=== PATIENT | female | born 1930 | race Caucasian/White ===

== ENCOUNTER 2017-04-17 08:59 | Emergency (ER) | payer BC ==
--- NOTE | 2017-04-17 10:22 | PDOC ---
History of Present Illness <Brandie Edmonds - Last Filed: 04/17/17 12:44> - General History Source: Patient Exam Limitations: No Limitations - History of Present Illness Initial Comments: 04/17/17 10:22 86y F hx of cad s/p bypass afib, presents for evaluation of facial droop. The patient states that 1 week ago, she had some ringing in her ears as well as ear burning, a few days ago, she had some swelling in her R ear as well as some bbubles that he son noticed today. she also noticed a facial droop of theR face. 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 pt does note some pain in the R side of her head. pt denies any rash any where else no fever/chills. no cp, sob, cough <Jordan Mercado - Last Filed: 04/17/17 13:02> - General Chief Complaint: Facial Droop Stated Complaint: FACE DROOP Time Seen by Provider: 04/17/17 09:15 Past History <Brandie Edmonds - Last Filed: 04/17/17 12:44> - Past Medical History Anemia: No Asthma: No Cancer: No Cardiac Disorders: Yes ([place]) CVA: No COPD: No CHF: No Dementia: No Diabetes: No GI Disorders: No Disorders: No HTN: No Hypercholesterolemia: No Liver Disease: No Seizures: No Thyroid Disease: No - Surgical History Abdominal Surgery: No Appendectomy: No Cardiac Surgery: Yes (BYPASS) Cholecystectomy: No Lung Surgery: No Neurologic Surgery: No Orthopedic Surgery: No - Suicide/Smoking/Psychosocial Hx Smoking History: Never smoked Have you smoked in the past 12 months: No <Jordan Mercado - Last Filed: 04/17/17 13:02> - Past Medical History Allergies/Adverse Reactions: Allergies Allergy/AdvReac Type Severity Reaction Status Date / Time No Known Allergies Allergy Verified 04/17/17 09:14 Home Medications: Ambulatory Orders Furosemide [Lasix -] 20 mg PO DAILY 09/11/14 Lisinopril [Prinivil -] 10 mg PO DAILY 09/11/14 Rosuvastatin Calcium [Crestor] 20 mg PO HS 09/11/14 Spironolactone [Aldactone] 25 mg PO DAILY 09/11/14 Warfarin Sodium [Coumadin] 4 mg PO DAILY 09/11/14 Cephalexin Monohydrate [Keflex -] 500 mg PO Q8H #24 capsule 04/17/17 Dextran 70/Hypromellose/Pf [Artificial Tears Drops] 1 each OP Q1H #1 droperette 04/17/17 Gabapentin [Neurontin] 100 mg PO TID #21 capsule 04/17/17 Prednisone [Deltasone -] 60 mg PO DAILY #12 tablet 04/17/17 Valacyclovir HCl [Valtrex -] 1,000 mg PO TID #29 tablet 04/17/17 Review of Systems - Review of Systems Able to Perform ROS?: Yes <Jordan Mercado - Last Filed: 04/17/17 13:02> ED Treatment Course - LABORATORY CBC & Chemistry Diagram: 04/17/17 11:20 04/17/17 11:20 - ADDITIONAL ORDERS Additional order review: 04/17/17 11:20 RBC 3.66 MCV 97.1 H MCHC 33.8 RDW 13.4 MPV 9.3 Neutrophils % 63.6 Lymphocytes % 21.6 Monocytes % 11.8 H Eosinophils % 1.9 Basophils % 1.1 - Medications Given in the ED: ED Medications Discontinued Medications Generic Name Dose Route Start Last Admin Trade Name Natalio PRN Reason Stop Dose Admin Ceftriaxone Sodium 1 gm/ 50 mls @ 100 mls/hr 04/17/17 10:32 04/17/17 11:11 Dextrose IVPB 04/17/17 11:01 100 mls/hr ONCE ONE Administration Prednisone 60 mg 04/17/17 10:32 04/17/17 11:11 Deltasone - PO 04/17/17 10:33 60 mg ONCE ONE Administration <Brandie Edmonds - Last Filed: 04/17/17 12:44> - LABORATORY CBC & Chemistry Diagram: 04/17/17 11:20 04/17/17 11:20 <Jordan Mercado - Last Filed: 04/17/17 13:02> Medical Decision Making - Medical Decision Making 04/17/17 10:50-- Dr. Kofi Fox paged via phone answering service. 04/17/17 11:44--Dr. Kofi Fox returned the page and the patient's case was discussed. 04/17/17 10:57-- Dr. Dietrich paged via office phone number. 04/17/17 12:45-- Dr. Lauren (Doctor consumer credit counselor for Dr. Dietrich) returned the page and the patient's case was discussed. <Brandie Edmonds - Last Filed: 04/17/17 12:44> - Medical Decision Making 04/17/17 11:55 suspect zoster oticus with bells palsy no zoster on tip of nose unable to appreciate any lesions on floursicen stain discussed with dr. danielle agrees with our management can see her before 2 or tomorrow as outpatient if she cannot follow up with her opthho A portion of this note was documented by scribe services under my direction. I have reviewed the details of the note, within reason, and agree with the documentation with the following case summary and management plan written by me 04/17/17 12:53 case dw eri lauren (covering for dr. Núñez - her optho) agrees with our pmanagement and will see the ptaient as outpatient 04/17/17 13:[address] galaviz requests we give her neurontin rather than a narcotic due to her age <Jordan Mercado - Last Filed: 04/17/17 13:02> *DC/Admit/Observation/Transfer - Attestations Scribe Attestion: 04/17/17 12:45 Documentation prepared by Brandie Edmonds, acting as manager medical device for Jordan Mercado MD <Brnadie Edmonds - Last Filed: 04/17/17 12:44> - Discharge Dispostion Admit: No <Jordan Mercado - Last Filed: 04/17/17 13:02> Diagnosis at time of Disposition: Herpes zoster otitis externa, Mercado's palsy Cellulitis Qualifiers: Site of cellulitis: other site Qualified Code(s): L03.818 - Cellulitis of other sites - Discharge Dispostion Disposition: HOME Condition at time of disposition: Improved - Prescriptions Prescriptions: Cephalexin Monohydrate [Keflex -] 500 mg PO Q8H #24 capsule Dextran 70/Hypromellose/Pf [Artificial Tears Drops] 1 each OP Q1H #1 droperette Gabapentin [Neurontin] 100 mg PO TID #21 capsule Prednisone [Deltasone -] 60 mg PO DAILY #12 tablet Valacyclovir HCl [Valtrex -] 1,000 mg PO TID #29 tablet - Referrals Referrals: Cristian Galaviz MD [Primary Care Provider] - Víctor Fox MD [Staff Physician] - - Patient Instructions Printed Discharge Instructions: DI for Mercado's Palsy, DI for Shingles Additional Instructions: Return to the emergency department immediately with ANY new, persistent or worsening symptoms. Please follow up with your eye doctor within 24 hrs, if you cannot reach your eye doctor, see Dr. Matthews. Make sure you are moisturizing your eyes with the artificial tears. When you sleep, tape your eye closed to prevent any corneal abrasisonis. Take the medications as prescribed Print Language: ANGOLAN - Post Discharge Activity
[2017-04-17] MEDS ORDERED: valACYclovir HCL 1000 MG TABLET PO ONE (10:32)
[2017-04-17] MEDS ORDERED: CEFTRIAXONE 1 GM in DEXTROSE 5%-WATER - 50 ML IVPB ONE (10:32)
[2017-04-17] MEDS ORDERED: predniSONE 20 MG TABLET (UD) PO ONE (10:32)
[2017-04-17] MEDS ORDERED: predniSONE 20 MG TABLET (UD) ONE (11:00)
[2017-04-17 11:33] LABS: BASOPHIL 1.1 % (0-2.0); EOSINOPHIL 1.9 % (0-4.5); MCH 32.8 pg (25.7-33.7); MCHC 33.8 g/dl (32.0-36.0); MEAN CELL VOLUME 97.1 fl (80-96); MEAN PLT VOLUME 9.3 fl (7.5-11.1); NEUTROPHILS 63.6 % (42.8-82.8); PLATELET COUNT 141 K/MM3 (134-434); RDW 13.4 % (11.6-15.6); WHITE BLOOD COUNT 3.8 K/mm3 (4.0-10.0)
[2017-04-17 12:02] LABS: INR 3.1 (0.82-1.09)
[2017-04-17 12:10] LABS: ALBUMIN 3.3 g/dl (3.4-5.0); ANION GAP 6 (8-16); BILIRUBIN,TOTAL 0.5 mg/dL (0.2-1.0); CALCIUM 8.1 mg/dL (8.5-10.1); CO2 27 mmol/L (21-32); CREATININE 1.1 mg/dL (0.55-1.02); GLUCOSE,RANDOM 117 mg/dL (74-106); SGOT/AST 22 U/L (15-37); SGPT/ALT 24 U/L (12-78)
[2017-04-17 12:12] LABS: ALK PHOS 58 U/L (45-117); TOT PROT 6.6 g/dl (6.4-8.2)
[2017-04-17] MEDS ORDERED: GABAPENTIN 100 MG CAPSULE (FP) PO ONE (12:52)
[2017-04-17 13:05] VITALS: BP 143/69; PULSE 88; TEMP 98; BMI 26.4
== END 2017-04-17 13:11 | disposition home or self-care (01) ==
LOC: JER 08:59
DX: B02.8 Zoster with other complications (principal); G51.0 Bell's palsy; H60.11 Cellulitis of right external ear; B02.21 Postherpetic geniculate ganglionitis; I25.2 Old myocardial infarction; Z95.1 Presence of aortocoronary bypass graft; I48.91 Unspecified atrial fibrillation; Z79.01 Long term (current) use of anticoagulants
CPT/HCPCS: 36415; 80053; 85025; 85610; 96365; 99285-25

== ENCOUNTER 2018-01-25 20:26 | Inpatient (IN) | payer BC ==
--- NOTE | 2018-01-25 20:49 | PDOC ---
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 The patient presents with B/l edema to the lower extremity and the R. upper arm. As per daughter, the patients been having swelling to the lower extremity for the past 1 week. The daughter reports an additional concern of redness to the R. hand with warmth and pain. The patient was recently seen at the ED on 01/09/2018, admitted to the hospital for B/l lower extremity weakness, difficulty with ambulation, YANICK, and CHF exacerbation. During the stay, the patient was seen by neurology, who recommended careful ambulation with walker didnt note any significant focal neuro deficits or alarming findings on CT or MRI. Arterial u/s was performed on both legs which showed diffuse atheromatous plaques in both legs. The patient was treated for UTI with Ceftriaxone IV. Secondary to tachycardia during the stay, patients Toprol XL was increased from 50 mg to 75 mg PO daily Patient was discharged on 01/17/2018 to [facility] for rehab. Allergies: NKA PCP: Dr. Serrato. - Physicial Exam PE: 01/25/18 21:44 GENERAL: Awake, alert, and fully oriented, in no acute distress HEAD: No signs of trauma EYES: PERRLA, EOMI, sclera anicteric, conjunctiva clear ENT: Auricles normal inspection, hearing grossly normal, nares patent. Moist mucosa NECK: Normal ROM, supple, no lymphadenopathy, JVD, or masses LUNGS: Breath sounds equal, clear to auscultation bilaterally. No wheezes, and no crackles HEART: Regular rate and rhythm, normal S1 and S2, no murmurs, rubs or gallops ABDOMEN: Soft, nontender, normoactive bowel sounds. No guarding, no rebound. No masses EXTREMITIES: (+) 2+ pitting edema to the legs, left larger than the right. Pedial pulse intact. (+) R. upper extremity cellulitis, warm, dorsal surface of the right arm shrieking up to the anterior surface of the forearm, hot to touch. No induration or fluctuations. No compartment syndrome. No erythema or tenderness. DP/PT pulses 2+. NEUROLOGICAL: Moves all extremities. normal gait SKIN: Warm, Dry, normal turgor, no rashes or lesions noted. - Medical Decision Making 01/25/18 20:58 [facility]: Date of service: Jan 23, 2018 Right upper extremity duplex venous doppler History: evaluate for DVT Right upper extremity venous ultrasound including doppler. No DVT is identified. Impression: No DVT is identified. Date of service: Jan 22, 2018 Right hand 3 views Three views of the right hand were submitted for interpretation. No prior study is available for comparison. Radiologic examination demonstrates no fracture/dislocation. 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 There is moderate osteoarthritis all interphalangeal joints, greater thumb and index and index finger. There is osteoporosis. Impression: No fracture/dislocation. 01/25/18 20:59 Documentation prepared by Mely Bragg, acting as medical claims specialist for Shivani Lugo DO. <Mely Bragg - Last Filed: 01/25/18 21:42> - Resident Resident Name: Erich Brito - ED Attending Attestation I have performed the following: I have examined & evaluated the patient, The case was reviewed & discussed with the resident, I agree w/resident's findings & plan, Exceptions are as noted - Medical Decision Making 01/25/18 20:49 I, Dr. Shivani Lugo DO, attest that this document has been prepared under my direction and personally reviewed by me in its entirety. I further attest, that it accurately reflects all work, treatment, procedures and medical decision -making performed by me. 01/25/18 21:24 a/p: 87yo female with RUE redness, warmth, swelling and LE swelling -recent chf exacerbation -outpt LE ultrasound negative for dvt -no orthopnea or PND -will send labs, cultures, will obtain UE dvt study - recent IV access, now with swelling -will start abx for hand cellulitis with lymphangitic spread -will most likely need admission for hand and forearm cellulitis 01/26/18 00:26 resident discussed the case with BONIFACOI who accepts pt to service <Shivani Lugo - Last Filed: 01/26/18 00:26> Heart Score/ECG Review - ECG Intrepretation Comment:: 01/25/18 23:56 afib at 72, pvc, t wave inversions v3-6, abnl ekg <Shivani Lugo - Last Filed: 01/26/18 00:26>
--- NOTE | 2018-01-25 20:51 | PDOC ---
History of Present Illness - General Chief Complaint: Edema Stated Complaint: LEFT SIDE BODY PAIN - History of Present Illness Initial Comments: 01/25/18 20:48 87 yo F with h/o HTN, CKD, CAD s/p CABG (10 years ago), A-Fib (on Eliquis 2.5 mg ), and CHF who p/w BL LE edemea, and right hand redness, and swelling x 1 week. Patient daughter at bedside to assist in report. Patient has been experiencing 1 week of BL LE swelling, and right hand redness, swelling, warmth, and pain. No identifiable triggers or alleviators. Recent admission to [facility] (-01/17 ) For BL LE weakness, difficulty with ambulation, YANICK, and CHF exacerbation. Patient was discharged to [facility] for further treatment/rehabilitation. She lives at home with . RUE Doppler (01/23/18 ) No DVT. Right hand RAD (01/23/18) No fracture or dislocation. BL LE DUPLEX No DVT (01/12/18). Echo 9001/10/18) with EF 50-55%. Patient denies N/V, F/C cough, wheezing, orthopnea, PND, palpitations, CP, SOB, urinary complaints, abdominal pain, diarrhea, constipation, lightheadedness, weakness, sensory changes. PMHx: as noted above ROS: as noted SHx: Denies tobacco, Etoh, IVDA Allergies: NKDA Past History - Past Medical History Allergies/Adverse Reactions: Allergies Allergy/AdvReac Type Severity Reaction Status Date / Time No Known Allergies Allergy Verified 01/25/18 20:43 Home Medications: Ambulatory Orders Rosuvastatin Calcium [Crestor] 20 mg PO HS 09/11/14 Dextran 70/Hypromellose/Pf [Artificial Tears Drops] 1 each OP QID 01/10/18 Apixaban [Eliquis] 2.5 mg PO BID #60 tablet 01/14/18 Torsemide [Demadex -] 10 mg PO DAILY #30 tablet 01/14/18 Metoprolol Succinate [Toprol XL -] 75 mg PO DAILY tab.sr.24h 01/16/18 Docusate Sodium [Colace -] 100 mg PO BID capsule 01/17/18 Gabapentin [Neurontin -] 100 mg PO TID capsule 01/17/18 Sennosides [Senna -] 1 tab PO BID tablet 01/17/18 Anemia: No Asthma: No Cancer: No Cardiac Disorders: Yes (CT,CAD,AF, Tricuspid Regurge) CVA: No COPD: No CHF: Yes DVT: No Dementia: No Diabetes: No GI Disorders: No Disorders: No HTN: Yes Hypercholesterolemia: Yes Liver Disease: No Seizures: No Thyroid Disease: No - Surgical History Abdominal Surgery: No Appendectomy: No Cardiac Surgery: Yes (CABG -BYPASSx 3) Cholecystectomy: No Lung Surgery: No Neurologic Surgery: No Orthopedic Surgery: No - Immunization History Immunization Up to Date: Yes - Suicide/Smoking/Psychosocial Hx Smoking History: Never smoked Have you smoked in the past 12 months: No Hx Alcohol Use: Yes (an occaisional glass of wine w/ shahnaz jatinder) Drug/Substance Use Hx: No Substance Use Type: None Hx Substance Use Treatment: No Review of Systems - Review of Systems Comments:: 01/25/18 21:08 GENERAL/CONSTITUTIONAL: No fever or chills. No weakness. HEAD, EYES, EARS, NOSE AND THROAT: No change in vision. No ear pain or discharge. No sore throat. CARDIOVASCULAR: No chest pain or shortness of breath RESPIRATORY: No cough, wheezing, or hemoptysis. GASTROINTESTINAL: No nausea, vomiting, diarrhea or constipation. GENITOURINARY: No dysuria, frequency, or change in urination. MUSCULOSKELETAL: + BL LE swelling, RUE swelling, redness. No neck or back pain. SKIN: No rash NEUROLOGIC: No headache, vertigo, loss of consciousness, or change in strength/ sensation. ENDOCRINE: No increased thirst. No abnormal weight change HEMATOLOGIC/LYMPHATIC: No anemia, easy bleeding, or history of blood clots. ALLERGIC/IMMUNOLOGIC: No hives or skin allergy. *Physical Exam - Vital Signs Last Vital Signs Temp Pulse Resp BP Pulse Ox 98.2 F 64 18 93/70 97 01/25/18 20:42 01/25/18 20:42 01/25/18 20:42 01/25/18 20:42 01/25/18 20:42 - Physical Exam Comments: 01/25/18 21:09 GENERAL: Awake, alert, and fully oriented, in no acute distress HEAD: No signs of trauma, normocephalic, atraumatic EYES: PERRLA, EOMI, sclera anicteric, conjunctiva clear ENT: Hearing grossly normal, nares patent, oropharynx clear without exudates. Moist mucosa NECK: Normal ROM, supple, no lymphadenopathy, JVD, or masses LUNGS: No distress, speaks full sentences, clear to auscultation bilaterally HEART: Regular rate and rhythm, normal S1 and S2, no murmurs, rubs or gallops, peripheral pulses normal and equal bilaterally. EXTREMITIES : + RUE redness, induration, warmth, ttp, and erythema extending from dorsal hand to volar wrist with streaking at volar forearm. + BLE LE 2 + Pitting edema. Normal range of motion. No clubbing or cyanosis. Faint,but palpable, and symmetric radial, DP, and PT pulses BL. Absent fluctuance. SKIN: Warm, Dry, normal turgor, no rashes or lesions noted ED Treatment Course - LABORATORY CBC & Chemistry Diagram: 01/25/18 21:14 01/25/18 22:45 - RADIOLOGY Radiology Studies Ordered: Category Date Time Status CXRPORT [CHEST X-RAY PORTABLE*] [RAD] Stat Radiology 01/25/18 20:46 Ordered Medical Decision Making - Medical Decision Making 01/25/18 21:08 87 yo F with h/o HTN, CKD, CAD s/p CABG (10 years ago), A-Fib (on Eliquis 2.5 mg ), and CHF who p/w BL LE edemea, and right hand redness, and swelling x 1 week. BP 93/70 ( patient chronically hypotensive d/t medication regimen). Vitals otherwise wnl, AF. + RUE redness, induration, warmth, ttp, and erythema extending from dorsal hand to volar wrist with streaking at volar forearm. + BLE LE 2 + Pitting edema. BL extremities neurovasculalry intact. R/o DVT RUE. Likely RUE/hand and wrist cellulitis, with evidence of lymphangitic spread at R forearm. Will require IV antibiotics. Absent SIRS criteria, skin sloughing, and or evidence of end organ dysfunction. Absent evidence of abscess or compartment syndrome. Will consider CHF exacerbation in setting of BL LE edema, although patient without other clinical s/s of fluid overload. Recent BL LE Duplex Neg for DVT. PMD: Dr. Serrato. Ed Course: CBC, CMP, BNP, Cardiac, PT/INR, LA, UA EKG, CXR, RUE DUPLEX Vancomycin 1g 01/25/18 22:19 WBC: 11.8 (9.2 on 01/14/18) LA: 2.2 01/25/18 23:58 BNP: 3572 NA 130 UA: Neg Admit to med/surg R hand cellulitis. 01/26/18 00:03 EKG:A-fib with PVC's. Absent acute EMELINA, STD. 01/26/18 00:[address] [facility]. Signed out to rodney Monk. *DC/Admit/Observation/Transfer Diagnosis at time of Disposition: Cellulitis of hand - Discharge Dispostion Decision to Admit order: Yes - Referrals Referrals: Avani Serrato MD [Primary Care Provider] - - Patient Instructions - Post Discharge Activity
[2018-01-25] MEDS ORDERED: VANCOMYCIN 1,000 MG in DEXTROSE 5%-WATER - 250 ML IVPB ONE (21:18)
[2018-01-25 21:24] LABS: BASO % 0.3 % (0-2.0); EOS % 1.2 % (0-4.5); HEMATOCRIT 29.2 % (32.4-45.2); HEMOGLOBIN 9.8 GM/dL (10.7-15.3); LYMPH % 11.9 % (8-40); MCH 31.8 pg (25.7-33.7); MCHC 33.7 g/dl (32.0-36.0); MEAN CELL VOLUME 94.3 fl (80-96); MEAN PLT VOLUME 8.2 fl (7.5-11.1); MONO % 10.2 % (3.8-10.2); NEUT % 76.4 % (42.8-82.8); PLATELET COUNT 524 K/MM3 (134-434); RDW 12.9 % (11.6-15.6); WHITE BLOOD COUNT 11.8 K/mm3 (4.0-10.0)
[2018-01-25] MEDS ORDERED: VANCOMYCIN 1 GRAM (PRE-DOCKED) 1,000 MG/250 ML BAG IVPB ONE (21:24)
[2018-01-25 21:54] LABS: URINE APPEARANCE CLEAR; URINE BILIRUBIN NEGATIVE (<2.0 mg/dL); URINE COLOR YELLOW; URINE GLUCOSE (UA) 2+ (NEGATIVE); URINE KETONE NEGATIVE (NEGATIVE); URINE NITRITE NEGATIVE (NEGATIVE); URINE PROTEIN NEGATIVE (NEGATIVE); URINE UROBILINOGEN NEGATIVE mg/dL (0.2-1.0)
[2018-01-25 21:57] LABS: URINE LEUK ESTERASE 1+ (NEGATIVE)
[2018-01-25 21:59] LABS: EPI CELLS RARE /HPF (FEW); URINE BACTERIA RARE /hpf (NONE SEEN)
[2018-01-25 23:43] LABS: ALBUMIN 1.9 g/dl (3.4-5.0); ANION GAP 6 MMOL/L (8-16); BILIRUBIN,TOTAL 0.4 mg/dL (0.2-1.0); BLOOD UREA NITROGEN 25 mg/dL (7-18); CALCIUM 7.7 mg/dL (8.5-10.1); CHLORIDE 91 mmol/L (98-107); CO2 33 mmol/L (21-32); CREATININE 0.9 mg/dL (0.55-1.02); GLUCOSE,RANDOM 209 mg/dL (74-106); MAGNESIUM 2.4 mg/dL (1.8-2.4); POTASSIUM 4.1 mmol/L (3.5-5.1); SGOT/AST 61 U/L (15-37); SGPT/ALT 75 U/L (12-78); SODIUM 130 mmol/L (136-145); TOT PROT 6.1 g/dl (6.4-8.2)
[2018-01-25 23:45] LABS: ALK PHOS 118 U/L (45-117)
[2018-01-25] MEDS ORDERED: SODIUM CHLORIDE 0.9% 500 ML INFUS.BAG IV ONE (23:57)
--- NOTE | 2018-01-26 01:19 | HP ---
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 Patient's daughter noted that the right hand became progressively painful and swollen, with redness and warmth that was spreading to the forearm. Patient does not remember any trauma to the area at the [place]. Patient denies N/V, F/C cough, wheezing, orthopnea, PND, palpitations, CP, SOB, urinary complaints, abdominal pain, diarrhea, constipation, lightheadedness, weakness, sensory changes. On previous admission (01/09/18), patient presented with b/l leg weakness, swelling and difficulty of ambulation. On arterial U/S, she was noted to have diffuse atheromatous plaques in both legs. She has been working with physical therapy with continued improvement of weakness. Patient was discharged to [facility] for continued rehabilitation. On this previous admission, patient was also diagnosed with UTI treated with Ceftriaxone, YANICK, and CHF exacerbation. ER course was notable for: (1) (2) (3) Recent Travel: PAST MEDICAL HISTORY: Mercado's palsy CAD Atrial Fibrillation CHF PAST SURGICAL HISTORY: CBAG (10 years ago) Social History: Smoking:nonsmoker Alcohol:non-EtOH drinker Drugs: denies illicit drug use Family History: Allergies No Known Allergies Allergy (Verified 01/25/18 20:43) HOME MEDICATIONS: Home Medications Medication Instructions Recorded Rosuvastatin Calcium [Crestor] 20 mg PO HS 09/11/14 Dextran 70/Hypromellose/Pf 1 each OP QID 01/10/18 [Artificial Tears Drops] Apixaban [Eliquis] 2.5 mg PO BID #60 tablet 01/14/18 Torsemide [Demadex -] 10 mg PO DAILY #30 tablet 01/14/18 Metoprolol Succinate [Toprol XL -] 75 mg PO DAILY tab.sr.24h 01/16/18 Docusate Sodium [Colace -] 100 mg PO BID capsule 01/17/18 Gabapentin [Neurontin -] 100 mg PO TID capsule 01/17/18 Sennosides [Senna -] 1 tab PO BID tablet 08/30/18 REVIEW OF SYSTEMS CONSTITUTIONAL: Absent: fever, chills, diaphoresis, generalized weakness, malaise, loss of appetite, weight change HEENT: Absent: rhinorrhea, nasal congestion, throat pain, throat swelling, difficulty swallowing, mouth swelling, ear pain, eye pain, visual changes CARDIOVASCULAR: Absent: chest pain, syncope, palpitations, irregular heart rate, lightheadedness , peripheral edema RESPIRATORY: Absent: cough, shortness of breath, dyspnea with exertion, orthopnea, wheezing, stridor, hemoptysis GASTROINTESTINAL: Absent: abdominal pain, abdominal distension, nausea, vomiting, diarrhea, constipation, melena, hematochezia GENITOURINARY: Absent: dysuria, frequency, urgency, hesitancy, hematuria, flank pain, genital pain MUSCULOSKELETAL: right hand swelling Absent: myalgia, arthralgia, joint swelling, back pain, neck pain SKIN: Absent: rash, itching, pallor HEMATOLOGIC/IMMUNOLOGIC: Absent: easy bleeding, easy bruising, lymphadenopathy, frequent infections ENDOCRINE: Absent: unexplained weight gain, unexplained weight loss, heat intolerance, cold intolerance NEUROLOGIC: Absent: headache, focal weakness or paresthesias, dizziness, unsteady gait, seizure, mental status changes, bladder or bowel incontinence PSYCHIATRIC: Absent: anxiety, depression, suicidal or homicidal ideation, hallucinations. PHYSICAL EXAMINATION Vital Signs - 24 hr 01/25/18 01/26/18 20:42 01:02 Temperature 98.2 F Pulse Rate 64 Pulse Rate [ 73 Left] Respiratory 18 17 Rate Blood Pressure 93/70 Blood Pressure 118/62 [Left Arm] O2 Sat by Pulse 97 98 Oximetry (%) GENERAL: Awake, alert, and fully oriented, in no acute distress. HEAD: Normal with no signs of trauma. EYES: PERRLA, EOMI, sclera anicteric, conjunctiva clear. No lid lag. EARS, NOSE, THROAT: Ears normal, nares patent, oropharynx clear without exudates. Dry mucous membranes. NECK: Normal range of motion, supple without lymphadenopathy, JVD, or masses. LUNGS: Breath sounds equal, clear to auscultation bilaterally. HEART: Irregularly irregular without murmur, rub or gallop. ABDOMEN: Soft, nontender, not distended, normoactive bowel sounds. MUSCULOSKELETAL: Normal range of motion at all joints. No CVA tenderness. UPPER EXTREMITIES: RUE: tender, warm, erythematous, swollen from dorsal hand to proximal forearm, pulses +2 LOWER EXTREMITIES: faint, symmetrical pulses, warm, well-perfused. No calf tenderness. +2 b/l pitting edema, +varicose veins NEUROLOGICAL: Cranial nerves II-XII intact. Normal speech. B/L LE: sensation intact, motor 4/5 PSYCHIATRIC: Cooperative. Good eye contact. Appropriate mood and affect. SKIN: Warm, dry, normal turgor, no rashes or lesions. Laboratory Results - last 24 hr 01/25/18 01/25/18 01/25/18 21:14 21:14 21:14 WBC 11.8 H RBC 3.10 L Hgb 9.8 L Hct 29.2 L MCV 94.3 MCH 31.8 MCHC 33.7 RDW 12.9 Plt Count 524 H D MPV 8.2 D Absolute Neuts (auto) 9.0 H Neutrophils % 76.4 Lymphocytes % 11.9 Monocytes % 10.2 Eosinophils % 1.2 Basophils % 0.3 Nucleated RBC % 0 PT with INR INR Sodium Potassium Chloride Carbon Dioxide Anion Gap BUN Creatinine Creat Clearance w eGFR Random Glucose Lactic Acid 2.2 H* Calcium Magnesium Total Bilirubin AST ALT Alkaline Phosphatase Creatine Kinase Cancelled Troponin I Cancelled B-Natriuretic Peptide Cancelled Total Protein Albumin Urine Color Urine Appearance Urine pH Ur Specific [place] Urine Protein Urine Glucose (UA) Urine Ketones Urine Blood Urine Nitrite Urine Bilirubin Urine Urobilinogen Ur Leukocyte Esterase Urine WBC (Auto) Urine RBC (Auto) Ur Epithelial Cells Urine Bacteria 01/25/18 01/25/18 01/25/18 21:14 21:14 21:40 WBC RBC Hgb Hct MCV MCH MCHC RDW Plt Count MPV Absolute Neuts (auto) Neutrophils % Lymphocytes % Monocytes % Eosinophils % Basophils % Nucleated RBC % PT with INR Cancelled INR Cancelled Sodium Cancelled Potassium Cancelled Chloride Cancelled Carbon Dioxide Cancelled Anion Gap Cancelled BUN Cancelled Creatinine Cancelled Creat Clearance w eGFR Cancelled Random Glucose Cancelled Lactic Acid Calcium Cancelled Magnesium Total Bilirubin Cancelled AST Cancelled ALT Cancelled Alkaline Phosphatase Cancelled Creatine Kinase Troponin I B-Natriuretic Peptide Total Protein Cancelled Albumin Cancelled Urine Color Yellow Urine Appearance Clear Urine pH 6.0 Ur Specific [place] 1.012 Urine Protein Negative Urine Glucose (UA) 2+ H Urine Ketones Negative Urine Blood Negative Urine Nitrite Negative Urine Bilirubin Negative Urine Urobilinogen Negative Ur Leukocyte Esterase 1+ H Urine WBC (Auto) 8 Urine RBC (Auto) 2 Ur Epithelial Cells Rare Urine Bacteria Rare 01/25/18 01/25/18 22:45 22:45 WBC RBC Hgb Hct MCV MCH MCHC RDW Plt Count MPV Absolute Neuts (auto) Neutrophils % Lymphocytes % Monocytes % Eosinophils % Basophils % Nucleated RBC % PT with INR INR Sodium 130 L Potassium 4.1 Chloride 91 L Carbon Dioxide 33 H Anion Gap 6 L BUN 25 H Creatinine 0.9 Creat Clearance w eGFR 59.37 Random Glucose 209 H Lactic Acid Calcium 7.7 L Magnesium 2.4 Total Bilirubin 0.4 AST 61 H ALT 75 Alkaline Phosphatase 118 H D Creatine Kinase 20 L Troponin I < 0.02 B-Natriuretic Peptide 3572.45 H Total Protein 6.1 L Albumin 1.9 L Urine Color Urine Appearance Urine pH Ur Specific [place] Urine Protein Urine Glucose (UA) Urine Ketones Urine Blood Urine Nitrite Urine Bilirubin Urine Urobilinogen Ur Leukocyte Esterase Urine WBC (Auto) Urine RBC (Auto) Ur Epithelial Cells Urine Bacteria ASSESSMENT/PLAN: Patient is an 87 year old female with past medical history of Mercado's palsy, 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 #Cellulitis, R hand -WBC 11.8, Lactic acid 2.2 -Duplex scan of upper extremity artery done - pending final read -Vancomycin 1gm and Zosyn 3.375 gm started at the ED -blood cultures pending. -Hand surgery consulted. -ID consulted. #Chronic systolic CHF -CXR: cardiomegaly; no significant interval change from previous admission -Echocardiogram on previous admission: LVEF 50-55% -continue home medications Torsemide 10mg daily #Atrial Fibrillation: rate controlled -continue eliquis 2.5 mg BID and Metoprolol 75 mg daily #Elevated BUN: CKD -probably due to dehydration -encourage increased oral fluid intake -avoid nephrotoxic drugs - NSAIDs, aminoglycosides, contrast dyes. #FEN -not on any standing fluids -encourage increased oral fluid intake -electrolytes wnl, routine bmp monitoring -sodium restricted diet #Prophylaxis -patient on Eliquis 2.5 mg bid #Disposition -admit to obs-tele -full code Visit type - Emergency Visit Emergency Visit: Yes ED Registration Date: 01/26/18 Care time: The patient presented to the Emergency Department on the above date and was hospitalized for further evaluation of their emergent condition. - New Patient This patient is new to me today: Yes Date on this admission: 01/26/18 - Critical Care Critical Care patient: No Hospitalist Screening - Colonoscopy Questionnaire Colonoscopy Questionnaire: Colonoscopy Questionnaire - Patient: 50 - 75 years old and never had a screening colonoscopy: Unknown History of colon or rectal polyps, or CA: Unknown History of IBD, Crohn's disease or UC: Unknown History of abdominal radiation therapy as a child: Unknown - Relative: 1 with colon or rectal CA, or polyps at age 60 or younger: Unknown Colon or rectal CA diagnosed at age 45 or younger: Unknown Multiple relatives with colon or rectal CA: Unknown - Outcome: Screening Result: Negative Screen
[2018-01-26] MEDS ORDERED: PIPERACILLIN/TAZOB 3.375 GM 3.375 GM in DEXTROSE 5%-WATER - 50 ML IVPB ONE (01:36)
[2018-01-26] MEDS ORDERED: ARTIFICIAL TEARS (POLYVINYL ALCOHOL) OPTH DROPS OU PRN (01:45)
[2018-01-26] MEDS ORDERED: PIPERACILLIN/TAZOB 3.375 GM 3.375 GM/50 ML BAG IVPB ONE (01:58)
[2018-01-26 02:15] LABS: INR 1.31 (0.83-1.09); PROTHROMBIN TIME (PATIENT) 14.8 SEC (9.7-13.0)
[2018-01-26 02:17] LABS: ACTIVATED PTT 19.2 SECONDS (25.2-36.5)
[2018-01-26] MEDS ORDERED: DEXTROSE 5%-WATER - 50 ML IVPB ONE (02:44)
[2018-01-26] MEDS ORDERED: PIPERACILLIN/TAZOBACTAM 3.375 GM VIAL IVPB ONE (02:44)
[2018-01-26 04:26] VITALS: BMI 22.4
--- NOTE | 2018-01-26 05:23 | PN ---
Teaching Attending Note Name of Resident: Saida Stephens ATTENDING PHYSICIAN STATEMENT I saw and evaluated the patient. I reviewed the resident's note and discussed the case with the resident. I agree with the resident's findings and plan as documented. SUBJECTIVE: OBJECTIVE: ASSESSMENT AND PLAN: patient is admitted for hand cellulitis start the patient on vancomycin and zosyn c/w home medication pain management consult hand surgery
[2018-01-26] MEDS: GABAPENTIN 100 MG CAPSULE (FP) PO SCH ×4 (06:59→21:14)
[2018-01-26 07:52] LABS: HEMATOCRIT 28.9 % (32.4-45.2); HEMOGLOBIN 9.9 GM/dL (10.7-15.3); MCHC 34.2 g/dl (32.0-36.0); MEAN CELL VOLUME 93.5 fl (80-96); MEAN PLT VOLUME 7.2 fl (7.5-11.1); PLATELET COUNT 435 K/MM3 (134-434); RBC 3.09 M/mm3 (3.60-5.2); RDW 12.5 % (11.6-15.6); WHITE BLOOD COUNT 10.9 K/mm3 (4.0-10.0)
[2018-01-26 08:29] LABS: ANION GAP 9 MMOL/L (8-16); BLOOD UREA NITROGEN 21 mg/dL (7-18); CHLORIDE 96 mmol/L (98-107); CO2 29 mmol/L (21-32); CREATININE 0.8 mg/dL (0.55-1.02); GLUCOSE,RANDOM 120 mg/dL (74-106); MAGNESIUM 2.3 mg/dL (1.8-2.4); PHOSPHOROUS 3.7 mg/dL (2.5-4.9); POTASSIUM 4.2 mmol/L (3.5-5.1); SODIUM 134 mmol/L (136-145)
--- NOTE | 2018-01-26 08:36 | PN ---
Progress Note (short form) - Note Progress Note: ID consult dictated imp/reccd 87 year old female admitted with swelling and pain right hand erythema on admission extending to forearm no fevers no trauma pnh chf cad cellulitis xray hand duplex pending continue vancomycin- recent admission to the hospital Problem List - Problems (1) Cellulitis of hand Code(s): L03.119 - CELLULITIS OF UNSPECIFIED PART OF LIMB
--- NOTE | 2018-01-26 09:07 | CONS ---
DATE OF CONSULTATION: DATE OF DICTATION: 01/26/2018 REQUESTING PHYSICIAN: Anthony Lewis MD HISTORY: This is an 87-year-old woman who was recently in the hospital in December of this year when she was admitted with leg weakness from home. She was found on that admission to have a urinary tract infection. She was treated with ceftriaxone from the to the . She was discharged on the to a SNF for rehabilitation. While at rehabilitation, she was noted to have pain in her right hand, which has progressed. She is unable to close her hand due to the pain. She has erythema and swelling. She denies any fevers or chills. She was seen in the emergency room last night. She had a duplex done the results of which are pending. She was given vancomycin and Zosyn and admitted for further care. She denies any trauma to the hand. She denies any falls. PAST MEDICAL HISTORY: Notable for this recent admission in December from the to the . Diagnoses at the time of discharge included CHF exacerbation, chronic kidney disease, UTI, and difficulty with ambulation. She carries a past medical history of Mercado palsy, coronary artery disease, atrial fibrillation, and heart failure. PAST SURGICAL HISTORY: Notable for a bypass 10 years ago. ALLERGIES: She has no known drug allergies. MEDICATIONS: Include Crestor, Eliquis, Demadex, Toprol XL, Colace, Neurontin, and Senna. SOCIAL HISTORY: There is no history of cigarette or substance use. Prior to the SNF admission at the end of December, she was living in the community. REVIEW OF SYSTEMS: She has complaints of continued pain in her right hand. She reports less erythema. She is still unable to make a fist. She has chronic arthritis but reports no joint swellings in any of her other limbs. She denies any fevers or chills. PHYSICAL EXAMINATION: General: She is a very pleasant elderly woman. Vital Signs: Temperature 97.6, pulse of 89, blood pressure 111/60, respiratory rate is 20. HEENT: She is normocephalic. Her eyes are anicteric. Neck: Supple. Lungs: Clear to auscultation. Heart: Irregular. Abdomen: Soft and nontender. Extremities: Notable for diffuse erythema of her right hand. There is minimal extension to the forearm, which apparently there was in the emergency room. She has arthritic changes of both her hands. DIAGNOSTIC DATA: Labs are notable for a white count on admission of 11.8, today 10.9, hemoglobin 9.9, platelets 435, INR 1.3, BUN 21, creatinine 0.8. Urinalysis has 8 white cells. Blood cultures are pending at this time. In summary, this is an 87-year-old woman with a history of CHF, coronary artery disease admitted currently in rehabilitation to improve her ambulation. Admitted with cellulitis of the hand. Duplex is pending. I would suggest we x-ray the hand to make sure she has no fracture. Would continue vancomycin alone. Do not see a need to continue the Zosyn. Would adjust her dose for her age and renal function. I think MRSA coverage is appropriate given the very recent admission to the hospital. Further recommendations to follow. ALISSON RUSSO M.D. [id number]
[2018-01-26] MEDS ORDERED: PT OWN MED DRAWER 7, Y5N ONE (10:15)
[2018-01-26] MEDS: APIXABAN 2.5 MG TABLET PO SCH ×2 (10:16→21:14)
[2018-01-26] MEDS: DOCUSATE SODIUM 100 MG CAPSULE (FP) PO SCH ×2 (10:16→21:15)
[2018-01-26] MEDS: SENNOSIDES 8.6MG TABLET (FP) PO SCH ×2 (10:16→21:14)
--- NOTE | 2018-01-26 12:10 | CONSULT ---
Consult Consult Specialty:: Hand and Microsurgery Reason for Consultation:: right hand cellulitis - History of Present Illness Chief Complaint: right hand swelling History of Present Illness: 87 yo RHD female with PMH Monk's palsy, CAD s/p CBAG (10 years ago), A.Fib, and CHF, was brought in from [facility] due to right hand swelling and redness for 1 week. She was recently admitted and had an ipselateral painfu IV in [facility]. Patient's daughter noted that the right hand became progressively painful and swollen, with redness and warmth that was spreading to the forearm. Patient does not remember any trauma to the area at the [place]. Patient denies N/V, F/C cough, wheezing, orthopnea, PND, palpitations, CP, SOB, urinary complaints, abdominal pain, diarrhea, constipation, lightheadedness, weakness, sensory changes. We were asked to assess. - History Source History Provided By: Patient, Medical Record Limitations to Obtaining History: No Limitations - Past Medical History Cardio/Vascular: Yes: CHF, HTN Renal/: Yes: Renal Inusuff - Alcohol/Substance Use Hx Alcohol Use: Yes (an occaisional glass of wine w/ shahnaz jatinder) - Smoking History Smoking history: Never smoked Have you smoked in the past 12 months: No Home Medications - Allergies Allergies/Adverse Reactions: Allergies Allergy/AdvReac Type Severity Reaction Status Date / Time No Known Allergies Allergy Verified 01/25/18 20:43 - Home Medications Home Medications: Ambulatory Orders Rosuvastatin Calcium [Crestor] 20 mg PO HS 09/11/14 Dextran 70/Hypromellose/Pf [Artificial Tears Drops] 1 each OP QID 01/10/18 Apixaban [Eliquis] 2.5 mg PO BID #60 tablet 01/14/18 Torsemide [Demadex -] 10 mg PO DAILY #30 tablet 01/14/18 Metoprolol Succinate [Toprol XL -] 75 mg PO DAILY tab.sr.24h 01/16/18 Docusate Sodium [Colace -] 100 mg PO BID capsule 01/17/18 Sennosides [Senna -] 1 tab PO BID tablet 01/17/18 Review of Systems - Review of Systems Constitutional: denies: Chills, Fever Eyes: denies: Blind Spots, Blurred Vision HENT: denies: Difficult Swallowing Physical Exam Vital Signs: Vital Signs Temperature 97.6 F 01/26/18 06:00 Pulse Rate 89 01/26/18 06:00 Respiratory Rate 20 01/26/18 06:00 Blood Pressure 111/60 01/26/18 06:00 O2 Sat by Pulse Oximetry (%) 97 01/26/18 02:30 Constitutional: Yes: Well Nourished, No Distress, Calm, Thin Eyes: Yes: Conjunctiva Clear, EOM Intact, Ptosis (right) HENT: Yes: Atraumatic, Normocephalic Neck: Yes: Supple, Trachea Midline Cardiovascular: Yes: Regular Rate and Rhythm, S1, S2 Respiratory: Yes: Regular, CTA Bilaterally Gastrointestinal: Yes: Normal Bowel Sounds, Soft. No: Tenderness ...Rectal Exam: Yes: Deferred Renal/: No: CVA Tenderness - Left, CVA Tenderness - Right Musculoskeletal: Yes: Joint Stiffness, Joint Swelling Extremities: Yes: Erythema (right hand dorsum). No: Cool, Cyanosis Edema: Yes Edema: RUE: 1+ (limited to the dorsum of the hand), LLE: 2+ (compressions stockings on ), RLE: 2+ Integumentary: Yes: Venous Stasis Changes (both legs below knee). No: Jaundice , Rash Neurological: Yes: Alert, Oriented Psychiatric: Yes: Alert, Oriented Labs: CBC, BMP 01/26/18 07:00 01/26/18 07:00 Imaging - Results X-ray: Report Reviewed, Image Reviewed (no fracture or dislocation seen, OA changes seen) Ultrasound: Report Reviewed, Image Reviewed (negative for UE dvt) Problem List - Problems (1) Cellulitis of hand Assessment/Plan: 87yo female MMP with cellulitis right hand possibly secondary to minor IV site infection, will likely resolve with antibiotics alone. no surgical intervention needed. elevation of right hand above heart IV antibiotics per ID PT evaluation for ROM Thank you for the opportunity to participate in the care of this patient. Code(s): L03.119 - CELLULITIS OF UNSPECIFIED PART OF LIMB (2) Afib Code(s): I48.91 - UNSPECIFIED ATRIAL FIBRILLATION Qualifiers: Atrial fibrillation type: chronic Qualified Code(s): I48.2 - Chronic atrial fibrillation (3) CHF (congestive heart failure) Code(s): I50.9 - HEART FAILURE, UNSPECIFIED Qualifiers: Heart failure type: systolic Heart failure chronicity: chronic Qualified Code(s): I50.22 - Chronic systolic (congestive) heart failure (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 (5) CKD (chronic kidney disease) Code(s): N18.9 - CHRONIC KIDNEY DISEASE, UNSPECIFIED
[2018-01-26] MEDS: TORSEMIDE 10 MG TABLET PO SCH (12:17)
[2018-01-26] MEDS: ACETAMINOPHEN 325 MG TABLET (FP) PO PRN (12:39)
--- NOTE | 2018-01-26 13:04 | PN ---
Progress Note, Physician - Current Medication List Current Medications: Active Medications Acetaminophen (Tylenol -) 650 mg PO Q6H PRN PRN Reason: Fever Last Admin: 01/26/18 12:39 Dose: 650 mg Apixaban (Eliquis -) 2.5 mg PO BID [facility] Last Admin: 01/26/18 10:16 Dose: 2.5 mg Artificial Tears (Artificial Tears) 1 drop OU Q24H PRN PRN Reason: DRY EYES Docusate Sodium (Colace -) 100 mg PO BID [facility] Last Admin: 01/26/18 10:16 Dose: 100 mg Gabapentin (Neurontin -) 100 mg PO TID [facility] Last Admin: 01/26/18 06:59 Dose: 100 mg Vancomycin HCl 750 mg/ (Dextrose) 250 mls @ 166.667 mls/hr IVPB Q24H [facility]; Protocol Metoprolol Succinate (Toprol Xl -) 75 mg PO DAILY [facility] Last Admin: 01/26/18 10:16 Dose: 75 mg Rosuvastatin Calcium (Crestor -) 20 mg PO [facility] Senna (Senna -) 1 tab PO BID [facility] Last Admin: 01/26/18 10:16 Dose: 1 tab Torsemide (Demadex -) 10 mg PO DAILY [facility] Last Admin: 01/26/18 12:17 Dose: 10 mg - Objective Vital Signs: Vital Signs Temperature 98.4 F 01/26/18 10:00 Pulse Rate 84 01/26/18 10:00 Respiratory Rate 18 01/26/18 10:00 Blood Pressure 93/59 01/26/18 10:00 O2 Sat by Pulse Oximetry (%) 97 01/26/18 02:30 Cardiovascular: Yes: S1, S2 Respiratory: Yes: Regular, CTA Bilaterally Gastrointestinal: Yes: Normal Bowel Sounds, Soft Edema: No Integumentary: Yes: Erythema ( right hand) Labs: CBC, BMP 01/26/18 07:00 01/26/18 07:00 INR, PTT INR 1.31 (0.83-1.09) H 01/26/18 01:53 Problem List - Problems (1) Cellulitis of hand Assessment/Plan: -WBC 11.8, Lactic acid 2.2 -Duplex scan of upper extremity artery done - -Vancomycin 1gm and Zosyn 3.375 gm started at the ED -blood cultures pending. -Hand surgery consulted. -ID consulted. Code(s): L03.119 - CELLULITIS OF UNSPECIFIED PART OF LIMB (2) CHF exacerbation Code(s): I50.9 - HEART FAILURE, UNSPECIFIED (3) CKD (chronic kidney disease) Assessment/Plan: -probably due to dehydration -encourage increased oral fluid intake -avoid nephrotoxic drugs - NSAIDs, aminoglycosides, contrast dyes. -not on any standing fluids Code(s): N18.9 - CHRONIC KIDNEY DISEASE, UNSPECIFIED (4) CHF (congestive heart failure) Assessment/Plan: -Chronic -CXR: cardiomegaly; no significant interval change from previous admission -Echocardiogram on previous admission: LVEF 50-55% -continue home medications Torsemide 10mg daily Code(s): I50.9 - HEART FAILURE, UNSPECIFIED (5) Afib Assessment/Plan: - rate controlled -continue eliquis 2.5 mg BID and Metoprolol 75 mg daily Code(s): I48.91 - UNSPECIFIED ATRIAL FIBRILLATION
[2018-01-26] MEDS: VANCOMYCIN 750 MG in DEXTROSE 5%-WATER - 250 ML IVPB SCH (20:27)
[2018-01-26] MEDS ORDERED: ROSUVASTATIN CA 10 MG TABLET (FP) ONE (21:03)
[2018-01-26] MEDS: ROSUVASTATIN CA 20 MG TABLET (FP) PO SCH (21:15)
[2018-01-27] MEDS: GABAPENTIN 100 MG CAPSULE (FP) PO SCH ×3 (05:59→21:09)
[2018-01-27 08:03] LABS: BASO % 1.1 % (0-2.0); EOS % 1.5 % (0-4.5); HEMATOCRIT 26.8 % (32.4-45.2); HEMOGLOBIN 8.8 GM/dL (10.7-15.3); LYMPH % 11.5 % (8-40); MCH 30.6 pg (25.7-33.7); MCHC 32.7 g/dl (32.0-36.0); MEAN CELL VOLUME 93.4 fl (80-96); MEAN PLT VOLUME 7.1 fl (7.5-11.1); MONO % 8.5 % (3.8-10.2); NEUT % 77.4 % (42.8-82.8); PLATELET COUNT 397 K/MM3 (134-434); RBC 2.87 M/mm3 (3.60-5.2); RDW 12.6 % (11.6-15.6); WHITE BLOOD COUNT 10.5 K/mm3 (4.0-10.0)
--- NOTE | 2018-01-27 08:09 | PN ---
Progress Note, Physician - Current Medication List Current Medications: Active Medications Acetaminophen (Tylenol -) 650 mg PO Q6H PRN PRN Reason: Fever Last Admin: 01/26/18 12:39 Dose: 650 mg Apixaban (Eliquis -) 2.5 mg PO BID [facility] Last Admin: 01/26/18 21:14 Dose: 2.5 mg Artificial Tears (Artificial Tears) 1 drop OU Q24H PRN PRN Reason: DRY EYES Docusate Sodium (Colace -) 100 mg PO BID [facility] Last Admin: 01/26/18 21:15 Dose: 100 mg Gabapentin (Neurontin -) 100 mg PO TID [facility] Last Admin: 01/27/18 05:59 Dose: 100 mg Vancomycin HCl 750 mg/ (Dextrose) 250 mls @ 166.667 mls/hr IVPB Q24H [facility]; Protocol Last Admin: 01/26/18 20:27 Dose: 166.667 mls/hr Metoprolol Succinate (Toprol Xl -) 75 mg PO DAILY [facility] Last Admin: 01/26/18 10:16 Dose: 75 mg Rosuvastatin Calcium (Crestor -) 20 mg PO HS [facility] Last Admin: 01/26/18 21:15 Dose: 20 mg Senna (Senna -) 1 tab PO BID [facility] Last Admin: 01/26/18 21:14 Dose: 1 tab Torsemide (Demadex -) 10 mg PO DAILY [facility] Last Admin: 01/26/18 12:17 Dose: 10 mg - Objective Vital Signs: Vital Signs Temperature 99.2 F 01/27/18 05:39 Pulse Rate 90 01/27/18 05:39 Respiratory Rate 20 01/27/18 05:39 Blood Pressure 95/52 01/27/18 05:39 O2 Sat by Pulse Oximetry (%) 97 01/26/18 21:00 Labs: INR, PTT INR 1.31 (0.83-1.09) H 01/26/18 01:53 Problem List - Problems (1) Cellulitis of hand Code(s): L03.119 - CELLULITIS OF UNSPECIFIED PART OF LIMB (2) CHF exacerbation Code(s): I50.9 - HEART FAILURE, UNSPECIFIED (3) CKD (chronic kidney disease) Code(s): N18.9 - CHRONIC KIDNEY DISEASE, UNSPECIFIED (4) CHF (congestive heart failure) Code(s): I50.9 - HEART FAILURE, UNSPECIFIED Qualifiers: Heart failure type: systolic Heart failure chronicity: chronic Qualified Code(s): I50.22 - Chronic systolic (congestive) heart failure (5) Afib Code(s): I48.91 - UNSPECIFIED ATRIAL FIBRILLATION Qualifiers: Atrial fibrillation type: chronic Qualified Code(s): I48.2 - Chronic atrial fibrillation
[2018-01-27 08:51] LABS: ALBUMIN 1.6 g/dl (3.4-5.0); ANION GAP 7 MMOL/L (8-16); BLOOD UREA NITROGEN 18 mg/dL (7-18); CALCIUM 7.7 mg/dL (8.5-10.1); CHLORIDE 97 mmol/L (98-107); CO2 30 mmol/L (21-32); CREATININE 0.7 mg/dL (0.55-1.02); GLUCOSE,RANDOM 98 mg/dL (74-106); SGOT/AST 39 U/L (15-37); SGPT/ALT 51 U/L (12-78); SODIUM 134 mmol/L (136-145)
[2018-01-27 08:53] LABS: ALK PHOS 87 U/L (45-117); BILIRUBIN,TOTAL 0.5 mg/dL (0.2-1.0); TOT PROT 5.3 g/dl (6.4-8.2)
[2018-01-27] MEDS ORDERED: PT OWN MED DRAWER 7, Y5N ONE ×2 (09:37→19:45)
--- NOTE | 2018-01-27 09:40 | PN ---
Progress Note (short form) - Note Progress Note: hand much improved xray no fracture Vital Signs Period Temp Pulse Resp BP Sys/[place] Pulse Ox Last 24 Hr 97.9 F-99.2 F 80-90 18-20 90-104/52-62 97 cor-rrr lungs clear abd soft,nt ext minimal erythema of the right hand CBC, BMP 01/27/18 06:10 01/27/18 06:10 Microbiology 01/25/18 21:14 Blood - Peripheral Venous Blood Culture - Preliminary NO GROWTH OBTAINED AFTER 24 HOURS, INCUBATION TO CONTINUE FOR 4 DAYS. 01/25/18 21:14 Blood - Peripheral Venous Blood Culture - Preliminary NO GROWTH OBTAINED AFTER 24 HOURS, INCUBATION TO CONTINUE FOR 4 DAYS. a/p cellulitis-resolving xray hand negaive duplex no DVT continue vancomycin today f/u cultures if hand continues to improve can switch to po keflex in am 500 bid for 5 days Problem List - Problems (1) Cellulitis of hand Code(s): L03.119 - CELLULITIS OF UNSPECIFIED PART OF LIMB
[2018-01-27] MEDS: SENNOSIDES 8.6MG TABLET (FP) PO SCH ×2 (09:45→21:09)
[2018-01-27] MEDS: APIXABAN 2.5 MG TABLET PO SCH ×2 (09:45→21:09)
[2018-01-27] MEDS: DOCUSATE SODIUM 100 MG CAPSULE (FP) PO SCH ×2 (09:46→21:09)
[2018-01-27] MEDS: TORSEMIDE 10 MG TABLET PO SCH (09:46)
--- NOTE | 2018-01-27 15:13 | PN ---
Progress Note, Physician - Current Medication List Current Medications: Active Medications Acetaminophen (Tylenol -) 650 mg PO Q6H PRN PRN Reason: Fever Last Admin: 01/26/18 12:39 Dose: 650 mg Apixaban (Eliquis -) 2.5 mg PO BID [facility] Last Admin: 01/27/18 09:45 Dose: 2.5 mg Artificial Tears (Artificial Tears) 1 drop OU Q24H PRN PRN Reason: DRY EYES Docusate Sodium (Colace -) 100 mg PO BID [facility] Last Admin: 01/27/18 09:46 Dose: 100 mg Gabapentin (Neurontin -) 100 mg PO TID [facility] Last Admin: 01/27/18 05:59 Dose: 100 mg Vancomycin HCl 750 mg/ (Dextrose) 250 mls @ 166.667 mls/hr IVPB Q24H [facility]; Protocol Last Admin: 01/26/18 20:27 Dose: 166.667 mls/hr Metoprolol Succinate (Toprol Xl -) 75 mg PO DAILY [facility] Last Admin: 01/27/18 09:45 Dose: 75 mg Rosuvastatin Calcium (Crestor -) 20 mg PO [facility] Last Admin: 01/26/18 21:15 Dose: 20 mg Senna (Senna -) 1 tab PO BID [facility] Last Admin: 01/27/18 09:45 Dose: 1 tab Torsemide (Demadex -) 10 mg PO DAILY [facility] Last Admin: 01/27/18 09:46 Dose: 10 mg - Objective Vital Signs: Vital Signs Temperature 99.2 F 01/27/18 05:39 Pulse Rate 90 01/27/18 05:39 Respiratory Rate 20 01/27/18 05:39 Blood Pressure 95/52 01/27/18 05:39 O2 Sat by Pulse Oximetry (%) 97 01/26/18 21:00 Cardiovascular: Yes: S1, S2 Respiratory: Yes: Regular, CTA Bilaterally Gastrointestinal: Yes: Normal Bowel Sounds, Soft Extremities: Yes: Erythema (LESS RT HAND) Labs: CBC, BMP 01/27/18 06:10 01/27/18 06:10 INR, PTT INR 1.31 (0.83-1.09) H 01/26/18 01:53 Problem List - Problems (1) Cellulitis of hand Assessment/Plan: -WBC 11.8, Lactic acid 2.2 -Duplex scan of upper extremity artery done - -Vancomycin 1gm and Zosyn 3.375 gm started at the ED -blood cultures pending. -Hand surgery consulted. -ID consulted--NOTED--VANCO X 24 HRS Code(s): L03.119 - CELLULITIS OF UNSPECIFIED PART OF LIMB (2) CKD (chronic kidney disease) Assessment/Plan: -probably due to dehydration -encourage increased oral fluid intake -avoid nephrotoxic drugs - NSAIDs, aminoglycosides, contrast dyes. -not on any standing fluids Code(s): N18.9 - CHRONIC KIDNEY DISEASE, UNSPECIFIED (3) CHF (congestive heart failure) Assessment/Plan: -Chronic -CXR: cardiomegaly; no significant interval change from previous admission -Echocardiogram on previous admission: LVEF 50-55% -continue home medications Torsemide 10mg daily Code(s): I50.9 - HEART FAILURE, UNSPECIFIED Qualifiers: Heart failure type: systolic Heart failure chronicity: chronic Qualified Code(s): I50.22 - Chronic systolic (congestive) heart failure (4) Afib Assessment/Plan: - rate controlled -continue eliquis 2.5 mg BID and Metoprolol 75 mg daily Code(s): I48.91 - UNSPECIFIED ATRIAL FIBRILLATION Qualifiers: Atrial fibrillation type: chronic Qualified Code(s): I48.2 - Chronic atrial fibrillation
[2018-01-27] MEDS: ACETAMINOPHEN 325 MG TABLET (FP) PO PRN (16:14)
[2018-01-27] MEDS: VANCOMYCIN 750 MG in DEXTROSE 5%-WATER - 250 ML IVPB SCH (19:57)
[2018-01-27] MEDS ORDERED: ROSUVASTATIN CA 10 MG TABLET (FP) ONE (21:06)
[2018-01-27] MEDS: ROSUVASTATIN CA 20 MG TABLET (FP) PO SCH (21:09)
[2018-01-28] MEDS: ACETAMINOPHEN 325 MG TABLET (FP) PO PRN ×3 (00:58→20:04)
[2018-01-28] MEDS: GABAPENTIN 100 MG CAPSULE (FP) PO SCH ×2 (06:12→14:24)
[2018-01-28] MEDS: TORSEMIDE 10 MG TABLET PO SCH (10:08)
[2018-01-28] MEDS: DOCUSATE SODIUM 100 MG CAPSULE (FP) PO SCH ×2 (10:08→21:57)
[2018-01-28] MEDS: APIXABAN 2.5 MG TABLET PO SCH ×2 (10:09→21:57)
[2018-01-28] MEDS: SENNOSIDES 8.6MG TABLET (FP) PO SCH ×2 (10:09→21:57)
[2018-01-28] MEDS ORDERED: PT OWN MED DRAWER 7, Y5N ONE ×2 (10:17→20:12)
--- NOTE | 2018-01-28 11:12 | EKG ---
Test Reason : Blood Pressure : / mmHG Vent. Rate : 071 BPM Atrial Rate : 076 BPM P-R Int : 000 ms QRS Dur : 110 ms QT Int : 426 ms P-R-T Axes : 000 -26 -11 degrees QTc Int : 462 ms ATRIAL FIBRILLATION WITH PREMATURE VENTRICULAR OR ABERRANTLY CONDUCTED COMPLEXES RSR' OR QR PATTERN IN V1 SUGGESTS RIGHT VENTRICULAR CONDUCTION DELAY MINIMAL VOLTAGE CRITERIA FOR LVH, MAY BE NORMAL VARIANT SEPTAL INFARCT (CITED ON OR BEFORE 09-JAN-2018) T WAVE ABNORMALITY, CONSIDER ANTEROLATERAL ISCHEMIA ABNORMAL ECG WHEN COMPARED WITH ECG OF 09-JAN-2018 21:06, PREMATURE VENTRICULAR COMPLEXES ARE SEEN Confirmed by BHARAT STILL MD ([id number]) on 01/28/2018 11:11:37 AM Referred By: Confirmed By:BHARAT STILL MD
--- NOTE | 2018-01-28 15:00 | PN ---
Progress Note, Physician Chief Complaint: EVENTS REVIEWED SON BEDSIDE AWAKE HOWEVER PER SON APPEARS CONFUSED WAS ON GABAPENTIN AND STOPPED I THE PAST BECAUSE OF CONFUSION AND LETHARGY - Current Medication List Current Medications: Active Medications Acetaminophen (Tylenol -) 650 mg PO Q6H PRN PRN Reason: Fever Last Admin: 01/28/18 10:19 Dose: 650 mg Apixaban (Eliquis -) 2.5 mg PO BID [facility] Last Admin: 01/28/18 10:09 Dose: 2.5 mg Artificial Tears (Artificial Tears) 1 drop OU Q24H PRN PRN Reason: DRY EYES Docusate Sodium (Colace -) 100 mg PO BID [facility] Last Admin: 01/28/18 10:08 Dose: 100 mg Vancomycin HCl 750 mg/ (Dextrose) 250 mls @ 166.667 mls/hr IVPB Q24H [facility]; Protocol Last Admin: 01/27/18 19:57 Dose: 166.667 mls/hr Metoprolol Succinate (Toprol Xl -) 75 mg PO DAILY [facility] Last Admin: 01/28/18 10:09 Dose: 75 mg Rosuvastatin Calcium (Crestor -) 20 mg PO HS [facility] Last Admin: 01/27/18 21:09 Dose: 20 mg Senna (Senna -) 1 tab PO BID [facility] Last Admin: 01/28/18 10:09 Dose: 1 tab Torsemide (Demadex -) 10 mg PO DAILY [facility] Last Admin: 01/28/18 10:08 Dose: 10 mg - Objective Vital Signs: Vital Signs Temperature 98.6 F 01/28/18 10:00 Pulse Rate 104 H 01/28/18 10:00 Respiratory Rate 20 01/28/18 10:00 Blood Pressure 106/59 01/28/18 10:00 O2 Sat by Pulse Oximetry (%) 99 01/28/18 09:00 Constitutional: Yes: Mild Distress Eyes: Yes: Ptosis, Other HENT: Yes: WNL Neck: Yes: WNL Cardiovascular: Yes: Pulse Irregular Respiratory: Yes: WNL Gastrointestinal: Yes: WNL Genitourinary: Yes: Incontinence Musculoskeletal: Yes: Muscle Weakness Extremities: Yes: WNL Edema: Yes Edema: LLE: 1+, RLE: 1+ Peripheral Pulses WNL: Yes Integumentary: Yes: Erythema Wound/Incision: Yes: Open to air, Reddened, Unapproximated ...Motor Strength: RUE Psychiatric: Yes: Other Labs: CBC, BMP 01/27/18 06:10 01/27/18 06:10 INR, PTT INR 1.31 (0.83-1.09) H 01/26/18 01:53 Problem List - Problems (1) Toxic metabolic encephalopathy Code(s): G92 - TOXIC ENCEPHALOPATHY (2) Afib Code(s): I48.91 - UNSPECIFIED ATRIAL FIBRILLATION Qualifiers: Atrial fibrillation type: chronic Qualified Code(s): I48.2 - Chronic atrial fibrillation (3) Cellulitis of hand Code(s): L03.119 - CELLULITIS OF UNSPECIFIED PART OF LIMB (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
[2018-01-28 16:42] LABS: HEMATOCRIT 29.2 % (32.4-45.2); HEMOGLOBIN 10.1 GM/dL (10.7-15.3); MCH 32.2 pg (25.7-33.7); MCHC 34.6 g/dl (32.0-36.0); MEAN CELL VOLUME 93.1 fl (80-96); MEAN PLT VOLUME 7.2 fl (7.5-11.1); PLATELET COUNT 486 K/MM3 (134-434); RBC 3.14 M/mm3 (3.60-5.2); RDW 12.9 % (11.6-15.6); WHITE BLOOD COUNT 10.3 K/mm3 (4.0-10.0)
[2018-01-28 17:09] LABS: ALBUMIN 1.9 g/dl (3.4-5.0); ALK PHOS 101 U/L (45-117); ANION GAP 10 MMOL/L (8-16); BILIRUBIN,TOTAL 0.4 mg/dL (0.2-1.0); BLOOD UREA NITROGEN 19 mg/dL (7-18); CHLORIDE 100 mmol/L (98-107); CO2 26 mmol/L (21-32); CREATININE 0.7 mg/dL (0.55-1.02); GLUCOSE,RANDOM 131 mg/dL (74-106); POTASSIUM 3.9 mmol/L (3.5-5.1); SGOT/AST 39 U/L (15-37); SGPT/ALT 49 U/L (12-78); SODIUM 136 mmol/L (136-145); TOT PROT 6.1 g/dl (6.4-8.2)
[2018-01-28] MEDS: AMINO ACIDS/PROTEIN HYDROLYS 30 ML LIQUID.PKT PO SCH (17:10)
[2018-01-28 17:59] LABS: ERYTHROCYTE SEDIMENTATION RATE 116 mm/hr (0-30)
[2018-01-28] MEDS ORDERED: ROSUVASTATIN CA 10 MG TABLET (FP) ONE (21:55)
[2018-01-28] MEDS: VANCOMYCIN 750 MG in DEXTROSE 5%-WATER - 250 ML IVPB SCH (21:57)
[2018-01-28] MEDS: ROSUVASTATIN CA 20 MG TABLET (FP) PO SCH (21:58)
[2018-01-29] MEDS: ACETAMINOPHEN 325 MG TABLET (FP) PO PRN ×3 (04:35→21:54)
[2018-01-29] MEDS: AMINO ACIDS/PROTEIN HYDROLYS 30 ML LIQUID.PKT PO SCH ×2 (08:35→16:40)
--- NOTE | 2018-01-29 09:25 | CONSULT ---
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 due to right hand swelling and redness for 1 week. Reportedly, daughter noted that the right hand became progressively painful and swollen, with redness and warmth that was spreading to the forearm. Patient does not remember any trauma to the area at the [place]. Was here last month with b/l leg weakness, swelling and difficulty of ambulation. On arterial U/S, she was noted to have diffuse atheromatous plaques in both legs. She has been working with physical therapy with continued improvement of weakness. Patient was discharged to [facility] for continued rehabilitation. On this previous admission, patient was also diagnosed with UTI treated with Ceftriaxone, YANICK, and CHF exacerbation. For this admission, consulted for AMS though during my evaluation appears to be at baseline. Was awake, alert, communicative, knows she's at [facility]. PAST MEDICAL HISTORY: Mercado's palsy CAD Atrial Fibrillation CHF PAST SURGICAL HISTORY: CBAG (10 years ago) Social History: Smoking:nonsmoker Alcohol:non-EtOH drinker Drugs: denies illicit drug use Family History: Allergies No Known Allergies Allergy (Verified 01/25/18 20:43) HOME MEDICATIONS: Home Medications Medication Instructions Recorded Rosuvastatin Calcium [Crestor] 20 mg PO HS 09/11/14 Dextran 70/Hypromellose/Pf 1 each OP QID 01/10/18 [Artificial Tears Drops] Apixaban [Eliquis] 2.5 mg PO BID #60 tablet 01/14/18 Torsemide [Demadex -] 10 mg PO DAILY #30 tablet 01/14/18 Metoprolol Succinate [Toprol XL -] 75 mg PO DAILY tab.sr.24h 01/16/18 Docusate Sodium [Colace -] 100 mg PO BID capsule 01/17/18 Gabapentin [Neurontin -] 100 mg PO TID capsule 01/17/18 Sennosides [Senna -] 1 tab PO BID tablet 01/17/18 REVIEW OF SYSTEMS CONSTITUTIONAL: Absent: fever, chills, diaphoresis, generalized weakness, malaise, loss of appetite, weight change HEENT: Absent: rhinorrhea, nasal congestion, throat pain, throat swelling, difficulty swallowing, mouth swelling, ear pain, eye pain, visual changes CARDIOVASCULAR: Absent: chest pain, syncope, palpitations, irregular heart rate, lightheadedness , peripheral edema RESPIRATORY: Absent: cough, shortness of breath, dyspnea with exertion, orthopnea, wheezing, stridor, hemoptysis GASTROINTESTINAL: Absent: abdominal pain, abdominal distension, nausea, vomiting, diarrhea, constipation, melena, hematochezia GENITOURINARY: Absent: dysuria, frequency, urgency, hesitancy, hematuria, flank pain, genital pain MUSCULOSKELETAL: right hand swelling Absent: myalgia, arthralgia, joint swelling, back pain, neck pain SKIN: Absent: rash, itching, pallor HEMATOLOGIC/IMMUNOLOGIC: Absent: easy bleeding, easy bruising, lymphadenopathy, frequent infections ENDOCRINE: Absent: unexplained weight gain, unexplained weight loss, heat intolerance, cold intolerance NEUROLOGIC: Absent: headache, focal weakness or paresthesias, dizziness, unsteady gait, seizure, mental status changes, bladder or bowel incontinence PSYCHIATRIC: Absent: anxiety, depression, suicidal or homicidal ideation, hallucinations. PHYSICAL EXAMINATION Vital Signs Period Temp Pulse Resp BP Sys/[place] Pulse Ox Last 24 Hr 98.6 F-99.2 F 78-104 18-20 86-113/51-70 97 GENERAL: Awake, alert, and fully oriented, in no acute distress. HEAD: Normal with no signs of trauma. EYES: PERRLA, EOMI, sclera anicteric, conjunctiva clear. No lid lag. EARS, NOSE, THROAT: Ears normal, nares patent, oropharynx clear without exudates. Dry mucous membranes. NECK: Normal range of motion, supple without lymphadenopathy, JVD, or masses. LUNGS: Breath sounds equal, clear to auscultation bilaterally. HEART: Irregularly irregular without murmur, rub or gallop. ABDOMEN: Soft, nontender, not distended, normoactive bowel sounds. MUSCULOSKELETAL: Normal range of motion at all joints. No CVA tenderness. UPPER EXTREMITIES: RUE: tender, warm, erythematous, swollen from dorsal hand to proximal forearm, pulses +2 LOWER EXTREMITIES: faint, symmetrical pulses, warm, well-perfused. No calf tenderness. +2 b/l pitting edema, +varicose veins NEUROLOGICAL: Cranial nerves II-XII intact. Normal speech. 4+/5 LE, 5-/5 in UE , sensory intact PSYCHIATRIC: Cooperative. Good eye contact. Appropriate mood and affect. SKIN: Warm, dry, normal turgor, no rashes or lesions. CBCD WBC 10.3 K/mm3 (4.0-10.0) H 01/28/18 16:00 RBC 3.14 M/mm3 (3.60-5.2) L 01/28/18 16:00 Hgb 10.1 GM/dL (10.7-15.3) L 01/28/18 16:00 Hct 29.2 % (32.4-45.2) L 01/28/18 16:00 MCV 93.1 fl (80-96) 01/28/18 16:00 MCHC 34.6 g/dl (32.0-36.0) 01/28/18 16:00 RDW 12.9 % (11.6-15.6) 01/28/18 16:00 Plt Count 486 K/MM3 (134-434) H D 01/28/18 16:00 MPV 7.2 fl (7.5-11.1) L 01/28/18 16:00 CMP Sodium 136 mmol/L (136-145) 01/28/18 16:00 Potassium 3.9 mmol/L (3.5-5.1) 01/28/18 16:00 Chloride 100 mmol/L (98-107) 01/28/18 16:00 Carbon Dioxide 26 mmol/L (21-32) 01/28/18 16:00 Anion Gap 10 MMOL/L (8-16) 01/28/18 16:00 BUN 19 mg/dL (7-18) H 01/28/18 16:00 Creatinine 0.7 mg/dL (0.55-1.02) 01/28/18 16:00 Creat Clearance w eGFR > 60 (>60) 01/28/18 16:00 Random Glucose 131 mg/dL (74-106) H 01/28/18 16:00 Calcium 8.0 mg/dL (8.5-10.1) L 01/28/18 16:00 Total Bilirubin 0.4 mg/dL (0.2-1.0) 01/28/18 16:00 AST 39 U/L (15-37) H 01/28/18 16:00 ALT 49 U/L (12-78) 01/28/18 16:00 Alkaline Phosphatase 101 U/L (45-117) D 01/28/18 16:00 Total Protein 6.1 g/dl (6.4-8.2) L 01/28/18 16:00 Albumin 1.9 g/dl (3.4-5.0) L 01/28/18 16:00 CARDIAC ENZYMES Creatine Kinase 20 IU/L (26-192) L 01/25/18 22:45 Troponin I < 0.02 ng/ml (0.00-0.05) 01/25/18 22:45 ASSESSMENT/PLAN: 87 year old female with past medical history of Mercado's palsy, 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 due to right hand swelling and redness for 1 week. Reportedly, daughter noted that the right hand became progressively painful and swollen, with redness and warmth that was spreading to the forearm. Patient does not remember any trauma to the area at the [place]. Was here last month with b/l leg weakness, swelling and difficulty of ambulation. On arterial U/S, she was noted to have diffuse atheromatous plaques in both legs. She has been working with physical therapy with continued improvement of weakness. Patient was discharged to [facility] for continued rehabilitation. On this previous admission, patient was also diagnosed with UTI treated with Ceftriaxone, YANICK, and CHF exacerbation. For this admission, consulted for AMS though during my evaluation appears to be at baseline. Was awake, alert, communicative, knows she's at [facility]. Abx per ID, continue mgmt of infection. Continue hydration. Monitor Afib, AC. Monitor mental status, appears to be stable.
[2018-01-29] MEDS ORDERED: PT OWN MED DRAWER 7, Y5N ONE ×3 (09:46→19:52)
[2018-01-29] MEDS: TORSEMIDE 10 MG TABLET PO SCH (09:48)
[2018-01-29] MEDS: APIXABAN 2.5 MG TABLET PO SCH ×2 (09:48→21:55)
[2018-01-29] MEDS: DOCUSATE SODIUM 100 MG CAPSULE (FP) PO SCH ×2 (09:48→21:55)
[2018-01-29] MEDS: SENNOSIDES 8.6MG TABLET (FP) PO SCH ×2 (09:49→21:55)
[2018-01-29] MEDS: MULTIVIT INJ. ADULT COMBO WITH VIT K 1 COMBO 10 ML VIAL IV SCH (14:11)
--- NOTE | 2018-01-29 15:03 | DS ---
Physical Examination Vital Signs: Vital Signs Temperature 98.6 F 01/29/18 14:57 Pulse Rate 83 01/29/18 14:57 Respiratory Rate 18 01/29/18 14:57 Blood Pressure 105/64 01/29/18 14:57 O2 Sat by Pulse Oximetry (%) 97 01/28/18 22:00 Constitutional: Yes: No Distress Eyes: Yes: WNL HENT: Yes: WNL Neck: Yes: WNL Cardiovascular: Yes: Pulse Irregular Respiratory: Yes: WNL Gastrointestinal: Yes: WNL Renal/: Yes: WNL Musculoskeletal: Yes: Muscle Weakness Extremities: Yes: Erythema Edema: Yes Peripheral Pulses WNL: Yes Integumentary: Yes: Erythema Wound/Incision: Yes: Clean/Dry Neurological: Yes: Pre-Existing Deficit, Unsteady Gait, Weakness ...Motor Strength: LLE, RLE Psychiatric: Yes: Other Labs: CBC, BMP 01/28/18 16:00 01/28/18 16:00 Discharge Summary Reason For Visit: CELLULITIS OF RIGHT HAND Current Active Problems Afib (Acute) CHF (congestive heart failure) (Acute) Cellulitis of hand (Acute) Toxic metabolic encephalopathy (Acute) Procedures: Principal: MRI BRAIN Hospital Course: ADMITTED WITH RIGHT UPPER EXTREMITY/HAND ERYTHEMA CELLULITIS, TREATED IV ABX, TOXIC ENCEPHALOPATHY DUE TO INFECTION MRI BRAIN NORMAL. Condition: Improved - Instructions Diet, Activity, Other Instructions: LOW SALT PT EVAL Referrals: Avani Serrato MD [Primary Care Provider] - Disposition: SNF FACILITY - Home Medications Comprehensive Discharge Medication List: Ambulatory Orders Rosuvastatin Calcium [Crestor] 20 mg PO HS 09/11/14 Dextran 70/Hypromellose/Pf [Artificial Tears Drops] 1 each OP QID 01/10/18 Apixaban [Eliquis] 2.5 mg PO BID #60 tablet 01/14/18 Torsemide [Demadex -] 10 mg PO DAILY #30 tablet 01/14/18 Metoprolol Succinate [Toprol XL -] 75 mg PO DAILY tab.sr.24h 01/16/18 Docusate Sodium [Colace -] 100 mg PO BID capsule 01/17/18 Sennosides [Senna -] 1 tab PO BID tablet 01/17/18 Acetaminophen [Tylenol .Regular Strength -] 650 mg PO Q6H PRN tablet 01/29/18 Amino Acids/Protein Hydrolys [Prosource No Carb Liquid Pkt] 30 ml PO BID@0800, 1730 packet 01/29/18 Cephalexin [Keflex] 500 mg PO BID #10 capsule 01/29/18
[2018-01-29] MEDS: VANCOMYCIN 750 MG in DEXTROSE 5%-WATER - 250 ML IVPB SCH (19:58)
[2018-01-29] MEDS ORDERED: ROSUVASTATIN CA 10 MG TABLET (FP) ONE (21:52)
[2018-01-29] MEDS: ROSUVASTATIN CA 20 MG TABLET (FP) PO SCH (21:55)
[2018-01-29] MEDS: CEPHALEXIN MONOHYDRATE 500 MG CAPSULE (UD) PO SCH (21:55)
[2018-01-30] MEDS ORDERED: PT OWN MED DRAWER 7, Y5N ONE ×2 (07:44→21:04)
[2018-01-30] MEDS: AMINO ACIDS/PROTEIN HYDROLYS 30 ML LIQUID.PKT PO SCH ×2 (09:06→16:37)
[2018-01-30] MEDS: SENNOSIDES 8.6MG TABLET (FP) PO SCH ×2 (09:47→21:25)
[2018-01-30] MEDS: CEPHALEXIN MONOHYDRATE 500 MG CAPSULE (UD) PO SCH ×2 (09:47→21:24)
[2018-01-30] MEDS: DOCUSATE SODIUM 100 MG CAPSULE (FP) PO SCH ×2 (09:48→21:24)
[2018-01-30] MEDS: APIXABAN 2.5 MG TABLET PO SCH ×2 (09:48→21:24)
[2018-01-30] MEDS: MULTIVIT INJ. ADULT COMBO WITH VIT K 1 COMBO 10 ML VIAL IV SCH (09:49)
--- NOTE | 2018-01-30 10:13 | PN ---
Progress Note (short form) - Note Progress Note: Neurology HISTORY OF PRESENT ILLNESS: Patient is an 87 year old female with past medical history of Mercado's palsy, CAD s/p CBAG (10 years ago), A.Fib, and CHF, was brought in from [facility] due to right hand swelling and redness for 1 week. Reportedly, daughter noted that the right hand became progressively painful and swollen, with redness and warmth that was spreading to the forearm. Patient does not remember any trauma to the area at the [place]. Was here last month with b/l leg weakness, swelling and difficulty of ambulation. On arterial U/S, she was noted to have diffuse atheromatous plaques in both legs. She has been working with physical therapy with continued improvement of weakness. Patient was discharged to [facility] for continued rehabilitation. On this previous admission, patient was also diagnosed with UTI treated with Ceftriaxone, YANICK, and CHF exacerbation. For this admission, consulted for AMS though during my evaluation appears to be at baseline. Was awake, alert, communicative, knows she's at [facility]. Today able to tell me it's Jan 2018 as well. In good spirits. Active Medications Acetaminophen (Tylenol -) 650 mg PO Q6H PRN PRN Reason: Fever Last Admin: 01/29/18 21:54 Dose: 650 mg Amino Acids (Prosource No Carb Liquid Pkt) 30 ml PO BID@0800,1730 [facility] Last Admin: 01/30/18 09:06 Dose: 30 ml Apixaban (Eliquis -) 2.5 mg PO BID [facility] Last Admin: 01/30/18 09:48 Dose: 2.5 mg Artificial Tears (Artificial Tears) 1 drop OU Q24H PRN PRN Reason: DRY EYES Cephalexin HCl (Keflex -) 500 mg PO BID [facility] Last Admin: 01/30/18 09:47 Dose: 500 mg Docusate Sodium (Colace -) 100 mg PO BID [facility] Last Admin: 01/30/18 09:48 Dose: 100 mg Vancomycin HCl 750 mg/ (Dextrose) 250 mls @ 166.667 mls/hr IVPB Q24H [facility]; Protocol Last Admin: 01/29/18 19:58 Dose: 166.667 mls/hr Metoprolol Succinate (Toprol Xl -) 75 mg PO DAILY [facility] Last Admin: 01/30/18 09:47 Dose: 75 mg Multivitamins/Minerals (Infuvite Adult -) 10 ml IV DAILY [facility] Last Admin: 01/30/18 09:49 Dose: Not Given Rosuvastatin Calcium (Crestor -) 20 mg PO HS [facility] Last Admin: 01/29/18 21:55 Dose: 20 mg Senna (Senna -) 1 tab PO BID [facility] Last Admin: 01/30/18 09:47 Dose: 1 tab Torsemide (Demadex -) 10 mg PO DAILY [facility] Last Admin: 01/29/18 09:48 Dose: 10 mg PHYSICAL EXAMINATION Vital Signs Period Temp Pulse Resp BP Sys/Villal[place] Pulse Ox Last 24 Hr 98.6 F-100.3 F 73-96 18-20 87-105/45-64 97 GENERAL: Awake, alert, and fully oriented, in no acute distress. HEAD: Normal with no signs of trauma. EYES: PERRLA, EOMI, sclera anicteric, conjunctiva clear. No lid lag. EARS, NOSE, THROAT: Ears normal, nares patent, oropharynx clear without exudates. Dry mucous membranes. NECK: Normal range of motion, supple without lymphadenopathy, JVD, or masses. LUNGS: Breath sounds equal, clear to auscultation bilaterally. HEART: Irregularly irregular without murmur, rub or gallop. ABDOMEN: Soft, nontender, not distended, normoactive bowel sounds. MUSCULOSKELETAL: Normal range of motion at all joints. No CVA tenderness. UPPER EXTREMITIES: RUE: tender, warm, erythematous, swollen from dorsal hand to proximal forearm, pulses +2 LOWER EXTREMITIES: faint, symmetrical pulses, warm, well-perfused. No calf tenderness. +2 b/l pitting edema, +varicose veins NEUROLOGICAL: Cranial nerves II-XII intact. Normal speech. 4+/5 LE, 5-/5 in UE , sensory intact PSYCHIATRIC: Cooperative. Good eye contact. Appropriate mood and affect. SKIN: Warm, dry, normal turgor, no rashes or lesions. CBCD WBC 10.3 K/mm3 (4.0-10.0) H 01/28/18 16:00 RBC 3.14 M/mm3 (3.60-5.2) L 01/28/18 16:00 Hgb 10.1 GM/dL (10.7-15.3) L 01/28/18 16:00 Hct 29.2 % (32.4-45.2) L 01/28/18 16:00 MCV 93.1 fl (80-96) 01/28/18 16:00 MCHC 34.6 g/dl (32.0-36.0) 01/28/18 16:00 RDW 12.9 % (11.6-15.6) 01/28/18 16:00 Plt Count 486 K/MM3 (134-434) H D 01/28/18 16:00 MPV 7.2 fl (7.5-11.1) L 01/28/18 16:00 CMP Sodium 136 mmol/L (136-145) 01/28/18 16:00 Potassium 3.9 mmol/L (3.5-5.1) 01/28/18 16:00 Chloride 100 mmol/L (98-107) 01/28/18 16:00 Carbon Dioxide 26 mmol/L (21-32) 01/28/18 16:00 Anion Gap 10 MMOL/L (8-16) 01/28/18 16:00 BUN 19 mg/dL (7-18) H 01/28/18 16:00 Creatinine 0.7 mg/dL (0.55-1.02) 01/28/18 16:00 Creat Clearance w eGFR > 60 (>60) 01/28/18 16:00 Random Glucose 131 mg/dL (74-106) H 01/28/18 16:00 Calcium 8.0 mg/dL (8.5-10.1) L 01/28/18 16:00 Total Bilirubin 0.4 mg/dL (0.2-1.0) 01/28/18 16:00 AST 39 U/L (15-37) H 01/28/18 16:00 ALT 49 U/L (12-78) 01/28/18 16:00 Alkaline Phosphatase 101 U/L (45-117) D 01/28/18 16:00 Total Protein 6.1 g/dl (6.4-8.2) L 01/28/18 16:00 Albumin 1.9 g/dl (3.4-5.0) L 01/28/18 16:00 CARDIAC ENZYMES Creatine Kinase 20 IU/L (26-192) L 01/25/18 22:45 Troponin I < 0.02 ng/ml (0.00-0.05) 01/25/18 22:45 ASSESSMENT/PLAN: 87 year old female with past medical history of Mercado's palsy, CAD s/p CBAG (10 years ago), A.Fib, and CHF, was brought in from [facility] due to right hand swelling and redness for 1 week. Reportedly, daughter noted that the right hand became progressively painful and swollen, with redness and warmth that was spreading to the forearm. Patient does not remember any trauma to the area at the [place]. Was here last month with b/l leg weakness, swelling and difficulty of ambulation. On arterial U/S, she was noted to have diffuse atheromatous plaques in both legs. She has been working with physical therapy with continued improvement of weakness. Patient was discharged to [facility] for continued rehabilitation. On this previous admission, patient was also diagnosed with UTI treated with Ceftriaxone, YANICK, and CHF exacerbation. For this admission, consulted for AMS though during my evaluation appears to be at baseline. Was awake, alert, communicative, knows she's at [facility]. Abx per ID, continue mgmt of infection. Continue hydration. Monitor Afib, AC. Monitor mental status, appears to be at baseline.
[2018-01-30] MEDS: TORSEMIDE 10 MG TABLET PO SCH (12:31)
[2018-01-30] MEDS: ACETAMINOPHEN 325 MG TABLET (FP) PO PRN (16:37)
[2018-01-30] MEDS ORDERED: ROSUVASTATIN CA 10 MG TABLET (FP) ONE (20:53)
[2018-01-30] MEDS: VANCOMYCIN 750 MG in DEXTROSE 5%-WATER - 250 ML IVPB SCH (21:23)
[2018-01-30] MEDS: ROSUVASTATIN CA 20 MG TABLET (FP) PO SCH (21:24)
--- NOTE | 2018-01-31 08:38 | PN ---
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
[2018-01-31] MEDS: DOCUSATE SODIUM 100 MG CAPSULE (FP) PO SCH (09:17)
[2018-01-31] MEDS: APIXABAN 2.5 MG TABLET PO SCH (09:17)
[2018-01-31] MEDS: SENNOSIDES 8.6MG TABLET (FP) PO SCH (09:17)
[2018-01-31] MEDS: CEPHALEXIN MONOHYDRATE 500 MG CAPSULE (UD) PO SCH (09:17)
[2018-01-31] MEDS: TORSEMIDE 10 MG TABLET PO SCH (09:18)
[2018-01-31] MEDS: AMINO ACIDS/PROTEIN HYDROLYS 30 ML LIQUID.PKT PO SCH (09:18)
[2018-01-31 09:27] VITALS: BP 117/61; PULSE 16; TEMP 98.6
[2018-01-31] MEDS: MULTIVIT INJ. ADULT COMBO WITH VIT K 1 COMBO 10 ML VIAL IV SCH (09:34)
--- NOTE | 2018-01-31 09:36 | PN ---
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 Reportedly, daughter noted that the right hand became progressively painful and swollen, with redness and warmth that was spreading to the forearm. Patient does not remember any trauma to the area at the [place]. Was here last month with b/l leg weakness, swelling and difficulty of ambulation. On arterial U/S, she was noted to have diffuse atheromatous plaques in both legs. She has been working with physical therapy with continued improvement of weakness. Patient was discharged to [facility] for continued rehabilitation. On this previous admission, patient was also diagnosed with UTI treated with Ceftriaxone, YANICK, and CHF exacerbation. For this admission, consulted for AMS though during my evaluation appears to be at baseline. Was awake, alert, communicative, knows she's at [facility]. Today able to tell me it's Jan 2018 as well. In good spirits, no new neurologic events. Active Medications Acetaminophen (Tylenol -) 650 mg PO Q6H PRN PRN Reason: Fever Last Admin: 01/30/18 16:37 Dose: 650 mg Amino Acids (Prosource No Carb Liquid Pkt) 30 ml PO BID@0800,1730 [facility] Last Admin: 01/31/18 09:18 Dose: 30 ml Apixaban (Eliquis -) 2.5 mg PO BID [facility] Last Admin: 01/31/18 09:17 Dose: 2.5 mg Artificial Tears (Artificial Tears) 1 drop OU Q24H PRN PRN Reason: DRY EYES Cephalexin HCl (Keflex -) 500 mg PO BID [facility] Last Admin: 01/31/18 09:17 Dose: 500 mg Docusate Sodium (Colace -) 100 mg PO BID [facility] Last Admin: 01/31/18 09:17 Dose: 100 mg Vancomycin HCl 750 mg/ (Dextrose) 250 mls @ 166.667 mls/hr IVPB Q24H [facility]; Protocol Last Admin: 01/30/18 21:23 Dose: 166.667 mls/hr Metoprolol Succinate (Toprol Xl -) 75 mg PO DAILY [facility] Last Admin: 01/31/18 09:17 Dose: 75 mg Rosuvastatin Calcium (Crestor -) 20 mg PO HS [facility] Last Admin: 01/30/18 21:24 Dose: 20 mg Senna (Senna -) 1 tab PO BID [facility] Last Admin: 01/31/18 09:17 Dose: 1 tab Torsemide (Demadex -) 10 mg PO DAILY [facility] Last Admin: 01/31/18 09:18 Dose: 10 mg PHYSICAL EXAMINATION Vital Signs Temperature 98.6 F 01/31/18 09:27 Pulse Rate 16 L 01/31/18 09:27 Respiratory Rate 16 01/31/18 09:27 Blood Pressure 117/61 01/31/18 09:27 O2 Sat by Pulse Oximetry (%) 97 01/30/18 21:00 GENERAL: Awake, alert, and fully oriented, in no acute distress. HEAD: Normal with no signs of trauma. EYES: PERRLA, EOMI, sclera anicteric, conjunctiva clear. No lid lag. EARS, NOSE, THROAT: Ears normal, nares patent, oropharynx clear without exudates. Dry mucous membranes. NECK: Normal range of motion, supple without lymphadenopathy, JVD, or masses. LUNGS: Breath sounds equal, clear to auscultation bilaterally. HEART: Irregularly irregular without murmur, rub or gallop. ABDOMEN: Soft, nontender, not distended, normoactive bowel sounds. MUSCULOSKELETAL: Normal range of motion at all joints. No CVA tenderness. UPPER EXTREMITIES: RUE: tender, warm, erythematous, swollen from dorsal hand to proximal forearm, pulses +2 LOWER EXTREMITIES: faint, symmetrical pulses, warm, well-perfused. No calf tenderness. +2 b/l pitting edema, +varicose veins NEUROLOGICAL: Cranial nerves II-XII intact. Normal speech. 4+/5 LE, 5-/5 in UE , sensory intact PSYCHIATRIC: Cooperative. Good eye contact. Appropriate mood and affect. SKIN: Warm, dry, normal turgor, no rashes or lesions. CBCD WBC 10.3 K/mm3 (4.0-10.0) H 01/28/18 16:00 RBC 3.14 M/mm3 (3.60-5.2) L 01/28/18 16:00 Hgb 10.1 GM/dL (10.7-15.3) L 01/28/18 16:00 Hct 29.2 % (32.4-45.2) L 01/28/18 16:00 MCV 93.1 fl (80-96) 01/28/18 16:00 MCHC 34.6 g/dl (32.0-36.0) 01/28/18 16:00 RDW 12.9 % (11.6-15.6) 01/28/18 16:00 Plt Count 486 K/MM3 (134-434) H D 01/28/18 16:00 MPV 7.2 fl (7.5-11.1) L 01/28/18 16:00 CMP Sodium 136 mmol/L (136-145) 01/28/18 16:00 Potassium 3.9 mmol/L (3.5-5.1) 01/28/18 16:00 Chloride 100 mmol/L (98-107) 01/28/18 16:00 Carbon Dioxide 26 mmol/L (21-32) 01/28/18 16:00 Anion Gap 10 MMOL/L (8-16) 01/28/18 16:00 BUN 19 mg/dL (7-18) H 01/28/18 16:00 Creatinine 0.7 mg/dL (0.55-1.02) 01/28/18 16:00 Creat Clearance w eGFR > 60 (>60) 01/28/18 16:00 Random Glucose 131 mg/dL (74-106) H 01/28/18 16:00 Calcium 8.0 mg/dL (8.5-10.1) L 01/28/18 16:00 Total Bilirubin 0.4 mg/dL (0.2-1.0) 01/28/18 16:00 AST 39 U/L (15-37) H 01/28/18 16:00 ALT 49 U/L (12-78) 01/28/18 16:00 Alkaline Phosphatase 101 U/L (45-117) D 01/28/18 16:00 Total Protein 6.1 g/dl (6.4-8.2) L 01/28/18 16:00 Albumin 1.9 g/dl (3.4-5.0) L 01/28/18 16:00 CARDIAC ENZYMES Creatine Kinase 20 IU/L (26-192) L 01/25/18 22:45 Troponin I < 0.02 ng/ml (0.00-0.05) 01/25/18 22:45 ASSESSMENT/PLAN: 87 year old female with past medical history of Mercado's palsy, 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 Reportedly, daughter noted that the right hand became progressively painful and swollen, with redness and warmth that was spreading to the forearm. Patient does not remember any trauma to the area at the [place]. Was here last month with b/l leg weakness, swelling and difficulty of ambulation. On arterial U/S, she was noted to have diffuse atheromatous plaques in both legs. She has been working with physical therapy with continued improvement of weakness. Patient was discharged to [facility] for continued rehabilitation. On this previous admission, patient was also diagnosed with UTI treated with Ceftriaxone, YANICK, and CHF exacerbation. For this admission, consulted for AMS though during my evaluation appears to be at baseline. Was awake, alert, communicative, knows she's at [facility]. Abx per ID, continue mgmt of infection. Continue hydration. Monitor Afib, AC. Monitor mental status, appears to be at baseline. For placement to SNF per notes. Neurologically stable.
== END 2018-01-31 11:52 | DRG 602 ==
LOC: JER 20:26 → JERBED 23:56 → UNDOADMOB 01-26 00:29 → OBSVTOIN 01-26 01:31 → J8W 01-26 02:41
PROVIDERS: ADMIT Internal Medicine; ATTEND Family Medicine
DX: L03.113 Cellulitis of right upper limb (principal); G92 Toxic encephalopathy; I13.0 Hypertensive heart and chronic kidney disease with heart failure and stage 1 through stage 4 chronic kidney disease, or unspecified chronic kidney disease; I50.22 Chronic systolic (congestive) heart failure; Z95.1 Presence of aortocoronary bypass graft; Z79.01 Long term (current) use of anticoagulants; N18.9 Chronic kidney disease, unspecified; G51.0 Bell's palsy; E86.0 Dehydration; I48.2 Chronic atrial fibrillation; T42.6X5A Adverse effect of other antiepileptic and sedative-hypnotic drugs, initial encounter
CPT/HCPCS: 36415; 70551-TC; 71045-TC-FY; 73130-TC-RT-FY; 80048; 80053; 81003; 81015; 82550; 83605; 83735; 83880; 84100; 84484; 85025; 85027; 85610; 85651; 85730; 86140; 87040; 93005; 93010; 93971; 97116-GP; 97161-GP; 99284-25; G0378

== ENCOUNTER 2018-08-26 18:22 | Inpatient (IN) | payer OTHER, MEDICARE ==
--- NOTE | 2018-08-26 20:28 | PDOC ---
History of Present Illness - General Chief Complaint: Edema Stated Complaint: LEG PAIN Time Seen by Provider: 08/26/18 20:25 History Source: Patient Exam Limitations: No Limitations - History of Present Illness Initial Comments: 88 Yo f w a pmh of HTN, CKD, CAD s/p CABG (10 years ago), A-Fib (on Eliquis 2.5 mg), and CHF who p/w BL LE edema associated with black areas and multiple new bullous lesions on her right leg. The patient states she has always had lower extremity edema but the black discoloration and the bullous lesions are new and she has never experienced this in the past. She has not started any new medications recently especially ones which could trigger a SJS-TEN type of reaction. PCP: Rojelio PSH: CABG Social Hx: Denies smoking, drinking, or other substance usage Allergies: NKA, NKDA Past History - Past Medical History Allergies/Adverse Reactions: Allergies Allergy/AdvReac Type Severity Reaction Status Date / Time No Known Allergies Allergy Verified 08/26/18 18:44 Home Medications: Ambulatory Orders Rosuvastatin Calcium [Crestor] 20 mg PO HS 09/11/14 Dextran 70/Hypromellose/Pf [Artificial Tears Drops] 1 each OP QID 01/10/18 Apixaban [Eliquis] 2.5 mg PO BID #60 tablet 01/14/18 Docusate Sodium [Colace -] 100 mg PO BID capsule 01/17/18 Sennosides [Senna -] 1 tab PO BID tablet 01/17/18 Acetaminophen [Tylenol .Regular Strength -] 650 mg PO Q6H PRN tablet 01/29/18 Amino Acids/Protein Hydrolys [Prosource No Carb Liquid Pkt] 30 ml PO BID@0800, 1730 packet 01/29/18 Cephalexin [Keflex] 500 mg PO BID #10 capsule 01/29/18 Metoprolol Succinate [Toprol XL -] 50 mg PO DAILY 08/26/18 Potassium Chloride [K-Tab ER] 40 meq PO DAILY 08/26/18 Prednisolone Acetate/Pf [Prednisolone Acet 1% Eye Drop] 5 ml OP ASDIR 08/26/18 Torsemide [Demadex -] 40 mg PO DAILY 08/26/18 Anemia: No Asthma: No Cancer: No Cardiac Disorders: Yes (LA,CAD,AF, Tricuspid Regurge) CVA: No COPD: No CHF: Yes DVT: No Dementia: No Diabetes: No GI Disorders: No Disorders: No HTN: Yes Hypercholesterolemia: Yes Liver Disease: No Seizures: No Thyroid Disease: No - Surgical History Abdominal Surgery: No Appendectomy: No Cardiac Surgery: Yes (CABG -BYPASSx 3) Cholecystectomy: No Lung Surgery: No Neurologic Surgery: No Orthopedic Surgery: No - Immunization History Immunization Up to Date: Yes - Suicide/Smoking/Psychosocial Hx Smoking History: Never smoked Have you smoked in the past 12 months: No Hx Alcohol Use: Yes (an occaisional glass of wine w/ shahnaz jatinder) Drug/Substance Use Hx: No Substance Use Type: None Hx Substance Use Treatment: No Review of Systems - Review of Systems Able to Perform ROS?: Yes Comments:: CONSTITUTIONAL: Present: Chills Absent: fever, no fatigue EYES: Absent: visual changes ENT: Absent: ear pain, no sore throat CARDIOVASCULAR: Absent: chest pain, no palpitations RESPIRATORY: Absent: cough, no SOB GI: Absent: abdominal pain, no nausea, no vomiting, no constipation, no diarrhea GENITOURINARY: Absent: dysuria, no frequency, no hematuria MUSKULOSKELETAL: Absent: back pain, no arthralgia, no myalgia SKIN: Present: rash NEURO: Absent: headache *Physical Exam - Vital Signs Last Vital Signs Temp Pulse Resp BP Pulse Ox 98.1 F 88 18 134/66 97 08/26/18 18:49 08/26/18 18:49 08/26/18 18:49 08/26/18 18:49 08/26/18 18:49 - Physical Exam Comments: LEGS: There is 4+ edema bilaterally with 2+ pulses in both ankles. The right leg has black appearing area with multiple bullous lesions some of which are crusted, others have popped, and others are soft bulli. There is an area on the medial lateral right leg that is dark/black and spreads behind the leg. There are multiple ulcers and target appearing lesions on the leg. GENERAL: Well-appearing, well-nourished. No apparent distress. HEENT: Normocephalic, atraumatic. PERRL, EOM intact. CARDIOVASCULAR: Normal S1, S2. Regular rate and rhythm. PULMONARY: No evidence of respiratory distress. Lungs clear to auscultation bilaterally. No wheezing, rales or rhonchi. ABDOMEN: Soft, non-distended, non-tender. EXTREMITIES: Limited ROM in lower extremities. SKIN: Warm, dry. No rash. NEUROLOGICAL: No focal neurological deficits. ED Treatment Course - LABORATORY CBC & Chemistry Diagram: 08/26/18 21:20 08/26/18 21:20 Medical Decision Making - Medical Decision Making 88 Yo f w a pmh of HTN, CKD, CAD s/p CABG (10 years ago), A-Fib (on Eliquis 2.5 mg), and CHF who p/w BL LE edema associated with black areas and multiple new bullous lesions on her right leg. The patient states she has always had lower extremity edema but the black discoloration and the bullous lesions are new and she has never experienced this in the past. She has not started any new medications recently especially ones which could trigger a SJS-TEN type of reaction. VS: WNL DDx IBNLT: Cellulitis, venous stasis dermatitis, necrotizing fasciitis, erythema multiforme, SJS, SJS/TEN, TEN, bullous pemphigoid, pemphigous vulgaris , medication reaction. Plan: ED adult sepsis work up, lower extremity x-rays, lower extremity duplex to r/o DVT, empiric Abx, probable admit after ER workup. CBC,CMP WBC 5.7 K/mm3 (4.0-10.0) 08/26/18 21:20 RBC 3.47 M/mm3 (3.60-5.2) L 08/26/18 21:20 Hgb 10.1 GM/dL (10.7-15.3) L 08/26/18 21:20 Hct 30.9 % (32.4-45.2) L 08/26/18 21:20 MCV 89.1 fl (80-96) 08/26/18 21:20 MCH 29.2 pg (25.7-33.7) 08/26/18 21:20 MCHC 32.8 g/dl (32.0-36.0) 08/26/18 21:20 RDW 17.0 % (11.6-15.6) H 08/26/18 21:20 Plt Count 237 K/MM3 (134-434) D 08/26/18 21:20 MPV 8.2 fl (7.5-11.1) D 08/26/18 21:20 Absolute Neuts (auto) 3.9 K/mm3 (1.5-8.0) 08/26/18 21:20 Neutrophils % 68.6 % (42.8-82.8) 08/26/18 21:20 Lymphocytes % 21.9 % (8-40) D 08/26/18 21:20 Monocytes % 7.9 % (3.8-10.2) 08/26/18 21:20 Eosinophils % 0.6 % (0-4.5) 08/26/18 21:20 Basophils % 1.0 % (0-2.0) 08/26/18 21:20 Nucleated RBC % 0 % (0-0) 08/26/18 21:20 Sodium 133 mmol/L (136-145) L 08/26/18 21:20 Potassium 4.7 mmol/L (3.5-5.1) 08/26/18 21:20 Chloride 100 mmol/L (98-107) 08/26/18 21:20 Carbon Dioxide 25 mmol/L (21-32) 08/26/18 21:20 Anion Gap 8 MMOL/L (8-16) 08/26/18 21:20 BUN 51 mg/dL (7-18) H 08/26/18 21:20 Creatinine 2.7 mg/dL (0.55-1.3) H 08/26/18 21:20 Creat Clearance w eGFR 16.67 (>60) 08/26/18 21:20 Random Glucose 127 mg/dL (74-106) H 08/26/18 21:20 Lactic Acid 2.2 mmol/L (0.4-2.0) H* 08/26/18 21:20 Calcium 7.7 mg/dL (8.5-10.1) L 08/26/18 21:20 Total Bilirubin 0.4 mg/dL (0.2-1) 08/26/18 21:20 AST 43 U/L (15-37) H 08/26/18 21:20 ALT 23 U/L (13-61) 08/26/18 21:20 Alkaline Phosphatase 87 U/L (45-117) 08/26/18 21:20 Troponin I 0.03 ng/ml (0.00-0.05) 08/26/18 21:20 Total Protein 7.0 g/dl (6.4-8.2) 08/26/18 21:20 Albumin 2.5 g/dl (3.4-5.0) L 08/26/18 21:20 Duplex of lower extremities negative for DVT - Bilateral lower extremity x-rays don't appear to have gas or crepitus but will send x-rays to imaging material control specialist to confirm there is no gas - Giving patient Vancomycin for lower extremity cellulitis. - Will admit patient to the hospital for further care and management. - Patient accepted to Dr. Meredith's service. *DC/Admit/Observation/Transfer Diagnosis at time of Disposition: Cellulitis - Discharge Dispostion Condition at time of disposition: Stable Decision to Admit order: Yes - Referrals Referrals: Avani Serrato MD [Primary Care Provider] - - Patient Instructions - Post Discharge Activity
--- NOTE | 2018-08-26 20:33 | PDOC ---
Attending Attestation - HPI HPI: 08/26/18 20:45 The patient is an 88 year old female with a past medical history of HTN, CKD, CAD s/p CABG (10 years ago), A-Fib (on Eliquis 2.5 mg), and CHF here today for evaluation of bilateral lower extremity swelling and discoloration. The patient reports that she has chronic lower extremity edema but recently has had lower extremity discoloration in past 4 days. The patients family was concerned due to the discoloration and brought her in today. Patient denies headache, lightheadedness. Denies fever, chills. Denies chest pain, shortness of breath. Denies nausea, vomiting, diarrhea, abdominal pain. Allergies: NKA PCP: Avani Serrato <Grey Joseph - Last Filed: 08/26/18 20:45> - Resident Resident Name: Timoteo Menard - ED Attending Attestation I have performed the following: I have examined & evaluated the patient, The case was reviewed & discussed with the resident, I agree w/resident's findings & plan, Exceptions are as noted - Physicial Exam PE: GENERAL: Awake, alert, and fully oriented, in no acute distress. Well appearing. HEAD: No signs of trauma EYES: PERRLA, EOMI, sclera anicteric, conjunctiva clear ENT: Auricles normal inspection, hearing grossly normal, nares patent, oropharynx clear without exudates. Moist mucosa NECK: Normal ROM, supple, no lymphadenopathy, JVD, or masses LUNGS: Breath sounds equal, clear to auscultation bilaterally. No wheezes, and no crackles HEART: Regular rate and rhythm, normal S1 and S2, no murmurs, rubs or gallops ABDOMEN: Soft, nontender, normoactive bowel sounds. No guarding, no rebound. No masses EXTREMITIES: Normal range of motion, 4+ pitting edema to BLE with erythema, multiple small bullous lesions to a dark, discolored base. +Some small areas of weeping clear fluid. No odor. No crepitus. No clubbing or cyanosis. No cords. + Tenderness NEUROLOGICAL: Cranial nerves II through XII grossly intact. Normal speech, normal gait. Motor and sensation intact SKIN: Warm, Dry, normal turgor, no rashes or lesions noted. - Medical Decision Making PT with significant lower extremity edema. The large discolored areas are likely related to eliquis use. Necrotizing fasciitis unlikely- no odor, no fever , no crepitus. Also, patient is well-appearing, nontoxic. More likely this is a consequence of chronic venous stasis and edema causing significant cellulitis. Will check labs, XR to r/o subcutaneous gas, and DVT study. Will plan to admit. <Amara Cohen - Last Filed: 08/26/18 22:22> Attestations - Attestations 08/26/18 20:45 Documentation prepared by BRUCE Del Castillo, acting as certified medical biller for Amara Cohen MD. <Grey Joseph - Last Filed: 08/26/18 20:45>
[2018-08-26 21:54] LABS: EOS % 0.6 % (0-4.5); HEMATOCRIT 30.9 % (32.4-45.2); HEMOGLOBIN 10.1 GM/dL (10.7-15.3); LYMPH % 21.9 % (8-40); MCH 29.2 pg (25.7-33.7); MCHC 32.8 g/dl (32.0-36.0); MEAN CELL VOLUME 89.1 fl (80-96); MEAN PLT VOLUME 8.2 fl (7.5-11.1); MONO % 7.9 % (3.8-10.2); NEUT % 68.6 % (42.8-82.8); PLATELET COUNT 237 K/MM3 (134-434); RBC 3.47 M/mm3 (3.60-5.2); WHITE BLOOD COUNT 5.7 K/mm3 (4.0-10.0)
[2018-08-26 22:11] LABS: INR 1.33 (0.83-1.09); PROTHROMBIN TIME (PATIENT) 15.7 SEC (9.7-13.0)
[2018-08-26 22:13] LABS: ACTIVATED PTT 33.3 SECONDS (25.2-36.5)
[2018-08-26] MEDS ORDERED: ACETAMINOPHEN 1000 MG/100 ML VIAL (NON FORMULARY) IVPB ONE (22:33)
[2018-08-26] MEDS ORDERED: VANCOMYCIN 1,000 MG in DEXTROSE 5%-WATER - 250 ML IVPB ONE (22:48)
[2018-08-26] MEDS ORDERED: ACETAMINOPHEN INJECTION 100 ML IVPB ONE (22:57)
[2018-08-26] MEDS ORDERED: VANCOMYCIN 1 GRAM (PRE-DOCKED) 1,000 MG/250 ML BAG IVPB ONE (22:58)
[2018-08-26 23:10] LABS: ALBUMIN 2.5 g/dl (3.4-5.0); ALK PHOS 87 U/L (45-117); ANION GAP 8 MMOL/L (8-16); BILIRUBIN,TOTAL 0.4 mg/dL (0.2-1); BLOOD UREA NITROGEN 51 mg/dL (7-18); CALCIUM 7.7 mg/dL (8.5-10.1); CHLORIDE 100 mmol/L (98-107); CO2 25 mmol/L (21-32); CREATININE 2.7 mg/dL (0.55-1.3); GLUCOSE,RANDOM 127 mg/dL (74-106); POTASSIUM 4.7 mmol/L (3.5-5.1); SGOT/AST 43 U/L (15-37); SGPT/ALT 23 U/L (13-61); SODIUM 133 mmol/L (136-145)
[2018-08-26 23:14] LABS: EPI CELLS 8.7 /HPF (0-5); PH,URINE 5.5 (5.0-8.0); URINE APPEARANCE CLOUDY; URINE BACTERIA 16.8 /hpf (NEGATIVE); URINE BILIRUBIN NEGATIVE (NEGATIVE); URINE CASTS 6 /hpf (0-8); URINE COLOR YELLOW; URINE GLUCOSE (UA) NEGATIVE (NEGATIVE); URINE KETONE NEGATIVE (NEGATIVE); URINE LEUK ESTERASE TRACE (NEGATIVE); URINE NITRITE NEGATIVE (NEGATIVE); URINE PROTEIN 3+ (NEGATIVE); URINE RBC 870 /hpf (0-4); URINE UROBILINOGEN 0.2 mg/dL (0.2-1.0); URINE WBC 11 /hpf (0-5)
[2018-08-27] MEDS ORDERED: PATIENT'S OWN MEDICATION (NON-FORMULARY) (Prednisolone Acetate/Pf [Prednisolone Acet 1% Ey OP SCH (01:00)
--- NOTE | 2018-08-27 02:35 | HP ---
CHIEF COMPLAINT: lower extremity swelling with redness and black discoloration with bullous lesions to right lower extremity PCP: Dr. Serrato Real Estate Asset Manager:Dr. Rivers in [place] HISTORY OF PRESENT ILLNESS: 88 year old female with past medical history significant for hypertension, chronic kidney disease, CAD s/p CABG ([address] Oreilly), atrial fibrillation (on Eliquis 2.5 mg), and diastolic congestive heart failure / severe tricuspid regurgitation EF 50% as daughter reported had recent echocardiogram who presented with bilateral lower extremity swelling associated with redness and a black large area and multiple new bullous lesions on her right leg. The patient reported she has always had lower extremity edema but the black discoloration and the bullous lesions are new. She denies chest pain, shortness of breath, orthopnea or dizziness. Upon evaluation she was found to have a normal WBC and lactic acid of 2.2 and acute on chronic renal insufficiency with creatinine of 2.7 and sodium of 133. In the ER she was treated with IV vancomycin. Venous dopplers demonstrated no DVT. She is being admitted for further medical management. Recent Travel: denies PAST MEDICAL HISTORY: as above PAST SURGICAL HISTORY: CABG Social History: Smoking:Denies Alcohol:Denies Drugs: Denies Family History:noncontributory Allergies No Known Allergies Allergy (Verified 08/26/18 18:44) HOME MEDICATIONS: Home Medications Medication Instructions Recorded Rosuvastatin Calcium [Crestor] 20 mg PO HS 09/11/14 Dextran 70/Hypromellose/Pf 1 each OP QID 01/10/18 [Artificial Tears Drops] Apixaban [Eliquis] 2.5 mg PO BID #60 tablet 01/14/18 Docusate Sodium [Colace -] 100 mg PO BID capsule 01/17/18 Sennosides [Senna -] 1 tab PO BID tablet 01/17/18 Acetaminophen [Tylenol .Regular 650 mg PO Q6H PRN tablet 01/29/18 Strength -] Amino Acids/Protein Hydrolys 30 ml PO BID@0800,1730 packet 01/29/18 [Prosource No Carb Liquid Pkt] Cephalexin [Keflex] 500 mg PO BID #10 capsule 01/29/18 Metoprolol Succinate [Toprol XL -] 50 mg PO DAILY 08/26/18 Potassium Chloride [K-Tab ER] 40 meq PO DAILY 08/26/18 Prednisolone Acetate/Pf 5 ml OP ASDIR 08/26/18 [Prednisolone Acet 1% Eye Drop] Torsemide [Demadex -] 40 mg PO DAILY 08/26/18 REVIEW OF SYSTEMS CONSTITUTIONAL: Absent: fever, chills, diaphoresis, generalized weakness, malaise, loss of appetite, weight change HEENT: Absent: rhinorrhea, nasal congestion, throat pain, throat swelling, difficulty swallowing, mouth swelling, ear pain, eye pain, visual changes CARDIOVASCULAR: Absent: chest pain, syncope, palpitations, irregular heart rate, lightheadedness , peripheral edema RESPIRATORY: Absent: cough, shortness of breath, dyspnea with exertion, orthopnea, wheezing, stridor, hemoptysis GASTROINTESTINAL: Absent: abdominal pain, abdominal distension, nausea, vomiting, diarrhea, constipation, melena, hematochezia GENITOURINARY: Absent: dysuria, frequency, urgency, hesitancy, hematuria, flank pain, genital pain MUSCULOSKELETAL: Absent: myalgia, arthralgia, joint swelling, back pain, neck pain SKIN: Absent: rash, itching, pallor, bilateral lower extremity swelling and redness with blackish discoloration to RLE with bullous lesions HEMATOLOGIC/IMMUNOLOGIC: Absent: easy bleeding, easy bruising, lymphadenopathy, frequent infections ENDOCRINE: Absent: unexplained weight gain, unexplained weight loss, heat intolerance, cold intolerance NEUROLOGIC: Absent: headache, focal weakness or paresthesias, dizziness, unsteady gait, seizure, mental status changes, bladder or bowel incontinence PSYCHIATRIC: Absent: anxiety, depression, suicidal or homicidal ideation, hallucinations. PHYSICAL EXAMINATION Vital Signs - 24 hr 08/26/18 08/26/18 08/26/18 18:49 21:20 21:49 Temperature 98.1 F 98.0 F Pulse Rate 88 Pulse Rate [ 92 H Left] Respiratory 18 16 Rate Blood Pressure 134/66 O2 Sat by Pulse 97 97 99 Oximetry (%) GENERAL: awake alert and fully oriented HEAD: normal EYES: pupils equal, round and reactive to light EARS, NOSE, THROAT: ears normal nares patent NECK: normal range of motion LUNGS: lungs clear to auscultation bilaterally no wheezing no crackles no use of accessory muscle use HEART: regular rate and rhythm normal S1 and S2 + murmur ABDOMEN: soft nontender not distended normoactive bowel sounds MUSCULOSKELETAL: limited range of motion to BLE UPPER EXTREMITIES: 2+ pulses, warm no cyanosis LOWER EXTREMITIES: 2+ pulses, warm bilateral lower extremity swelling and redness NEUROLOGICAL: normal speech PSYCHIATRIC: cooperative SKIN: bilateral lower extremity with swelling and redness and black area of discoloration with bullous lesions to RLE Laboratory Results - last 24 hr 08/26/18 08/26/18 08/26/18 21:20 21:20 21:20 WBC 5.7 RBC 3.47 L Hgb 10.1 L Hct 30.9 L MCV 89.1 MCH 29.2 MCHC 32.8 RDW 17.0 H Plt Count 237 D MPV 8.2 D Absolute Neuts (auto) 3.9 Neutrophils % 68.6 Lymphocytes % 21.9 D Monocytes % 7.9 Eosinophils % 0.6 Basophils % 1.0 Nucleated RBC % 0 PT with INR 15.70 H INR 1.33 H PTT (Actin FS) 33.3 Sodium 133 L Potassium 4.7 Chloride 100 Carbon Dioxide 25 Anion Gap 8 BUN 51 H Creatinine 2.7 H Creat Clearance w eGFR 16.67 Random Glucose 127 H Lactic Acid Calcium 7.7 L Total Bilirubin 0.4 AST 43 H ALT 23 Alkaline Phosphatase 87 Troponin I Total Protein 7.0 Albumin 2.5 L Urine Color Urine Appearance Urine pH Ur Specific Berne Urine Protein Urine Glucose (UA) Urine Ketones Urine Blood Urine Nitrite Urine Bilirubin Urine Urobilinogen Ur Leukocyte Esterase Urine WBC (Auto) Urine RBC (Auto) Urine Casts (Auto) U Epithel Cells (Auto) Urine Bacteria (Auto) Anti-A Titer Blood Type Antibody Screen 08/26/18 08/26/18 08/26/18 21:20 21:20 21:20 WBC RBC Hgb Hct MCV MCH MCHC RDW Plt Count MPV Absolute Neuts (auto) Neutrophils % Lymphocytes % Monocytes % Eosinophils % Basophils % Nucleated RBC % PT with INR INR PTT (Actin FS) Sodium Potassium Chloride Carbon Dioxide Anion Gap BUN Creatinine Creat Clearance w eGFR Random Glucose Lactic Acid 2.2 H* Calcium Total Bilirubin AST ALT Alkaline Phosphatase Troponin I 0.03 Total Protein Albumin Urine Color Urine Appearance Urine pH Ur Specific Berne Urine Protein Urine Glucose (UA) Urine Ketones Urine Blood Urine Nitrite Urine Bilirubin Urine Urobilinogen Ur Leukocyte Esterase Urine WBC (Auto) Urine RBC (Auto) Urine Casts (Auto) U Epithel Cells (Auto) Urine Bacteria (Auto) Anti-A Titer Cancelled Blood Type Cancelled Antibody Screen Cancelled 08/26/18 08/27/18 22:40 01:00 WBC RBC Hgb Hct MCV MCH MCHC RDW Plt Count MPV Absolute Neuts (auto) Neutrophils % Lymphocytes % Monocytes % Eosinophils % Basophils % Nucleated RBC % PT with INR INR PTT (Actin FS) Sodium Potassium Chloride Carbon Dioxide Anion Gap BUN Creatinine Creat Clearance w eGFR Random Glucose Lactic Acid 1.6 Calcium Total Bilirubin AST ALT Alkaline Phosphatase Troponin I Total Protein Albumin Urine Color Yellow Urine Appearance Cloudy Urine pH 5.5 Ur Specific Berne 1.014 Urine Protein 3+ H Urine Glucose (UA) Negative Urine Ketones Negative Urine Blood 3+ H Urine Nitrite Negative Urine Bilirubin Negative Urine Urobilinogen 0.2 Ur Leukocyte Esterase Trace Urine WBC (Auto) 11 Urine RBC (Auto) 870 Urine Casts (Auto) 6 U Epithel Cells (Auto) 8.7 Urine Bacteria (Auto) 16.8 Anti-A Titer Blood Type Antibody Screen ASSESSMENT/PLAN: 88 year old female with past medical history significant for hypertension, chronic kidney disease, CAD s/p CABG ([address] Oreilly), atrial fibrillation (on Eliquis 2.5 mg), and diastolic congestive heart failure, EF 50 % and severe tricuspid regurgitation who presented with bilateral lower extremity edema associated with redness and a black area discoloration and multiple new bullous lesions to her right leg. Bilateral Lower Extremity Cellulitis Patient is currently afebrile. WBC is normal. Lactic acid is elevated. Patient received one dosage of IV vancomycin in ER. Continue with IV vancomycin. ID-Dr. Layne consulted. Vascular-Dr. Perdomo consulted. Fluid Overload in setting of Severe Tricuspid Regurgitation Patient denies symptoms of dyspnea or orthopnea. Will check BNP. Hold torsemide in setting of acute on chronic renal insufficiency. Will defer diuretics recommendations to Cardiology. Check echocardiogram. Cardiology consulted- Dr. Lancaster. Coronary Artery Disease Asymptomatic of anginal symptoms .Troponin is normal. Continue with beta pedro luis and statin therpay. Not on aspirin due to being on systemic anticoagulation. Acute on Chronic Renal Insufficiency Creatinine is 2.7. Nephrology consulted -Dr. Santoyo. Hypertension Controlled. Continue with metoprolol succinate. Hyperlipidemia Continue with statin therpay. Atrial Fibrillation Rate controlled. Continue with metoprolol succinate.. Continue with appropriate dosage of eliquis. FEN Low soidum diet. Continue to monitor electrolytes closely. DVT Prophylaxsis Continue with systemic anticoagulation with eliquis. Bilateral SCD's. Visit type - Emergency Visit Emergency Visit: Yes ED Registration Date: 08/27/18 Care time: The patient presented to the Emergency Department on the above date and was hospitalized for further evaluation of their emergent condition. - New Patient This patient is new to me today: Yes Date on this admission: 08/27/18 - Critical Care Critical Care patient: No
[2018-08-27] MEDS ORDERED: APIXABAN 2.5 MG TABLET PO SCH (10:00)
[2018-08-27] MEDS ORDERED: VANCOMYCIN 1 GM in D5W (PRE-DOCKED) 1,000 MG/250 ML IVPB SCH (10:00)
[2018-08-27] MEDS ORDERED: TORSEMIDE 20 MG TABLET (FP) PO SCH (10:00)
--- NOTE | 2018-08-27 10:02 | PN ---
Progress Note, Physician History of Present Illness: 88 year old female with past medical history significant for hypertension, chronic kidney disease, CAD s/p CABG ([address] Oreilly), atrial fibrillation (on Eliquis 2.5 mg), and diastolic congestive heart failure, EF 50 % and severe tricuspid regurgitation who presented with bilateral lower extremity edema associated with redness and a black area discoloration and multiple new bullous lesions to her right leg. - Current Medication List Current Medications: Active Medications Apixaban (Eliquis -) 2.5 mg PO BID SAUL Vancomycin HCl (Vancomycin 1 Gm Premix -) 1 gm in 200 mls @ 133.333 mls/hr IVPB ONCE ONE Stop: 08/27/18 23:29 Vancomycin HCl (Vancomycin 1 Gm Premix -) 1 gm in 200 mls @ 133.333 mls/hr IVPB HS SAUL Metoprolol Succinate (Toprol Xl -) 50 mg PO DAILY SAUL Rosuvastatin Calcium (Crestor -) 20 mg PO HS SAUL Senna (Senna -) 1 tab PO BID SAUL - Objective Vital Signs: Vital Signs Temperature 98.4 F 08/27/18 06:42 Pulse Rate 71 08/27/18 06:42 Respiratory Rate 16 08/26/18 21:49 Blood Pressure 116/67 08/27/18 06:42 O2 Sat by Pulse Oximetry (%) 96 08/27/18 06:42 Cardiovascular: Yes: Murmur, S1, S2 Respiratory: Yes: Rales Gastrointestinal: Yes: Normal Bowel Sounds, Soft Extremities: Yes: Erythema Edema: Yes Integumentary: Yes: Bruising, Erythema, Venous Stasis Changes, Other (BOLLOUS) Labs: CBC, BMP 08/26/18 21:20 08/26/18 21:20 INR, PTT INR 1.33 (0.83-1.09) H 08/26/18 21:20 Problem List - Problems (1) Cellulitis Assessment/Plan: IV ABX ID AND SURGICAL CONSULT Code(s): L03.90 - CELLULITIS, UNSPECIFIED Qualifiers: Site of cellulitis of extremity: lower extremity Laterality: left Qualified Code(s): L03.116 - Cellulitis of left lower limb (2) Bullous dermatitis Assessment/Plan: DERM CONSULT Code(s): L13.9 - BULLOUS DISORDER, UNSPECIFIED (3) Valvular heart disease Assessment/Plan: CARDIO ON BOARD Code(s): I38 - ENDOCARDITIS, VALVE UNSPECIFIED (4) CHF (congestive heart failure) Assessment/Plan: H/O SEVER TR IV LASIX CADRDIO MONITOR LYTES Code(s): I50.9 - HEART FAILURE, UNSPECIFIED Qualifiers: Heart failure type: systolic Heart failure chronicity: chronic Qualified Code(s): I50.22 - Chronic systolic (congestive) heart failure
--- NOTE | 2018-08-27 10:06 | CON.CARD ---
Consult Consult Specialty:: Cardiology Referred by:: Dr. Serrato Reason for Consultation:: Tricuspid regurgitation, LE edema - History of Present Illness Chief Complaint: LE edema, redness, dark skin History of Present Illness: 88 year old woman with a PMHx of Mercado's palsy, CAD s/p CABG (10 years ago), chronic A.Fib, chronic diastolic/valvular CHF due to tricuspid regurgitation, chronic b/l LE edema due to diastolic CHF, tricuspid regurgitation, and Chronic venous insufficiency s/p Vein stripping, followed by lone lead lineman Dr. Fraga and recently saw a new lone lead lineman (yesterday) in [place] who prescribed Metolazone once per week (has not started) in addition to her Torsemide. Pt came to ER because of redness and black areas of skin on her legs. pt [facility]. her son is at bedside. pt is comfortable. also notes a minimally productive cough for a few days. her has a URI at home. Her son states her LE edema is slightly worse than usual. pt denies any chest pain, sob, palpitations. no pnd, orthopnea. no lightheadedness, dizziness, syncope or near syncope. She has a history of orthostatic hypotension when intravascularly depleted. - History Source History Provided By: Patient, Family Member Limitations to Obtaining History: No Limitations - Past Medical History Cardio/Vascular: Yes: CAD, CHF, HTN Renal/: Yes: Renal Inusuff - Alcohol/Substance Use Hx Alcohol Use: Yes (an occaisional glass of wine w/ shahnaz jatinder) - Smoking History Smoking history: Never smoked Have you smoked in the past 12 months: No - Social History Usual Living Arrangement: With Spouse History of Recent Travel: No Home Medications - Allergies Allergies/Adverse Reactions: Allergies Allergy/AdvReac Type Severity Reaction Status Date / Time No Known Allergies Allergy Verified 08/26/18 18:44 - Home Medications Home Medications: Ambulatory Orders Rosuvastatin Calcium [Crestor] 20 mg PO HS 09/11/14 Dextran 70/Hypromellose/Pf [Artificial Tears Drops] 1 each OP QID 01/10/18 Apixaban [Eliquis] 2.5 mg PO BID #60 tablet 01/14/18 Docusate Sodium [Colace -] 100 mg PO BID capsule 01/17/18 Sennosides [Senna -] 1 tab PO BID tablet 01/17/18 Acetaminophen [Tylenol .Regular Strength -] 650 mg PO Q6H PRN tablet 01/29/18 Amino Acids/Protein Hydrolys [Prosource No Carb Liquid Pkt] 30 ml PO BID@0800, 1730 packet 01/29/18 Cephalexin [Keflex] 500 mg PO BID #10 capsule 01/29/18 Metoprolol Succinate [Toprol XL -] 50 mg PO DAILY 08/26/18 Potassium Chloride [K-Tab ER] 40 meq PO DAILY 08/26/18 Prednisolone Acetate/Pf [Prednisolone Acet 1% Eye Drop] 5 ml OP ASDIR 08/26/18 Torsemide [Demadex -] 40 mg PO DAILY 08/26/18 Family Disease History - Family Disease History Family History: Denies Review of Systems - Review of Systems Constitutional: denies: No Symptoms, Chills, Diaphoresis, Fever, Lethargy, Loss of Appetite, Malaise, Night Sweats, Unintentional Wgt. Loss, Weakness, Other Eyes: denies: No Symptoms, Blind Spots, Blurred Vision, Double Vision, Eye Pain , Floaters, Photophobia, Recent Change in Vision, Other HENT: denies: No Symptoms, Difficult Swallowing, Ear Discharge, Ear Pain, Epistaxis, Gingival Bleeding, Hearing Loss, Mouth Swelling, Nasal Congestion, Ocular Prosthesis, Throat Pain, Toothache, Ringing in Ears, Other Neck: denies: No Symptoms, Decreased ROM, Lumps, Pain on Movement, Stiffness, Swollen Glands, Tenderness, Other Cardiovascular: reports: Edema. denies: No Symptoms, Chest Pain, Palpitations, Shortness of Breath, Other Respiratory: reports: Cough. denies: No Symptoms, Exercise Intolerance, Hemoptysis, Orthopnea, PND, Snoring, SOB, SOB on Exertion, Wheezing, Other Gastrointestinal: denies: No Symptoms, Abdominal Pain, Bloating, Constipation, Diarrhea, Dysphagia, Indigestion, Melena, Nausea, Rectal Bleeding, Vomiting, Vomiting Blood, Other Genitourinary: denies: No Symptoms, Burning, Discharge, Dysuria, Flank Pain, Frequency, Hematuria, Incontinence, Lesions, Menses, Pain, Testicular Mass, Testicular Pain, Testicular Swelling, Urgency, Vaginal Bleeding, Other Breasts: denies: No Symptoms Reported, See HPI, Breast Implants, Discharge from Nipple, Lumps, Pain, Skin Changes, Other Musculoskeletal: denies: No Symptoms, Back Pain, Crepitus, Decreased ROM, Extremity Pain, Joint Pain, Joint Swelling, Muscle Pain, Muscle Cramps, Muscle Weakness, Other Integumentary: reports: Change in Color, Erythema, Rash. denies: No Symptoms, Blister, Bruising, Eczema, Incision, Lesions, Lump, Pallor, Pruritis, Wound, Other Neurological: denies: No Symptoms, Change in LOC, Change in Speech, Confusion, Dizziness, Headache, Incoordination, Numbness, Parasthesia, Pre-Existing Deficit , Seizure, Syncope, Tremors, Unsteady Gait, Weakness, Other Endocrine: denies: No Symptoms, Excessive Sweating, Flushing, Increased Hunger, Increased Thirst, Intolerance to Cold, Intolerance to Heat, Unexplained Weight Gain, Unexplained Weight Loss, Other Hematology/Lymphatic: denies: No Symptoms, Easily Bruised, Excessive Bleeding, Swollen Glands, Other Psychiatric: denies: No Symptoms, Altered Sleep Pattern, Anxiety, Depression, Hallucinations, Panic, Paranoia, Suicidal, Other - Risk Factors Known Risk Factors: Yes: Age, Hypercholesterolemia, Hypertension Vital Signs: Vital Signs Temperature 98.4 F 08/27/18 06:42 Pulse Rate 71 08/27/18 06:42 Respiratory Rate 16 08/26/18 21:49 Blood Pressure 116/67 08/27/18 06:42 O2 Sat by Pulse Oximetry (%) 96 08/27/18 06:42 Constitutional: Yes: No Distress, Calm Eyes: Yes: Conjunctiva Clear, EOM Intact HENT: Yes: Atraumatic, Normocephalic Neck: Yes: Supple, Trachea Midline Respiratory: Yes: Regular, Cough, Diminished, Wheezes. No: Rales, Rhonchi, SOB Gastrointestinal: Yes: Normal Bowel Sounds, Soft. No: Distention, Tenderness Cardiovascular: Yes: Pulse Irregular. No: Bradycardia, Tachycardia, Gallop, Rub , Varicosities JVD: No Carotid Bruit: No PMI: Non-Displaced Heart Sounds: Yes: S1, S2. No: Split S2, S3, S4, Clicks, Gallop, Rub, Bruit Murmur: Yes: Systolic Murmur, Grade 2 Musculoskeletal: No: WNL Extremities: Yes: Erythema, Other (dark patchy areas of skin) Edema: Yes Edema: LLE: 1+, RLE: 1+ Peripheral Pulses WNL: Yes Neurological: Yes: Alert, Oriented Psychiatric: Yes: Alert, Oriented - Other Data Labs, Other Data: CBC, BMP 08/26/18 21:20 08/26/18 21:20 INR, PTT INR 1.33 (0.83-1.09) H 08/26/18 21:20 Troponin, BNP 08/26/18 21:20 Troponin I 0.03 Troponin, BNP 08/26/18 21:20 Troponin I 0.03 ekg not in emr yet Echo: Report Reviewed Imaging - Results Chest X-ray: Report Reviewed, Image Reviewed EKG: Report Reviewed, Image Reviewed Other: Report Reviewed, Image Reviewed Assessment/Plan 88 year old woman with a PMHx of Mercado's palsy, CAD s/p CABG (10 years ago), chronic A.Fib, chronic diastolic/valvular CHF due to tricuspid regurgitation, chronic b/l LE edema due to diastolic CHF, tricuspid regurgitation, and Chronic venous insufficiency s/p Vein stripping, followed by lone lead lineman Dr. Fraga and recently saw a new lone lead lineman (yesterday) in [place] who prescribed Metolazone once per week (has not started) in addition to her Torsemide. Pt came to ER because of redness and black areas of skin on her legs. pt is comfortable. also notes a minimally productive cough for a few days. her has a URI at home. Her son states her LE edema is slightly worse than usual. pt denies any chest pain, sob, palpitations. no pnd, orthopnea. no lightheadedness, dizziness, syncope or near syncope. She has a history of orthostatic hypotension when intravascularly depleted. Chronic b/l LE edema secondary to Chronic venous insufficiency h/o vein stripping, chronic known valvular heart disease with h/o mod to severe TR, chronic diastolic CHF -does not appear significantly volume overloaded currently despite LE edema -current LE edema more consistent with venous insufficiency -repeating an echo unlikely to waste/materials exchange specialist at this time -bun/creat elevated c/w intravascular depletion -would not aggressively diurese at this time, agree with holding diuretics -pt was using compression stockings at home and is concerned this is what led to the black areas of skin -On Abx for cellulitis -Vascular evaluation for venous insufficiency -Recc leg elevation Atrial fibrillation-chronic, HR controlled -cont home meds CAD s/p CABG -stable -cont home meds
--- NOTE | 2018-08-27 10:44 | CONSULT ---
- Consultation REQUESTING PROVIDER: CONSULT REQUEST: We have been asked to surgically evaluate this patient for bilateral lower extremity discoloration. PCP:Avani Serrato HISTORY OF PRESENT ILLNESS: The patient is a 88 yo female who presents to the ER for lower ext edema/discoloration. She was seen by her tire finisher yesterday along with her family and her legs were noted to be red with blisters and weeping. Her family is at the bedside to help answer questions. Her legs have had chronic swelling since December and her tire finisher has been treating her with medications to decrease the swelling. She has a history of laser vein treatment with Dr. Perdomo years ago which her family states she recovered well from. She was advised to wear compression stocking recently by her tire finisher. The patient denies any fevers, CP or SOB. No leg pain, she ambulates short distances with a cane. No history of diabetes. 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 PSHx: CABG Home Medications Medication Instructions Recorded Rosuvastatin Calcium [Crestor] 20 mg PO HS 09/11/14 Dextran 70/Hypromellose/Pf 1 each OP QID 01/10/18 [Artificial Tears Drops] Apixaban [Eliquis] 2.5 mg PO BID #60 tablet 01/14/18 Docusate Sodium [Colace -] 100 mg PO BID capsule 01/17/18 Sennosides [Senna -] 1 tab PO BID tablet 01/17/18 Acetaminophen [Tylenol .Regular 650 mg PO Q6H PRN tablet 01/29/18 Strength -] Amino Acids/Protein Hydrolys 30 ml PO BID@0800,1730 packet 01/29/18 [Prosource No Carb Liquid Pkt] Cephalexin [Keflex] 500 mg PO BID #10 capsule 01/29/18 Metoprolol Succinate [Toprol XL -] 50 mg PO DAILY 08/26/18 Potassium Chloride [K-Tab ER] 40 meq PO DAILY 08/26/18 Prednisolone Acetate/Pf 5 ml OP ASDIR 08/26/18 [Prednisolone Acet 1% Eye Drop] Torsemide [Demadex -] 40 mg PO DAILY 08/26/18 Allergies Allergy/AdvReac Type Severity Reaction Status Date / Time No Known Allergies Allergy Verified 08/26/18 18:44 REVIEW OF SYSTEMS: CONSTITUTIONAL: Absent: fever, chills CARDIOVASCULAR: Absent: chest pain, syncope RESPIRATORY: Present: cough Absent: shortness of breath GASTROINTESTINAL: Absent: abdominal pain, abdominal distension GENITOURINARY: Absent: dysuria Presetent: hematuria SKIN: Present: rash, itching PHYSICAL EXAM: GENERAL: Awake and alert LUNGS: Clear to auscultation bilat anteriorly, no wheezing, bilateral crackles HEART: Regular rate and rhythm. ABDOMEN: Soft, nontender, not distended. LOWER EXTREMITIES: 2+ femoral pulses. 2+ DP pulses, warm, well-perfused, small pin point hemorrhagic areas. Bilateral edema to knees with circumfrential areas of bullae with hemorrhagic base. Minimal weeping noted. erythema to knees. The erythema extends above the left knee there is little edema and erythema above right the knees. There are patches of erythematous base with small bullae above the bilateral knees. mostly non confluent. No pain with ROM, mild pain to calf areas. NEUROLOGICAL: Normal speech, gait not observed. PSYCH: Cooperative. Appropriate mood and affect. Vital Signs Temperature 98.4 F 08/27/18 06:42 Pulse Rate 71 08/27/18 06:42 Respiratory Rate 16 08/26/18 21:49 Blood Pressure 116/67 08/27/18 06:42 O2 Sat by Pulse Oximetry (%) 96 08/27/18 06:42 Lab Results WBC 5.7 K/mm3 (4.0-10.0) 08/26/18 21:20 RBC 3.47 M/mm3 (3.60-5.2) L 08/26/18 21:20 Hgb 10.1 GM/dL (10.7-15.3) L 08/26/18 21:20 Hct 30.9 % (32.4-45.2) L 08/26/18 21:20 MCV 89.1 fl (80-96) 08/26/18 21:20 MCHC 32.8 g/dl (32.0-36.0) 08/26/18 21:20 RDW 17.0 % (11.6-15.6) H 08/26/18 21:20 Plt Count 237 K/MM3 (134-434) D 08/26/18 21:20 Sodium 133 mmol/L (136-145) L 08/26/18 21:20 Potassium 4.7 mmol/L (3.5-5.1) 08/26/18 21:20 Chloride 100 mmol/L (98-107) 08/26/18 21:20 Carbon Dioxide 25 mmol/L (21-32) 08/26/18 21:20 Anion Gap 8 MMOL/L (8-16) 08/26/18 21:20 BUN 51 mg/dL (7-18) H 08/26/18 21:20 Creatinine 2.7 mg/dL (0.55-1.3) H 08/26/18 21:20 Random Glucose 127 mg/dL (74-106) H 08/26/18 21:20 Calcium 7.7 mg/dL (8.5-10.1) L 08/26/18 21:20 Blood Type Cancelled 08/26/18 21:20 Antibody Screen Cancelled 08/26/18 21:20 INR 1.33 (0.83-1.09) H 08/26/18 21:20 Microbiology Laboratory Tests 08/26/18 08/26/18 08/27/18 21:20 22:40 01:00 Lactic Acid 2.2 H* 1.6 Urine Color Yellow Urine Appearance Cloudy Urine pH 5.5 Ur Specific [place] 1.014 Urine Protein 3+ H Urine Glucose (UA) Negative Urine Ketones Negative Urine Blood 3+ H Urine Nitrite Negative Urine Bilirubin Negative Urine Urobilinogen 0.2 Ur Leukocyte Esterase Trace Urine WBC (Auto) 11 Urine RBC (Auto) 870 Urine Casts (Auto) 6 U Epithel Cells (Auto) 8.7 Urine Bacteria (Auto) 16.8 Tibia/fibula: no SQ empysema Vascular duplex: no evidence of the DVT from CF to popliteal in bilateral LE. Nonvisualiztion of PT veins. Problem List - Problems (1) Cellulitis Assessment/Plan: PT with extensive swelling/celluitis bilaterally. She has a chronic history of swelling to her extremities being treated with compression stockings and medicatons, just started on tursemide to decrease swelling. No evidence of actue ischemia. IV abx, treated with Vancomyocin Local wound care with xeroform, kerlex. Elevate bilateral lower extremitties. D/w Dr. Perdomo and he agrees with the plan Code(s): L03.90 - CELLULITIS, UNSPECIFIED Qualifiers: Site of cellulitis of extremity: lower extremity Laterality: left Visit type - Case Type Case Type: ED Admission - Emergency Emergency Visit: Yes ED Registration Date: 08/27/18 Care time: The patient presented to the Emergency Department on the above date and was hospitalized for further evaluation of their emergent condition. - New patient This patient is new to me today: Yes Date on this admission: 08/27/18
[2018-08-27] MEDS: SENNOSIDES 8.6MG TABLET (FP) PO SCH ×2 (11:30→22:16)
[2018-08-27] MEDS: PIPERACILLIN/TAZOB 2.25 GM 2.25 GM in DEXTROSE 5%-WATER - 50 ML IVPB SCH ×2 (11:30→19:38)
[2018-08-27] MEDS ORDERED: HEPARIN NA (PORCINE) 5,000 UNITS/ML 1ML VIAL IVPUSH PRN ×3 (13:13→18:00)
[2018-08-27] MEDS ORDERED: HEPARIN INFUSION - 25,000 UNITS/500 ML INFUS.BAG IVPB SCH (13:15)
--- NOTE | 2018-08-27 13:23 | PN ---
Progress Note, Physician Chief Complaint: 88 Y.O f KNOWN FROM THE OFFICE PRESENTED TO THE le WITH le REDNESS, SWELLING, BLISTERS, NECROTIC SKIN AREAS. She had elevated ESR/CRP and acute elevation of BUN/Creatinine and UA with RBC History of Present Illness: hypertension, chronic kidney disease, CAD s/p CABG ([address] Oreilly), atrial fibrillation (on Eliquis 2.5 mg), and diastolic congestive heart failure /severe tricuspid regurgitation EF 50% Prostetic left eye, multiple cornea transplants. - Current Medication List Current Medications: Active Medications Apixaban (Eliquis -) 2.5 mg PO BID SAUL Vancomycin HCl (Vancomycin 1 Gm Premix -) 1 gm in 200 mls @ 133.333 mls/hr IVPB ONCE ONE Stop: 08/27/18 23:29 Vancomycin HCl (Vancomycin 1 Gm Premix -) 1 gm in 200 mls @ 133.333 mls/hr IVPB HS SAUL Piperacillin Sod/Tazobactam (Sod 2.25 gm/ Dextrose) 50 mls @ 100 mls/hr IVPB Q8H-IV SAUL; Protocol Piperacillin Sod/Tazobactam (Sod 2.25 gm/ Dextrose) 50 mls @ 100 mls/hr IVPB Q8H-IV SAUL; Protocol Stop: 08/28/18 02:29 Metoprolol Succinate (Toprol Xl -) 50 mg PO DAILY SAUL Rosuvastatin Calcium (Crestor -) 20 mg PO HS SAUL Senna (Senna -) 1 tab PO BID SAUL - Objective Vital Signs: Vital Signs Temperature 98.4 F 08/27/18 06:42 Pulse Rate 71 08/27/18 06:42 Respiratory Rate 16 08/26/18 21:49 Blood Pressure 116/67 08/27/18 06:42 O2 Sat by Pulse Oximetry (%) 96 08/27/18 06:42 Constitutional: Yes: Anxious, Moderate Distress Eyes: Yes: Occular Prosthesis (Left) Neck: Yes: Supple, Trachea Midline Cardiovascular: Yes: Pulse Irregular, JVD, S1, S2 Respiratory: Yes: Regular, CTA Bilaterally Gastrointestinal: Yes: Normal Bowel Sounds, Soft. No: Abdomen, Obese, Palpable Mass ...Rectal Exam: Yes: Deferred Genitourinary: No: Anuria, Bladder Distention, CVA Tenderness - Left, CVA Tenderness - Right Breast(s): Yes: WNL Musculoskeletal: No: Back Pain, Joint Swelling, Muscle Weakness Extremities: Yes: Erythema (B/L). No: Calf Tenderness, Cold, Cyanosis Edema: Yes Edema: LLE: 3+, RLE: 3+ Integumentary: Yes: Rash (Extensive hemorrhagic and necrotic rash on the LE with blisters, bullae), Other Neurological: Yes: Alert, Oriented. No: Aphasia ...Motor Strength: WNL Psychiatric: Yes: WNL Labs: CBC, BMP 08/26/18 21:20 08/26/18 21:20 INR, PTT INR 1.33 (0.83-1.09) H 08/26/18 21:20 Problem List - Problems (1) Bullous dermatitis Assessment/Plan: Blood cultures are negative to date. The patient has normal WBC, she is being treated with Vanco/Zosyn for possible skin infection Cannot r/o purura fulminans as discussed with Dr Stewart Skin biopsy to be arranged. 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 Code(s): I48.91 - UNSPECIFIED ATRIAL FIBRILLATION Qualifiers: Atrial fibrillation type: chronic Qualified Code(s): I48.2 - Chronic atrial fibrillation (4) CHF (congestive heart failure) Assessment/Plan: Cardiology f/u Follow volume status Diuretics PRN Code(s): I50.9 - HEART FAILURE, UNSPECIFIED Qualifiers: Heart failure type: combined systolic and diastolic Heart failure chronicity: chronic Qualified Code(s): I50.42 - Chronic combined systolic ( congestive) and diastolic (congestive) heart failure (5) ARF (acute renal failure) Assessment/Plan: Follow BUN/Creat Vasculitis W/u Nephrology f/u Code(s): N17.9 - ACUTE KIDNEY FAILURE, UNSPECIFIED Qualifiers: Acute renal failure type: unspecified Qualified Code(s): N17.9 - Acute kidney failure, unspecified
--- NOTE | 2018-08-27 13:28 | PN ---
Progress Note (short form) - Note Progress Note: ID CONSULT DICTATED D/W DR WILLSON
--- NOTE | 2018-08-27 13:51 | CONSULT ---
Consult Consult Specialty:: Nephrology Reason for Consultation:: YANICK - History of Present Illness Chief Complaint: sent in for bullous lesions on leg History of Present Illness: Pt is an 88 year old female with pmhx of HTN, CKD, CAD, CABG, CHF, a-fib and valvular heart disease who presents to the ER with bullous lesions on her legs. Lesions are mostly on right leg. She also complains of lower ext edema. She is on torsemide 40 mg at home. She was found to be in renal failure and I was called to evaluate her. She denies dysuria or hematuria. She denies nsaid use. She has keflex listed on her meds but its unclear if she is taking it. - History Source History Provided By: Patient, Family Member, Medical Record - Past Medical History Cardio/Vascular: Yes: CAD, CHF, HTN Renal/: Yes: Renal Inusuff - Alcohol/Substance Use Hx Alcohol Use: Yes (an occaisional glass of wine w/ shahnaz jatinder) - Smoking History Smoking history: Never smoked Have you smoked in the past 12 months: No - Social History Usual Living Arrangement: With Spouse History of Recent Travel: No Home Medications - Allergies Allergies/Adverse Reactions: Allergies Allergy/AdvReac Type Severity Reaction Status Date / Time No Known Allergies Allergy Verified 08/26/18 18:44 - Home Medications Home Medications: Ambulatory Orders Rosuvastatin Calcium [Crestor] 20 mg PO HS 09/11/14 Dextran 70/Hypromellose/Pf [Artificial Tears Drops] 1 each OP QID 01/10/18 Apixaban [Eliquis] 2.5 mg PO BID #60 tablet 01/14/18 Docusate Sodium [Colace -] 100 mg PO BID capsule 01/17/18 Sennosides [Senna -] 1 tab PO BID tablet 01/17/18 Acetaminophen [Tylenol .Regular Strength -] 650 mg PO Q6H PRN tablet 01/29/18 Amino Acids/Protein Hydrolys [Prosource No Carb Liquid Pkt] 30 ml PO BID@0800, 1730 packet 01/29/18 Cephalexin [Keflex] 500 mg PO BID #10 capsule 01/29/18 Metoprolol Succinate [Toprol XL -] 50 mg PO DAILY 08/26/18 Potassium Chloride [K-Tab ER] 40 meq PO DAILY 08/26/18 Prednisolone Acetate/Pf [Prednisolone Acet 1% Eye Drop] 5 ml OP ASDIR 08/26/18 Torsemide [Demadex -] 40 mg PO DAILY 08/26/18 Family Disease History - Family Disease History Family History: Denies Review of Systems - Review of Systems Constitutional: reports: Malaise. denies: Chills, Fever HENT: reports: No Symptoms Neck: reports: No Symptoms Cardiovascular: reports: Edema Respiratory: reports: SOB on Exertion Gastrointestinal: reports: No Symptoms Genitourinary: reports: No Symptoms Musculoskeletal: reports: No Symptoms Integumentary: reports: Other (bullous lesions on lower extremities, blistering , dark color. trunk and back have red non blanching lesions.) Neurological: reports: No Symptoms Endocrine: reports: No Symptoms Hematology/Lymphatic: reports: No Symptoms Psychiatric: reports: No Symptoms Physical Exam Vital Signs: Vital Signs Temperature 98.4 F 08/27/18 06:42 Pulse Rate 71 08/27/18 06:42 Respiratory Rate 16 08/26/18 21:49 Blood Pressure 116/67 08/27/18 06:42 O2 Sat by Pulse Oximetry (%) 96 08/27/18 06:42 Constitutional: Yes: Calm Eyes: Yes: Conjunctiva Clear Cardiovascular: Yes: Murmur, S1, S2 Respiratory: Yes: CTA Bilaterally Gastrointestinal: Yes: Soft Renal/: Yes: WNL Musculoskeletal: Yes: WNL Edema: Yes Edema: LLE: 2+, RLE: 2+ Integumentary: Yes: Other (bullous lesions on lower extremities, blistering, dark color. trunk and back have red non blanching lesions.) Wound/Incision: Yes: Open to air Neurological: Yes: Oriented Psychiatric: Yes: Oriented Labs: CBC, BMP 08/26/18 21:20 08/26/18 21:20 Imaging - Results Chest X-ray: Report Reviewed Problem List - Problems (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 - BULLOUS DISORDER, UNSPECIFIED (2) Valvular heart disease Code(s): I38 - ENDOCARDITIS, VALVE UNSPECIFIED (3) Afib Code(s): I48.91 - UNSPECIFIED ATRIAL FIBRILLATION Qualifiers: Atrial fibrillation type: chronic Qualified Code(s): I48.2 - Chronic atrial fibrillation (4) CHF (congestive heart failure) Code(s): I50.9 - HEART FAILURE, UNSPECIFIED Qualifiers: Heart failure type: systolic Heart failure chronicity: chronic Qualified Code(s): I50.22 - Chronic systolic (congestive) heart failure (5) CKD (chronic kidney disease) Code(s): N18.9 - CHRONIC KIDNEY DISEASE, UNSPECIFIED Assessment/Plan Current Medications Generic Name Dose Route Start Last Admin Trade Name Freq PRN Reason Stop Dose Admin Acetaminophen 650 mg 08/27/18 13:29 Tylenol - PO Q6H PRN PAIN Heparin Sodium (Porcine) 5,000 unit 08/27/18 13:13 Heparin - IVPUSH PRN PRN Heparin Heparin Sodium (Porcine) 1,000 unit 08/27/18 18:00 Heparin - IVPUSH PRN PRN Heparin Vancomycin HCl 1 gm in 200 mls @ 133.333 mls/hr 08/27/18 22:00 Vancomycin 1 Gm Premix - IVPB 08/27/18 23:29 ONCE ONE Piperacillin Sod/Tazobactam 50 mls @ 100 mls/hr 08/27/18 10:15 Sod 2.25 gm/ Dextrose IVPB Q8H-IV SAUL Protocol Piperacillin Sod/Tazobactam 50 mls @ 100 mls/hr 08/27/18 10:15 08/27/18 11:30 Sod 2.25 gm/ Dextrose IVPB 08/28/18 02:29 100 mls/hr Q8H-IV SAUL Administration Protocol Heparin Sodium/Dextrose 25,000 units in 500 mls @ 16 mls/hr 08/27/18 13:15 Heparin Infusion - IVPB TITR SAUL Protocol 800 UNITS/HR Metoprolol Succinate 50 mg 08/27/18 10:00 08/27/18 11:30 Toprol Xl - PO 50 mg DAILY SAUL Administration Rosuvastatin Calcium 20 mg 08/27/18 22:00 Crestor - PO HS SAUL Senna 1 tab 08/27/18 10:00 08/27/18 11:30 Senna - PO 1 tab BID SAUL Administration Impression 1. CKD 2. YANICK 3. CHF 4. HTN 5. bullous lesions 6. valvular heart disease 7. a-fib Plan - send for ultrasound kidneys and bladder - will send renal workup - eliquis being changed to heparin - derm eval - rheum eval - hold diuretics for now - urine does have active sediment - monitor renal function - avoid nsaids
--- NOTE | 2018-08-27 14:31 | EKG ---
Test Reason : Blood Pressure : / mmHG Vent. Rate : 112 BPM Atrial Rate : 065 BPM P-R Int : 000 ms QRS Dur : 094 ms QT Int : 336 ms P-R-T Axes : 000 -39 081 degrees QTc Int : 458 ms POOR DATA QUALITY, INTERPRETATION MAY BE ADVERSELY AFFECTED ATRIAL FIBRILLATION WITH RAPID VENTRICULAR RESPONSE WITH PREMATURE VENTRICULAR OR ABERRANTLY CONDUCTED COMPLEXES LEFT AXIS DEVIATION RSR' OR QR PATTERN IN V1 SUGGESTS RIGHT VENTRICULAR CONDUCTION DELAY MINIMAL VOLTAGE CRITERIA FOR LVH, MAY BE NORMAL VARIANT POSSIBLE ANTERIOR INFARCT (CITED ON OR BEFORE 09-JAN-2018) ABNORMAL ECG WHEN COMPARED WITH ECG OF 25-JAN-2018 23:58, VENT. RATE HAS INCREASED BY 41 BPM T WAVE INVERSION NO LONGER EVIDENT IN INFERIOR LEADS Confirmed by MD Arnulfo, Kieran ([id number]) on 08/27/2018 2:31:45 PM Referred By: EF Confirmed By:Kieran Arredondo MD
[2018-08-27] MEDS ORDERED: ACETAMINOPHEN 325 MG TABLET (FP) ONE (15:06)
[2018-08-27] MEDS: ACETAMINOPHEN 325 MG TABLET (FP) PO PRN (15:12)
--- NOTE | 2018-08-27 19:17 | CONS ---
DATE OF CONSULTATION: DATE OF DICTATION: 08/27/2018 INFECTIOUS DISEASE CONSULTATION REQUESTING PHYSICIAN: Cristian Webster M.D. HISTORY OF PRESENT ILLNESS: This is an 88-year-old woman who was brought into the ER by her family with lower extremity swelling. She has had, for 1 week, lesions on her left leg. She has these red spots on her right leg. She developed this darkened area associated with some bullous lesions on her right leg. The lesions are apparently new. She has not had any new medications. She has not had any recent travel anywhere. She has no fever or chills. In the ER, she had a normal white count, and she was given vancomycin and Zosyn. She was noted to have renal insufficiency. PAST MEDICAL HISTORY: Notable for hypertension, chronic kidney disease. She has a history of coronary artery disease and atrial fibrillation. She has been on Eliquis for at least 6 months. She has a history of tricuspid regurgitation and congestive heart failure. She has a prosthetic left eye. PAST SURGICAL HISTORY: Notable for CABG in the past. SOCIAL HISTORY: She is . She lives with her . She normally wears compression stockings. The daughter is at bedside and reports she has not seen her mother's legs recently until yesterday, when she brought her in. REVIEW OF SYSTEMS: There is no fever or chills. No nausea or vomiting. Appears well-appearing. PHYSICAL EXAMINATION: Vital Signs: Temperature is 98.4. Pulse is 71. Blood pressure 116/67. Respiratory rate 16. She is saturating 96% on room air. HEENT: She is normocephalic. Her eyes are anicteric. Neck: Supple. Lungs: Clear to auscultation. Heart: Regular rate and rhythm. She has 2/6 systolic murmur holosystolic murmur. Abdomen: Soft, nontender. Skin: She has multiple red lesions with dark centers on her left leg. Right lower leg she has a blackened area with some bullous lesions. She has several bright red areas on her lower abdomen. There are none on her arms. DIAGNOSTIC STUDIES: White count is 5.7, hemoglobin 10.1, platelets 237. INR is 1.3. BUN 51, creatinine 2.7, lactic acid 2.2 with a repeat of 1.6. Urinalysis has 3 + blood with 11 white cells and 3+ protein. Duplex of her leg was negative for DVT. Chest x-ray shows no pneumonia or heart failure. SUMMARY: This is an 88-year-old woman admitted with lesions on her legs, possible cellulitis but more concerning for vasculitis. She received vancomycin. She also has elevated creatinine. Last January her renal function was normal. So she appears to have acute renal failure of unclear etiology. Her urinalysis looks like active sediment. Concerns for her skin would include vasculitis. Would suggest Dermatology and Rheumatology consults. This was discussed with Dr. Webster. Would continue the Zosyn at dose adjusted for renal failure. She received vancomycin; will check a random level in the morning. Will check a sedimentation rate and CRP. Will order ANCAs. She needs a renal ultrasound and bladder ultrasound. Further serologies per Nephrology, including an PHYLICIA. ALISSON RUSSO M.D. [id number] MTDD
[2018-08-27] MEDS ORDERED: HEPARIN INFUSION - 25,000 UNITS/500 ML INFUS.BAG IVPB ONE (19:19)
[2018-08-27] MEDS ORDERED: PIPERACILLIN/TAZOB 2.25 GM 2.25 GM/50 ML BAG IVPB ONE (19:19)
[2018-08-27] MEDS: HEPARIN INFUSION - 25,000 UNITS/500 ML INFUS.BAG IVPB SCH (19:38)
--- NOTE | 2018-08-27 19:59 | CONSULT ---
Consult Consult Specialty:: Rheumatology - History of Present Illness History of Present Illness: 88 year old female with past medical history significant for hypertension, CAD s/p CABG, atrial fibrillation (on Eliquis 2.5 mg), and diastolic congestive heart failure /severe tricuspid regurgitation EF 50% admitted with chronic edema of klower limbsm a dark bullous rash in lower limbs and acute renal failure with active sediment. Since the patient was admitted to [facility] on January 2018, she has had chronic edema of the lowed limbs and occasional edema in hands. Due to the swelling of legs she has significant difficulty in walking. She has been following by cardiology and treated with Torsemide with poor response and has used elastic stockings, Apparently the rash in legs was not seen before due to the stockings? Otherwise she is feeling well. She denies joint pain, shortness of breath, or fever. On admission lactiv acid was 2.2, creatinine 2.7 (on 01/28/18: 0.7) and urinalysis with protein 3+ and blood 3+ (on 01/28/18 there was no blood or protein). AST: 43, ALT: 23. Duplex US no DVT in lower limbs. - History Source History Provided By: Patient, Family Member, Medical Record - Past Medical History Cardio/Vascular: Yes: CAD, CHF, HTN Renal/: Yes: Renal Inusuff - Alcohol/Substance Use Hx Alcohol Use: Yes (an occaisional glass of wine w/ shahnaz jatinder) - Smoking History Smoking history: Never smoked Have you smoked in the past 12 months: No - Social History Usual Living Arrangement: With Spouse History of Recent Travel: No Home Medications - Allergies Allergies/Adverse Reactions: Allergies Allergy/AdvReac Type Severity Reaction Status Date / Time No Known Allergies Allergy Verified 08/26/18 18:44 - Home Medications Home Medications: Ambulatory Orders Rosuvastatin Calcium [Crestor] 20 mg PO HS 09/11/14 Dextran 70/Hypromellose/Pf [Artificial Tears Drops] 1 each OP QID 01/10/18 Apixaban [Eliquis] 2.5 mg PO BID #60 tablet 01/14/18 Docusate Sodium [Colace -] 100 mg PO BID capsule 01/17/18 Sennosides [Senna -] 1 tab PO BID tablet 01/17/18 Acetaminophen [Tylenol .Regular Strength -] 650 mg PO Q6H PRN tablet 01/29/18 Amino Acids/Protein Hydrolys [Prosource No Carb Liquid Pkt] 30 ml PO BID@0800, 1730 packet 01/29/18 Cephalexin [Keflex] 500 mg PO BID #10 capsule 01/29/18 Metoprolol Succinate [Toprol XL -] 50 mg PO DAILY 08/26/18 Potassium Chloride [K-Tab ER] 40 meq PO DAILY 08/26/18 Prednisolone Acetate/Pf [Prednisolone Acet 1% Eye Drop] 5 ml OP ASDIR 08/26/18 Torsemide [Demadex -] 40 mg PO DAILY 08/26/18 Review of Systems - Review of Systems Constitutional: reports: No Symptoms Eyes: reports: No Symptoms HENT: reports: No Symptoms Neck: reports: No Symptoms Cardiovascular: reports: No Symptoms Respiratory: reports: No Symptoms Gastrointestinal: reports: No Symptoms Musculoskeletal: reports: Other (Edema in lower limbs) Integumentary: reports: Other (See HPI) Neurological: reports: No Symptoms Physical Exam Vital Signs: Vital Signs Temperature 98.4 F 08/27/18 06:42 Pulse Rate 62 08/27/18 18:22 Respiratory Rate 18 08/27/18 18:22 Blood Pressure 106/61 08/27/18 18:22 O2 Sat by Pulse Oximetry (%) 95 08/27/18 18:22 Constitutional: Yes: Mild Distress Eyes: Yes: WNL HENT: Yes: WNL Neck: Yes: WNL Cardiovascular: Yes: Other (2/6 systolic murmur in LSB) Respiratory: Yes: WNL (Few crackles in bases) Gastrointestinal: Yes: WNL Musculoskeletal: Yes: Other (No ative joints) Integumentary: Yes: Other (Extensive areas of black elevated rash wit erythematous borders in legs extending to the proximal third of thighs. In distal third of ankles erythematous areas with bullous lesions.) Labs: CBC, BMP 08/26/18 21:20 08/26/18 21:20 Laboratory Tests 08/26/18 08/26/18 08/26/18 21:20 21:20 21:20 Random Glucose 127 H Lactic Acid 2.2 H* Calcium 7.7 L Total Bilirubin 0.4 AST 43 H ALT 23 Alkaline Phosphatase 87 Troponin I 0.03 Total Protein 7.0 Albumin 2.5 L Urine Color Urine Appearance Urine pH Ur Specific [place] Urine Protein Urine Glucose (UA) Urine Ketones Urine Blood Urine Nitrite Urine Bilirubin Urine Urobilinogen Ur Leukocyte Esterase Urine WBC (Auto) Urine RBC (Auto) Urine Casts (Auto) U Epithel Cells (Auto) Urine Bacteria (Auto) 08/26/18 08/27/18 22:40 01:00 Random Glucose Lactic Acid 1.6 Calcium Total Bilirubin AST ALT Alkaline Phosphatase Troponin I Total Protein Albumin Urine Color Yellow Urine Appearance Cloudy Urine pH 5.5 Ur Specific [place] 1.014 Urine Protein 3+ H Urine Glucose (UA) Negative Urine Ketones Negative Urine Blood 3+ H Urine Nitrite Negative Urine Bilirubin Negative Urine Urobilinogen 0.2 Ur Leukocyte Esterase Trace Urine WBC (Auto) 11 Urine RBC (Auto) 870 Urine Casts (Auto) 6 U Epithel Cells (Auto) 8.7 Urine Bacteria (Auto) 16.8 Problem List - Problems (1) Vasculitis Assessment/Plan: Aggressive skin rash in lower limbs and acute renal failure with active urinary sediment. It is unlikely that she has a septic process (also as indicated by Dr. Montes). Etiology to be determined. Serology was requested, Tomorrow I will request C3 and C4. Consult to Dr. Perdomo for wedge skin biopsy. Start Prednisone 20 mg TID. I discussed the case with Dr. Webster. Code(s): I77.6 - ARTERITIS, UNSPECIFIED
[2018-08-27] MEDS ORDERED: PIPERACILLIN/TAZOBACTAM 2.25 GM VIAL IVPB ONE (21:19)
[2018-08-27] MEDS ORDERED: DEXTROSE 5%-WATER - 50 ML IVPB ONE (21:20)
[2018-08-27] MEDS ORDERED: VANCOMYCIN 1 GM PREMIX - 1 GM/200 ML BAG IVPB ONE (22:00)
[2018-08-27] MEDS: ROSUVASTATIN CA 20 MG TABLET (FP) PO SCH (22:16)
[2018-08-27] MEDS: predniSONE 20 MG TABLET (UD) PO SCH (22:16)
[2018-08-28] MEDS: PIPERACILLIN/TAZOB 2.25 GM 2.25 GM in DEXTROSE 5%-WATER - 50 ML IVPB SCH ×4 (02:12→17:32)
[2018-08-28] MEDS: predniSONE 20 MG TABLET (UD) PO SCH ×3 (06:22→21:24)
--- NOTE | 2018-08-28 07:44 | PN ---
Progress Note, Physician Chief Complaint: Remains in bed, c/o LE weakness, but nomuch itching now,no significant pain History of Present Illness: hypertension, chronic kidney disease, CAD s/p CABG ([address] Oreilly), atrial fibrillation (on Eliquis 2.5 mg), and diastolic congestive heart failure /severe tricuspid regurgitation EF 50% Prostetic left eye, multiple cornea transplants. - Current Medication List Current Medications: Active Medications Acetaminophen (Tylenol -) 650 mg PO Q6H PRN PRN Reason: PAIN LEVEL 6-10 Last Admin: 08/27/18 15:12 Dose: 650 mg Heparin Sodium (Porcine) (Heparin -) 5,000 unit IVPUSH PRN PRN PRN Reason: Heparin Heparin Sodium (Porcine) (Heparin -) 1,000 unit IVPUSH PRN PRN PRN Reason: Heparin Piperacillin Sod/Tazobactam (Sod 2.25 gm/ Dextrose) 50 mls @ 100 mls/hr IVPB Q8H-IV [facility]; Protocol Last Admin: 08/28/18 02:12 Dose: 100 mls/hr Heparin Sodium/Dextrose (Heparin Infusion -) 25,000 units in 500 mls @ 16 mls/ hr IVPB TITR [facility]; Protocol Last Titration: 08/28/18 02:00 Dose: 900 units/hr, 18 mls/hr Metoprolol Succinate (Toprol Xl -) 50 mg PO DAILY [facility] Last Admin: 08/27/18 11:30 Dose: 50 mg Prednisone (Deltasone -) 20 mg PO TID [facility] Last Admin: 08/28/18 06:22 Dose: 20 mg Rosuvastatin Calcium (Crestor -) 20 mg PO HS [facility] Last Admin: 08/27/18 22:16 Dose: 20 mg Senna (Senna -) 1 tab PO BID [facility] Last Admin: 08/27/18 22:16 Dose: 1 tab - Objective Vital Signs: Vital Signs Temperature 98.8 F 08/28/18 05:21 Pulse Rate 85 08/28/18 05:21 Respiratory Rate 20 08/28/18 05:21 Blood Pressure 127/69 08/28/18 05:21 O2 Sat by Pulse Oximetry (%) 95 08/27/18 20:00 Constitutional: Yes: Anxious, Mild Distress Eyes: Yes: Conjunctiva Clear, Occular Prosthesis (Left) HENT: Yes: Atraumatic, Normocephalic. No: Drooling Neck: Yes: Supple. No: Lymphadenopathy, Rigid, Thyromegaly Cardiovascular: Yes: Pulse Irregular, JVD, Murmur, S1, S2. No: Tachycardia, Rub Respiratory: Yes: Regular, CTA Bilaterally Gastrointestinal: Yes: Normal Bowel Sounds, Soft. No: Abdomen, Obese, Ascites ...Rectal Exam: Yes: Deferred Genitourinary: No: Anuria, Bladder Distention Musculoskeletal: Yes: Muscle Weakness Extremities: Yes: Other (Extensive bullous, hemorrhagic, necrotic rash). No: Calf Tenderness, Cold Edema: Yes Edema: LLE: 3+, RLE: 3+ Integumentary: Yes: Rash Neurological: Yes: Alert, Oriented, Unsteady Gait. No: Aphasia, Confusion, Dysarthria, Lethargy, Seizure ...Motor Strength: WNL Psychiatric: Yes: WNL Labs: CBC, BMP 08/26/18 21:20 08/26/18 21:20 INR, PTT INR 1.33 (0.83-1.09) H 08/26/18 21:20 Problem List - Problems (1) Bullous dermatitis Assessment/Plan: Blood cultures are negative to date. The patient has normal WBC, she is being treated with Vanco/Zosyn for possible skin infection Cannot r/o purura fulminans as discussed with Dr Stewart Skin biopsy to be arranged. Derm Code(s): L13.9 - BULLOUS DISORDER, UNSPECIFIED (2) Vasculitis Assessment/Plan: Skin biopsy was requested by Dr Stewart. Dr Perdomo was consulted. Possibly small or medium vessel vasculitis R/o IgA vasculitis (Henoch-Schonlein purura), Cryo vasculitis, GPA, Leucyto- clastic vasculitis On now Steroids while w/u pending Including comlement, ANCA Code(s): I77.6 - ARTERITIS, UNSPECIFIED (3) Afib Assessment/Plan: Would switch to non-fractionated Heparin from Eliquis since the patient has ARF with Creat now 2.7 Continue rate control. Code(s): I48.91 - UNSPECIFIED ATRIAL FIBRILLATION Qualifiers: Atrial fibrillation type: chronic Qualified Code(s): I48.2 - Chronic atrial fibrillation (4) CHF (congestive heart failure) Assessment/Plan: Cardiology f/u Follow volume status Diuretics PRN Code(s): I50.9 - HEART FAILURE, UNSPECIFIED Qualifiers: Heart failure type: combined systolic and diastolic Heart failure chronicity: chronic Qualified Code(s): I50.42 - Chronic combined systolic ( congestive) and diastolic (congestive) heart failure (5) ARF (acute renal failure) Assessment/Plan: Follow BUN/Creat Vasculitis W/u Nephrology f/u Code(s): N17.9 - ACUTE KIDNEY FAILURE, UNSPECIFIED Qualifiers: Acute renal failure type: unspecified Qualified Code(s): N17.9 - Acute kidney failure, unspecified
[2018-08-28] MEDS ORDERED: ARTIFICIAL TEARS (POLYVINYL ALCOHOL) OPTH DROPS OU PRN (07:48)
[2018-08-28 08:13] LABS: HEMATOCRIT 26.7 % (32.4-45.2); HEMOGLOBIN 8.9 GM/dL (10.7-15.3); MCH 29.3 pg (25.7-33.7); MCHC 33.5 g/dl (32.0-36.0); MEAN CELL VOLUME 87.3 fl (80-96); MEAN PLT VOLUME 7.6 fl (7.5-11.1); PLATELET COUNT 174 K/MM3 (134-434); RBC 3.05 M/mm3 (3.60-5.2); RDW 16.9 % (11.6-15.6); WHITE BLOOD COUNT 5.4 K/mm3 (4.0-10.0)
[2018-08-28 09:02] LABS: ANION GAP 10 MMOL/L (8-16); BLOOD UREA NITROGEN 48 mg/dL (7-18); CALCIUM 7.7 mg/dL (8.5-10.1); CHLORIDE 103 mmol/L (98-107); CO2 25 mmol/L (21-32); CREATININE 2.8 mg/dL (0.55-1.3); GLUCOSE,RANDOM 133 mg/dL (74-106); POTASSIUM 4.1 mmol/L (3.5-5.1); SODIUM 138 mmol/L (136-145)
[2018-08-28] MEDS ORDERED: PT OWN MED DRAWER 7, Y5N ONE (09:34)
[2018-08-28] MEDS ORDERED: PIPERACILLIN/TAZOBACTAM 2.25 GM VIAL IVPB ONE ×2 (09:34→17:21)
[2018-08-28] MEDS ORDERED: DEXTROSE 5%-WATER - 50 ML IVPB ONE ×2 (09:35→17:21)
--- NOTE | 2018-08-28 09:49 | PN ---
Progress Note (short form) - Note Progress Note: Pt seen and examined. States she is doing well, no issues overnight, no complaints. Denies cp/sob, n/v/d. Feels her leg edema is improved from yesterday. Vital Signs Temp 98.8 F 08/28/18 05:21 Pulse 85 08/28/18 05:21 Resp 20 08/28/18 05:21 BP 127/69 08/28/18 05:21 Pulse Ox 95 08/27/18 20:00 Intake & Output 08/27/18 08/27/18 08/28/18 11:59 23:59 11:59 Weight 136 lb 7 oz 136 lb 1.6 oz Other: Voiding Method Toilet # Unmeasured Voids Void 2 Bowel Movement No Weight Measurement Method Chair Scale Chair Scale CBC, BMP 08/28/18 07:50 08/28/18 07:50 Gen; awake, alert, nad Resp: unlabored on RA Ext: B/l le's with wrinkling of skin indicating decreasing edema, continues to have 1+ pitting edema to knees. Multiple hemorrhagic skin lesions on calves and thighs. Areas of bullae with hemorrhagic base over anterior shins and overlying skin necrosis. Minimal weeping noted. erythema appears to have improved from prior. Vasc: Palpable dp b/l A/P: 88 y/o F w/ PMHx HTN, CKD, CAD s/p CABG ([address] Oreilly), atrial fibrillation (on Eliquis 2.5 mg), and diastolic congestive heart failure / severe tricuspid regurgitation now a/w b/l le edema/lesions/erythema. B/L LEs with purpura -Plan for biopsy tomorrow morning in wound care at 930AM with Dr Perdomo (Dr Mera is away). Spoke with pathology Aki who will await the specimen -Continue IV abx -Continue Local wound care with xeroform, kerlex. -Continue elevation b/l les -F/U labs RN aware d/w attending Dr Perdomo
[2018-08-28] MEDS: SENNOSIDES 8.6MG TABLET (FP) PO SCH ×2 (09:54→21:24)
--- NOTE | 2018-08-28 12:56 | PN ---
Progress Note, Physician History of Present Illness: Pt seen and examined at bedside. She is awake and alert. She denies shortness of breath. She complains of lower ext edema. - Current Medication List Current Medications: Active Medications Acetaminophen (Tylenol -) 650 mg PO Q6H PRN PRN Reason: PAIN LEVEL 6-10 Last Admin: 08/27/18 15:12 Dose: 650 mg Artificial Tears (Artificial Tears) 1 drop OU QID PRN PRN Reason: DRY EYES Last Admin: 08/28/18 09:56 Dose: 1 drop Heparin Sodium (Porcine) (Heparin -) 5,000 unit IVPUSH PRN PRN PRN Reason: Heparin Heparin Sodium (Porcine) (Heparin -) 1,000 unit IVPUSH PRN PRN PRN Reason: Heparin Piperacillin Sod/Tazobactam (Sod 2.25 gm/ Dextrose) 50 mls @ 100 mls/hr IVPB Q8H-IV [facility]; Protocol Last Admin: 08/28/18 09:54 Dose: 100 mls/hr Heparin Sodium/Dextrose (Heparin Infusion -) 25,000 units in 500 mls @ 16 mls/ hr IVPB TITR [facility]; Protocol Last Titration: 08/28/18 02:00 Dose: 900 units/hr, 18 mls/hr Metoprolol Succinate (Toprol Xl -) 50 mg PO DAILY [facility] Last Admin: 08/28/18 09:54 Dose: 50 mg Prednisone (Deltasone -) 20 mg PO TID [facility] Last Admin: 08/28/18 06:22 Dose: 20 mg Rosuvastatin Calcium (Crestor -) 20 mg PO HS [facility] Last Admin: 08/27/18 22:16 Dose: 20 mg Senna (Senna -) 1 tab PO BID [facility] Last Admin: 08/28/18 09:54 Dose: 1 tab - Objective Vital Signs: Vital Signs Temperature 97.3 F L 08/28/18 09:45 Pulse Rate 75 08/28/18 09:45 Respiratory Rate 18 08/28/18 09:45 Blood Pressure 135/76 08/28/18 09:45 O2 Sat by Pulse Oximetry (%) 95 08/28/18 09:00 Constitutional: Yes: Calm Eyes: Yes: Conjunctiva Clear HENT: Yes: Atraumatic Neck: Yes: Supple Cardiovascular: Yes: S1, S2 Respiratory: Yes: CTA Bilaterally Gastrointestinal: Yes: Soft Genitourinary: Yes: WNL Musculoskeletal: Yes: Muscle Weakness Edema: Yes Edema: LLE: 2+, RLE: 2+ Integumentary: Yes: Venous Stasis Changes (area of possible vasculitis on lower ext) Neurological: Yes: Oriented Psychiatric: Yes: Oriented Labs: CBC, BMP 08/28/18 07:50 08/28/18 07:50 INR, PTT INR 1.33 (0.83-1.09) H 08/26/18 21:20 Problem List - Problems (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 - BULLOUS DISORDER, UNSPECIFIED (2) Valvular heart disease Code(s): I38 - ENDOCARDITIS, VALVE UNSPECIFIED (3) Afib Code(s): I48.91 - UNSPECIFIED ATRIAL FIBRILLATION Qualifiers: Atrial fibrillation type: chronic Qualified Code(s): I48.2 - Chronic atrial fibrillation (4) CHF (congestive heart failure) Code(s): I50.9 - HEART FAILURE, UNSPECIFIED Qualifiers: Heart failure type: combined systolic and diastolic Heart failure chronicity: chronic Qualified Code(s): I50.42 - Chronic combined systolic ( congestive) and diastolic (congestive) heart failure (5) CKD (chronic kidney disease) Code(s): N18.9 - CHRONIC KIDNEY DISEASE, UNSPECIFIED Assessment/Plan Current Medications Generic Name Dose Route Start Last Admin Trade Name Freq PRN Reason Stop Dose Admin Acetaminophen 650 mg 08/27/18 13:29 08/27/18 15:12 Tylenol - PO 650 mg Q6H PRN Administration PAIN LEVEL 6-10 Artificial Tears 1 drop 08/28/18 07:48 08/28/18 09:56 Artificial Tears OU 1 drop QID PRN Administration DRY EYES Heparin Sodium (Porcine) 5,000 unit 08/27/18 13:13 Heparin - IVPUSH PRN PRN Heparin Heparin Sodium (Porcine) 1,000 unit 08/27/18 18:00 Heparin - IVPUSH PRN PRN Heparin Piperacillin Sod/Tazobactam 50 mls @ 100 mls/hr 08/27/18 18:45 08/28/18 09:54 Sod 2.25 gm/ Dextrose IVPB 100 mls/hr Q8H-IV [facility] Administration Protocol Heparin Sodium/Dextrose 25,000 units in 500 mls @ 16 mls/hr 08/27/18 19:00 02:00 Heparin Infusion - IVPB 900 units/hr TITR [facility] 18 mls/hr Titration Protocol 800 UNITS/HR Metoprolol Succinate 50 mg 08/27/18 10:00 08/28/18 09:54 Toprol Xl - PO 50 mg DAILY [facility] Administration Prednisone 20 mg 08/27/18 22:00 08/28/18 06:22 Deltasone - PO 20 mg TID [facility] Administration Rosuvastatin Calcium 20 mg 08/27/18 22:00 08/27/18 22:16 Crestor - PO 20 mg HS [facility] Administration Senna 1 tab 08/27/18 10:00 08/28/18 09:54 Senna - PO 1 tab BID [facility] Administration Laboratory Tests 08/28/18 08/28/18 08/28/18 07:50 07:50 07:50 ESR 49 H JOHANNY M-Stu Pending PHYLICIA Screen c-ANCA Pending Proteinase 3 (PR3) Pending p-ANCA Pending Atypical p-ANCA Pending Myeloperoxidase Ab Pending Double Strand DNA Ab Glomerular Base Memb Ab Tot Complement (CH50) Hepatitis A Ab Total Hep Bs Antigen Hep Bs Antibody Hep B Core Total Ab HCV Quantitation 08/28/18 08/28/18 08/28/18 07:50 07:50 07:50 ESR JOHANNY M-Stu PHYLICIA Screen Pending c-ANCA Proteinase 3 (PR3) p-ANCA Atypical p-ANCA Myeloperoxidase Ab Double Strand DNA Ab Pending Glomerular Base Memb Ab Pending Tot Complement (CH50) Pending Hepatitis A Ab Total Pending Hep Bs Antigen Pending Hep Bs Antibody Pending Hep B Core Total Ab Pending HCV Quantitation Pending Impression 1. CKD 2. YANICK 3. CHF 4. HTN 5. bullous lesions 6. valvular heart disease 7. a-fib Plan - monitor renal function - serologies pending - skin biopsy - steroids started - kidneys are echogenic on ultrasound - will need to eventually restart diuretics - avoid nsaids
--- NOTE | 2018-08-28 17:34 | PN ---
Progress Note (short form) - Note Progress Note: feels well eating dinner now on prednisone Vital Signs Period Temp Pulse Resp BP Sys/[place] Pulse Ox Last 24 Hr 97.3 F-98.9 F 62-88 18-20 105-135/61-76 95-95 cor-rrr lungs clear abd soft,nt ext no change in skin lesions CBC, BMP 08/28/18 07:50 08/28/18 07:50 Microbiology 08/26/18 22:40 Urine - Urine Clean Catch Urine Culture - Final Alpha Hemolytic Streptococcus 08/26/18 21:20 Blood - Peripheral Venous Blood Culture - Preliminary NO GROWTH OBTAINED AFTER 24 HOURS, INCUBATION TO CONTINUE FOR 4 DAYS. 08/26/18 21:20 Blood - Peripheral Venous Blood Culture - Preliminary NO GROWTH OBTAINED AFTER 24 HOURS, INCUBATION TO CONTINUE FOR 4 DAYS. a/p doubt cellulitis if cultures are negative in am will d/c antibioitcs agree with skin biopsy f/u serologies awaiting dermatology input
[2018-08-28] MEDS: HEPARIN INFUSION - 25,000 UNITS/500 ML INFUS.BAG IVPB SCH (21:00)
[2018-08-28] MEDS: ROSUVASTATIN CA 20 MG TABLET (FP) PO SCH (21:23)
[2018-08-28] MEDS: ACETAMINOPHEN 325 MG TABLET (FP) PO PRN (21:30)
[2018-08-28] MEDS ORDERED: VANCOMYCIN 1 GM PREMIX - 1 GM/200 ML BAG IVPB SCH ×2 (22:00)
[2018-08-29] MEDS ORDERED: PIPERACILLIN/TAZOBACTAM 2.25 GM VIAL IVPB ONE ×3 (00:11→17:00)
[2018-08-29] MEDS ORDERED: DEXTROSE 5%-WATER - 50 ML IVPB ONE ×4 (00:11→18:10)
[2018-08-29] MEDS: PIPERACILLIN/TAZOB 2.25 GM 2.25 GM in DEXTROSE 5%-WATER - 50 ML IVPB SCH ×2 (00:59→11:37)
[2018-08-29] MEDS: predniSONE 20 MG TABLET (UD) PO SCH ×3 (06:00→21:07)
[2018-08-29 06:50] LABS: BASO % 0.2 % (0-2.0); HEMATOCRIT 26.3 % (32.4-45.2); HEMOGLOBIN 8.8 GM/dL (10.7-15.3); LYMPH % 17.1 % (8-40); MCH 29.2 pg (25.7-33.7); MCHC 33.3 g/dl (32.0-36.0); MEAN CELL VOLUME 87.5 fl (80-96); MEAN PLT VOLUME 8.1 fl (7.5-11.1); MONO % 4.2 % (3.8-10.2); NEUT % 78.5 % (42.8-82.8); PLATELET COUNT 174 K/MM3 (134-434); RDW 16.9 % (11.6-15.6); WHITE BLOOD COUNT 4.6 K/mm3 (4.0-10.0)
[2018-08-29 08:32] LABS: ALK PHOS 70 U/L (45-117); ANION GAP 9 MMOL/L (8-16); BILIRUBIN,TOTAL 0.4 mg/dL (0.2-1); BLOOD UREA NITROGEN 58 mg/dL (7-18); CALCIUM 7.6 mg/dL (8.5-10.1); CHLORIDE 102 mmol/L (98-107); CO2 23 mmol/L (21-32); CREATININE 2.7 mg/dL (0.55-1.3); GLUCOSE,RANDOM 171 mg/dL (74-106); SGOT/AST 25 U/L (15-37); SGPT/ALT 17 U/L (13-61); SODIUM 135 mmol/L (136-145)
--- NOTE | 2018-08-29 11:18 | PN ---
Progress Note (short form) - Note Progress Note: Vascular Surgery Skin biopsy x 2 performed in wound care clinic under sterile conditions. Specimens sent down fresh. Spoke to pathology department. Skin biopsy involved skin and subcutaneous tissue. No complications. Pavel Perdomo DO
[2018-08-29] MEDS: SENNOSIDES 8.6MG TABLET (FP) PO SCH ×2 (11:37→21:07)
--- NOTE | 2018-08-29 14:05 | PN ---
Progress Note, Physician Chief Complaint: The patient is comfortable in bed , daughter at the bedside. Feels better, less itching, burning, numbness of the LE Skin biopsy was performed by Dr Perdomo. UA A-hemolytic strep 50k-60k. Condition, w/u, rx discussed with the patient and the daughter. History of Present Illness: Hypertension, chronic kidney disease, CAD s/p CABG ([address] Oreilly), atrial fibrillation (on Eliquis 2.5 mg), and diastolic congestive heart failure /severe tricuspid regurgitation EF 50% previously LE varicose veins Prostetic left eye, multiple cornea transplants, HZV. left Mercado's palsy - Current Medication List Current Medications: Active Medications Acetaminophen (Tylenol -) 650 mg PO Q6H PRN PRN Reason: PAIN LEVEL 6-10 Last Admin: 08/28/18 21:30 Dose: 650 mg Artificial Tears (Artificial Tears) 1 drop OU QID PRN PRN Reason: DRY EYES Last Admin: 08/28/18 09:56 Dose: 1 drop Heparin Sodium (Porcine) (Heparin -) 5,000 unit IVPUSH PRN PRN PRN Reason: Heparin Heparin Sodium (Porcine) (Heparin -) 1,000 unit IVPUSH PRN PRN PRN Reason: Heparin Piperacillin Sod/Tazobactam (Sod 2.25 gm/ Dextrose) 50 mls @ 100 mls/hr IVPB Q8H-IV [facility]; Protocol Last Admin: 08/29/18 11:37 Dose: 100 mls/hr Heparin Sodium/Dextrose (Heparin Infusion -) 25,000 units in 500 mls @ 16 mls/ hr IVPB TITR [facility]; Protocol Last Titration: 08/29/18 09:30 Dose: 850 units/hr, 17 mls/hr Metoprolol Succinate (Toprol Xl -) 50 mg PO DAILY [facility] Last Admin: 08/29/18 11:37 Dose: 50 mg Prednisone (Deltasone -) 20 mg PO TID [facility] Last Admin: 08/29/18 06:00 Dose: 20 mg Rosuvastatin Calcium (Crestor -) 5 mg PO HS [facility] Senna (Senna -) 1 tab PO BID [facility] Last Admin: 08/29/18 11:37 Dose: 1 tab - Objective Vital Signs: Vital Signs Temperature 97.6 F 08/29/18 10:00 Pulse Rate 69 08/29/18 10:00 Respiratory Rate 20 08/29/18 10:00 Blood Pressure 128/78 08/29/18 10:00 O2 Sat by Pulse Oximetry (%) 96 08/29/18 09:00 Constitutional: Yes: Anxious, Mild Distress. No: Cachectic, Diaphoresis Eyes: Yes: Occular Prosthesis. No: Tearing HENT: No: Drooling, Epistaxis, Hoarseness, Nasal Congestion Neck: Yes: Supple, Trachea Midline. No: Decreased ROM, Lymphadenopathy, Tenderness, Thyromegaly Cardiovascular: Yes: Pulse Irregular, JVD, Murmur, S1, S2 Respiratory: Yes: Regular, CTA Bilaterally Gastrointestinal: Yes: Normal Bowel Sounds, Soft. No: Palpable Mass, Pulsatile Mass, Tenderness ...Rectal Exam: Yes: Deferred Genitourinary: No: Anuria, Bladder Distention Musculoskeletal: No: Joint Swelling, Muscle Pain Extremities: No: Calf Tenderness, Cold, Cyanosis Edema: Yes Integumentary: Yes: Rash (Bullous, confluent necrotic and hemorrhagic rash both LE Redness, swelling improves) Wound/Incision: Yes: Dressing Dry and Intact (AFTER SKIN BIOPSY RIGHT THIGH) ...Motor Strength: WNL Psychiatric: Yes: Alert, Oriented. No: Agitated, Suicidal Ideation Labs: CBC, BMP 08/29/18 06:00 08/29/18 06:00 INR, PTT INR 1.33 (0.83-1.09) H 08/26/18 21:20 Laboratory Results - last 24 hr 08/28/18 08/29/18 08/29/18 07:50 06:00 06:00 WBC 4.6 RBC 3.00 L Hgb 8.8 L Hct 26.3 L MCV 87.5 MCH 29.2 MCHC 33.3 RDW 16.9 H Plt Count 174 MPV 8.1 Absolute Neuts (auto) 3.7 Neutrophils % 78.5 Lymphocytes % 17.1 D Monocytes % 4.2 Eosinophils % 0.0 D Basophils % 0.2 Nucleated RBC % 0 PTT (Actin FS) 76.6 H Sodium Potassium Chloride Carbon Dioxide Anion Gap BUN Creatinine Creat Clearance w eGFR Random Glucose Calcium Total Bilirubin AST ALT Alkaline Phosphatase Total Protein Albumin Double Strand DNA Ab <1 08/29/18 06:00 WBC RBC Hgb Hct MCV MCH MCHC RDW Plt Count MPV Absolute Neuts (auto) Neutrophils % Lymphocytes % Monocytes % Eosinophils % Basophils % Nucleated RBC % PTT (Actin FS) Sodium 135 L Potassium 4.0 Chloride 102 Carbon Dioxide 23 Anion Gap 9 BUN 58 H Creatinine 2.7 H Creat Clearance w eGFR 16.67 Random Glucose 171 H Calcium 7.6 L Total Bilirubin 0.4 AST 25 ALT 17 Alkaline Phosphatase 70 Total Protein 6.0 L Albumin 2.0 L Double Strand DNA Ab Problem List - Problems (1) Bullous dermatitis Assessment/Plan: Blood cultures are negative to date. The patient has normal WBC, she is being treated with Vanco/Zosyn for possible skin infection Cannot r/o purura fulminans as discussed with Dr Stewart Skin biopsy done-pending. Code(s): L13.9 - BULLOUS DISORDER, UNSPECIFIED (2) Vasculitis Assessment/Plan: Skin biopsy was requested by Dr Stewart. Dr Perdomo performed biopsy. Possibly small or medium vessel vasculitis DS DNA-neg Code(s): I77.6 - ARTERITIS, UNSPECIFIED (3) Afib Assessment/Plan: On non-fractionated Heparin Will need Coumadin if renal function does not improve Continue rate control. Code(s): I48.91 - UNSPECIFIED ATRIAL FIBRILLATION Qualifiers: Atrial fibrillation type: chronic Qualified Code(s): I48.2 - Chronic atrial fibrillation (4) CHF (congestive heart failure) Assessment/Plan: Cardiology f/u Follow volume status Diuretics PRN Code(s): I50.9 - HEART FAILURE, UNSPECIFIED Qualifiers: Heart failure type: combined systolic and diastolic Heart failure chronicity: chronic Qualified Code(s): I50.42 - Chronic combined systolic ( congestive) and diastolic (congestive) heart failure (5) ARF (acute renal failure) Assessment/Plan: Follow BUN/Creat Vasculitis W/u Nephrology f/u Adjust Crestor dose for ARF, CrCl < 30-5 mg QD Code(s): N17.9 - ACUTE KIDNEY FAILURE, UNSPECIFIED Qualifiers: Acute renal failure type: unspecified Qualified Code(s): N17.9 - Acute kidney failure, unspecified
--- NOTE | 2018-08-29 15:22 | PN ---
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 Fraga and recently saw a new forging die finisher (yesterday) in [place] who prescribed Metolazone once per week (has not started) in addition to her Torsemide. Pt came to ER because of redness and black areas of skin on her legs. pt is comfortable. also notes a minimally productive cough for a few days. her has a URI at home. Her son states her LE edema is slightly worse than usual. pt denies any chest pain, sob, palpitations. no pnd, orthopnea. no lightheadedness, dizziness, syncope or near syncope. She has a history of orthostatic hypotension when intravascularly depleted. - Current Medication List Current Medications: Active Medications Acetaminophen (Tylenol -) 650 mg PO Q6H PRN PRN Reason: PAIN LEVEL 6-10 Last Admin: 08/28/18 21:30 Dose: 650 mg Artificial Tears (Artificial Tears) 1 drop OU QID PRN PRN Reason: DRY EYES Last Admin: 08/28/18 09:56 Dose: 1 drop Heparin Sodium (Porcine) (Heparin -) 5,000 unit IVPUSH PRN PRN PRN Reason: Heparin Heparin Sodium (Porcine) (Heparin -) 1,000 unit IVPUSH PRN PRN PRN Reason: Heparin Piperacillin Sod/Tazobactam (Sod 2.25 gm/ Dextrose) 50 mls @ 100 mls/hr IVPB Q8H-IV [facility]; Protocol Last Admin: 08/29/18 11:37 Dose: 100 mls/hr Heparin Sodium/Dextrose (Heparin Infusion -) 25,000 units in 500 mls @ 16 mls/ hr IVPB TITR [facility]; Protocol Last Titration: 08/29/18 09:30 Dose: 850 units/hr, 17 mls/hr Metoprolol Succinate (Toprol Xl -) 50 mg PO DAILY [facility] Last Admin: 08/29/18 11:37 Dose: 50 mg Prednisone (Deltasone -) 20 mg PO TID [facility] Last Admin: 08/29/18 14:55 Dose: 20 mg Rosuvastatin Calcium (Crestor -) 5 mg PO HS [facility] Senna (Senna -) 1 tab PO BID [facility] Last Admin: 08/29/18 11:37 Dose: 1 tab - Objective Vital Signs: Vital Signs Temperature 97.7 F 08/29/18 15:00 Pulse Rate 60 08/29/18 15:00 Respiratory Rate 20 08/29/18 15:00 Blood Pressure 132/75 08/29/18 15:00 O2 Sat by Pulse Oximetry (%) 96 08/29/18 09:00 Constitutional: Yes: No Distress Neck: Yes: Supple Cardiovascular: Yes: Regular Rate and Rhythm, S1, S2. 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 Fraga Pt came to ER because of redness and black areas of skin on her legs. pt is comfortable. also notes a minimally productive cough for a few days. her has a URI at home. Her son states her LE edema is slightly worse than usual. pt denies any chest pain, sob, palpitations. no pnd, orthopnea. no lightheadedness, dizziness, syncope or near syncope. She has a history of orthostatic hypotension when intravascularly depleted. Chronic b/l LE edema secondary to Chronic venous insufficiency h/o vein stripping, chronic known valvular heart disease with h/o mod to severe TR, chronic diastolic CHF -does not appear significantly volume overloaded with rising bun diuretic on hold and to be given prn -current LE edema more consistent with venous insufficiency -bun/creat elevated c/w intravascular depletion -F/u primary team regarding Abx and prednisone for LE lesions Atrial fibrillation-chronic, HR controlled -anticoagulation if no contraindication CAD s/p CABG -stable -cont home meds Will sign off
--- NOTE | 2018-08-29 16:39 | PN ---
Progress Note, Physician History of Present Illness: Pt seen and examined at bedside. She feels that the rash is improving. She denies shortness of breath. - Current Medication List Current Medications: Active Medications Acetaminophen (Tylenol -) 650 mg PO Q6H PRN PRN Reason: PAIN LEVEL 6-10 Last Admin: 08/28/18 21:30 Dose: 650 mg Artificial Tears (Artificial Tears) 1 drop OU QID PRN PRN Reason: DRY EYES Last Admin: 08/28/18 09:56 Dose: 1 drop Heparin Sodium (Porcine) (Heparin -) 5,000 unit IVPUSH PRN PRN PRN Reason: Heparin Heparin Sodium (Porcine) (Heparin -) 1,000 unit IVPUSH PRN PRN PRN Reason: Heparin Piperacillin Sod/Tazobactam (Sod 2.25 gm/ Dextrose) 50 mls @ 100 mls/hr IVPB Q8H-IV [facility]; Protocol Last Admin: 08/29/18 11:37 Dose: 100 mls/hr Heparin Sodium/Dextrose (Heparin Infusion -) 25,000 units in 500 mls @ 16 mls/ hr IVPB TITR [facility]; Protocol Last Titration: 08/29/18 09:30 Dose: 850 units/hr, 17 mls/hr Metoprolol Succinate (Toprol Xl -) 50 mg PO DAILY [facility] Last Admin: 08/29/18 11:37 Dose: 50 mg Prednisone (Deltasone -) 20 mg PO TID [facility] Last Admin: 08/29/18 14:55 Dose: 20 mg Rosuvastatin Calcium (Crestor -) 5 mg PO HS [facility] Senna (Senna -) 1 tab PO BID [facility] Last Admin: 08/29/18 11:37 Dose: 1 tab - Objective Vital Signs: Vital Signs Temperature 97.7 F 08/29/18 15:00 Pulse Rate 60 08/29/18 15:00 Respiratory Rate 20 08/29/18 15:00 Blood Pressure 132/75 08/29/18 15:00 O2 Sat by Pulse Oximetry (%) 96 08/29/18 09:00 Constitutional: Yes: Calm Eyes: Yes: Conjunctiva Clear HENT: Yes: Atraumatic Cardiovascular: Yes: S1, S2 Respiratory: Yes: CTA Bilaterally Gastrointestinal: Yes: Soft Genitourinary: Yes: WNL Musculoskeletal: Yes: WNL Edema: Yes Edema: LLE: 1+, RLE: 1+ Integumentary: Yes: Other (rash on legs improving, rash on abdominal area improving) Neurological: Yes: Oriented Psychiatric: Yes: Oriented Labs: CBC, BMP 08/29/18 06:00 08/29/18 06:00 INR, PTT INR 1.33 (0.83-1.09) H 08/26/18 21:20 Problem List - Problems (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 - BULLOUS DISORDER, UNSPECIFIED (2) Valvular heart disease Code(s): I38 - ENDOCARDITIS, VALVE UNSPECIFIED (3) Afib Code(s): I48.91 - UNSPECIFIED ATRIAL FIBRILLATION Qualifiers: Atrial fibrillation type: chronic Qualified Code(s): I48.2 - Chronic atrial fibrillation (4) CHF (congestive heart failure) Code(s): I50.9 - HEART FAILURE, UNSPECIFIED Qualifiers: Heart failure type: combined systolic and diastolic Heart failure chronicity: chronic Qualified Code(s): I50.42 - Chronic combined systolic ( congestive) and diastolic (congestive) heart failure (5) CKD (chronic kidney disease) Code(s): N18.9 - CHRONIC KIDNEY DISEASE, UNSPECIFIED Assessment/Plan Current Medications Generic Name Dose Route Start Last Admin Trade Name Freq PRN Reason Stop Dose Admin Acetaminophen 650 mg 08/27/18 13:29 08/28/18 21:30 Tylenol - PO 650 mg Q6H PRN Administration PAIN LEVEL 6-10 Artificial Tears 1 drop 08/28/18 07:48 08/28/18 09:56 Artificial Tears OU 1 drop QID PRN Administration DRY EYES Heparin Sodium (Porcine) 5,000 unit 08/27/18 13:13 Heparin - IVPUSH PRN PRN Heparin Heparin Sodium (Porcine) 1,000 unit 08/27/18 18:00 Heparin - IVPUSH PRN PRN Heparin Piperacillin Sod/Tazobactam 50 mls @ 100 mls/hr 08/27/18 18:45 08/29/18 11:37 Sod 2.25 gm/ Dextrose IVPB 100 mls/hr Q8H-IV [facility] Administration Protocol Heparin Sodium/Dextrose 25,000 units in 500 mls @ 16 mls/hr 08/27/18 19:00 09:30 Heparin Infusion - IVPB 850 units/hr TITR [facility] 17 mls/hr Titration Protocol 800 UNITS/HR Metoprolol Succinate 50 mg 08/27/18 10:00 08/29/18 11:37 Toprol Xl - PO 50 mg DAILY [facility] Administration Prednisone 20 mg 08/27/18 22:00 08/29/18 14:55 Deltasone - PO 20 mg TID [facility] Administration Rosuvastatin Calcium 5 mg 08/29/18 22:00 Crestor - PO HS [facility] Senna 1 tab 08/27/18 10:00 08/29/18 11:37 Senna - PO 1 tab BID [facility] Administration Laboratory Tests 08/28/18 08/28/18 08/28/18 07:50 07:50 07:50 JOHANNY M-Stu Pending PHYLICIA Screen Pending c-ANCA Pending Proteinase 3 (PR3) Pending p-ANCA Pending Atypical p-ANCA Pending Myeloperoxidase Ab Pending Double Strand DNA Ab <1 Glomerular Base Memb Ab Pending Tot Complement (CH50) 08/28/18 07:50 JOHANNY M-Stu PHYLICIA Screen c-ANCA Proteinase 3 (PR3) p-ANCA Atypical p-ANCA Myeloperoxidase Ab Double Strand DNA Ab Glomerular Base Memb Ab Tot Complement (CH50) Pending Impression 1. CKD 2. YANICK 3. CHF 4. HTN 5. bullous lesions 6. valvular heart disease 7. a-fib Plan - follow skin biopsy - cont steroids for now - follow serologies - torsemide held, will evaluate daily - kidneys are echogenic on ultrasound - avoid nsaids
--- NOTE | 2018-08-29 17:02 | PN ---
Progress Note (short form) - Note Progress Note: feels well no complaints Vital Signs Period Temp Pulse Resp BP Sys/Villalpando Pulse Ox Last 24 Hr 97.6 F-98.8 F 60-69 18-20 101-132/60-78 95-96 cor-rrr lungs decreased bs at bases abd soft,nt ext rash is fading a bit bullous lesions unchanged CBC, BMP 08/29/18 06:00 08/29/18 06:00 Microbiology 08/26/18 21:20 Blood - Peripheral Venous Blood Culture - Preliminary NO GROWTH OBTAINED AFTER 48 HOURS, INCUBATION TO CONTINUE FOR 3 DAYS. 08/26/18 21:20 Blood - Peripheral Venous Blood Culture - Preliminary NO GROWTH OBTAINED AFTER 48 HOURS, INCUBATION TO CONTINUE FOR 3 DAYS. 08/26/18 22:40 Urine - Urine Clean Catch Urine Culture - Final Alpha Hemolytic Streptococcus a/p ?cellulitis/?vasculitis switch to rocephin agree with skin biopsy f/u serologies continue steroids d/w dr galaviz
[2018-08-29] MEDS ORDERED: cefTRIAXone SODIUM 1 GM VIAL ONE (18:10)
[2018-08-29] MEDS: CEFTRIAXONE 1 GM in DEXTROSE 5%-WATER - 50 ML IVPB SCH (18:14)
[2018-08-29] MEDS: ACETAMINOPHEN 325 MG TABLET (FP) PO PRN (21:07)
[2018-08-29] MEDS: ROSUVASTATIN CA 5 MG TABLET (FP) PO SCH (21:07)
[2018-08-29] MEDS: HEPARIN INFUSION - 25,000 UNITS/500 ML INFUS.BAG IVPB SCH (21:10)
[2018-08-30] MEDS: predniSONE 20 MG TABLET (UD) PO SCH ×3 (05:48→21:58)
[2018-08-30 07:45] LABS: HEMATOCRIT 29.6 % (32.4-45.2); HEMOGLOBIN 9.7 GM/dL (10.7-15.3); MCH 28.6 pg (25.7-33.7); MCHC 32.8 g/dl (32.0-36.0); MEAN CELL VOLUME 87.5 fl (80-96); MEAN PLT VOLUME 8.2 fl (7.5-11.1); PLATELET COUNT 214 K/MM3 (134-434); RBC 3.38 M/mm3 (3.60-5.2); RDW 16.7 % (11.6-15.6); WHITE BLOOD COUNT 6.1 K/mm3 (4.0-10.0)
[2018-08-30 08:10] LABS: ANION GAP 10 MMOL/L (8-16); BLOOD UREA NITROGEN 64 mg/dL (7-18); CALCIUM 7.8 mg/dL (8.5-10.1); CHLORIDE 100 mmol/L (98-107); CO2 22 mmol/L (21-32); CREATININE 2.7 mg/dL (0.55-1.3); GLUCOSE,RANDOM 153 mg/dL (74-106); POTASSIUM 4.2 mmol/L (3.5-5.1); SODIUM 133 mmol/L (136-145)
--- NOTE | 2018-08-30 09:13 | PN ---
Progress Note, Physician Chief Complaint: Rash is improving, patient is comfortable in bed. No improvement in renal function. History of Present Illness: Hypertension, chronic kidney disease, CAD s/p CABG ([address] Oreilly), atrial fibrillation (on Eliquis 2.5 mg), and diastolic congestive heart failure /severe tricuspid regurgitation EF 50% previously LE varicose veins Prostetic left eye, multiple cornea transplants, HZV. left Mercado's palsy - Current Medication List Current Medications: Active Medications Acetaminophen (Tylenol -) 650 mg PO Q6H PRN PRN Reason: PAIN LEVEL 6-10 Last Admin: 08/29/18 21:07 Dose: 650 mg Artificial Tears (Artificial Tears) 1 drop OU QID PRN PRN Reason: DRY EYES Last Admin: 08/28/18 09:56 Dose: 1 drop Heparin Sodium (Porcine) (Heparin -) 5,000 unit IVPUSH PRN PRN PRN Reason: Heparin Heparin Sodium (Porcine) (Heparin -) 1,000 unit IVPUSH PRN PRN PRN Reason: Heparin Heparin Sodium/Dextrose (Heparin Infusion -) 25,000 units in 500 mls @ 16 mls/ hr IVPB TITR [facility]; Protocol Last Admin: 08/29/18 21:10 Dose: 850 units/hr, 17 mls/hr Ceftriaxone Sodium 1 gm/ (Dextrose) 50 mls @ 100 mls/hr IVPB DAILY [facility]; Protocol Last Admin: 08/29/18 18:14 Dose: 100 mls/hr Metoprolol Succinate (Toprol Xl -) 50 mg PO DAILY [facility] Last Admin: 08/29/18 11:37 Dose: 50 mg Prednisone (Deltasone -) 20 mg PO TID [facility] Last Admin: 08/30/18 05:48 Dose: 20 mg Rosuvastatin Calcium (Crestor -) 5 mg PO HS [facility] Last Admin: 08/29/18 21:07 Dose: 5 mg Senna (Senna -) 1 tab PO BID [facility] Last Admin: 08/29/18 21:07 Dose: 1 tab - Objective Vital Signs: Vital Signs Temperature 97.6 F 08/30/18 06:00 Pulse Rate 65 08/30/18 06:00 Respiratory Rate 18 08/30/18 06:00 Blood Pressure 132/72 08/30/18 06:00 O2 Sat by Pulse Oximetry (%) 95 08/29/18 21:00 Constitutional: Yes: Anxious, Mild Distress Eyes: Yes: Occular Prosthesis (Left) Neck: Yes: Supple, Trachea Midline. No: Rigid Cardiovascular: Yes: JVD, S1, S2 Respiratory: Yes: Regular, CTA Bilaterally Gastrointestinal: Yes: Normal Bowel Sounds, Soft. No: Abdomen, Obese, Ascites ...Rectal Exam: Yes: Deferred Genitourinary: No: Anuria Breast(s): No: Mass Musculoskeletal: Yes: Muscle Weakness Extremities: Yes: Other (Fading rash on the both LE). No: Calf Tenderness, Cold , Cyanosis Peripheral Pulses WNL: No Integumentary: Yes: Rash Wound/Incision: Yes: Dressing Dry and Intact Neurological: Yes: Alert, Oriented. No: Aphasia, Asterixis, Confusion, Dysarthria, Seizure, Tremors ...Motor Strength: WNL Psychiatric: Yes: WNL Labs: CBC, BMP 08/30/18 07:00 08/30/18 07:00 INR, PTT INR 1.33 (0.83-1.09) H 08/26/18 21:20 Laboratory Results - last 24 hr 08/28/18 08/28/18 08/30/18 07:50 07:50 05:51 WBC RBC Hgb Hct MCV MCH MCHC RDW Plt Count MPV PTT (Actin FS) Sodium Potassium Chloride Carbon Dioxide Anion Gap BUN Creatinine Creat Clearance w eGFR Random Glucose Calcium Stool Occult Blood Negative Double Strand DNA Ab <1 Tot Complement (CH50) > 60 08/30/18 08/30/18 08/30/18 07:00 07:00 07:00 WBC 6.1 RBC 3.38 L Hgb 9.7 L Hct 29.6 L MCV 87.5 MCH 28.6 MCHC 32.8 RDW 16.7 H Plt Count 214 D MPV 8.2 PTT (Actin FS) 73.7 H Sodium 133 L Potassium 4.2 Chloride 100 Carbon Dioxide 22 Anion Gap 10 BUN 64 H Creatinine 2.7 H Creat Clearance w eGFR 16.67 Random Glucose 153 H Calcium 7.8 L Stool Occult Blood Double Strand DNA Ab Tot Complement (CH50) Problem List - Problems (1) Bullous dermatitis Assessment/Plan: Blood cultures are negative to date. The patient has normal WBC, she is being treated with Vanco/Zosyn for possible skin infection Cannot r/o purura fulminans as discussed with Dr Stewart Skin biopsy done-pending. Code(s): L13.9 - BULLOUS DISORDER, UNSPECIFIED (2) Vasculitis Assessment/Plan: Skin biopsy was requested by Dr Stewart. Dr Perdomo performed biopsy. Possibly small or medium vessel vasculitis DS DNA-neg Code(s): I77.6 - ARTERITIS, UNSPECIFIED (3) Afib Assessment/Plan: On non-fractionated Heparin Will start Coumadin , renal function does not improve Follow INR Continue rate control. Code(s): I48.91 - UNSPECIFIED ATRIAL FIBRILLATION Qualifiers: Atrial fibrillation type: chronic Qualified Code(s): I48.2 - Chronic atrial fibrillation (4) CHF (congestive heart failure) Assessment/Plan: Cardiology f/u Follow volume status Diuretics PRN Code(s): I50.9 - HEART FAILURE, UNSPECIFIED Qualifiers: Heart failure type: combined systolic and diastolic Heart failure chronicity: chronic Qualified Code(s): I50.42 - Chronic combined systolic ( congestive) and diastolic (congestive) heart failure (5) ARF (acute renal failure) Assessment/Plan: Follow BUN/Creat Vasculitis W/u Nephrology f/u Adjust Crestor dose for ARF, CrCl < 30-5 mg QD Code(s): N17.9 - ACUTE KIDNEY FAILURE, UNSPECIFIED Qualifiers: Acute renal failure type: unspecified Qualified Code(s): N17.9 - Acute kidney failure, unspecified
--- NOTE | 2018-08-30 09:27 | PN ---
Progress Note (short form) - Note Progress Note: Pt s/p Skin biopsy x [address] Perdomo yesterday. Seen and examined this morning. States she is feeling well, tolerating Po, has been oob to restroom, denies pain from bx. Dressing removed with +bleeding noted from proximal portion of bx, pressure held x5 mins with cessation of bleeding. Xeroform placed over bx with 4x4 pressure dressing and paper take. RN present. Discussed daily dressing changes. F/U path F/U rheumatologic workup Daily dressing changes as noted above
[2018-08-30 10:14] LABS: ANTIGLOMERULAR BASEMENT MEN.AB 5 units (0-20)
[2018-08-30 10:53] LABS: INR 1.09 (0.83-1.09); PROTHROMBIN TIME (PATIENT) 12.9 SEC (9.7-13.0)
[2018-08-30] MEDS ORDERED: DEXTROSE 5%-WATER - 50 ML IVPB ONE (11:09)
[2018-08-30] MEDS ORDERED: cefTRIAXone SODIUM 1 GM VIAL ONE (11:09)
[2018-08-30] MEDS: SENNOSIDES 8.6MG TABLET (FP) PO SCH ×2 (11:12→22:59)
[2018-08-30] MEDS: CEFTRIAXONE 1 GM in DEXTROSE 5%-WATER - 50 ML IVPB SCH (11:13)
--- NOTE | 2018-08-30 14:44 | PN ---
Progress Note (short form) - Note Progress Note: feels well no complaints rash fading Vital Signs Period Temp Pulse Resp BP Sys/Villalpando Pulse Ox Last 24 Hr 97.6 F-98.1 F 56-71 18-20 118-133/61-76 95 cor-rrr lungs clear abd soft,nt ext rash fading no lesions on hands or fingers CBC, BMP 08/30/18 07:00 08/30/18 07:00 Microbiology 08/26/18 21:20 Blood - Peripheral Venous Blood Culture - Preliminary NO GROWTH OBTAINED AFTER 72 HOURS, INCUBATION TO CONTINUE FOR 2 DAYS. 08/26/18 21:20 Blood - Peripheral Venous Blood Culture - Preliminary NO GROWTH OBTAINED AFTER 72 HOURS, INCUBATION TO CONTINUE FOR 2 DAYS. 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
--- NOTE | 2018-08-30 16:19 | PN ---
Progress Note, Physician History of Present Illness: Pt seen and examined at bedside. She is awake and alert. She denies shortness of breath. She feels that the rash is improving. - Current Medication List Current Medications: Active Medications Acetaminophen (Tylenol -) 650 mg PO Q6H PRN PRN Reason: PAIN LEVEL 6-10 Last Admin: 08/29/18 21:07 Dose: 650 mg Artificial Tears (Artificial Tears) 1 drop OU QID PRN PRN Reason: DRY EYES Last Admin: 08/28/18 09:56 Dose: 1 drop Heparin Sodium (Porcine) (Heparin -) 5,000 unit IVPUSH PRN PRN PRN Reason: Heparin Heparin Sodium (Porcine) (Heparin -) 1,000 unit IVPUSH PRN PRN PRN Reason: Heparin Heparin Sodium/Dextrose (Heparin Infusion -) 25,000 units in 500 mls @ 16 mls/ hr IVPB TITR [facility]; Protocol Last Titration: 08/30/18 15:33 Dose: 850 units/hr, 17 mls/hr Metoprolol Succinate (Toprol Xl -) 50 mg PO DAILY [facility] Last Admin: 08/30/18 11:13 Dose: 50 mg Prednisone (Deltasone -) 20 mg PO TID [facility] Last Admin: 08/30/18 13:54 Dose: 20 mg Rosuvastatin Calcium (Crestor -) 5 mg PO HS [facility] Last Admin: 08/29/18 21:07 Dose: 5 mg Senna (Senna -) 1 tab PO BID [facility] Last Admin: 08/30/18 11:12 Dose: 1 tab Warfarin Sodium (Coumadin -) 3 mg PO DAILY@1800 [facility] - Objective Vital Signs: Vital Signs Temperature 98.3 F 08/30/18 15:22 Pulse Rate 68 08/30/18 15:22 Respiratory Rate 20 08/30/18 15:22 Blood Pressure 130/73 08/30/18 15:22 O2 Sat by Pulse Oximetry (%) 95 08/29/18 21:00 Constitutional: Yes: Calm Eyes: Yes: Conjunctiva Clear HENT: Yes: Atraumatic Neck: Yes: Supple Cardiovascular: Yes: S1, S2 Respiratory: Yes: CTA Bilaterally Gastrointestinal: Yes: Soft Genitourinary: Yes: WNL Edema: Yes Edema: LLE: 1+, RLE: 1+ Integumentary: Yes: Other (rash improving, less red) Neurological: Yes: Oriented Psychiatric: Yes: Oriented Labs: CBC, BMP 08/30/18 07:00 08/30/18 07:00 INR, PTT INR 1.09 (0.83-1.09) 08/30/18 10:20 Problem List - Problems (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 - BULLOUS DISORDER, UNSPECIFIED (2) Valvular heart disease Code(s): I38 - ENDOCARDITIS, VALVE UNSPECIFIED (3) Afib Code(s): I48.91 - UNSPECIFIED ATRIAL FIBRILLATION Qualifiers: Atrial fibrillation type: chronic Qualified Code(s): I48.2 - Chronic atrial fibrillation (4) CHF (congestive heart failure) Code(s): I50.9 - HEART FAILURE, UNSPECIFIED Qualifiers: Heart failure type: combined systolic and diastolic Heart failure chronicity: chronic Qualified Code(s): I50.42 - Chronic combined systolic ( congestive) and diastolic (congestive) heart failure (5) CKD (chronic kidney disease) Code(s): N18.9 - CHRONIC KIDNEY DISEASE, UNSPECIFIED Assessment/Plan Current Medications Generic Name Dose Route Start Last Admin Trade Name Freq PRN Reason Stop Dose Admin Acetaminophen 650 mg 08/27/18 13:29 08/29/18 21:07 Tylenol - PO 650 mg Q6H PRN Administration PAIN LEVEL 6-10 Artificial Tears 1 drop 08/28/18 07:48 08/28/18 09:56 Artificial Tears OU 1 drop QID PRN Administration DRY EYES Heparin Sodium (Porcine) 5,000 unit 08/27/18 13:13 Heparin - IVPUSH PRN PRN Heparin Heparin Sodium (Porcine) 1,000 unit 08/27/18 18:00 Heparin - IVPUSH PRN PRN Heparin Heparin Sodium/Dextrose 25,000 units in 500 mls @ 16 mls/hr 08/27/18 19:00 15:33 Heparin Infusion - IVPB 850 units/hr TITR [facility] 17 mls/hr Titration Protocol 800 UNITS/HR Metoprolol Succinate 50 mg 08/27/18 10:00 08/30/18 11:13 Toprol Xl - PO 50 mg DAILY [facility] Administration Prednisone 20 mg 08/27/18 22:00 08/30/18 13:54 Deltasone - PO 20 mg TID [facility] Administration Rosuvastatin Calcium 5 mg 08/29/18 22:00 08/29/18 21:07 Crestor - PO 5 mg HS [facility] Administration Senna 1 tab 08/27/18 10:00 08/30/18 11:12 Senna - PO 1 tab BID [facility] Administration Warfarin Sodium 3 mg 08/30/18 18:00 Coumadin - PO DAILY@1800 [facility] Impression 1. CKD 2. YANICK 3. CHF 4. HTN 5. bullous lesions 6. valvular heart disease 7. a-fib Plan - skin biopsy pending - follow serologic workup - rheum follow up - hold torsemide and evaluate daily - cont steroids for now - kidneys are echogenic on ultrasound - discussed with family - avoid nsaids
[2018-08-30 17:16] LABS: ATYPICAL pANCA <1:20 titer (Neg:<1:20); C-ANCA <1:20 titer (Neg:<1:20); P-ANCA <1:20 titer (Neg:<1:20)
[2018-08-30] MEDS ORDERED: WARFARIN NA 3 MG TABLET PO SCH (18:00)
[2018-08-30] MEDS: ROSUVASTATIN CA 5 MG TABLET (FP) PO SCH (21:58)
[2018-08-30] MEDS: ACETAMINOPHEN 325 MG TABLET (FP) PO PRN (21:58)
[2018-08-30] MEDS: HEPARIN INFUSION - 25,000 UNITS/500 ML INFUS.BAG IVPB SCH (22:06)
[2018-08-31 03:12] LABS: HBSAG SCREEN Negative (Negative); HEP A AB, IGM Negative (Negative); HEP B CORE AB, TOT Negative (Negative)
[2018-08-31] MEDS: predniSONE 20 MG TABLET (UD) PO SCH ×3 (06:03→22:25)
[2018-08-31 07:25] LABS: BASO % 0.1 % (0-2.0); HEMATOCRIT 29.1 % (32.4-45.2); HEMOGLOBIN 9.7 GM/dL (10.7-15.3); LYMPH % 18.6 % (8-40); MCHC 33.2 g/dl (32.0-36.0); MEAN CELL VOLUME 87.3 fl (80-96); MEAN PLT VOLUME 8.2 fl (7.5-11.1); MONO % 4.4 % (3.8-10.2); NEUT % 76.9 % (42.8-82.8); PLATELET COUNT 224 K/MM3 (134-434); RBC 3.33 M/mm3 (3.60-5.2); RDW 16.3 % (11.6-15.6); WHITE BLOOD COUNT 5.8 K/mm3 (4.0-10.0)
[2018-08-31 07:53] LABS: ALBUMIN 2.2 g/dl (3.4-5.0); ALK PHOS 67 U/L (45-117); ANION GAP 11 MMOL/L (8-16); BILIRUBIN,TOTAL 0.4 mg/dL (0.2-1); BLOOD UREA NITROGEN 69 mg/dL (7-18); CALCIUM 7.8 mg/dL (8.5-10.1); CHLORIDE 100 mmol/L (98-107); CO2 22 mmol/L (21-32); CREATININE 2.5 mg/dL (0.55-1.3); GLUCOSE,RANDOM 157 mg/dL (74-106); POTASSIUM 4.3 mmol/L (3.5-5.1); SGOT/AST 37 U/L (15-37); SGPT/ALT 27 U/L (13-61); SODIUM 133 mmol/L (136-145); TOT PROT 6.4 g/dl (6.4-8.2)
[2018-08-31 08:02] LABS: INR 1.01 (0.83-1.09); PROTHROMBIN TIME (PATIENT) 11.9 SEC (9.7-13.0)
[2018-08-31] MEDS ORDERED: PT OWN MED DRAWER 7, Y5N ONE (09:18)
[2018-08-31] MEDS: SENNOSIDES 8.6MG TABLET (FP) PO SCH ×2 (09:29→22:25)
--- NOTE | 2018-08-31 10:33 | PN ---
Physical Exam: SUBJECTIVE: Patient seen and examined OBJECTIVE: Vital Signs Period Temp Pulse Resp BP Sys/Villalpando Pulse Ox Last 24 Hr 97.6 F-98.8 F 61-70 17-20 124-145/71-83 96 She is a very pleasant F in no distress at this time, CVS:S1S2 CTAB, has no rales at this time. Abd:BS+ NT/ND EXT: No edema Skin: has extensive, papular lesions, target lesions. Laboratory Results - last 24 hr 08/28/18 08/28/18 08/28/18 07:50 07:50 07:50 WBC RBC Hgb Hct MCV MCH MCHC RDW Plt Count MPV Absolute Neuts (auto) Neutrophils % Lymphocytes % Monocytes % Eosinophils % Basophils % Nucleated RBC % PT with INR INR PTT (Actin FS) Sodium Potassium Chloride Carbon Dioxide Anion Gap BUN Creatinine Creat Clearance w eGFR Random Glucose Calcium Total Bilirubin AST ALT Alkaline Phosphatase Total Protein Albumin PHYLICIA Screen Positive H PHYLICIA Homogeneous Pattern 1:80 PHYLICIA Nucleolar Pattern TNP PHYLICIA Spindle Nehal Pattern TNP PHYLICIA Midbody Pattern TNP PHYLICIA Centriole Pattern TNP PHYLICIA Nuclear Dot Pattern TNP PHYLICIA PCNA Pattern TNP PHYLICIA Nuclear Membr Pat TNP PHYLICIA Speckled Pattern TNP PHYLICIA Centromere Pattern TNP c-ANCA <1:20 Proteinase 3 (PR3) <3.5 p-ANCA <1:20 Atypical p-ANCA <1:20 Myeloperoxidase Ab <9.0 Hep A IgM Ab Confirm Negative Hepatitis A Ab Total Positive H Hep Bs Antigen Negative Hep Bs Antibody Non reactive Hep B Core Total Ab Negative HCV Quantitation Hcv not detected HCV RNA log copies/mL TNP 08/30/18 08/31/18 08/31/18 10:20 05:45 06:00 WBC RBC Hgb Hct MCV MCH MCHC RDW Plt Count MPV Absolute Neuts (auto) Neutrophils % Lymphocytes % Monocytes % Eosinophils % Basophils % Nucleated RBC % PT with INR 12.90 11.90 INR 1.09 1.01 PTT (Actin FS) 65.2 H Sodium Potassium Chloride Carbon Dioxide Anion Gap BUN Creatinine Creat Clearance w eGFR Random Glucose Calcium Total Bilirubin AST ALT Alkaline Phosphatase Total Protein Albumin PHYLICIA Screen PHYLICIA Homogeneous Pattern PHYLICIA Nucleolar Pattern PHYLICIA Spindle Nehal Pattern PHYLICIA Midbody Pattern PHYLICIA Centriole Pattern PHYLICIA Nuclear Dot Pattern PHLYICIA PCNA Pattern PHYLICIA Nuclear Membr Pat PHYLICIA Speckled Pattern PHYLICIA Centromere Pattern c-ANCA Proteinase 3 (PR3) p-ANCA Atypical p-ANCA Myeloperoxidase Ab Hep A IgM Ab Confirm Hepatitis A Ab Total Hep Bs Antigen Hep Bs Antibody Hep B Core Total Ab HCV Quantitation HCV RNA log copies/mL 08/31/18 08/31/18 06:00 06:00 WBC 5.8 RBC 3.33 L Hgb 9.7 L Hct 29.1 L MCV 87.3 MCH 29.0 MCHC 33.2 RDW 16.3 H Plt Count 224 MPV 8.2 Absolute Neuts (auto) 4.4 Neutrophils % 76.9 Lymphocytes % 18.6 Monocytes % 4.4 Eosinophils % 0.0 Basophils % 0.1 Nucleated RBC % 0 PT with INR INR PTT (Actin FS) Sodium 133 L Potassium 4.3 Chloride 100 Carbon Dioxide 22 Anion Gap 11 BUN 69 H Creatinine 2.5 H Creat Clearance w eGFR 18.22 Random Glucose 157 H Calcium 7.8 L Total Bilirubin 0.4 AST 37 ALT 27 Alkaline Phosphatase 67 Total Protein 6.4 Albumin 2.2 L PHYLICIA Screen PHYLICIA Homogeneous Pattern PHYLICIA Nucleolar Pattern PHYLICIA Spindle Nehal Pattern PHYLICIA Midbody Pattern PHYLICIA Centriole Pattern PHYLICIA Nuclear Dot Pattern PHYLICIA PCNA Pattern PHYLICIA Nuclear Membr Pat PHYLICIA Speckled Pattern PHYLICIA Centromere Pattern c-ANCA Proteinase 3 (PR3) p-ANCA Atypical p-ANCA Myeloperoxidase Ab Hep A IgM Ab Confirm Hepatitis A Ab Total Hep Bs Antigen Hep Bs Antibody Hep B Core Total Ab HCV Quantitation HCV RNA log copies/mL Active Medications Generic Name Dose Route Start Last Admin Trade Name Freq PRN Reason Stop Dose Admin Acetaminophen 650 mg 08/27/18 13:29 08/30/18 21:58 Tylenol - PO 650 mg Q6H PRN Administration PAIN LEVEL 6-10 Artificial Tears 1 drop 08/28/18 07:48 08/28/18 09:56 Artificial Tears OU 1 drop QID PRN Administration DRY EYES Heparin Sodium (Porcine) 5,000 unit 08/27/18 13:13 Heparin - IVPUSH PRN PRN Heparin Heparin Sodium (Porcine) 1,000 unit 08/27/18 18:00 Heparin - IVPUSH PRN PRN Heparin Heparin Sodium/Dextrose 25,000 units in 500 mls @ 16 mls/hr 08/27/18 19:00 22:06 Heparin Infusion - IVPB 850 units/hr TITR SAUL 17 mls/hr Administration Protocol 800 UNITS/HR Metoprolol Succinate 50 mg 08/27/18 10:00 08/31/18 09:29 Toprol Xl - PO 50 mg DAILY SAUL Administration Prednisone 20 mg 08/27/18 22:00 08/31/18 06:03 Deltasone - PO 20 mg TID SAUL Administration Rosuvastatin Calcium 5 mg 08/29/18 22:00 08/30/18 21:58 Crestor - PO 5 mg HS SAUL Administration Senna 1 tab 08/27/18 10:00 08/31/18 09:29 Senna - PO 1 tab BID SAUL Administration Warfarin Sodium 3 mg 08/30/18 18:00 08/30/18 17:23 Coumadin - PO 3 mg DAILY@1800 SAUL Administration Laboratory Tests 08/31/18 08/31/18 05:45 06:00 INR 1.01 PTT (Actin FS) 65.2 H ASSESSMENT/PLAN: 88 Y/O F W HTN, CAD s/p CABG, atrial fibrillation (on Eliquis 2.5 mg), and HFPEF /severe tricuspid regurgitation EF 50%, chronic JAVIER edema, chronic skin lesion for couple of months, admitted for further evaluation and biopsy of the lesion. Skin rash: S/P evaluation by ID( not infectious), rheumatology( S/P biopsy), labs sent, pending F/u by rheumatology and results of the biopsy, no derm evaluation at this time. can be done after the results of the biopsy is present , on steroids at this time, consult placed for dermatology consult YANICK over CKD with proterinuria/ microscopic hematuria on admission: improving chronic JAVIER edema:Duplex US no DVT in lower limbs. has been followed by cardiology with minimal response to diuretics. AFIB, HFpEF with TR: was evaluated by cardio and at this time the JAVIER edema is in the setting of Venous insufficiency, Will C/W home medication. ON warfarin, Inr subtheraputic, will give extra dose of warfarin tonight(first dose on 08/30) , is on Heparin Drip at this time, will monitor for volume overload while on prednisone and off diuretics at this time is developing hyponatremia, YANICK is worsening and has gained about 2kg, will consider restarting torsemide fro the patient. Normocytic, normochronmic anemia with high RDW: likely in the setting of chronic disease, At this time will send retic count and lytic tests. Iron studies. stable at this time. HTN: well controlled at this time , on no antihypertensive at this time. FC Diet: cardiac DVT ppx: on AC Visit type - Emergency Visit Emergency Visit: Yes ED Registration Date: 08/27/18 Care time: The patient presented to the Emergency Department on the above date and was hospitalized for further evaluation of their emergent condition. - New Patient This patient is new to me today: No - Critical Care Critical Care patient: No - Discharge Referral Referred to [facility] Med P.C.: No
[2018-08-31 12:02] LABS: BASO % 0.1 % (0-2.0); HEMATOCRIT 27.1 % (32.4-45.2); HEMOGLOBIN 8.9 GM/dL (10.7-15.3); LYMPH % 14.2 % (8-40); MCH 28.7 pg (25.7-33.7); MCHC 32.7 g/dl (32.0-36.0); MEAN CELL VOLUME 87.7 fl (80-96); MONO % 5.8 % (3.8-10.2); NEUT % 79.9 % (42.8-82.8); PLATELET COUNT 197 K/MM3 (134-434); RBC 3.09 M/mm3 (3.60-5.2); RETICULOCYTES 0.91 % (0.5-1.5); WHITE BLOOD COUNT 5.2 K/mm3 (4.0-10.0)
[2018-08-31] MEDS: ACETAMINOPHEN 325 MG TABLET (FP) PO PRN (14:52)
[2018-08-31] MEDS: WARFARIN NA 5 MG TABLET (UD) PO SCH (17:11)
--- NOTE | 2018-08-31 17:40 | PN ---
Progress Note, Physician History of Present Illness: Pt seen and examined at bedside. She is awake and alert. She denies shortness of breath. She denies dysuria. She feels that the rash is improving. - Current Medication List Current Medications: Active Medications Acetaminophen (Tylenol -) 650 mg PO Q6H PRN PRN Reason: PAIN LEVEL 6-10 Last Admin: 08/31/18 14:52 Dose: 650 mg Artificial Tears (Artificial Tears) 1 drop OU QID PRN PRN Reason: DRY EYES Last Admin: 08/28/18 09:56 Dose: 1 drop Heparin Sodium (Porcine) (Heparin -) 5,000 unit IVPUSH PRN PRN PRN Reason: Heparin Heparin Sodium (Porcine) (Heparin -) 1,000 unit IVPUSH PRN PRN PRN Reason: Heparin Heparin Sodium/Dextrose (Heparin Infusion -) 25,000 units in 500 mls @ 16 mls/ hr IVPB TITR [facility]; Protocol Last Admin: 08/30/18 22:06 Dose: 850 units/hr, 17 mls/hr Metoprolol Succinate (Toprol Xl -) 50 mg PO DAILY [facility] Last Admin: 08/31/18 09:29 Dose: 50 mg Prednisone (Deltasone -) 20 mg PO TID [facility] Last Admin: 08/31/18 13:17 Dose: 20 mg Rosuvastatin Calcium (Crestor -) 5 mg PO HS [facility] Last Admin: 08/30/18 21:58 Dose: 5 mg Senna (Senna -) 1 tab PO BID [facility] Last Admin: 08/31/18 09:29 Dose: 1 tab Warfarin Sodium (Coumadin -) 5 mg PO DAILY@1800 [facility] Last Admin: 08/31/18 17:11 Dose: 5 mg - Objective Vital Signs: Vital Signs Temperature 98.2 F 08/31/18 14:46 Pulse Rate 79 08/31/18 14:46 Respiratory Rate 18 08/31/18 14:46 Blood Pressure 135/66 08/31/18 14:46 O2 Sat by Pulse Oximetry (%) 98 08/31/18 09:00 Constitutional: Yes: Calm Eyes: Yes: Conjunctiva Clear HENT: Yes: Atraumatic Neck: Yes: Supple Cardiovascular: Yes: S1, S2 Respiratory: Yes: CTA Bilaterally Gastrointestinal: Yes: Soft Genitourinary: Yes: WNL Musculoskeletal: Yes: WNL Edema: Yes Edema: LLE: 1+, RLE: 1+ Integumentary: Yes: Other (vasculitic rash) Neurological: Yes: Oriented Psychiatric: Yes: Oriented Labs: CBC, BMP 08/31/18 11:33 08/31/18 06:00 INR, PTT INR 1.01 (0.83-1.09) 08/31/18 05:45 Problem List - Problems (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 - BULLOUS DISORDER, UNSPECIFIED (2) Valvular heart disease Code(s): I38 - ENDOCARDITIS, VALVE UNSPECIFIED (3) Afib Code(s): I48.91 - UNSPECIFIED ATRIAL FIBRILLATION Qualifiers: Atrial fibrillation type: chronic Qualified Code(s): I48.2 - Chronic atrial fibrillation (4) CHF (congestive heart failure) Code(s): I50.9 - HEART FAILURE, UNSPECIFIED Qualifiers: Heart failure type: combined systolic and diastolic Heart failure chronicity: chronic Qualified Code(s): I50.42 - Chronic combined systolic ( congestive) and diastolic (congestive) heart failure (5) CKD (chronic kidney disease) Code(s): N18.9 - CHRONIC KIDNEY DISEASE, UNSPECIFIED Assessment/Plan Current Medications Generic Name Dose Route Start Last Admin Trade Name Freq PRN Reason Stop Dose Admin Acetaminophen 650 mg 08/27/18 13:29 08/31/18 14:52 Tylenol - PO 650 mg Q6H PRN Administration PAIN LEVEL 6-10 Artificial Tears 1 drop 08/28/18 07:48 08/28/18 09:56 Artificial Tears OU 1 drop QID PRN Administration DRY EYES Heparin Sodium (Porcine) 5,000 unit 08/27/18 13:13 Heparin - IVPUSH PRN PRN Heparin Heparin Sodium (Porcine) 1,000 unit 08/27/18 18:00 Heparin - IVPUSH PRN PRN Heparin Heparin Sodium/Dextrose 25,000 units in 500 mls @ 16 mls/hr 08/27/18 19:00 22:06 Heparin Infusion - IVPB 850 units/hr TITR SAUL 17 mls/hr Administration Protocol 800 UNITS/HR Metoprolol Succinate 50 mg 08/27/18 10:00 08/31/18 09:29 Toprol Xl - PO 50 mg DAILY SAUL Administration Prednisone 20 mg 08/27/18 22:00 08/31/18 13:17 Deltasone - PO 20 mg TID SAUL Administration Rosuvastatin Calcium 5 mg 08/29/18 22:00 08/30/18 21:58 Crestor - PO 5 mg HS SAUL Administration Senna 1 tab 08/27/18 10:00 08/31/18 09:29 Senna - PO 1 tab BID SAUL Administration Warfarin Sodium 5 mg 08/31/18 18:00 08/31/18 17:11 Coumadin - PO 5 mg DAILY@1800 SAUL Administration Impression 1. CKD 2. YANICK 3. CHF 4. HTN 5. bullous lesions 6. valvular heart disease 7. 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
[2018-08-31] MEDS: HEPARIN INFUSION - 25,000 UNITS/500 ML INFUS.BAG IVPB SCH (22:24)
[2018-08-31] MEDS: ROSUVASTATIN CA 5 MG TABLET (FP) PO SCH (22:25)
[2018-09-01] MEDS: predniSONE 20 MG TABLET (UD) PO SCH ×3 (05:53→21:45)
[2018-09-01 08:00] LABS: HEMATOCRIT 29.5 % (32.4-45.2); HEMOGLOBIN 9.7 GM/dL (10.7-15.3); MCH 28.8 pg (25.7-33.7); MEAN CELL VOLUME 87.3 fl (80-96); MEAN PLT VOLUME 8.3 fl (7.5-11.1); PLATELET COUNT 243 K/MM3 (134-434); RBC 3.38 M/mm3 (3.60-5.2); RDW 16.6 % (11.6-15.6); WHITE BLOOD COUNT 7.5 K/mm3 (4.0-10.0)
[2018-09-01 08:27] LABS: INR 1.21 (0.83-1.09); PROTHROMBIN TIME (PATIENT) 14.3 SEC (9.7-13.0)
[2018-09-01] MEDS: HEPARIN INFUSION - 25,000 UNITS/500 ML INFUS.BAG IVPB SCH ×2 (09:50→21:46)
[2018-09-01] MEDS: SENNOSIDES 8.6MG TABLET (FP) PO SCH ×2 (11:35→21:45)
[2018-09-01 11:51] LABS: ANION GAP 11 MMOL/L (8-16); BLOOD UREA NITROGEN 75 mg/dL (7-18); CALCIUM 7.9 mg/dL (8.5-10.1); CHLORIDE 101 mmol/L (98-107); CO2 22 mmol/L (21-32); CREATININE 2.5 mg/dL (0.55-1.3); GLUCOSE,RANDOM 160 mg/dL (74-106); POTASSIUM 4.3 mmol/L (3.5-5.1); SODIUM 133 mmol/L (136-145)
[2018-09-01 16:08] LABS: INR 1.48 (0.83-1.09); PROTHROMBIN TIME (PATIENT) 17.5 SEC (9.7-13.0)
[2018-09-01 16:11] LABS: ACTIVATED PTT 61.9 SECONDS (25.2-36.5)
[2018-09-01] MEDS: WARFARIN NA 5 MG TABLET (UD) PO SCH (17:56)
--- NOTE | 2018-09-01 18:07 | PN ---
Progress Note, Physician History of Present Illness: Pt seen and examined at bedside. She does not feel that the rash is much better than yesterday. She overall however feels that it is getting better. - Current Medication List Current Medications: Active Medications Acetaminophen (Tylenol -) 650 mg PO Q6H PRN PRN Reason: PAIN LEVEL 6-10 Last Admin: 08/31/18 14:52 Dose: 650 mg Artificial Tears (Artificial Tears) 1 drop OU QID PRN PRN Reason: DRY EYES Last Admin: 08/28/18 09:56 Dose: 1 drop Heparin Sodium (Porcine) (Heparin -) 5,000 unit IVPUSH PRN PRN PRN Reason: Heparin Heparin Sodium (Porcine) (Heparin -) 1,000 unit IVPUSH PRN PRN PRN Reason: Heparin Heparin Sodium/Dextrose (Heparin Infusion -) 25,000 units in 500 mls @ 16 mls/ hr IVPB TITR [facility]; Protocol Last Admin: 09/01/18 09:50 Dose: 750 units/hr, 15 mls/hr Metoprolol Succinate (Toprol Xl -) 50 mg PO DAILY [facility] Last Admin: 09/01/18 11:35 Dose: 50 mg Prednisone (Deltasone -) 20 mg PO TID [facility] Last Admin: 09/01/18 14:26 Dose: 20 mg Rosuvastatin Calcium (Crestor -) 5 mg PO HS [facility] Last Admin: 08/31/18 22:25 Dose: 5 mg Senna (Senna -) 1 tab PO BID [facility] Last Admin: 09/01/18 11:35 Dose: 1 tab Warfarin Sodium (Coumadin -) 5 mg PO DAILY@1800 [facility] Last Admin: 09/01/18 17:56 Dose: 5 mg - Objective Vital Signs: Vital Signs Temperature 98.5 F 09/01/18 14:30 Pulse Rate 72 09/01/18 14:30 Respiratory Rate 20 09/01/18 14:30 Blood Pressure 136/53 L 09/01/18 14:30 O2 Sat by Pulse Oximetry (%) 95 08/31/18 21:00 Constitutional: Yes: Calm Eyes: Yes: Conjunctiva Clear HENT: Yes: Atraumatic Cardiovascular: Yes: S1, S2 Respiratory: Yes: CTA Bilaterally Gastrointestinal: Yes: Normal Bowel Sounds, Soft Genitourinary: Yes: WNL Musculoskeletal: Yes: WNL Edema: Yes Edema: LLE: 1+, RLE: 1+ Neurological: Yes: Oriented Psychiatric: Yes: Oriented Labs: CBC, BMP 09/01/18 07:00 09/01/18 10:39 INR, PTT INR 1.48 (0.83-1.09) H 09/01/18 15:45 Problem List - Problems (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 - BULLOUS DISORDER, UNSPECIFIED (2) Valvular heart disease Code(s): I38 - ENDOCARDITIS, VALVE UNSPECIFIED (3) Afib Code(s): I48.91 - UNSPECIFIED ATRIAL FIBRILLATION Qualifiers: Atrial fibrillation type: chronic Qualified Code(s): I48.2 - Chronic atrial fibrillation (4) CHF (congestive heart failure) Code(s): I50.9 - HEART FAILURE, UNSPECIFIED Qualifiers: Heart failure type: combined systolic and diastolic Heart failure chronicity: chronic Qualified Code(s): I50.42 - Chronic combined systolic ( congestive) and diastolic (congestive) heart failure (5) CKD (chronic kidney disease) Code(s): N18.9 - CHRONIC KIDNEY DISEASE, UNSPECIFIED Assessment/Plan Current Medications Generic Name Dose Route Start Last Admin Trade Name Freq PRN Reason Stop Dose Admin Acetaminophen 650 mg 08/27/18 13:29 08/31/18 14:52 Tylenol - PO 650 mg Q6H PRN Administration PAIN LEVEL 6-10 Artificial Tears 1 drop 08/28/18 07:48 08/28/18 09:56 Artificial Tears OU 1 drop QID PRN Administration DRY EYES Heparin Sodium (Porcine) 5,000 unit 08/27/18 13:13 Heparin - IVPUSH PRN PRN Heparin Heparin Sodium (Porcine) 1,000 unit 08/27/18 18:00 Heparin - IVPUSH PRN PRN Heparin Heparin Sodium/Dextrose 25,000 units in 500 mls @ 16 mls/hr 08/27/18 19:00 09:50 Heparin Infusion - IVPB 750 units/hr TITR SAUL 15 mls/hr Administration Protocol 800 UNITS/HR Metoprolol Succinate 50 mg 08/27/18 10:00 09/01/18 11:35 Toprol Xl - PO 50 mg DAILY SAUL Administration Prednisone 20 mg 08/27/18 22:00 09/01/18 14:26 Deltasone - PO 20 mg TID SAUL Administration Rosuvastatin Calcium 5 mg 08/29/18 22:00 08/31/18 22:25 Crestor - PO 5 mg HS SAUL Administration Senna 1 tab 08/27/18 10:00 09/01/18 11:35 Senna - PO 1 tab BID SAUL Administration Warfarin Sodium 5 mg 08/31/18 18:00 09/01/18 17:56 Coumadin - PO 5 mg DAILY@1800 SAUL Administration Laboratory Tests 08/28/18 08/28/18 08/28/18 07:50 07:50 07:50 JOHANNY M-Stu Pending DEQUAN Screen Positive H c-ANCA <1:20 Proteinase 3 (PR3) <3.5 p-ANCA <1:20 Atypical p-ANCA <1:20 Myeloperoxidase Ab <9.0 Double Strand DNA Ab <1 Glomerular Base Memb Ab 5 Impression 1. CKD 2. YANICK 3. CHF 4. HTN 5. rash/ r/o vasculitis 6. valvular heart disease 7. a-fib Plan - anca neg, serologies that are back are noted - dequan positive - cont steroids - follow skin biopsy - torsemide on hold - follow serologic workup - avoid nsaids
[2018-09-01] MEDS: ACETAMINOPHEN 325 MG TABLET (FP) PO PRN (21:44)
[2018-09-01] MEDS: ROSUVASTATIN CA 5 MG TABLET (FP) PO SCH (21:44)
[2018-09-02] MEDS: predniSONE 20 MG TABLET (UD) PO SCH ×3 (06:17→21:54)
--- NOTE | 2018-09-02 07:25 | PN ---
Progress Note, Physician Chief Complaint: Feels overall better, the rash is slowly fading, no itching the LE. The serology is positive for PHYLICIA 1:80 with DS DNA negative. HEP A AB positive, neg HEP B, C serology Pathology still P Renal function no improvement History of Present Illness: Hypertension, chronic kidney disease, CAD s/p CABG ([address] Oreilly), atrial fibrillation (on Eliquis 2.5 mg), and diastolic congestive heart failure /severe tricuspid regurgitation EF 50% previously LE varicose veins Prostetic left eye, multiple cornea transplants, HZV. left Mercado's palsy - Current Medication List Current Medications: Active Medications Acetaminophen (Tylenol -) 650 mg PO Q6H PRN PRN Reason: PAIN LEVEL 6-10 Last Admin: 09/01/18 21:44 Dose: 650 mg Artificial Tears (Artificial Tears) 1 drop OU QID PRN PRN Reason: DRY EYES Last Admin: 08/28/18 09:56 Dose: 1 drop Heparin Sodium (Porcine) (Heparin -) 5,000 unit IVPUSH PRN PRN PRN Reason: Heparin Heparin Sodium (Porcine) (Heparin -) 1,000 unit IVPUSH PRN PRN PRN Reason: Heparin Heparin Sodium/Dextrose (Heparin Infusion -) 25,000 units in 500 mls @ 16 mls/ hr IVPB TITR [facility]; Protocol Last Admin: 09/01/18 21:46 Dose: 750 units/hr, 15 mls/hr Metoprolol Succinate (Toprol Xl -) 50 mg PO DAILY [facility] Last Admin: 09/01/18 11:35 Dose: 50 mg Prednisone (Deltasone -) 20 mg PO BID [facility] Rosuvastatin Calcium (Crestor -) 5 mg PO [facility] Last Admin: 09/01/18 21:44 Dose: 5 mg Senna (Senna -) 1 tab PO BID [facility] Last Admin: 09/01/18 21:45 Dose: 1 tab Warfarin Sodium (Coumadin -) 5 mg PO DAILY@1800 [facility] Last Admin: 09/01/18 17:56 Dose: 5 mg - Objective Vital Signs: Vital Signs Temperature 98.2 F 09/02/18 06:00 Pulse Rate 69 09/02/18 06:00 Respiratory Rate 18 09/02/18 06:00 Blood Pressure 131/63 09/02/18 06:00 O2 Sat by Pulse Oximetry (%) 96 09/01/18 21:00 Constitutional: Yes: Anxious, Mild Distress Eyes: Yes: Occular Prosthesis HENT: Yes: Atraumatic, Normocephalic. No: Drooling Neck: Yes: Supple, Trachea Midline. No: Lymphadenopathy Cardiovascular: Yes: Pulse Irregular, JVD, Murmur, S1, S2 Respiratory: Yes: CTA Bilaterally. No: Cough Gastrointestinal: Yes: Normal Bowel Sounds, Soft. No: Abdomen, Obese, Tenderness, Tenderness, Epigastrium ...Rectal Exam: Yes: Deferred Genitourinary: No: Anuria, Bladder Distention Breast(s): Yes: WNL Extremities: Yes: Other (Varicose veins). No: Cold, Cool, Cyanosis Edema: Yes Edema: LLE: 1+, RLE: 1+ Peripheral Pulses WNL: No Integumentary: Yes: Rash Wound/Incision: Yes: Dressing Dry and Intact Neurological: Yes: Alert, Oriented, Weakness. No: Aphasia, Asterixis, Confusion , Dysarthria, Lethargy, Loss of Sensation, Seizure, Unresponsive ...Motor Strength: WNL Psychiatric: Yes: WNL Labs: INR, PTT INR 1.48 (0.83-1.09) H 09/01/18 15:45 Problem List - Problems (1) Bullous dermatitis Assessment/Plan: Blood cultures are negative to date. The patient has normal WBC, she is being treated with Vanco/Zosyn for possible skin infection Cannot r/o purura fulminans as discussed with Dr Stewart Skin biopsy done-pending. Code(s): L13.9 - BULLOUS DISORDER, UNSPECIFIED (2) Vasculitis Assessment/Plan: Skin biopsy was requested by Dr Stewart. Dr Perdomo performed biopsy. Serology w/u is negative. Will decrease Prednisone 40 mg QD Code(s): I77.6 - ARTERITIS, UNSPECIFIED (3) Afib Assessment/Plan: On non-fractionated Heparin Started Coumadin , Follow INR Continue rate control. Code(s): I48.91 - UNSPECIFIED ATRIAL FIBRILLATION Qualifiers: Atrial fibrillation type: chronic Qualified Code(s): I48.2 - Chronic atrial fibrillation (4) CHF (congestive heart failure) Assessment/Plan: Cardiology f/u Follow volume status Diuretics PRN Code(s): I50.9 - HEART FAILURE, UNSPECIFIED Qualifiers: Heart failure type: combined systolic and diastolic Heart failure chronicity: chronic Qualified Code(s): I50.42 - Chronic combined systolic ( congestive) and diastolic (congestive) heart failure (5) ARF (acute renal failure) Assessment/Plan: Follow BUN/Creat Nephrology f/u Adjust Crestor dose for ARF, CrCl < 30-5 mg QD Code(s): N17.9 - ACUTE KIDNEY FAILURE, UNSPECIFIED Qualifiers: Acute renal failure type: unspecified Qualified Code(s): N17.9 - Acute kidney failure, unspecified
[2018-09-02 07:36] LABS: HEMATOCRIT 28.7 % (32.4-45.2); HEMOGLOBIN 9.5 GM/dL (10.7-15.3); MCH 28.7 pg (25.7-33.7); MEAN PLT VOLUME 8.2 fl (7.5-11.1); PLATELET COUNT 245 K/MM3 (134-434); RDW 16.9 % (11.6-15.6); WHITE BLOOD COUNT 7.6 K/mm3 (4.0-10.0)
[2018-09-02 07:57] LABS: ANION GAP 9 MMOL/L (8-16); BLOOD UREA NITROGEN 83 mg/dL (7-18); CALCIUM 7.8 mg/dL (8.5-10.1); CHLORIDE 103 mmol/L (98-107); CO2 22 mmol/L (21-32); CREATININE 2.5 mg/dL (0.55-1.3); GLUCOSE,RANDOM 159 mg/dL (74-106); POTASSIUM 4.5 mmol/L (3.5-5.1); SODIUM 134 mmol/L (136-145)
[2018-09-02 08:00] LABS: INR 2.11 (0.83-1.09); PROTHROMBIN TIME (PATIENT) 25.1 SEC (9.7-13.0)
[2018-09-02 08:45] LABS: ACTIVATED PTT 87.7 SECONDS (25.2-36.5)
[2018-09-02] MEDS: SENNOSIDES 8.6MG TABLET (FP) PO SCH ×2 (09:48→21:54)
--- NOTE | 2018-09-02 10:19 | PROC ---
Procedure Note Procedure: The patient feels better, less leg edema. She denies SOB or pain in legs. Minimal pruritus in legs. P/E Lungs few basal crackles. S1 and S2 normal no murmur. No active joints. Lowe limbs with improvement in hyperpigmented areas however rash with erythema and crust probably no significant improvement The preliminary report of skin biopsy by Dr. Hu reported chronic perivascular inflammation and bullae, and was referred to dermatopathology including immunofluoresence. These findings are not specific. Laboratory work-up revealed ESR 49, UA from 08/26/with blood 2+ and protein 2+. PHYLICIA 1:80 with homogeneous patter. ANCA, myeloperoxidase, proteinase-3, anti- DNAds, anti-GBM ab were all negative. CH50>60. Impression. etiology of rash not clear. Even thugh positive PHYLICIA is probably a false positive test, rule out lupus with renal involvwment. The patient is on Prednisone 60 mg/d. I requested C3, C4 and anti-KWAME. Repeat UA. I
--- NOTE | 2018-09-02 11:40 | PN ---
Progress Note (short form) - Note Progress Note: feels weak Vital Signs Period Temp Pulse Resp BP Sys/Villalpando Pulse Ox Last 24 Hr 98 F-98.5 F 69-80 18-20 131-148/53-78 96-96 cor-rrr lungs clear abd soft,nt ext dressings removed, much less erythema, darkened areas improved, rash is fading CBC, BMP 09/02/18 07:00 09/02/18 07:00 Microbiology 08/26/18 21:20 Blood - Peripheral Venous Blood Culture - Final NO GROWTH AFTER 5 DAYS INCUBATION 08/26/18 21:20 Blood - Peripheral Venous Blood Culture - Final NO GROWTH AFTER 5 DAYS INCUBATION 08/26/18 22:40 Urine - Urine Clean Catch Urine Culture - Final Alpha Hemolytic Streptococcus a/p 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
--- NOTE | 2018-09-02 16:34 | PN ---
Progress Note, Physician History of Present Illness: Pt seen and examined at bedside. She is awake and alert. She denies shortness of breath. - Current Medication List Current Medications: Active Medications Acetaminophen (Tylenol -) 650 mg PO Q6H PRN PRN Reason: PAIN LEVEL 6-10 Last Admin: 09/01/18 21:44 Dose: 650 mg Artificial Tears (Artificial Tears) 1 drop OU QID PRN PRN Reason: DRY EYES Last Admin: 08/28/18 09:56 Dose: 1 drop Metoprolol Succinate (Toprol Xl -) 50 mg PO DAILY [facility] Last Admin: 09/02/18 09:48 Dose: 50 mg Prednisone (Deltasone -) 20 mg PO BID [facility] Last Admin: 09/02/18 09:47 Dose: 20 mg Rosuvastatin Calcium (Crestor -) 5 mg PO HS [facility] Last Admin: 09/01/18 21:44 Dose: 5 mg Senna (Senna -) 1 tab PO BID [facility] Last Admin: 09/02/18 09:48 Dose: 1 tab Warfarin Sodium (Coumadin -) 5 mg PO DAILY@1800 [facility] Last Admin: 09/01/18 17:56 Dose: 5 mg - Objective Vital Signs: Vital Signs Temperature 98.0 F 09/02/18 13:45 Pulse Rate 67 09/02/18 13:45 Respiratory Rate 20 09/02/18 13:45 Blood Pressure 137/76 09/02/18 13:45 O2 Sat by Pulse Oximetry (%) 96 09/02/18 09:00 Constitutional: Yes: Calm Eyes: Yes: Conjunctiva Clear HENT: Yes: Atraumatic Neck: Yes: Supple Cardiovascular: Yes: S1, S2 Respiratory: Yes: CTA Bilaterally Gastrointestinal: Yes: Soft Genitourinary: Yes: WNL Edema: Yes Edema: LLE: 1+, RLE: 1+ Integumentary: Yes: Other (rash improving) Neurological: Yes: Oriented Psychiatric: Yes: Oriented Labs: CBC, BMP 09/02/18 07:00 09/02/18 07:00 INR, PTT INR 2.11 (0.83-1.09) H 09/02/18 07:00 Problem List - Problems (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 - BULLOUS DISORDER, UNSPECIFIED (2) Valvular heart disease Code(s): I38 - ENDOCARDITIS, VALVE UNSPECIFIED (3) Afib Code(s): I48.91 - UNSPECIFIED ATRIAL FIBRILLATION Qualifiers: Atrial fibrillation type: chronic Qualified Code(s): I48.2 - Chronic atrial fibrillation (4) CHF (congestive heart failure) Code(s): I50.9 - HEART FAILURE, UNSPECIFIED Qualifiers: Heart failure type: combined systolic and diastolic Heart failure chronicity: chronic Qualified Code(s): I50.42 - Chronic combined systolic ( congestive) and diastolic (congestive) heart failure (5) CKD (chronic kidney disease) Code(s): N18.9 - CHRONIC KIDNEY DISEASE, UNSPECIFIED Assessment/Plan Current Medications Generic Name Dose Route Start Last Admin Trade Name Freq PRN Reason Stop Dose Admin Acetaminophen 650 mg 08/27/18 13:29 09/01/18 21:44 Tylenol - PO 650 mg Q6H PRN Administration PAIN LEVEL 6-10 Artificial Tears 1 drop 08/28/18 07:48 08/28/18 09:56 Artificial Tears OU 1 drop QID PRN Administration DRY EYES Metoprolol Succinate 50 mg 08/27/18 10:00 09/02/18 09:48 Toprol Xl - PO 50 mg DAILY SAUL Administration Prednisone 20 mg 09/02/18 10:00 09/02/18 09:47 Deltasone - PO 20 mg BID SAUL Administration Rosuvastatin Calcium 5 mg 08/29/18 22:00 09/01/18 21:44 Crestor - PO 5 mg HS SAUL Administration Senna 1 tab 08/27/18 10:00 09/02/18 09:48 Senna - PO 1 tab BID SAUL Administration Warfarin Sodium 5 mg 08/31/18 18:00 09/01/18 17:56 Coumadin - PO 5 mg DAILY@1800 SAUL Administration Laboratory Tests 08/28/18 08/28/18 09/02/18 07:50 07:50 14:45 c-ANCA <1:20 Proteinase 3 (PR3) <3.5 p-ANCA <1:20 Myeloperoxidase Ab <9.0 Double Strand DNA Ab <1 Glomerular Base Memb Ab 5 Complement C3 Pending Complement C4 Pending Impression 1. CKD 2. YANICK 3. CHF 4. HTN 5. rash/ r/o vasculitis 6. valvular heart disease 7. a-fib Plan - cont to monitor renal function - anca neg - anti ds dna neg - serologies noted - rheum input appreciated - follow up final skin biopsy - torsemide on hold - avoid nsaids
[2018-09-02] MEDS: WARFARIN NA 5 MG TABLET (UD) PO SCH (18:10)
[2018-09-02] MEDS: ACETAMINOPHEN 325 MG TABLET (FP) PO PRN (21:53)
[2018-09-02] MEDS: ROSUVASTATIN CA 5 MG TABLET (FP) PO SCH (21:54)
[2018-09-03 07:32] LABS: ANION GAP 8 MMOL/L (8-16); BLOOD UREA NITROGEN 86 mg/dL (7-18); CALCIUM 7.8 mg/dL (8.5-10.1); CHLORIDE 105 mmol/L (98-107); CO2 24 mmol/L (21-32); CREATININE 2.5 mg/dL (0.55-1.3); GLUCOSE,RANDOM 159 mg/dL (74-106); POTASSIUM 4.4 mmol/L (3.5-5.1); SODIUM 138 mmol/L (136-145)
[2018-09-03 09:52] LABS: INR 3.67 (0.83-1.09); PROTHROMBIN TIME (PATIENT) 43.9 SEC (9.7-13.0)
[2018-09-03] MEDS: predniSONE 20 MG TABLET (UD) PO SCH ×3 (10:00→21:40)
[2018-09-03] MEDS: SENNOSIDES 8.6MG TABLET (FP) PO SCH ×2 (10:00→21:40)
[2018-09-03] MEDS ORDERED: PT OWN MED DRAWER 7, Y5N ONE ×3 (12:41→17:31)
--- NOTE | 2018-09-03 13:31 | PN ---
Progress Note, Physician Chief Complaint: The patient c/o generalized weakness. INR > [address] Stewart consult yesterday noted and appreciated. The patient remains on 60 mg of Prednisone. Skin biopsy-pending. Spoke today to son Jose about D/c planning. Dr Beebe consult apprreciated History of Present Illness: Hypertension, chronic kidney disease, CAD s/p CABG ([address] Oreilly), atrial fibrillation (on Eliquis 2.5 mg), and diastolic congestive heart failure /severe tricuspid regurgitation EF 50% previously LE varicose veins Prostetic left eye, multiple cornea transplants, HZV. left Mercado's palsy - Current Medication List Current Medications: Active Medications Acetaminophen (Tylenol -) 650 mg PO Q6H PRN PRN Reason: PAIN LEVEL 6-10 Last Admin: 09/02/18 21:53 Dose: 650 mg Artificial Tears (Artificial Tears) 1 drop OU QID PRN PRN Reason: DRY EYES Last Admin: 08/28/18 09:56 Dose: 1 drop Metoprolol Succinate (Toprol Xl -) 50 mg PO DAILY [facility] Last Admin: 09/03/18 10:00 Dose: 50 mg Prednisone (Deltasone -) 20 mg PO BID [facility] Last Admin: 09/03/18 10:00 Dose: 20 mg Rosuvastatin Calcium (Crestor -) 5 mg PO HS [facility] Last Admin: 09/02/18 21:54 Dose: 5 mg Senna (Senna -) 1 tab PO BID [facility] Last Admin: 09/03/18 10:00 Dose: 1 tab - Objective Vital Signs: Vital Signs Temperature 98 F 09/03/18 10:00 Pulse Rate 59 L 09/03/18 10:00 Respiratory Rate 18 09/03/18 10:00 Blood Pressure 120/72 09/03/18 10:00 O2 Sat by Pulse Oximetry (%) 96 09/03/18 09:00 Constitutional: Yes: Anxious, Mild Distress Eyes: Yes: Occular Prosthesis (left) HENT: Yes: Atraumatic, Normocephalic Neck: Yes: Supple, Trachea Midline Cardiovascular: Yes: Pulse Irregular. No: Bradycardia, Tachycardia Respiratory: Yes: Rhonchi, SOB on Exertion. No: Rales, Stridor, Tachypnea, Wheezes Gastrointestinal: Yes: Normal Bowel Sounds, Soft. No: Abdomen, Obese, Ascites ...Rectal Exam: Yes: Deferred Genitourinary: No: Anuria, Bladder Distention Musculoskeletal: No: Back Pain, Joint Stiffness Extremities: No: Amputation, Calf Tenderness, Cold, Cyanosis Edema: Yes Edema: LLE: 1+, RLE: 1+ Peripheral Pulses WNL: No Integumentary: Yes: Rash (Fading. Biopsy site dry.) Neurological: Yes: Alert, Oriented. No: Aphasia, Dysarthria, Lethargy, Seizure Psychiatric: Yes: Alert, Oriented. No: Agitated, Suicidal Ideation Labs: CBC, BMP 09/02/18 07:00 09/03/18 06:00 INR, PTT INR 3.67 (0.83-1.09) H 09/03/18 09:20 Laboratory Results - last 24 hr 08/28/18 09/03/18 09/03/18 07:50 06:00 06:00 ESR 20 PT with INR INR Sodium 138 Potassium 4.4 Chloride 105 Carbon Dioxide 24 Anion Gap 8 BUN 86 H Creatinine 2.5 H Creat Clearance w eGFR 18.22 Random Glucose 159 H Calcium 7.8 L Total Protein (PEP) 5.7 L Albumin (PEP) 2.4 L Globulin 3.3 Albumin/Globulin Ratio 0.7 Beta Globulins 0.7 JOHANNY M-Stu Not observed 09/03/18 09:20 ESR PT with INR 43.90 H INR 3.67 H Sodium Potassium Chloride Carbon Dioxide Anion Gap BUN Creatinine Creat Clearance w eGFR Random Glucose Calcium Total Protein (PEP) Albumin (PEP) Globulin Albumin/Globulin Ratio Beta Globulins JOHANNY M-Stu Problem List - Problems (1) Bullous dermatitis Assessment/Plan: Blood cultures are negative to date. The patient has normal WBC, she is being treated with Vanco/Zosyn for possible skin infection Cannot r/o purura fulminans as discussed with Dr Stewart Skin biopsy done-pending. Code(s): L13.9 - BULLOUS DISORDER, UNSPECIFIED (2) Vasculitis Assessment/Plan: Skin biopsy was requested by Dr Stewart. Dr Perdomo performed biopsy. Serology w/u is negative. Will decrease Prednisone 60 mg QD Code(s): I77.6 - ARTERITIS, UNSPECIFIED (3) Afib Assessment/Plan: OFF non-fractionated Heparin Hold today Coumadin , Follow INR Continue rate control. Code(s): I48.91 - UNSPECIFIED ATRIAL FIBRILLATION Qualifiers: Atrial fibrillation type: chronic Qualified Code(s): I48.2 - Chronic atrial fibrillation (4) CHF (congestive heart failure) Assessment/Plan: Cardiology f/u Follow volume status Diuretics PRN Code(s): I50.9 - HEART FAILURE, UNSPECIFIED Qualifiers: Heart failure type: combined systolic and diastolic Heart failure chronicity: chronic Qualified Code(s): I50.42 - Chronic combined systolic ( congestive) and diastolic (congestive) heart failure (5) ARF (acute renal failure) Assessment/Plan: Follow BUN/Creat. Creat 2.5, Increased BUN probably reflects Steroid use. Nephrology f/u Adjust Crestor dose for ARF, CrCl < 30-5 mg QD Code(s): N17.9 - ACUTE KIDNEY FAILURE, UNSPECIFIED Qualifiers: Acute renal failure type: unspecified Qualified Code(s): N17.9 - Acute kidney failure, unspecified
[2018-09-03 14:23] VITALS: BMI 26.2
--- NOTE | 2018-09-03 15:17 | PN ---
Progress Note, Physician History of Present Illness: Pt seen and examined at bedside. She is awake and alert. She denies shotness of breath. - Current Medication List Current Medications: Active Medications Acetaminophen (Tylenol -) 650 mg PO Q6H PRN PRN Reason: PAIN LEVEL 6-10 Last Admin: 09/02/18 21:53 Dose: 650 mg Artificial Tears (Artificial Tears) 1 drop OU QID PRN PRN Reason: DRY EYES Last Admin: 08/28/18 09:56 Dose: 1 drop Metoprolol Succinate (Toprol Xl -) 50 mg PO DAILY [facility] Last Admin: 09/03/18 10:00 Dose: 50 mg Prednisone (Deltasone -) 20 mg PO TID [facility] Rosuvastatin Calcium (Crestor -) 5 mg PO HS [facility] Last Admin: 09/02/18 21:54 Dose: 5 mg Senna (Senna -) 1 tab PO BID [facility] Last Admin: 09/03/18 10:00 Dose: 1 tab - Objective Vital Signs: Vital Signs Temperature 98 F 09/03/18 10:00 Pulse Rate 59 L 09/03/18 10:00 Respiratory Rate 18 09/03/18 10:00 Blood Pressure 120/72 09/03/18 10:00 O2 Sat by Pulse Oximetry (%) 96 09/03/18 09:00 Constitutional: Yes: Calm Eyes: Yes: Conjunctiva Clear HENT: Yes: Atraumatic Cardiovascular: Yes: S1, S2 Respiratory: Yes: CTA Bilaterally Gastrointestinal: Yes: Soft Genitourinary: Yes: WNL Musculoskeletal: Yes: WNL Edema: Yes Edema: LLE: Trace, RLE: Trace Neurological: Yes: Oriented Psychiatric: Yes: Oriented Labs: CBC, BMP 09/02/18 07:00 09/03/18 06:00 INR, PTT INR 3.67 (0.83-1.09) H 09/03/18 09:20 Problem List - Problems (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 - BULLOUS DISORDER, UNSPECIFIED (2) Valvular heart disease Code(s): I38 - ENDOCARDITIS, VALVE UNSPECIFIED (3) Afib Code(s): I48.91 - UNSPECIFIED ATRIAL FIBRILLATION Qualifiers: Atrial fibrillation type: chronic Qualified Code(s): I48.2 - Chronic atrial fibrillation (4) CHF (congestive heart failure) Code(s): I50.9 - HEART FAILURE, UNSPECIFIED Qualifiers: Heart failure type: combined systolic and diastolic Heart failure chronicity: chronic Qualified Code(s): I50.42 - Chronic combined systolic ( congestive) and diastolic (congestive) heart failure (5) CKD (chronic kidney disease) Code(s): N18.9 - CHRONIC KIDNEY DISEASE, UNSPECIFIED Assessment/Plan Current Medications Generic Name Dose Route Start Last Admin Trade Name Freq PRN Reason Stop Dose Admin Acetaminophen 650 mg 08/27/18 13:29 09/02/18 21:53 Tylenol - PO 650 mg Q6H PRN Administration PAIN LEVEL 6-10 Artificial Tears 1 drop 08/28/18 07:48 08/28/18 09:56 Artificial Tears OU 1 drop QID PRN Administration DRY EYES Metoprolol Succinate 50 mg 08/27/18 10:00 09/03/18 10:00 Toprol Xl - PO 50 mg DAILY [facility]UL Administration Prednisone 20 mg 09/03/18 14:00 Deltasone - PO TID [facility]UL Rosuvastatin Calcium 5 mg 08/29/18 22:00 09/02/18 21:54 Crestor - PO 5 mg HS [facility] Administration Senna 1 tab 08/27/18 10:00 09/03/18 10:00 Senna - PO 1 tab BID [facility] Administration Impression 1. CKD 2. YANICK 3. CHF 4. HTN 5. rash/ r/o vasculitis 6. valvular heart disease 7. a-fib Plan - internist medical doctor md has not changed much - bun rising likely from steroids - follow skin biopsy - follow serologies - rheum follow up - torsemide on hold - avoid nsaids
[2018-09-03] MEDS: ACETAMINOPHEN 325 MG TABLET (FP) PO PRN (21:39)
[2018-09-03] MEDS: ROSUVASTATIN CA 5 MG TABLET (FP) PO SCH (21:40)
[2018-09-04] MEDS: predniSONE 20 MG TABLET (UD) PO SCH (06:08)
--- NOTE | 2018-09-04 07:27 | PN ---
Progress Note, Physician Chief Complaint: Comfortable in a chair, rash on LE improving. Discussed with Dr Stewart the results of the w/u. I spoke to the patient and her son Jose re D/C They do not want SNF and request D/C home. Will arrange VNS. Meds were reviewed with Jose Will follow the patient in the office for renal function, INR , fluid ballance, CHF. The patient is advised to f/u also with rheumatology, nephrology, cardiology History of Present Illness: Hypertension, chronic kidney disease, CAD s/p CABG ([address] Oreilly), atrial fibrillation (on Eliquis 2.5 mg), and diastolic congestive heart failure /severe tricuspid regurgitation EF 50% previously LE varicose veins Prostetic left eye, multiple cornea transplants, HZV. left Mercado's palsy - Current Medication List Current Medications: Active Medications Acetaminophen (Tylenol -) 650 mg PO Q6H PRN PRN Reason: PAIN LEVEL 6-10 Last Admin: 09/03/18 21:39 Dose: 650 mg Artificial Tears (Artificial Tears) 1 drop OU QID PRN PRN Reason: DRY EYES Last Admin: 08/28/18 09:56 Dose: 1 drop Metoprolol Succinate (Toprol Xl -) 50 mg PO DAILY [facility] Last Admin: 09/03/18 10:00 Dose: 50 mg Prednisone (Deltasone -) 20 mg PO TID [facility] Last Admin: 09/04/18 06:08 Dose: 20 mg Rosuvastatin Calcium (Crestor -) 5 mg PO HS [facility] Last Admin: 09/03/18 21:40 Dose: 5 mg Senna (Senna -) 1 tab PO BID [facility] Last Admin: 09/03/18 21:40 Dose: 1 tab Warfarin Sodium (Coumadin -) 2 mg PO DAILY@1800 [facility] - Objective Vital Signs: Vital Signs Temperature 97.7 F 09/04/18 06:24 Pulse Rate 59 L 09/04/18 06:24 Respiratory Rate 18 09/04/18 06:24 Blood Pressure 142/64 09/04/18 06:24 O2 Sat by Pulse Oximetry (%) 97 09/03/18 21:00 Constitutional: Yes: Anxious, Mild Distress Eyes: Yes: Occular Prosthesis HENT: Yes: Atraumatic, Normocephalic Neck: Yes: Supple, Trachea Midline. No: Rigid Cardiovascular: Yes: Pulse Irregular, JVD, Murmur, S1, S2. No: Rub Respiratory: Yes: Regular, CTA Bilaterally Gastrointestinal: Yes: Normal Bowel Sounds, Soft. No: Abdomen, Obese, Ascites, Palpable Mass ...Rectal Exam: No: Deferred Genitourinary: No: Anuria, Bladder Distention Breast(s): Yes: WNL Musculoskeletal: No: Back Pain, Joint Stiffness Extremities: No: Calf Tenderness, Cold, Cyanosis Edema: Yes Edema: LLE: 1+, RLE: 1+ Peripheral Pulses WNL: No Integumentary: Yes: Rash Wound/Incision: Yes: Clean/Dry Neurological: Yes: Alert, Oriented, Unsteady Gait, Weakness. No: Aphasia, Confusion, Dysarthria, Lethargy, Seizure, Tremors, Unresponsive ...Motor Strength: WNL Psychiatric: Yes: WNL Labs: CBC, BMP 09/02/18 07:00 09/03/18 06:00 INR, PTT INR 3.67 (0.83-1.09) H 09/03/18 09:20 Problem List - Problems (1) Vasculitis Assessment/Plan: Skin biopsy pending. ANCA-negative Rash is improving on Steroids. Will follow as outpatient Code(s): I77.6 - ARTERITIS, UNSPECIFIED (2) Afib Assessment/Plan: OFF non-fractionated Heparin Hold today Coumadin , Follow INR Continue rate control. Code(s): I48.91 - UNSPECIFIED ATRIAL FIBRILLATION Qualifiers: Atrial fibrillation type: chronic Qualified Code(s): I48.2 - Chronic atrial fibrillation (3) CHF (congestive heart failure) Assessment/Plan: Cardiology f/u as outpt Follow volume status control with 20-40 mg of Torsemide Code(s): I50.9 - HEART FAILURE, UNSPECIFIED Qualifiers: Heart failure type: combined systolic and diastolic Heart failure chronicity: chronic Qualified Code(s): I50.42 - Chronic combined systolic ( congestive) and diastolic (congestive) heart failure (4) ARF (acute renal failure) Assessment/Plan: Follow BUN/Creat. Creat 2.5, Increased BUN reflects Steroid use. Nephrology f/u as outpt Code(s): N17.9 - ACUTE KIDNEY FAILURE, UNSPECIFIED Qualifiers: Acute renal failure type: unspecified Qualified Code(s): N17.9 - Acute kidney failure, unspecified
--- NOTE | 2018-09-04 07:42 | DS ---
Physical Examination Vital Signs: Vital Signs Temperature 97.7 F 09/04/18 06:24 Pulse Rate 59 L 09/04/18 06:24 Respiratory Rate 18 09/04/18 06:24 Blood Pressure 142/64 09/04/18 06:24 O2 Sat by Pulse Oximetry (%) 97 09/03/18 21:00 Findings/Remarks: Admitted with vasculitic rash on LE and ARF. PO steroids started and rash improved. Renal fx stabilized. Eliquis switched to Coumadin. Crestor dose adjusted Skin biopsy done-P ANCA-neg Constitutional: Yes: Anxious, Mild Distress Eyes: Yes: Occular Prosthesis HENT: Yes: Atraumatic, Normocephalic Neck: Yes: Supple. No: Lymphadenopathy, Rigid, Tenderness, Thyromegaly Cardiovascular: Yes: Pulse Irregular, JVD, S1, S2 Respiratory: Yes: Regular, CTA Bilaterally Gastrointestinal: Yes: Normal Bowel Sounds, Soft. No: Abdomen, Obese ...Rectal Exam: Yes: Deferred Breast(s): Yes: WNL Musculoskeletal: Yes: Muscle Weakness. No: Joint Stiffness, Joint Swelling Extremities: No: Amputation, Calf Tenderness, Cold, Cyanosis Edema: Yes Edema: LLE: 1+, RLE: 1+ Peripheral Pulses WNL: No Integumentary: Yes: Rash (Improving and fading) Neurological: Yes: Alert, Oriented. No: Aphasia, Asterixis, Ataxia, Dysarthria ...Motor Strength: WNL Psychiatric: Yes: WNL Labs: CBC, BMP 09/02/18 07:00 09/03/18 06:00 Discharge Summary Reason For Visit: Vasculitis, ARF, AFIB, CHF Current Active Problems ARF (acute renal failure) (Acute) Cellulitis (Acute) Valvular heart disease (Acute) Vasculitis (Acute) Condition: Stable - Instructions Disposition: HOME - Home Medications Comprehensive Discharge Medication List: Ambulatory Orders Rosuvastatin Calcium [Crestor] 20 mg PO HS 09/11/14 Dextran 70/Hypromellose/Pf [Artificial Tears Drops] 1 each OP QID 01/10/18 Apixaban [Eliquis] 2.5 mg PO BID #60 tablet 01/14/18 Docusate Sodium [Colace -] 100 mg PO BID capsule 01/17/18 Sennosides [Senna -] 1 tab PO BID tablet 01/17/18 Acetaminophen [Tylenol .Regular Strength -] 650 mg PO Q6H PRN tablet 01/29/18 Amino Acids/Protein Hydrolys [Prosource No Carb Liquid Pkt] 30 ml PO BID@0800, 1730 packet 01/29/18 Cephalexin [Keflex] 500 mg PO BID #10 capsule 01/29/18 Metoprolol Succinate [Toprol XL -] 50 mg PO DAILY 08/26/18 Potassium Chloride [K-Tab ER] 40 meq PO DAILY 08/26/18 Prednisolone Acetate/Pf [Prednisolone Acet 1% Eye Drop] 5 ml OP ASDIR 08/26/18 Torsemide [Demadex -] 40 mg PO DAILY 08/26/18
[2018-09-04 08:21] LABS: INR 3.99 (0.83-1.09); PROTHROMBIN TIME (PATIENT) 47.7 SEC (9.7-13.0)
[2018-09-04 08:39] LABS: ANION GAP 10 MMOL/L (8-16); BLOOD UREA NITROGEN 92 mg/dL (7-18); CALCIUM 7.5 mg/dL (8.5-10.1); CHLORIDE 106 mmol/L (98-107); CO2 23 mmol/L (21-32); CREATININE 2.3 mg/dL (0.55-1.3); GLUCOSE,RANDOM 168 mg/dL (74-106); POTASSIUM 4.2 mmol/L (3.5-5.1); SODIUM 139 mmol/L (136-145)
[2018-09-04] MEDS: SENNOSIDES 8.6MG TABLET (FP) PO SCH (09:41)
[2018-09-04 11:16] VITALS: BP 151/79; PULSE 64; TEMP 97.5
[2018-09-04 11:18] LABS: RNP ANTIBODIES <0.2 AI (0.0-0.9)
[2018-09-04] MEDS ORDERED: WARFARIN NA 2 MG TABLET (UD) PO SCH (18:00)
--- NOTE | 2018-09-06 16:38 | PATH ---
Surgical Pathology Report Patient Name: ASHELY SWAIN Med. Rec. #: [id number] /Age/Gender: 1930 (Age: 88) / F Account: [id number] Location: [facility] MED/SURG Taken: 08/29/2018 Received: 08/29/2018 Reported: 09/06/2018 Physicians: Pavel Perdomo Specimen(s) Received A: SKIN, RIGHT THIGH B: SKIN, RIGHT THIGH Clinical History 88-year-old female with history of hypertension, chronic kidney disease, CAD AFib-on Eliquis, CHF with CC of lower extremity swelling with redness, discoloration with bullous lesions Final Diagnosis A. Skin, Thigh, right, excision: Purpura associated with a perivascular predominantly lymphocytic inflammatory infiltrate and a few eosinophils. SEE COMMENT. B. Skin, Thigh, right, excision: purpura associated with a perivascular predominantly lymphocytic inflammatory infiltrate and a few eosinophils. SEE COMMENT. Comment: Part A, The lesion is purpuric without evidence of a primary vasculitis. There is fibrin in the dermis associated with a sparse perivascular lymphocytic inflammation and a few eosinophils. This could be nonspecific changes associated with stasis or lymphedema. The associated purpura could be due to trauma or a coagulopathy. A purpuric drug eruption also cannot be excluded. The automatic gluing machine operator direct immunofluorescence study is negative for an autoimmune blistering disorder such as bullous pemphigoid (see report [id number]). This biopsy lacks the neutrophils usually associated with cellulitis and a Gram stain is negative for bacteria, however, underlying cellulitis cannot be excluded. Part B, This lesion appears similar to specimen A. The lesion is purpuric; however, there is no evidence of a primary vasculitis. There is purpura as well as fibrin in the dermis that may be due to an unrelated cause other than vasculitis. A Gram stain is negative for bacteria. Case sent for consultation to Dr. Jacob Morales from [facility], [place], [place] ([id number]), the diagnosis above reflects his opinion DIRECT IMMUNOFLUORESCENCE STUDY (IGG, IGA, IGM, AND C3) performed and interpreted at [facility] ([id number]) is negative. H&E section shows no inflammation. There are no deposits of IgG, IgA, IgM, and C3 in the epidermis, basement membrane zone or vessels. Electronically Signed Kavya Hernandez M.D. Microscopic Description A. There are extravasated erythrocytes in the papillary dermis. There is subepidermal fibrin as well as fibrin between collagen bundles in the reticular dermis and about blood vessels. There is a relatively sparse perivascular lymphocytic infiltrate with a few eosinophils without karyorrhexis or thrombi. There are dilated blood vessels. A Gram stain is negative for bacteria. B. There are extravasated erythrocytes in the papillary dermis. There is subepidermal fibrin as well as fibrin between collagen bundles in the reticular dermis and about blood vessels. There is a relatively sparse perivascular lymphocytic infiltrate with a few eosinophils without karyorrhexis or thrombi. There are dilated blood vessels. A Gram stain is negative for bacteria. Gross Description A. Received in saline labeled "right thigh," is a 1.1 x 0.8 x 0.1 cm gomez-pink skin shave. The epidermal surface displays a 1.0 x 0.7 cm red discoloration. A claim representative portion is placed into Foster's solution and sent to [facility]. The remainder of the specimen is bisected and entirely submitted in one cassette. B. Received in saline labeled "right thigh," is a 1.2 x 0.7 x 0.1 cm gomez-pink skin shave. The epidermal surface displays a 1.1 x 0.6 cm red discoloration. A claim representative portion is placed into Foster's solution and sent to [facility]. The remainder of the specimen is bisected and entirely submitted in one cassette. 08/29/2018 saudi08/29/2018
== END 2018-09-04 11:26 | disposition home health service (06) | DRG 607 ==
LOC: JER 18:22 → JERBED 08-27 00:03 → J7W 08-27 20:17
PROVIDERS: ADMIT Internal Medicine; ATTEND Internal Medicine
PROC: 0JBN0ZX Excision of Right Lower Leg Subcutaneous Tissue and Fascia, Open Approach, Diagnostic (ICD-10-PCS; principal; 2018-08-29)
DX: L95.8 Other vasculitis limited to the skin (principal); N17.9 Acute kidney failure, unspecified; L03.116 Cellulitis of left lower limb; L03.115 Cellulitis of right lower limb; I13.0 Hypertensive heart and chronic kidney disease with heart failure and stage 1 through stage 4 chronic kidney disease, or unspecified chronic kidney disease; I50.42 Chronic combined systolic (congestive) and diastolic (congestive) heart failure; E87.1 Hypo-osmolality and hyponatremia; I77.6 Arteritis, unspecified; L13.9 Bullous disorder, unspecified; I48.2 Chronic atrial fibrillation; I25.10 Atherosclerotic heart disease of native coronary artery without angina pectoris; E78.5 Hyperlipidemia, unspecified; I07.1 Rheumatic tricuspid insufficiency; N18.9 Chronic kidney disease, unspecified; G51.0 Bell's palsy; D63.8 Anemia in other chronic diseases classified elsewhere; Z95.1 Presence of aortocoronary bypass graft
CPT/HCPCS: 36415; 71045-TC-FY; 73590-TC-LT-FY; 73590-TC-RT-FY; 76775-TC; 76856-TC; 80048; 80053; 81003; 82272; 82607; 82728; 82962; 83010; 83516; 83520; 83540; 83605; 83880; 84155; 84165; 84484; 85025; 85027; 85044; 85610; 85651; 85730; 86038; 86140; 86160; 86162; 86225; 86235; 86256; 86704; 86706; 86708; 87040; 87086; 87340; 87522; 88305-TC; 93005; 93010; 93970-TC; 97116-GP; 97162-GP; 99283-25; G0480; J0131; J1644

== ENCOUNTER 2018-11-19 10:42 | Inpatient (IN) | payer OTHER, MEDICARE ==
[2018-11-19] MEDS ORDERED: SODIUM CHLORIDE 1,000 ML IV STA (11:29)
[2018-11-19] MEDS ORDERED: SODIUM CHLORIDE 500 ML IV STA (11:30)
--- NOTE | 2018-11-19 11:35 | PDOC ---
History of Present Illness - General Chief Complaint: Wound Stated Complaint: LEG PAIN Time Seen by Provider: 11/19/18 11:27 History Source: Patient, Family (daughter) Exam Limitations: Language Barrier - History of Present Illness Initial Comments: 11/19/18 11:33 88yo F with PMH of CHF, Afib (Coumadin), CAD s/p CABG x3, Vasculitis (stopped predisone 3wks ago) presenting to ED with pain in the R leg, redness and warmth. She denies fevers, chills, abdominal pain, n/v/d, headache, recent travel, bug bites, urinary symptoms. She endorses scratching her legs where she has scars from a rash she had weeks ago. PMD: Carmen PMH: see hpi PSH: see hpi Meds: see med rec Allergies: nkda Past History - Past Medical History Allergies/Adverse Reactions: Allergies Allergy/AdvReac Type Severity Reaction Status Date / Time No Known Allergies Allergy Verified 08/26/18 18:44 Home Medications: Ambulatory Orders Dextran 70/Hypromellose/Pf [Artificial Tears Drops] 1 each OP QID 01/10/18 Docusate Sodium [Colace -] 100 mg PO BID capsule 01/17/18 Sennosides [Senna -] 1 tab PO BID tablet 01/17/18 Acetaminophen [Tylenol .Regular Strength -] 650 mg PO Q6H PRN tablet 01/29/18 Amino Acids/Protein Hydrolys [Prosource No Carb Liquid Pkt] 30 ml PO BID@0800, 1730 packet 01/29/18 Metoprolol Succinate [Toprol XL -] 50 mg PO DAILY 08/26/18 Potassium Chloride [K-Tab ER] 40 meq PO DAILY 08/26/18 Prednisolone Acetate/Pf [Prednisolone Acet 1% Eye Drop] 5 ml OP ASDIR 08/26/18 Torsemide [Demadex -] 40 mg PO DAILY 08/26/18 Rosuvastatin [Crestor -] 5 mg PO HS #30 tablet 09/04/18 Warfarin Na [Coumadin -] 2 mg PO DAILY@1800 #30 tablet 09/04/18 predniSONE [Deltasone -] 20 mg PO TID #100 tablet 09/04/18 Anemia: No Asthma: No Cancer: No Cardiac Disorders: Yes (PR,CAD,AF, Tricuspid Regurge) CVA: No COPD: No CHF: Yes DVT: No Dementia: No Diabetes: No GI Disorders: No Disorders: No HTN: Yes Hypercholesterolemia: Yes Liver Disease: No Seizures: No Thyroid Disease: No - Surgical History Abdominal Surgery: No Appendectomy: No Cardiac Surgery: Yes (CABG -BYPASSx 3) Cholecystectomy: No Lung Surgery: No Neurologic Surgery: No Orthopedic Surgery: No - Immunization History Immunization Up to Date: Yes - Suicide/Smoking/Psychosocial Hx Smoking History: Never smoked Have you smoked in the past 12 months: No Information on smoking cessation initiated: No Hx Alcohol Use: No Drug/Substance Use Hx: No Substance Use Type: None Hx Substance Use Treatment: No Review of Systems - Review of Systems Constitutional: No: Symptoms Reported HEENTM: No: Symptoms Reported Respiratory: No: Symptoms reported Cardiac (ROS): No: Symptoms Reported ABD/GI: No: Symptoms Reported : No: Symptoms Reported Musculoskeletal: Yes: See HPI Integumentary: Yes: See HPI Neurological: No: Symptoms reported *Physical Exam - Vital Signs Last Vital Signs Temp Pulse Resp BP Pulse Ox 98.1 F 64 16 91/49 L 95 11/19/18 10:50 11/19/18 10:50 11/19/18 10:50 11/19/18 10:50 11/19/18 10:50 - Physical Exam General Appearance: Yes: Nourished, Appropriately Dressed, Mild Distress HEENT: positive: EOMI, JENNIFER Neck: positive: Trachea midline, Supple. negative: Lymphadenopathy (L) Respiratory/Chest: positive: Lungs Clear, Normal Breath Sounds Cardiovascular: positive: Regular Rhythm, Regular Rate, S1, S2. negative: Edema , JVD, Murmur Vascular Pulses: Dorsalis-Pedis (R): 1+, Doralis-Pedis (L): 1+ Gastrointestinal/Abdominal: positive: Normal Bowel Sounds, Soft Musculoskeletal: negative: CVA Tenderness Extremity: positive: Normal Capillary Refill, Pedal Edema (up to knees bilaterally, warm, erythematous, no leaking or bullae, varicose veins present), Swelling, Erythema. negative: Calf Tenderness Integumentary: positive: Normal Color, Dry, Warm, Swelling, Other (old necrotic scars on medial aspect of lower legs) Neurologic: positive: body stylist II-XII NML intact, Fully Oriented, Alert, Normal Mood/ Affect, Normal Response, Motor Strength 5/5 ED Treatment Course - LABORATORY CBC & Chemistry Diagram: 11/19/18 11:45 11/19/18 11:45 - RADIOLOGY Radiology Studies Ordered: Category Date Time Status CHEST X-RAY PORTABLE* [RAD] Stat Radiology 11/19/18 11:31 Ordered Medical Decision Making - Medical Decision Making 11/19/18 20:37 88yo F with PMH of CHF, Afib (Coumadin), CAD s/p CABG x3, Vasculitis (stopped predisone 3wks ago) presenting to ED with pain in the R leg, redness and warmth. She denies fevers, chills, abdominal pain, n/v/d, headache, recent travel, bug bites, urinary symptoms. She endorses scratching her legs where she has scars from a rash she had weeks ago. Vitals: hypotensive, afebrile, normocardic PE: bileral leg swelling, erythema, warmth, no clear demarcations. old scabs on medial aspects of lower legs bilaterally, almost necrotic appearing ddx includes but not limited to cellulitis, necrotizing fascitis, erysepelas, dvt, edema, chf, kidney failure highs suspicion for infectiuos etiology given nidus, warmth and erythema. low suspicion for dvt: bilateral, pt is on AC cbc, cmp, blood cultures, lactic acid, inr iv fluids ekg, cxr labs wnl, cr at baseline, no white count pt has comorbidities, will benefit from inpatient abx treatment. iv vancomycin. admitted med/surg *DC/Admit/Observation/Transfer Diagnosis at time of Disposition: Cellulitis Qualifiers: Site of cellulitis: extremity Site of cellulitis of extremity: lower extremity Laterality: unspecified laterality Qualified Code(s): L03.119 - Cellulitis of unspecified part of limb - Discharge Dispostion Condition at time of disposition: Stable - Referrals - Patient Instructions - Post Discharge Activity
--- NOTE | 2018-11-19 11:55 | PDOC ---
Attending Attestation - Resident Resident Name: Mayelin Gill - ED Attending Attestation I have performed the following: I have examined & evaluated the patient, The case was reviewed & discussed with the resident, I agree w/resident's findings & plan - HPI HPI: 11/19/18 13:58 88yo F with PMH of CHF, Afib (Coumadin), CAD s/p CABG x3, Vasculitis (stopped predisone 3wks ago) presenting to ED with pain in the R leg, redness and warmth , +more swollen. - Physicial Exam PE: 11/19/18 13:58 Agree with the resident's HPI and PE as documented in the electronic medical record. NAD, well appearing, EOMI, PERRL, nl conjunctiva, anicteric; neck supple. lungs clear, regular rate, +holosystolic murmur, abdomen soft nontender. Back nontender. QURESHI x4, no focal neuro deficits. 4+ peripheral edema bilaterally with diffuse warmth, erythema and superficial ulcer/blackened/necrotic, right worse than left.. normal color for ethnicity, WWP. +bilateral lower extremity/ calf tenderness likely from the edema. - Medical Decision Making 11/19/18 13:55 See HPI for details. Prior notes reviewed, including admissions, discharges and consultations. Vital signs reviewed, soft BP, given fluids, mentating last EF checked, 50-55% so able to tolerate fluids with preserved no tachy, no hypoxia laboratory results and imaging reviewed, basic labs and lytes wnl, no wbc ct Cr at baseline CKD lactic normal, reassuring coags with therapeutic INR EKG atrial fibrillation 64 bpm, no interval abnormalities, narrow QRS, ST and T wave segments and morphology normal. Nonspecific T wave abnormalities TWI in precordial leads, unchanged ED course -interventions: IV vanc/zosyn, fluids for cellulitis/worsening acute on chronic wounds doubt DVT as therapeutic on INR/coumadin. more likely chronic lymphedema vs infection, high risk for infection with chronic wounds/ulcer and comorbidities. admit for leg wounds, cellulitis. medical management, hydration and continued observation 11/19/18 13:59 Heart Score/ECG Review #1 ECG reviewed & interpreted by me at: 12:00 General ECG Interpretation: Normal Rate, Normal Intervals Compared to previous ECG there are: No significant change 11/19/18 13:57 EKG atrial fibrillation 64 bpm, no interval abnormalities, narrow QRS, ST and T wave segments and morphology normal. Nonspecific T wave abnormalities TWI in precordial leads, unchanged
[2018-11-19 12:05] LABS: BASO % 0.7 % (0-2.0); EOS % 1.5 % (0-4.5); HEMATOCRIT 24.8 % (32.4-45.2); HEMOGLOBIN 8.1 GM/dL (10.7-15.3); LYMPH % 29.7 % (8-40); MCH 29.8 pg (25.7-33.7); MCHC 32.6 g/dl (32.0-36.0); MEAN CELL VOLUME 91.3 fl (80-96); MEAN PLT VOLUME 7.5 fl (7.5-11.1); MONO % 10.3 % (3.8-10.2); NEUT % 57.8 % (42.8-82.8); PLATELET COUNT 241 K/MM3 (134-434); RBC 2.72 M/mm3 (3.60-5.2); RDW 16.1 % (11.6-15.6); WHITE BLOOD COUNT 6.5 K/mm3 (4.0-10.0)
[2018-11-19] MEDS ORDERED: ACETAMINOPHEN INJECTION 100 ML IVPB ONE (12:24)
[2018-11-19] MEDS ORDERED: ACETAMINOPHEN 1000 MG/100 ML VIAL (NON FORMULARY) IVPB ONE (12:28)
[2018-11-19] MEDS ORDERED: VANCOMYCIN 1 GM in D5W (PRE-DOCKED) 1,000 MG/250 ML IVPB ONE (12:28)
[2018-11-19 12:31] LABS: INR 3.01 (0.83-1.09); PROTHROMBIN TIME (PATIENT) 35.9 SEC (9.7-13.0)
[2018-11-19 12:39] LABS: ALBUMIN 2.6 g/dl (3.4-5.0); BILIRUBIN,TOTAL 0.3 mg/dL (0.2-1); BLOOD UREA NITROGEN 43.3 mg/dL (7-18); CALCIUM 7.8 mg/dL (8.5-10.1); CREATININE 2.3 mg/dL (0.55-1.3); TOT PROT 6.3 g/dl (6.4-8.2)
[2018-11-19] MEDS ORDERED: VANCOMYCIN 1 GRAM (PRE-DOCKED) 1,000 MG/250 ML BAG IVPB ONE (12:50)
--- NOTE | 2018-11-19 13:50 | EKG ---
Test Reason : Blood Pressure : / mmHG Vent. Rate : 064 BPM Atrial Rate : 059 BPM P-R Int : 000 ms QRS Dur : 118 ms QT Int : 470 ms P-R-T Axes : 000 -38 -12 degrees QTc Int : 484 ms ATRIAL FIBRILLATION WITH A COMPETING JUNCTIONAL PACEMAKER LEFT AXIS DEVIATION LEFT VENTRICULAR HYPERTROPHY WITH QRS WIDENING T WAVE ABNORMALITY, CONSIDER ANTERIOR ISCHEMIA PROLONGED QT ABNORMAL ECG WHEN COMPARED WITH ECG OF 26-AUG-2018 21:44, SIGNIFICANT CHANGES HAVE OCCURRED Confirmed by MD JAZMÍN, CYN ([id number]) on 11/19/2018 1:49:56 PM Referred By: Confirmed By:CYN NOYOLA MD
--- NOTE | 2018-11-19 15:32 | CON.ID ---
Consult Consult Specialty:: infectious disease Referred by:: dr galaviz Reason for Consultation:: erythema of the legs - History of Present Illness Chief Complaint: pain in her legs at eschar sites History of Present Illness: 88 yo female s/p admission in August with bilateral purpuric rash on her legs with skin necrosis she was seen by drmatology and rheumatology and felt to have a vasculitis she was discharged on po prednisone taper which she completed 3 weeks ago legs improved but she was left with several eschars that are very painful- she also notes her legs are more pink then usual she doesnot think the legs are more swollen then usual tried to get seen in wound care but couldn't get an appt for two weeks and the legs became more painful no fevers ambulates with walker or cane no recent antibiotics given vancomycin in ED - History Source History Provided By: Patient, Family Member - Past Medical History Cardio/Vascular: Yes: AFIB, CAD, CHF, HTN, Other (TR) Renal/: Yes: Renal Inusuff - Past Surgical History Past Surgical History: Yes: CABG Additional Surgical History: prosthetic left eye - Alcohol/Substance Use Hx Alcohol Use: No - Smoking History Smoking history: Never smoked Have you smoked in the past 12 months: No - Social History Usual Living Arrangement: With Spouse ADL: Family Assistance Place of : Other ([place]) History of Recent Travel: No Home Medications - Allergies Allergies/Adverse Reactions: Allergies Allergy/AdvReac Type Severity Reaction Status Date / Time No Known Allergies Allergy Verified 08/26/18 18:44 - Home Medications Home Medications: Ambulatory Orders Dextran 70/Hypromellose/Pf [Artificial Tears Drops] 1 each OP QID 01/10/18 Docusate Sodium [Colace -] 100 mg PO BID capsule 01/17/18 Sennosides [Senna -] 1 tab PO BID tablet 01/17/18 Acetaminophen [Tylenol .Regular Strength -] 650 mg PO Q6H PRN tablet 01/29/18 Amino Acids/Protein Hydrolys [Prosource No Carb Liquid Pkt] 30 ml PO BID@0800, 1730 packet 01/29/18 Metoprolol Succinate [Toprol XL -] 50 mg PO DAILY 08/26/18 Potassium Chloride [K-Tab ER] 40 meq PO DAILY 08/26/18 Prednisolone Acetate/Pf [Prednisolone Acet 1% Eye Drop] 5 ml OP ASDIR 08/26/18 Torsemide [Demadex -] 40 mg PO DAILY 08/26/18 Rosuvastatin [Crestor -] 5 mg PO HS #30 tablet 09/04/18 Warfarin Na [Coumadin -] 2 mg PO DAILY@1800 #30 tablet 09/04/18 predniSONE [Deltasone -] 20 mg PO TID #100 tablet 09/04/18 Family Disease History - Family Disease History Family History: Unremarkable Review of Systems - Review of Systems Constitutional: reports: No Symptoms. denies: Chills, Diaphoresis, Fever Eyes: reports: No Symptoms HENT: reports: No Symptoms Neck: reports: No Symptoms Cardiovascular: reports: No Symptoms Respiratory: reports: No Symptoms Gastrointestinal: reports: No Symptoms Genitourinary: reports: No Symptoms Integumentary: reports: Erythema (bilateral), Lesions, Other (edema unchanged, serous drainage from the eschars per daughter) Physical Exam Vital Signs: Vital Signs Temperature 97.5 F L 11/19/18 14:05 Pulse Rate 67 11/19/18 14:05 Respiratory Rate 19 11/19/18 14:05 Blood Pressure 105/57 L 11/19/18 14:05 O2 Sat by Pulse Oximetry (%) 95 11/19/18 14:05 Constitutional: Yes: Well Nourished, No Distress Eyes: Yes: Conjunctiva Clear, EOM Intact HENT: Yes: Atraumatic, Normocephalic Neck: Yes: Supple, Trachea Midline Cardiovascular: Yes: Regular Rate and Rhythm Respiratory: Yes: Regular, CTA Bilaterally Gastrointestinal: Yes: Normal Bowel Sounds, Soft ...Rectal Exam: Yes: Deferred Extremities: Yes: Erythema (pink bilaterally- worse then usual, +edema, several dry eschars, tender to touch, no fluctuance no drainage) Psychiatric: Yes: Alert, Oriented Labs: CBC, BMP 11/19/18 11:45 11/19/18 11:45 blood cultures pending Problem List - Problems (1) Cellulitis Code(s): L03.90 - CELLULITIS, UNSPECIFIED Qualifiers: Site of cellulitis of extremity: lower extremity Laterality: left (2) Vasculitis Code(s): I77.6 - ARTERITIS, UNSPECIFIED (3) CKD (chronic kidney disease) Code(s): N18.9 - CHRONIC KIDNEY DISEASE, UNSPECIFIED Assessment/Plan cellulitis no history of MRSA can treat with cefazolin wound care evaluation of painful eschars- f/u cultures d/w daughter at bedside
[2018-11-19 15:46] VITALS: BMI 22.8
[2018-11-19 17:01] LABS: PH,URINE 5.5 (5.0-8.0); URINE APPEARANCE CLEAR; URINE BILIRUBIN NEGATIVE (NEGATIVE); URINE COLOR YELLOW; URINE GLUCOSE (UA) NEGATIVE (NEGATIVE); URINE KETONE NEGATIVE (NEGATIVE); URINE LEUK ESTERASE TRACE (NEGATIVE); URINE NITRITE NEGATIVE (NEGATIVE); URINE PROTEIN 1+ (NEGATIVE); URINE UROBILINOGEN 0.2 mg/dL (0.2-1.0)
[2018-11-19] MEDS: TORSEMIDE 20 MG TABLET (FP) PO SCH (17:48)
--- NOTE | 2018-11-19 19:27 | HP ---
Admitting History and Physical - Admission Chief Complaint: 88 y.o F was admitted to [facility] for redness and pain in the LE below the knees, R>L for about 1 week. She was recently at [facility] treated for possible vasculitis, ARF, skin rash with steroids and subsequently improved. Now off steroids and being treated at the [facility] for RLE wounds. History of Present Illness: Hypertension, chronic kidney disease, Recently developed nephrotic syndrome. No kidney biopsy performed due to age, risks, patient's family requests. CAD s/p CABG ([address] Oreilly), atrial fibrillation (on Coumadin 2.5 mg) , and systolic/diastolic congestive heart failure /severe tricuspid regurgitation LE varicose veins Prostetic left eye, multiple cornea transplants, HZV. left Mercado's palsy - Past Medical History Cardiovascular: Yes: AFIB, CAD, CHF, HTN, Other (TR) Renal/: Yes: Renal Inusuff Heme/Onc: Yes: Anemia Infectious Disease: Yes: Herpes Zoster Psych: No: Addictions - Past Surgical History Past Surgical History: Yes: CABG - Smoking History Smoking history: Never smoked Have you smoked in the past 12 months: No - Alcohol/Substance Use Hx Alcohol Use: No - Social History ADL: Family Assistance History of Recent Travel: No Home Medications - Allergies Allergies/Adverse Reactions: Allergies Allergy/AdvReac Type Severity Reaction Status Date / Time No Known Allergies Allergy Verified 08/26/18 18:44 - Home Medications Home Medications: Ambulatory Orders Dextran 70/Hypromellose/Pf [Artificial Tears Drops] 1 each OP QID 01/10/18 Docusate Sodium [Colace -] 100 mg PO BID capsule 01/17/18 Sennosides [Senna -] 1 tab PO BID tablet 01/17/18 Acetaminophen [Tylenol .Regular Strength -] 650 mg PO Q6H PRN tablet 01/29/18 Amino Acids/Protein Hydrolys [Prosource No Carb Liquid Pkt] 30 ml PO BID@0800, 1730 packet 01/29/18 Metoprolol Succinate [Toprol XL -] 50 mg PO DAILY 08/26/18 Potassium Chloride [K-Tab ER] 40 meq PO DAILY 08/26/18 Prednisolone Acetate/Pf [Prednisolone Acet 1% Eye Drop] 5 ml OP ASDIR 08/26/18 Torsemide [Demadex -] 40 mg PO DAILY 08/26/18 Rosuvastatin [Crestor -] 5 mg PO HS #30 tablet 09/04/18 Warfarin Na [Coumadin -] 2 mg PO DAILY@1800 #30 tablet 09/04/18 predniSONE [Deltasone -] 20 mg PO TID #100 tablet 09/04/18 Family Disease History - Family Disease History Family History: Unremarkable Review of Systems - Review of Systems Constitutional: reports: No Symptoms Eyes: reports: Other (Prosthetic) HENT: denies: Difficult Swallowing, Ear Discharge Neck: denies: Decreased ROM, Lumps, Pain on Movement, Other Cardiovascular: denies: Chest Pain, Palpitations, Shortness of Breath Respiratory: denies: Cough, Exercise Intolerance Gastrointestinal: denies: Abdominal Pain, Bloating, Constipation Genitourinary: denies: Burning, Discharge Breasts: reports: No Symptoms Reported Musculoskeletal: reports: Extremity Pain Integumentary: reports: Erythema, Lesions Neurological: reports: Unsteady Gait. denies: Change in LOC, Change in Speech, Seizure, Syncope Endocrine: reports: No Symptoms Hematology/Lymphatic: reports: No Symptoms Psychiatric: reports: No Symptoms Physical Examination Vital Signs: Vital Signs Temperature 98.4 F 11/19/18 16:30 Pulse Rate 81 11/19/18 16:30 Respiratory Rate 18 11/19/18 16:30 Blood Pressure 117/67 11/19/18 16:30 O2 Sat by Pulse Oximetry (%) 97 11/19/18 16:02 Constitutional: Yes: Anxious, Moderate Distress Eyes: Yes: Occular Prosthesis HENT: Yes: Atraumatic, Normocephalic Neck: Yes: Supple, Trachea Midline Cardiovascular: Yes: Pulse Irregular, JVD, Murmur, S1, S2 Respiratory: Yes: Regular, CTA Bilaterally Gastrointestinal: Yes: Normal Bowel Sounds, Soft. No: Abdomen, Obese ...Rectal Exam: Yes: Deferred Renal/: No: Anuria, Bladder Distention, CVA Tenderness - Left, CVA Tenderness - Right Breast(s): Yes: WNL Musculoskeletal: Yes: WNL Extremities: Yes: Erythema (below the knees) Edema: Yes Edema: LLE: 3+, RLE: 3+ Peripheral Pulses WNL: No Integumentary: Yes: Other (dry eschars over wounds) Wound/Incision: Yes: Clean/Dry Neurological: Yes: Alert, Oriented. No: Aphasia ...Motor Strength: WNL Psychiatric: Yes: WNL Labs: CBC, BMP 11/19/18 11:45 11/19/18 11:45 Laboratory Results - last 24 hr 11/19/18 11/19/18 11/19/18 11:45 11:45 11:45 WBC 6.5 RBC 2.72 L Hgb 8.1 L Hct 24.8 L MCV 91.3 MCH 29.8 MCHC 32.6 RDW 16.1 H Plt Count 241 MPV 7.5 Absolute Neuts (auto) 3.7 Neutrophils % 57.8 D Lymphocytes % 29.7 D Monocytes % 10.3 H Eosinophils % 1.5 D Basophils % 0.7 D Nucleated RBC % 0 PT with INR 35.90 H INR 3.01 H Sodium 137 Potassium 4.0 Chloride 102 Carbon Dioxide 26 Anion Gap 9 BUN 43.3 H Creatinine 2.3 H Est GFR (CKD-EPI)AfAm 21.43 Est GFR (CKD-EPI)NonAf 18.49 Random Glucose 93 Lactic Acid Calcium 7.8 L Total Bilirubin 0.3 AST 26 ALT 15 Alkaline Phosphatase 79 Total Protein 6.3 L Albumin 2.6 L Urine Color Urine Appearance Urine pH Ur Specific [place] Urine Protein Urine Glucose (UA) Urine Ketones Urine Blood Urine Nitrite Urine Bilirubin Urine Urobilinogen Ur Leukocyte Esterase U Random Total Protein Urine Creatinine 11/19/18 11/19/18 11/19/18 12:17 16:14 18:30 WBC RBC Hgb Hct MCV MCH MCHC RDW Plt Count MPV Absolute Neuts (auto) Neutrophils % Lymphocytes % Monocytes % Eosinophils % Basophils % Nucleated RBC % PT with INR INR Sodium Potassium Chloride Carbon Dioxide Anion Gap BUN Creatinine Est GFR (CKD-EPI)AfAm Est GFR (CKD-EPI)NonAf Random Glucose Lactic Acid 1.7 Calcium Total Bilirubin AST ALT Alkaline Phosphatase Total Protein Albumin Urine Color Yellow Urine Appearance Clear Urine pH 5.5 Ur Specific [place] 1.008 L Urine Protein 1+ H Urine Glucose (UA) Negative Urine Ketones Negative Urine Blood 3+ H Urine Nitrite Negative Urine Bilirubin Negative Urine Urobilinogen 0.2 Ur Leukocyte Esterase Trace U Random Total Protein 38.9 H Urine Creatinine 33.0 Imaging - Results X-ray: Report Reviewed EKG: Image Reviewed Problem List - Problems (1) CKD (chronic kidney disease) Assessment/Plan: Nephrology condult Follow BMP Prot/creat ratio urine Code(s): N18.9 - CHRONIC KIDNEY DISEASE, UNSPECIFIED Qualifiers: Chronic kidney disease stage: stage 3 (moderate) Qualified Code(s): N18.3 - Chronic kidney disease, stage 3 (moderate) (2) Afib Assessment/Plan: Coumadin PO Follow INR Code(s): I48.91 - UNSPECIFIED ATRIAL FIBRILLATION Qualifiers: Atrial fibrillation type: chronic Qualified Code(s): I48.2 - Chronic atrial fibrillation (3) Cellulitis Assessment/Plan: IV Kefzol as per ID Received [place] [id number] Code(s): L03.90 - CELLULITIS, UNSPECIFIED Qualifiers: Site of cellulitis of extremity: lower extremity Laterality: left
[2018-11-19 19:42] LABS: RATIO URIN PROTEIN/URIN CREAT 1.17 MG/DL
[2018-11-19] MEDS ORDERED: ACETAMINOPHEN 325 MG TABLET (FP) PO PRN (19:57)
[2018-11-19 20:52] LABS: INR 2.94 (0.83-1.09); PROTHROMBIN TIME (PATIENT) 35.1 SEC (9.7-13.0)
[2018-11-19] MEDS ORDERED: ceFAZolin SODIUM 1 GM VIAL ONE (21:40)
[2018-11-19] MEDS ORDERED: DEXTROSE 5%-WATER - 50 ML IVPB ONE (21:40)
[2018-11-19] MEDS: METOPROLOL TARTRATE 50 MG TABLET (FP) PO SCH (22:58)
[2018-11-19] MEDS: DOCUSATE SODIUM 100 MG CAPSULE (FP) PO SCH (22:58)
[2018-11-19] MEDS: WARFARIN NA 2 MG TABLET (UD) PO SCH (22:58)
[2018-11-19] MEDS: CEFAZOLIN 1 GM in DEXTROSE 5%-WATER - 50 ML IVPB SCH (22:58)
[2018-11-20] MEDS: TORSEMIDE 20 MG TABLET (FP) PO SCH ×2 (06:15→17:05)
[2018-11-20] MEDS: SENNOSIDES 8.6MG TABLET (FP) PO SCH ×3 (07:35→21:29)
[2018-11-20 07:43] LABS: BASO % 0.7 % (0-2.0); EOS % 0.7 % (0-4.5); HEMATOCRIT 24.2 % (32.4-45.2); LYMPH % 8.8 % (8-40); MCH 29.9 pg (25.7-33.7); MCHC 32.9 g/dl (32.0-36.0); MEAN CELL VOLUME 90.9 fl (80-96); MEAN PLT VOLUME 7.7 fl (7.5-11.1); NEUT % 85.8 % (42.8-82.8); PLATELET COUNT 212 K/MM3 (134-434); RBC 2.66 M/mm3 (3.60-5.2); RDW 15.7 % (11.6-15.6); WHITE BLOOD COUNT 10.6 K/mm3 (4.0-10.0)
[2018-11-20 08:17] LABS: PHOSPHOROUS 3.5 mg/dL (2.5-4.9)
--- NOTE | 2018-11-20 09:07 | PN ---
Progress Note (short form) - Note Progress Note: Feels better, less LE pain US noted. Vital Signs Temp 100 F H 11/20/18 06:00 Pulse 79 11/20/18 06:00 Resp 20 11/20/18 06:00 BP 113/53 L 11/20/18 06:00 Pulse Ox 97 11/19/18 16:02 Intake & Output 11/19/18 11/19/18 11/20/18 11:59 23:59 11:59 Intake Total 300 100 Balance 300 100 Weight 122 lb 129 lb 4 oz Intake: IV 0 SL 0 IVPB 100 0 Oral 200 100 Other: Voiding Method Toilet # Unmeasured Voids Void 2 Height 5 ft 2 in 5 ft 3 in Body Mass Index (BMI) 22.3 22.8 Weight Measurement Method Built in [facility] Weight Measurement Method Est/Stated by Patient Awake, alert, Ox3 Lungs are clear Heart S1S2 regular Abdomen soft, NT EXT edema, erythema Laboratory Results - last 24 hr 11/19/18 11/19/18 11/19/18 11:45 11:45 11:45 WBC 6.5 RBC 2.72 L Hgb 8.1 L Hct 24.8 L MCV 91.3 MCH 29.8 MCHC 32.6 RDW 16.1 H Plt Count 241 MPV 7.5 Absolute Neuts (auto) 3.7 Neutrophils % 57.8 D Lymphocytes % 29.7 D Monocytes % 10.3 H Eosinophils % 1.5 D Basophils % 0.7 D Nucleated RBC % 0 PT with INR 35.90 H INR 3.01 H Sodium 137 Potassium 4.0 Chloride 102 Carbon Dioxide 26 Anion Gap 9 BUN 43.3 H Creatinine 2.3 H Est GFR (CKD-EPI)AfAm 21.43 Est GFR (CKD-EPI)NonAf 18.49 Random Glucose 93 Lactic Acid Calcium 7.8 L Phosphorus Total Bilirubin 0.3 AST 26 ALT 15 Alkaline Phosphatase 79 Creatine Kinase Troponin I Total Protein 6.3 L Albumin 2.6 L Urine Color Urine Appearance Urine pH Ur Specific [place] Urine Protein Urine Glucose (UA) Urine Ketones Urine Blood Urine Nitrite Urine Bilirubin Urine Urobilinogen Ur Leukocyte Esterase U Random Total Protein Urine Creatinine Protein/Creatinin Ratio 11/19/18 11/19/18 11/19/18 12:17 16:14 18:30 WBC RBC Hgb Hct MCV MCH MCHC RDW Plt Count MPV Absolute Neuts (auto) Neutrophils % Lymphocytes % Monocytes % Eosinophils % Basophils % Nucleated RBC % PT with INR INR Sodium Potassium Chloride Carbon Dioxide Anion Gap BUN Creatinine Est GFR (CKD-EPI)AfAm Est GFR (CKD-EPI)NonAf Random Glucose Lactic Acid 1.7 Calcium Phosphorus Total Bilirubin AST ALT Alkaline Phosphatase Creatine Kinase Troponin I Total Protein Albumin Urine Color Yellow Urine Appearance Clear Urine pH 5.5 Ur Specific [place] 1.008 L Urine Protein 1+ H Urine Glucose (UA) Negative Urine Ketones Negative Urine Blood 3+ H Urine Nitrite Negative Urine Bilirubin Negative Urine Urobilinogen 0.2 Ur Leukocyte Esterase Trace U Random Total Protein 38.9 H Urine Creatinine 33.0 Protein/Creatinin Ratio 1.170 11/19/18 11/19/18 11/19/18 19:40 19:40 19:40 WBC RBC Hgb Hct MCV MCH MCHC RDW Plt Count MPV Absolute Neuts (auto) Neutrophils % Lymphocytes % Monocytes % Eosinophils % Basophils % Nucleated RBC % PT with INR 35.10 H INR 2.94 H Sodium Potassium Chloride Carbon Dioxide Anion Gap BUN Creatinine Est GFR (CKD-EPI)AfAm Est GFR (CKD-EPI)NonAf Random Glucose Lactic Acid 3.1 H* Calcium Phosphorus Total Bilirubin AST ALT Alkaline Phosphatase Creatine Kinase 64 Troponin I 0.11 H Total Protein Albumin Urine Color Urine Appearance Urine pH Ur Specific [place] Urine Protein Urine Glucose (UA) Urine Ketones Urine Blood Urine Nitrite Urine Bilirubin Urine Urobilinogen Ur Leukocyte Esterase U Random Total Protein Urine Creatinine Protein/Creatinin Ratio 11/20/18 11/20/18 06:36 06:36 WBC 10.6 H RBC 2.66 L Hgb 8.0 L Hct 24.2 L MCV 90.9 MCH 29.9 MCHC 32.9 RDW 15.7 H Plt Count 212 MPV 7.7 Absolute Neuts (auto) 9.1 H Neutrophils % 85.8 H D Lymphocytes % 8.8 D Monocytes % 4.0 Eosinophils % 0.7 Basophils % 0.7 Nucleated RBC % 0 PT with INR INR Sodium Potassium Chloride Carbon Dioxide Anion Gap BUN Creatinine Est GFR (CKD-EPI)AfAm Est GFR (CKD-EPI)NonAf Random Glucose Lactic Acid Calcium Phosphorus 3.5 Total Bilirubin AST ALT Alkaline Phosphatase Creatine Kinase Troponin I Total Protein Albumin Urine Color Urine Appearance Urine pH Ur Specific [place] Urine Protein Urine Glucose (UA) Urine Ketones Urine Blood Urine Nitrite Urine Bilirubin Urine Urobilinogen Ur Leukocyte Esterase U Random Total Protein Urine Creatinine Protein/Creatinin Ratio Current Active Problems Problem Status Onset CKD (chronic kidney disease) Acute Cellulitis Acute Plan IV ABX Follow INR Continue Warfarin. Problem List - Problems (1) CKD (chronic kidney disease) Code(s): N18.9 - CHRONIC KIDNEY DISEASE, UNSPECIFIED Qualifiers: Chronic kidney disease stage: stage 3 (moderate) Qualified Code(s): N18.3 - Chronic kidney disease, stage 3 (moderate) (2) Afib Code(s): I48.91 - UNSPECIFIED ATRIAL FIBRILLATION Qualifiers: Atrial fibrillation type: chronic Qualified Code(s): I48.2 - Chronic atrial fibrillation (3) Cellulitis Code(s): L03.90 - CELLULITIS, UNSPECIFIED Qualifiers: Site of cellulitis: extremity Site of cellulitis of extremity: lower extremity Laterality: unspecified laterality Qualified Code(s): L03.119 - Cellulitis of unspecified part of limb
--- NOTE | 2018-11-20 09:24 | PN ---
Progress Note (short form) - Note Progress Note: no complaints ate breakfast duplex no DVT Vital Signs Period Temp Pulse Resp BP Sys/Villalpando Pulse Ox Last 24 Hr 97.5 F-100 F 64-100 16-20 91-159/49-85 95-98 cor-rrr lungs decreased bs at bases abd soft,nt ext bilateral lower extremity erythema with eschars +swelling CBC, BMP 11/20/18 06:36 11/19/18 11:45 cultures pending a/p bilateral cellulitis CKD continue cefazolin f/u cultures Problem List - Problems (1) Cellulitis Code(s): L03.90 - CELLULITIS, UNSPECIFIED Qualifiers: Site of cellulitis: extremity Site of cellulitis of extremity: lower extremity Laterality: unspecified laterality Qualified Code(s): L03.119 - Cellulitis of unspecified part of limb (2) Vasculitis Code(s): I77.6 - ARTERITIS, UNSPECIFIED (3) CKD (chronic kidney disease) Code(s): N18.9 - CHRONIC KIDNEY DISEASE, UNSPECIFIED Qualifiers: Chronic kidney disease stage: stage 3 (moderate) Qualified Code(s): N18.3 - Chronic kidney disease, stage 3 (moderate)
--- NOTE | 2018-11-20 09:39 | CON.CARD ---
Consult Consult Specialty:: Cardiology Referred by:: Eleanor Reason for Consultation:: chest pain, h/o CAD, Afib - History of Present Illness Chief Complaint: leg pain History of Present Illness: 88M h/o CAD sp CABG, afib, chronic combined systolic/diastolic HF, severe TR, CKD, HTN p/w leg pain R>L for a week. Treating for cellulitis. Last night had an episode of chest tightness/dyspnea when she felt hot. Lasted a few minutes, felt better when she had a fan. No chest pain, dyspnea at home. Doesn't remember details of event, no complaints this morning. No palps, dizziness, orthopnea. Stable edema. Sees Dr. Fraga for cardio. - Past Medical History Cardio/Vascular: Yes: AFIB, CAD, CHF, HTN, Other (TR) Renal/: Yes: Renal Inusuff Infectious Disease: Yes: Herpes Zoster Psych: No: Addictions - Past Surgical History Past Surgical History: Yes: CABG Additional Surgical History: prosthetic left eye - Alcohol/Substance Use Hx Alcohol Use: No - Smoking History Smoking history: Never smoked Have you smoked in the past 12 months: No - Social History Usual Living Arrangement: With Spouse ADL: Family Assistance History of Recent Travel: No Home Medications - Allergies Allergies/Adverse Reactions: Allergies Allergy/AdvReac Type Severity Reaction Status Date / Time No Known Allergies Allergy Verified 08/26/18 18:44 - Home Medications Home Medications: Ambulatory Orders Dextran 70/Hypromellose/Pf [Artificial Tears Drops] 1 each OP QID 01/10/18 Docusate Sodium [Colace -] 100 mg PO BID capsule 01/17/18 Sennosides [Senna -] 1 tab PO BID tablet 01/17/18 Acetaminophen [Tylenol .Regular Strength -] 650 mg PO Q6H PRN tablet 01/29/18 Amino Acids/Protein Hydrolys [Prosource No Carb Liquid Pkt] 30 ml PO BID@0800, 1730 packet 01/29/18 Metoprolol Succinate [Toprol XL -] 50 mg PO DAILY 08/26/18 Potassium Chloride [K-Tab ER] 40 meq PO DAILY 08/26/18 Prednisolone Acetate/Pf [Prednisolone Acet 1% Eye Drop] 5 ml OP ASDIR 08/26/18 Torsemide [Demadex -] 40 mg PO DAILY 04/08/19 Rosuvastatin [Crestor -] 5 mg PO HS #30 tablet 09/04/18 Warfarin Na [Coumadin -] 2 mg PO DAILY@1800 #30 tablet 09/04/18 predniSONE [Deltasone -] 20 mg PO TID #100 tablet 09/04/18 Family Disease History - Family Disease History Family History: Unremarkable Review of Systems - Review of Systems Constitutional: reports: No Symptoms Eyes: reports: No Symptoms HENT: reports: No Symptoms Neck: reports: No Symptoms Cardiovascular: reports: No Symptoms Respiratory: reports: No Symptoms Gastrointestinal: reports: No Symptoms Genitourinary: reports: No Symptoms Musculoskeletal: reports: No Symptoms Integumentary: reports: No Symptoms Neurological: reports: No Symptoms Endocrine: reports: No Symptoms Hematology/Lymphatic: reports: No Symptoms Psychiatric: reports: No Symptoms Vital Signs: Vital Signs Temperature 100 F H 11/20/18 06:00 Pulse Rate 79 11/20/18 06:00 Respiratory Rate 20 11/20/18 06:00 Blood Pressure 113/53 L 11/20/18 06:00 O2 Sat by Pulse Oximetry (%) 97 11/19/18 16:02 Constitutional: Yes: Well Nourished, No Distress Eyes: Yes: Conjunctiva Clear, EOM Intact HENT: Yes: Atraumatic, Normocephalic Neck: Yes: Supple, Trachea Midline Respiratory: Yes: Regular, CTA Bilaterally Gastrointestinal: Yes: Normal Bowel Sounds, Soft Cardiovascular: Yes: Pulse Irregular JVD: No Carotid Bruit: No PMI: Non-Displaced Heart Sounds: Yes: S1, S2 Musculoskeletal: No: Back Pain Extremities: No: Cold Edema: Yes Edema: LLE: 2+, RLE: 2+ Peripheral Pulses WNL: No Peripheral Pulses: 1+ Left Doralis Pedis, 1+ Right Dorsalis Pedis Integumentary: No: Jaundice Neurological: Yes: Alert, Oriented Psychiatric: No: Agitated - Other Data Labs, Other Data: CBC, BMP 11/20/18 06:36 11/19/18 11:45 INR, PTT INR 2.94 (0.83-1.09) H 11/19/18 19:40 Troponin, BNP 11/19/18 19:40 Troponin I 0.11 H Troponin, BNP 11/19/18 19:40 Troponin I 0.11 H Assessment/Plan EKG: afib, LVH, prolonged QTc, no ischemic changes CXR: no congestion echo 12/2017 tds, nl LV function apex not well visualized possible small aneurysmal region of apical-inferoseptal myocardium, nl RV functoin, LA dilated , mild MR, mod to severe TR leg pain, cellulitis - manage per primary, ID - on abx chest pain, elevated trop - patient does not remember details - EKG no ischemic changes, initial trop indeterminate range 0.11 - less likely ACS, likely demand - f/u repeat trop CAD, s/p CABG - continue statin, metoprolol (not on asa - on warfarin) afib - cont warfarin, metoprolol CKD - manage per renal chronic systolic/diastolic HF - reportedly stable edema - likely component of venous insufficiency - continue home torsemide, metoprolol
[2018-11-20] MEDS ORDERED: ceFAZolin SODIUM 1 GM VIAL ONE ×2 (09:46→21:12)
[2018-11-20] MEDS ORDERED: DEXTROSE 5%-WATER - 50 ML IVPB ONE ×2 (09:46→21:13)
[2018-11-20] MEDS: CEFAZOLIN 1 GM in DEXTROSE 5%-WATER - 50 ML IVPB SCH ×2 (09:51→21:29)
[2018-11-20] MEDS: METOPROLOL TARTRATE 50 MG TABLET (FP) PO SCH ×2 (09:51→21:29)
--- NOTE | 2018-11-20 13:26 | CONSULT ---
Consult Consult Specialty:: Nephrology Reason for Consultation:: CKD - History of Present Illness Chief Complaint: right leg redness History of Present Illness: Pt is an 88 year old female with pmhx of ckd, proteinuria, cellulitis, cad, cabg , and vasculitis who presents to the ER with redness and pain in her right leg. She denies fever or chills. I was called to evaluate her for abnormal renal function. She does follow with me in the office. She denies hematuria or dysuria. She denies shortness of breath. She denies cough or hemoptysis. She denies nsaid use. She is on coumadin for a-fib. - History Source History Provided By: Patient, Medical Record - Past Medical History Cardio/Vascular: Yes: AFIB, CAD, CHF, HTN, Other (TR) Renal/: Yes: Renal Inusuff Infectious Disease: Yes: Herpes Zoster Psych: No: Addictions - Past Surgical History Past Surgical History: Yes: CABG Additional Surgical History: prosthetic left eye - Alcohol/Substance Use Hx Alcohol Use: No - Smoking History Smoking history: Never smoked Have you smoked in the past 12 months: No - Social History Usual Living Arrangement: With Spouse ADL: Family Assistance History of Recent Travel: No Home Medications - Allergies Allergies/Adverse Reactions: Allergies Allergy/AdvReac Type Severity Reaction Status Date / Time No Known Allergies Allergy Verified 08/26/18 18:44 - Home Medications Home Medications: Ambulatory Orders Dextran 70/Hypromellose/Pf [Artificial Tears Drops] 1 each OP QID 01/10/18 Docusate Sodium [Colace -] 100 mg PO BID capsule 01/17/18 Sennosides [Senna -] 1 tab PO BID tablet 01/17/18 Acetaminophen [Tylenol .Regular Strength -] 650 mg PO Q6H PRN tablet 01/29/18 Amino Acids/Protein Hydrolys [Prosource No Carb Liquid Pkt] 30 ml PO BID@0800, 1730 packet 01/29/18 Metoprolol Succinate [Toprol XL -] 50 mg PO DAILY 08/26/18 Potassium Chloride [K-Tab ER] 40 meq PO DAILY 08/26/18 Prednisolone Acetate/Pf [Prednisolone Acet 1% Eye Drop] 5 ml OP ASDIR 08/26/18 Torsemide [Demadex -] 40 mg PO DAILY 08/26/18 Rosuvastatin [Crestor -] 5 mg PO HS #30 tablet 09/04/18 Warfarin Na [Coumadin -] 2 mg PO DAILY@1800 #30 tablet 09/04/18 predniSONE [Deltasone -] 20 mg PO TID #100 tablet 09/04/18 Family Disease History - Family Disease History Family History: Denies Review of Systems - Review of Systems Constitutional: reports: Malaise. denies: Chills, Fever Eyes: reports: No Symptoms HENT: reports: No Symptoms Neck: reports: No Symptoms Cardiovascular: reports: No Symptoms Respiratory: reports: No Symptoms Gastrointestinal: reports: No Symptoms Genitourinary: reports: No Symptoms Musculoskeletal: reports: No Symptoms Integumentary: reports: Erythema Neurological: reports: No Symptoms Endocrine: reports: No Symptoms Hematology/Lymphatic: reports: No Symptoms Psychiatric: reports: No Symptoms Physical Exam Vital Signs: Vital Signs Temperature 98.6 F 11/20/18 09:59 Pulse Rate 82 11/20/18 09:59 Respiratory Rate 18 11/20/18 09:59 Blood Pressure 100/55 L 11/20/18 09:59 O2 Sat by Pulse Oximetry (%) 97 11/19/18 16:02 Constitutional: Yes: Calm Eyes: Yes: Conjunctiva Clear HENT: Yes: Atraumatic Neck: Yes: Supple Cardiovascular: Yes: S1, S2 Respiratory: Yes: CTA Bilaterally Gastrointestinal: Yes: Soft Renal/: Yes: WNL Musculoskeletal: Yes: Joint Stiffness Extremities: Yes: WNL Edema: Yes Edema: LLE: 1+, RLE: 1+ Integumentary: Yes: Erythema Neurological: Yes: Oriented Psychiatric: Yes: Oriented Labs: CBC, BMP 11/20/18 06:36 11/19/18 11:45 Laboratory Tests 09/02/18 09/03/18 11/19/18 07:00 06:00 11:45 WBC Hgb 8.1 L Plt Count Sodium Potassium Creatinine 2.5 H 2.5 H Lactic Acid Urine Protein Urine Blood Protein/Creatinin Ratio 11/19/18 11/19/18 11/19/18 11:45 12:17 16:14 WBC Hgb Plt Count Sodium 137 Potassium 4.0 Creatinine 2.3 H Lactic Acid 1.7 Urine Protein 1+ H Urine Blood 3+ H Protein/Creatinin Ratio 11/19/18 11/20/18 18:30 06:36 WBC 10.6 H Hgb 8.0 L Plt Count 212 Sodium Potassium Creatinine Lactic Acid Urine Protein Urine Blood Protein/Creatinin Ratio 1.170 Imaging - Results Chest X-ray: Report Reviewed Ultrasound: Report Reviewed Problem List - Problems (1) CKD (chronic kidney disease) Code(s): N18.9 - CHRONIC KIDNEY DISEASE, UNSPECIFIED Qualifiers: Chronic kidney disease stage: stage 3 (moderate) Qualified Code(s): N18.3 - Chronic kidney disease, stage 3 (moderate) (2) Cellulitis Code(s): L03.90 - CELLULITIS, UNSPECIFIED Qualifiers: Site of cellulitis: extremity Site of cellulitis of extremity: lower extremity Laterality: unspecified laterality Qualified Code(s): L03.119 - Cellulitis of unspecified part of limb (3) Afib Code(s): I48.91 - UNSPECIFIED ATRIAL FIBRILLATION Qualifiers: Atrial fibrillation type: chronic Qualified Code(s): I48.2 - Chronic atrial fibrillation (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 Assessment/Plan Current Medications Generic Name Dose Route Start Last Admin Trade Name Freq PRN Reason Stop Dose Admin Acetaminophen 650 mg 11/19/18 19:57 Tylenol - PO Q6H PRN PAIN Docusate Sodium 300 mg 11/19/18 22:00 11/19/18 22:58 Colace - PO 300 mg HS SAUL Administration Cefazolin Sodium 1 gm/ 50 mls @ 100 mls/hr 11/19/18 22:00 11/20/18 09:51 Dextrose IVPB 100 mls/hr BID SAUL Administration Metoprolol Tartrate 50 mg 11/19/18 22:00 11/20/18 09:51 Lopressor - PO 50 mg BID SAUL Administration Rosuvastatin Calcium 5 mg 11/20/18 22:00 Crestor - PO HS SAUL Senna 1 tab 11/19/18 22:00 11/20/18 09:51 Senna - PO 1 tab BID SAUL Administration Torsemide 40 mg 11/19/18 18:00 11/20/18 06:15 Demadex - PO 40 mg BID@0600,1400 SAUL Administration Warfarin Sodium 2 mg 11/19/18 18:00 11/19/18 22:58 Coumadin - PO 2 mg DAILY@1800 SAUL Administration Impression 1. CKD 2. cellulitis 3. CHF 4. HTN 5. h/o vasculitis 6. valvular heart disease 7. a-fib 8. microscopic hematuria 9. proteinuria Plan - renal function is stable - pt did go for an evaluation with the glomerular specialist in [place]. I called and discussed the findings with him. Pt again did not want a kidney biopsy. No extra treatment was offered from there. The PA2 receptor test was negative. - cont torsemide - abs per medical team - no acute change in management - avoid nsaids
[2018-11-20 17:22] LABS: INR 2.89 (0.83-1.09); PROTHROMBIN TIME (PATIENT) 34.5 SEC (9.7-13.0)
[2018-11-20] MEDS: WARFARIN NA 2 MG TABLET (UD) PO SCH (17:36)
[2018-11-20] MEDS: ARTIFICIAL TEARS (POLYVINYL ALCOHOL) OPTH DROPS OU PRN (17:36)
[2018-11-20] MEDS: ROSUVASTATIN CA 5 MG TABLET (FP) PO SCH (21:29)
[2018-11-20] MEDS: DOCUSATE SODIUM 100 MG CAPSULE (FP) PO SCH (21:32)
[2018-11-20] MEDS ORDERED: prednisoLONE ACETATE 1% OPHTH SUSP 5 ML BOTTLE OU SCH (22:00)
[2018-11-21] MEDS: TORSEMIDE 20 MG TABLET (FP) PO SCH ×2 (05:55→13:39)
[2018-11-21 06:51] LABS: EOS % 2.8 % (0-4.5); HEMATOCRIT 25.5 % (32.4-45.2); HEMOGLOBIN 8.3 GM/dL (10.7-15.3); LYMPH % 22.1 % (8-40); MCH 29.8 pg (25.7-33.7); MCHC 32.5 g/dl (32.0-36.0); MEAN CELL VOLUME 91.5 fl (80-96); MEAN PLT VOLUME 7.7 fl (7.5-11.1); MONO % 8.6 % (3.8-10.2); NEUT % 65.5 % (42.8-82.8); PLATELET COUNT 216 K/MM3 (134-434); RBC 2.79 M/mm3 (3.60-5.2); WHITE BLOOD COUNT 8.1 K/mm3 (4.0-10.0)
[2018-11-21 07:15] LABS: ALBUMIN 2.2 g/dl (3.4-5.0); BILIRUBIN,TOTAL 0.4 mg/dL (0.2-1); BLOOD UREA NITROGEN 43.3 mg/dL (7-18); CALCIUM 7.8 mg/dL (8.5-10.1); CREATININE 1.7 mg/dL (0.55-1.3); POTASSIUM 3.6 mmol/L (3.5-5.1); TOT PROT 5.4 g/dl (6.4-8.2)
--- NOTE | 2018-11-21 08:15 | PN ---
Progress Note (short form) - Note Progress Note: no complaints some serous drainage from the scabs on her legs Vital Signs Period Temp Pulse Resp BP Sys/Villalpando Pulse Ox Last 24 Hr 97.3 F-98.9 F 73-82 18-18 100-136/53-78 97-97 cor-rrr lungs clear abd soft,nt ext +edema less erythema scabs unchanged CBC, BMP 11/21/18 06:09 11/21/18 06:09 Microbiology 11/19/18 16:14 Urine - Urine Clean Catch Urine Culture - Final NO GROWTH OBTAINED 11/19/18 11:45 Blood - Peripheral Venous Blood Culture - Preliminary NO GROWTH OBTAINED AFTER 24 HOURS, INCUBATION TO CONTINUE FOR 4 DAYS. 11/19/18 11:45 Blood - Peripheral Venous Blood Culture - Preliminary NO GROWTH OBTAINED AFTER 24 HOURS, INCUBATION TO CONTINUE FOR 4 DAYS. Current Medications Acetaminophen (Tylenol -) 650 mg PO Q6H PRN PRN Reason: PAIN Artificial Tears (Artificial Tears) 1 drop OU QID PRN PRN Reason: DRY EYES Last Admin: 11/20/18 17:36 Dose: 1 drop Docusate Sodium (Colace -) 300 mg PO [facility] Last Admin: 11/20/18 21:32 Dose: 300 mg Cefazolin Sodium 1 gm/ (Dextrose) 50 mls @ 100 mls/hr IVPB BID [facility] Last Admin: 11/20/18 21:29 Dose: 100 mls/hr Metoprolol Tartrate (Lopressor -) 50 mg PO BID [facility] Last Admin: 11/20/18 21:29 Dose: 50 mg Prednisolone Acetate (Pred Forte 1% -) 1 drop OD DAILY [facility] Rosuvastatin Calcium (Crestor -) 5 mg PO [facility] Last Admin: 11/20/18 21:29 Dose: 5 mg Senna (Senna -) 1 tab PO BID [facility] Last Admin: 11/20/18 21:29 Dose: 1 tab Torsemide (Demadex -) 40 mg PO BID@0600,1400 [facility] Last Admin: 11/21/18 05:55 Dose: 40 mg Warfarin Sodium (Coumadin -) 2 mg PO DAILY@1800 [facility] Last Admin: 11/20/18 17:36 Dose: 2 mg a/p bilateral cellulitis-improved CKD continue cefazolin leg edema unchanged Problem List - Problems (1) Cellulitis Code(s): L03.90 - CELLULITIS, UNSPECIFIED Qualifiers: Site of cellulitis: extremity Site of cellulitis of extremity: lower extremity Laterality: unspecified laterality Qualified Code(s): L03.119 - Cellulitis of unspecified part of limb (2) Vasculitis Code(s): I77.6 - ARTERITIS, UNSPECIFIED (3) CKD (chronic kidney disease) Code(s): N18.9 - CHRONIC KIDNEY DISEASE, UNSPECIFIED Qualifiers: Chronic kidney disease stage: stage 3 (moderate) Qualified Code(s): N18.3 - Chronic kidney disease, stage 3 (moderate)
--- NOTE | 2018-11-21 09:31 | PN ---
Progress Note, Physician Chief Complaint: seen and examined No CP or SOB - Current Medication List Current Medications: Active Medications Acetaminophen (Tylenol -) 650 mg PO Q6H PRN PRN Reason: PAIN Artificial Tears (Artificial Tears) 1 drop OU QID PRN PRN Reason: DRY EYES Last Admin: 11/20/18 17:36 Dose: 1 drop Docusate Sodium (Colace -) 300 mg PO [facility] Last Admin: 11/20/18 21:32 Dose: 300 mg Cefazolin Sodium 1 gm/ (Dextrose) 50 mls @ 100 mls/hr IVPB BID [facility] Last Admin: 11/20/18 21:29 Dose: 100 mls/hr Metoprolol Tartrate (Lopressor -) 50 mg PO BID [facility] Last Admin: 11/20/18 21:29 Dose: 50 mg Prednisolone Acetate (Pred Forte 1% -) 1 drop OD DAILY [facility] Rosuvastatin Calcium (Crestor -) 5 mg PO HS [facility] Last Admin: 11/20/18 21:29 Dose: 5 mg Senna (Senna -) 1 tab PO BID [facility] Last Admin: 11/20/18 21:29 Dose: 1 tab Torsemide (Demadex -) 40 mg PO BID@0600,1400 [facility] Last Admin: 11/21/18 05:55 Dose: 40 mg Warfarin Sodium (Coumadin -) 2 mg PO DAILY@1800 [facility] Last Admin: 11/20/18 17:36 Dose: 2 mg - Objective Vital Signs: Vital Signs Temperature 98.2 F 11/21/18 05:52 Pulse Rate 73 11/21/18 05:52 Respiratory Rate 18 11/21/18 05:52 Blood Pressure 136/75 11/21/18 05:52 O2 Sat by Pulse Oximetry (%) 97 11/20/18 21:00 Constitutional: Yes: No Distress Cardiovascular: Yes: Pulse Irregular Respiratory: Yes: CTA Bilaterally Gastrointestinal: Yes: Soft Edema: Yes Edema: LLE: 2+ (venous stasis and varicosity), RLE: 2+ (ulcers) Neurological: Yes: Alert, Oriented Labs: CBC, BMP 11/21/18 06:09 11/21/18 06:09 INR, PTT INR 2.89 (0.83-1.09) H 11/20/18 16:15 Laboratory Tests 11/19/18 11/20/18 11/20/18 19:40 06:36 16:15 WBC Hgb Plt Count INR 2.89 H Sodium Potassium BUN Creatinine Troponin I 0.11 H 0.20 H 11/21/18 11/21/18 06:09 06:09 WBC 8.1 Hgb 8.3 L Plt Count 216 INR Sodium 141 Potassium 3.6 BUN 43.3 H Creatinine 1.7 H Troponin I Assessment/Plan Assessment/Plan EKG: afib, LVH, prolonged QTc, no ischemic changes CXR: no congestion echo 12/2017 tds, nl LV function apex not well visualized possible small aneurysmal region of apical-inferoseptal myocardium, nl RV functoin, LA dilated , mild MR, mod to severe TR Leg pain, cellulitis: - manage per primary, ID - on abx Chest pain, elevated trop: - patient does not remember details - EKG no ischemic changes, initial trop indeterminate range 0.11 with slight rise, but she remains asx. - Doubt ACS. Trend enzymes -Can repeat echo in AM CAD, s/p CABG: - continue statin, metoprolol (not on asa - on warfarin) AF: controlled, Asx - cont warfarin, metoprolol CKD: - manage per renal Chronic systolic/diastolic HF: - reportedly stable edema - likely component of venous insufficiency - continue home torsemide, metoprolol
[2018-11-21] MEDS ORDERED: DEXTROSE 5%-WATER - 50 ML IVPB ONE ×2 (09:35→21:26)
[2018-11-21] MEDS ORDERED: ceFAZolin SODIUM 1 GM VIAL ONE ×2 (09:35→21:25)
[2018-11-21] MEDS: CEFAZOLIN 1 GM in DEXTROSE 5%-WATER - 50 ML IVPB SCH ×2 (09:46→21:28)
[2018-11-21] MEDS: METOPROLOL TARTRATE 50 MG TABLET (FP) PO SCH ×2 (09:47→21:29)
[2018-11-21] MEDS: prednisoLONE ACETATE 1% OPHTH SUSP 5 ML BOTTLE OD SCH (09:47)
[2018-11-21] MEDS: SENNOSIDES 8.6MG TABLET (FP) PO SCH ×2 (09:47→21:29)
[2018-11-21] MEDS: ARTIFICIAL TEARS (POLYVINYL ALCOHOL) OPTH DROPS OU PRN (09:55)
--- NOTE | 2018-11-21 10:20 | PN ---
Progress Note, Physician History of Present Illness: Pt seen and examined at bedside. She is awake and alert. SHe denies shortness of breath. - Current Medication List Current Medications: Active Medications Acetaminophen (Tylenol -) 650 mg PO Q6H PRN PRN Reason: PAIN Artificial Tears (Artificial Tears) 1 drop OU QID PRN PRN Reason: DRY EYES Last Admin: 11/21/18 09:55 Dose: 1 drop Docusate Sodium (Colace -) 300 mg PO [facility] Last Admin: 11/20/18 21:32 Dose: 300 mg Cefazolin Sodium 1 gm/ (Dextrose) 50 mls @ 100 mls/hr IVPB BID [facility] Last Admin: 11/21/18 09:46 Dose: 100 mls/hr Metoprolol Tartrate (Lopressor -) 50 mg PO BID [facility] Last Admin: 11/21/18 09:47 Dose: 50 mg Prednisolone Acetate (Pred Forte 1% -) 1 drop OD DAILY [facility] Last Admin: 11/21/18 09:47 Dose: 1 drop Rosuvastatin Calcium (Crestor -) 5 mg PO [facility] Last Admin: 11/20/18 21:29 Dose: 5 mg Senna (Senna -) 1 tab PO BID [facility] Last Admin: 11/21/18 09:47 Dose: 1 tab Torsemide (Demadex -) 40 mg PO BID@0600,1400 [facility] Last Admin: 11/21/18 05:55 Dose: 40 mg Warfarin Sodium (Coumadin -) 2 mg PO DAILY@1800 [facility] Last Admin: 11/20/18 17:36 Dose: 2 mg - Objective Vital Signs: Vital Signs Temperature 98.2 F 11/21/18 05:52 Pulse Rate 73 11/21/18 05:52 Respiratory Rate 18 11/21/18 05:52 Blood Pressure 136/75 11/21/18 05:52 O2 Sat by Pulse Oximetry (%) 97 11/20/18 21:00 Constitutional: Yes: Calm Eyes: Yes: Conjunctiva Clear HENT: Yes: Atraumatic Cardiovascular: Yes: S1, S2 Respiratory: Yes: CTA Bilaterally Gastrointestinal: Yes: Soft Genitourinary: Yes: WNL Musculoskeletal: Yes: WNL Edema: Yes Integumentary: Yes: Other (right leg cellulitis with area of dark eschar) Neurological: Yes: Oriented Psychiatric: Yes: Oriented Labs: CBC, BMP 11/21/18 06:09 11/21/18 06:09 INR, PTT INR 2.89 (0.83-1.09) H 11/20/18 16:15 Problem List - Problems (1) CKD (chronic kidney disease) Code(s): N18.9 - CHRONIC KIDNEY DISEASE, UNSPECIFIED Qualifiers: Chronic kidney disease stage: stage 3 (moderate) Qualified Code(s): N18.3 - Chronic kidney disease, stage 3 (moderate) (2) Cellulitis Code(s): L03.90 - CELLULITIS, UNSPECIFIED Qualifiers: Site of cellulitis: extremity Site of cellulitis of extremity: lower extremity Laterality: unspecified laterality Qualified Code(s): L03.119 - Cellulitis of unspecified part of limb (3) Afib Code(s): I48.91 - UNSPECIFIED ATRIAL FIBRILLATION Qualifiers: Atrial fibrillation type: chronic Qualified Code(s): I48.2 - Chronic atrial fibrillation (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 Assessment/Plan Current Medications Generic Name Dose Route Start Last Admin Trade Name Freq PRN Reason Stop Dose Admin Acetaminophen 650 mg 11/19/18 19:57 Tylenol - PO Q6H PRN PAIN Artificial Tears 1 drop 11/20/18 14:37 11/21/18 09:55 Artificial Tears OU 1 drop QID PRN Administration DRY EYES Docusate Sodium 300 mg 11/19/18 22:00 11/20/18 21:32 Colace - PO 300 mg HS [facility] Administration Cefazolin Sodium 1 gm/ 50 mls @ 100 mls/hr 11/19/18 22:00 11/21/18 09:46 Dextrose IVPB 100 mls/hr BID [facility] Administration Metoprolol Tartrate 50 mg 11/19/18 22:00 11/21/18 09:47 Lopressor - PO 50 mg BID [facility] Administration Prednisolone Acetate 1 drop 11/21/18 10:00 11/21/18 09:47 Pred Forte 1% - OD 1 drop DAILY [facility] Administration Rosuvastatin Calcium 5 mg 11/20/18 22:00 11/20/18 21:29 Crestor - PO 5 mg HS SAUL Administration Senna 1 tab 11/19/18 22:00 11/21/18 09:47 Senna - PO 1 tab BID [facility] Administration Torsemide 40 mg 11/19/18 18:00 11/21/18 05:55 Demadex - PO 40 mg BID@0600,1400 [facility] Administration Warfarin Sodium 2 mg 11/19/18 18:00 11/20/18 17:36 Coumadin - PO 2 mg DAILY@1800 [facility] Administration Laboratory Tests 11/21/18 06:09 Calcium 7.8 L Albumin 2.2 L Impression 1. CKD 2. cellulitis 3. CHF 4. HTN 5. h/o vasculitis 6. valvular heart disease 7. a-fib 8. microscopic hematuria 9. proteinuria Plan - check phos and pth - monitor lower ext wounds (black eschar is a concern for calciphylaxis although her caclium is normal) - cont torsemide - abx per medical team - no acute change in management - avoid nsaids
--- NOTE | 2018-11-21 16:57 | PN ---
Progress Note, Physician History of Present Illness: 88 y.o F was admitted to [facility] for redness and pain in the LE below the knees, R> L for about 1 week. She was recently at [facility] treated for possible vasculitis , ARF, skin rash with steroids and subsequently improved. Now off steroids and being treated at the [facility] for RLE wounds. - Current Medication List Current Medications: Active Medications Acetaminophen (Tylenol -) 650 mg PO Q6H PRN PRN Reason: PAIN Artificial Tears (Artificial Tears) 1 drop OU QID PRN PRN Reason: DRY EYES Last Admin: 11/21/18 09:55 Dose: 1 drop Docusate Sodium (Colace -) 300 mg PO HS [facility] Last Admin: 11/20/18 21:32 Dose: 300 mg Cefazolin Sodium 1 gm/ (Dextrose) 50 mls @ 100 mls/hr IVPB BID [facility] Last Admin: 11/21/18 09:46 Dose: 100 mls/hr Metoprolol Tartrate (Lopressor -) 50 mg PO BID [facility] Last Admin: 11/21/18 09:47 Dose: 50 mg Prednisolone Acetate (Pred Forte 1% -) 1 drop OD DAILY [facility] Last Admin: 11/21/18 09:47 Dose: 1 drop Rosuvastatin Calcium (Crestor -) 5 mg PO HS [facility] Last Admin: 11/20/18 21:29 Dose: 5 mg Senna (Senna -) 1 tab PO BID [facility] Last Admin: 11/21/18 09:47 Dose: 1 tab Torsemide (Demadex -) 40 mg PO BID@0600,1400 [facility] Last Admin: 11/21/18 13:39 Dose: 40 mg Warfarin Sodium (Coumadin -) 2 mg PO DAILY@1800 [facility] Last Admin: 11/20/18 17:36 Dose: 2 mg - Objective Vital Signs: Vital Signs Temperature 97.8 F 11/21/18 10:00 Pulse Rate 77 11/21/18 10:00 Respiratory Rate 20 11/21/18 10:00 Blood Pressure 112/54 L 11/21/18 10:00 O2 Sat by Pulse Oximetry (%) 97 11/21/18 09:00 Constitutional: Yes: Well Nourished, No Distress, Calm Eyes: Yes: WNL, Conjunctiva Clear, EOM Intact HENT: Yes: WNL, Atraumatic, Normocephalic Neck: Yes: WNL, Supple, Trachea Midline Labs: CBC, BMP 11/21/18 06:09 11/21/18 06:09 INR, PTT INR 2.89 (0.83-1.09) H 11/20/18 16:15 Problem List - Problems (1) Prophylactic measure Assessment/Plan: FEN monitor electrolyes no additional IVF-maintain eovolemia regular diet DVT coumadin Dispo maintain in patient full code discharge planning Code(s): Z29.9 - ENCOUNTER FOR PROPHYLACTIC MEASURES, UNSPECIFIED (2) CKD (chronic kidney disease) Assessment/Plan: appreciate renal consultation phos pth pending-black eschar is a concern for calciphylaxis although her caclium is normal) - cont torsemide no nsaids Code(s): N18.9 - CHRONIC KIDNEY DISEASE, UNSPECIFIED Qualifiers: Chronic kidney disease stage: stage 3 (moderate) Qualified Code(s): N18.3 - Chronic kidney disease, stage 3 (moderate) (3) Cellulitis Assessment/Plan: appreciate ID consultation continue Abx encourage ambulation elevation of LE Code(s): L03.90 - CELLULITIS, UNSPECIFIED Qualifiers: Site of cellulitis: extremity Site of cellulitis of extremity: lower extremity Laterality: unspecified laterality Qualified Code(s): L03.119 - Cellulitis of unspecified part of limb (4) Afib Assessment/Plan: continue metoprolol continue coumadin INR 2-3 range Code(s): I48.91 - UNSPECIFIED ATRIAL FIBRILLATION Qualifiers: Atrial fibrillation type: chronic Qualified Code(s): I48.2 - Chronic atrial fibrillation (5) CHF (congestive heart failure) Assessment/Plan: continue torsemide Code(s): I50.9 - HEART FAILURE, UNSPECIFIED Qualifiers: Heart failure type: combined systolic and diastolic Heart failure chronicity: chronic Qualified Code(s): I50.42 - Chronic combined systolic ( congestive) and diastolic (congestive) heart failure Visit type - Emergency Visit Emergency Visit: Yes ED Registration Date: 11/19/18 Care time: The patient presented to the Emergency Department on the above date and was hospitalized for further evaluation of their emergent condition. - New Patient This patient is new to me today: Yes Date on this admission: 11/21/18 - Critical Care Critical Care patient: No - Discharge Referral Referred to [facility] Med P.C.: No
[2018-11-21 17:11] LABS: INR 2.36 (0.83-1.09); PROTHROMBIN TIME (PATIENT) 28.1 SEC (9.7-13.0)
[2018-11-21] MEDS: WARFARIN NA 2 MG TABLET (UD) PO SCH (17:35)
[2018-11-21] MEDS: DOCUSATE SODIUM 100 MG CAPSULE (FP) PO SCH (21:28)
[2018-11-21] MEDS: ROSUVASTATIN CA 5 MG TABLET (FP) PO SCH (21:29)
[2018-11-22] MEDS: TORSEMIDE 20 MG TABLET (FP) PO SCH ×2 (06:21→13:28)
[2018-11-22 08:06] LABS: ALBUMIN 2.1 g/dl (3.4-5.0); BILIRUBIN,TOTAL 0.3 mg/dL (0.2-1); BLOOD UREA NITROGEN 40.9 mg/dL (7-18); CALCIUM 7.5 mg/dL (8.5-10.1); CREATININE 1.5 mg/dL (0.55-1.3); POTASSIUM 3.5 mmol/L (3.5-5.1); TOT PROT 5.7 g/dl (6.4-8.2)
[2018-11-22] MEDS ORDERED: POTASSIUM CHLORIDE TABS 20 MEQ TABLET.ER (FP) PO ONE (08:26)
--- NOTE | 2018-11-22 08:35 | PN ---
Progress Note, Physician History of Present Illness: 88 y.o F was admitted to [facility] for redness and pain in the LE below the knees, R> L for about 1 week. She was recently at [facility] treated for possible vasculitis , ARF, skin rash with steroids and subsequently improved. Now off steroids and being treated at the [facility] for RLE wounds. - Current Medication List Current Medications: Active Medications Acetaminophen (Tylenol -) 650 mg PO Q6H PRN PRN Reason: PAIN Artificial Tears (Artificial Tears) 1 drop OU QID PRN PRN Reason: DRY EYES Last Admin: 11/21/18 09:55 Dose: 1 drop Docusate Sodium (Colace -) 300 mg PO HS [facility] Last Admin: 11/21/18 21:28 Dose: 300 mg Cefazolin Sodium 1 gm/ (Dextrose) 50 mls @ 100 mls/hr IVPB BID [facility] Last Admin: 11/21/18 21:28 Dose: 100 mls/hr Metoprolol Tartrate (Lopressor -) 50 mg PO BID [facility] Last Admin: 11/21/18 21:29 Dose: 50 mg Prednisolone Acetate (Pred Forte 1% -) 1 drop OD DAILY [facility] Last Admin: 11/21/18 09:47 Dose: 1 drop Rosuvastatin Calcium (Crestor -) 5 mg PO HS [facility] Last Admin: 11/21/18 21:29 Dose: 5 mg Senna (Senna -) 1 tab PO BID [facility] Last Admin: 11/21/18 21:29 Dose: 1 tab Torsemide (Demadex -) 40 mg PO BID@0600,1400 [facility] Last Admin: 11/22/18 06:21 Dose: 40 mg Warfarin Sodium (Coumadin -) 2 mg PO DAILY@1800 [facility] Last Admin: 11/21/18 17:35 Dose: 2 mg - Objective Vital Signs: Vital Signs Temperature 98.7 F 11/22/18 07:19 Pulse Rate 68 11/22/18 07:19 Respiratory Rate 18 11/22/18 07:19 Blood Pressure 141/79 11/22/18 07:19 O2 Sat by Pulse Oximetry (%) 97 11/21/18 21:00 Labs: CBC, BMP 11/21/18 06:09 11/22/18 06:25 INR, PTT INR 2.36 (0.83-1.09) H 11/21/18 16:44 Problem List - Problems (1) Prophylactic measure Code(s): Z29.9 - ENCOUNTER FOR PROPHYLACTIC MEASURES, UNSPECIFIED (2) CKD (chronic kidney disease) Code(s): N18.9 - CHRONIC KIDNEY DISEASE, UNSPECIFIED Qualifiers: Chronic kidney disease stage: stage 3 (moderate) Qualified Code(s): N18.3 - Chronic kidney disease, stage 3 (moderate) (3) Cellulitis Code(s): L03.90 - CELLULITIS, UNSPECIFIED Qualifiers: Site of cellulitis: extremity Site of cellulitis of extremity: lower extremity Laterality: unspecified laterality Qualified Code(s): L03.119 - Cellulitis of unspecified part of limb (4) Afib Code(s): I48.91 - UNSPECIFIED ATRIAL FIBRILLATION Qualifiers: Atrial fibrillation type: chronic Qualified Code(s): I48.2 - Chronic atrial fibrillation (5) CHF (congestive heart failure) Code(s): I50.9 - HEART FAILURE, UNSPECIFIED Qualifiers: Heart failure type: combined systolic and diastolic Heart failure chronicity: chronic Qualified Code(s): I50.42 - Chronic combined systolic ( congestive) and diastolic (congestive) heart failure Impression/Plan Impression/Plan: EKG: afib, LVH, prolonged QTc, no ischemic changes CXR: no congestion echo 12/2017 tds, nl LV function apex not well visualized possible small aneurysmal region of apical-inferoseptal myocardium, nl RV functoin, LA dilated , mild MR, mod to severe TR echo 11/2018: lvef 40-45, apical ak, nl rv, lae, mod mr, sev tr, rvsp 30-40 Leg pain, cellulitis: - manage per primary, ID - on abx Chest pain, elevated trop: - patient does not remember details, no cp now - EKG no ischemic changes, initial trop indeterminate range with flat trend, not c/w acs CAD, s/p CABG: - continue statin, metoprolol (not on asa - on warfarin) AF: controlled, Asx - cont warfarin, metoprolol CKD: - manage per renal Chronic systolic/diastolic HF: - reportedly stable edema - likely component of venous insufficiency - continue home torsemide, metoprolol
[2018-11-22] MEDS ORDERED: ceFAZolin SODIUM 1 GM VIAL ONE ×2 (10:18→20:52)
[2018-11-22] MEDS ORDERED: DEXTROSE 5%-WATER - 50 ML IVPB ONE ×2 (10:18→20:53)
[2018-11-22] MEDS: CEFAZOLIN 1 GM in DEXTROSE 5%-WATER - 50 ML IVPB SCH ×2 (10:33→21:11)
[2018-11-22] MEDS: ARTIFICIAL TEARS (POLYVINYL ALCOHOL) OPTH DROPS OU PRN ×2 (10:34→21:11)
[2018-11-22] MEDS: METOPROLOL TARTRATE 50 MG TABLET (FP) PO SCH ×2 (10:34→21:12)
[2018-11-22] MEDS: SENNOSIDES 8.6MG TABLET (FP) PO SCH ×2 (10:34→21:12)
[2018-11-22] MEDS: prednisoLONE ACETATE 1% OPHTH SUSP 5 ML BOTTLE OD SCH (10:35)
--- NOTE | 2018-11-22 10:49 | PN ---
Progress Note (short form) - Note Progress Note: no complaints continues to note pain at site of scabs on her legs Vital Signs Period Temp Pulse Resp BP Sys/[place] Pulse Ox Last 24 Hr 97.4 F-98.7 F 68-76 18-20 135-141/70-87 97 cor-rrr lungs clear abd soft,nt ext less edema, less erythema scabs unchanged, no drainage noted +superficial varicosities CBC, BMP 11/21/18 06:09 11/22/18 06:25 Microbiology 11/19/18 11:45 Blood - Peripheral Venous Blood Culture - Preliminary NO GROWTH OBTAINED AFTER 48 HOURS, INCUBATION TO CONTINUE FOR 3 DAYS. 11/19/18 11:45 Blood - Peripheral Venous Blood Culture - Preliminary NO GROWTH OBTAINED AFTER 48 HOURS, INCUBATION TO CONTINUE FOR 3 DAYS. 11/19/18 16:14 Urine - Urine Clean Catch Urine Culture - Final NO GROWTH OBTAINED Current Medications Acetaminophen (Tylenol -) 650 mg PO Q6H PRN PRN Reason: PAIN Artificial Tears (Artificial Tears) 1 drop OU QID PRN PRN Reason: DRY EYES Last Admin: 11/22/18 10:34 Dose: 1 drop Docusate Sodium (Colace -) 300 mg PO HS [facility] Last Admin: 11/21/18 21:28 Dose: 300 mg Cefazolin Sodium 1 gm/ (Dextrose) 50 mls @ 100 mls/hr IVPB BID [facility] Last Admin: 11/22/18 10:33 Dose: 100 mls/hr Metoprolol Tartrate (Lopressor -) 50 mg PO BID [facility] Last Admin: 11/22/18 10:34 Dose: 50 mg Prednisolone Acetate (Pred Forte 1% -) 1 drop OD DAILY [facility] Last Admin: 11/22/18 10:35 Dose: 1 drop Rosuvastatin Calcium (Crestor -) 5 mg PO HS [facility] Last Admin: 11/21/18 21:29 Dose: 5 mg Senna (Senna -) 1 tab PO BID [facility] Last Admin: 11/22/18 10:34 Dose: 1 tab Torsemide (Demadex -) 40 mg PO BID@0600,1400 [facility] Last Admin: 11/22/18 06:21 Dose: 40 mg Warfarin Sodium (Coumadin -) 2 mg PO DAILY@1800 [facility] Last Admin: 11/21/18 17:35 Dose: 2 mg a/p bilateral cellulitis-improved CKD can change to keflex 500 bid for another week leg edema unchanged Problem List - Problems (1) Cellulitis Code(s): L03.90 - CELLULITIS, UNSPECIFIED Qualifiers: Site of cellulitis: extremity Site of cellulitis of extremity: lower extremity Laterality: unspecified laterality Qualified Code(s): L03.119 - Cellulitis of unspecified part of limb (2) Vasculitis Code(s): I77.6 - ARTERITIS, UNSPECIFIED (3) CKD (chronic kidney disease) Code(s): N18.9 - CHRONIC KIDNEY DISEASE, UNSPECIFIED Qualifiers: Chronic kidney disease stage: stage 3 (moderate) Qualified Code(s): N18.3 - Chronic kidney disease, stage 3 (moderate)
--- NOTE | 2018-11-22 11:16 | ECHO ---
Name: ASHELY SWAIN Exam:Adult Echocardiogram Study Date: 11/22/2018 09:46 AM Age: 88 yrs Reason For Study: ELEVATED TNI Height: 63 in Weight: 129 lb BSA: 1.6 m2 MMode/2D Measurements & Calculations IVSd: 1.1 cm Ao root diam: 3.0 cm LVIDd: 4.7 cm LA dimension: 4.7 cm LVIDs: 3.4 cm LVPWd: 0.98 cm EDV(Teich): 104.0 ml LVOT diam: 2.0 cm ESV(Teich): 48.7 ml Doppler Measurements & Calculations MV E max devyn: 101.2 cm/sec Ao V2 max: 161.9 cm/sec MV A max devyn: 37.5 cm/sec Ao max P.5 mmHg MV E/A: 2.7 Ao V2 mean: 110.2 cm/sec Ao mean P.7 mmHg Ao V2 VTI: 31.1 cm MADHAVI(I,D): 1.2 cm2 MADHAVI(V,D): 1.3 cm2 LV V1 max P.9 mmHg MR max devyn: 471.7 cm/sec LV V1 mean P.0 mmHg MR max P.2 mmHg LV V1 max: 69.7 cm/sec LV V1 mean: 48.4 cm/sec LV V1 VTI: 12.4 cm SV(LVOT): 38.7 ml TR max devyn: 217.2 cm/sec TR max P.4 mmHg PI end-d devyn: 117.8 cm/sec Med Peak E' Devyn: 11.1 cm/sec Med E/e': 9.1 Lat Peak E' Devyn: 12.8 cm/sec Lat E/e': 7.9 Left Ventricle Left ventricular systolic function is mild to moderately reduced. Ejection Fraction = 40-45%. There i s mild to moderate global hypokinesis of the left ventricle. As noted on the previous study 01/10/18, the apex a ppears akinetic/dyskinetic. Right Ventricle The right ventricle is grossly normal size. The right ventricular systolic function is grossly normal . Atria The left atrium is moderately dilated. The right atrium is mild to moderately dilated. Mitral Valve There is mild mitral annular calcification. There is no mitral valve stenosis. There is moderate mitr al regurgitation. Tricuspid Valve The tricuspid valve is normal in structure and function. There is severe tricuspid regurgitation. Rig ht ventricular systolic pressure is elevated at 30-40mmHg. Aortic Valve There is mild aortic sclerosis.;. No hemodynamically significant valvular aortic stenosis. No aortic regurgitation is present. Pulmonic Valve The pulmonic valve is not well seen, but is grossly normal. There is no pulmonic valvular stenosis. M ild pulmonic valvular regurgitation. Great Vessels The aortic root is normal size. Pericardium/Pleura There is no pericardial effusion. Interpretation Summary Left ventricular systolic function is mild to moderately reduced. Ejection Fraction = 40-45%. As noted on the previous study 01/10/18, the apex appears akinetic/dyskinetic. The left atrium is moderately dilated. There is mild mitral annular calcification. There is moderate mitral regurgitation. There is severe tricuspid regurgitation. Right ventricular systolic pressure is elevated at 30-40mmHg. There is mild aortic sclerosis.; There is no pericardial effusion. MD Rosas *Taina 11/22/2018 11:16 AM
--- NOTE | 2018-11-22 13:27 | PN ---
Progress Note (short form) - Note Progress Note: RENAL pt is awake and alert says she feels well Last Vital Signs Temp Pulse Resp BP Pulse Ox 98.5 F 76 20 146/95 97 11/22/18 10:00 11/22/18 10:00 11/22/18 10:00 11/22/18 10:00 11/21/18 21:00 lungs clear cvs s1s2 rr +VI abd soft ext +edema skin seems to have venous ulcers neuro a+ox3 CBC, BMP 11/21/18 06:09 11/22/18 06:25 Current Medications Generic Name Dose Route Start Last Admin Trade Name Freq PRN Reason Stop Dose Admin Acetaminophen 650 mg 11/19/18 19:57 Tylenol - PO Q6H PRN PAIN Artificial Tears 1 drop 11/20/18 14:37 11/22/18 10:34 Artificial Tears OU 1 drop QID PRN Administration DRY EYES Docusate Sodium 300 mg 11/19/18 22:00 11/21/18 21:28 Colace - PO 300 mg HS [facility]UL Administration Cefazolin Sodium 1 gm/ 50 mls @ 100 mls/hr 11/19/18 22:00 11/22/18 10:33 Dextrose IVPB 100 mls/hr BID [facility] Administration Metoprolol Tartrate 50 mg 11/19/18 22:00 11/22/18 10:34 Lopressor - PO 50 mg BID [facility] Administration Prednisolone Acetate 1 drop 11/21/18 10:00 11/22/18 10:35 Pred Forte 1% - OD 1 drop DAILY [facility] Administration Rosuvastatin Calcium 5 mg 11/20/18 22:00 11/21/18 21:29 Crestor - PO 5 mg HS [facility] Administration Senna 1 tab 11/19/18 22:00 11/22/18 10:34 Senna - PO 1 tab BID [facility] Administration Torsemide 40 mg 11/19/18 18:00 11/22/18 06:21 Demadex - PO 40 mg BID@0600,1400 [facility] Administration Warfarin Sodium 2 mg 11/19/18 18:00 11/21/18 17:35 Coumadin - PO 2 mg DAILY@1800 [facility] Administration Impression 1. CKD 2. cellulitis 3. CHF 4. HTN 5. h/o vasculitis? 6. valvular heart disease 7. a-fib 8. microscopic hematuria 9. proteinuria 10 venous ulcers? 11 low anion gap Plan would ask vascular to evaluate if not already done check spep/upep antibiotics for cellulitis per ID MV
--- NOTE | 2018-11-22 15:44 | PN ---
Progress Note (short form) - Note Progress Note: s: no cp sob palps dizzy o: Vital Signs Period Temp Pulse Resp BP Sys/Villalpando Pulse Ox Last 24 Hr 97.4 F-98.7 F 66-76 18-20 110-146/61-95 97-97 Constitutional: Yes: No Distress Cardiovascular: Yes: Pulse Irregular, no mrg Respiratory: Yes: CTA Bilaterally nl eff Gastrointestinal: Yes: Soft, nt Edema: Yes Edema: LLE: 1+ (venous stasis and varicosity), RLE: 1+ (ulcers) no jaundice diaphoresis Neurological: Yes: Alert, Oriented Current Medications Generic Name Dose Route Start Last Admin Trade Name Freq PRN Reason Stop Dose Admin Acetaminophen 650 mg 11/19/18 19:57 Tylenol - PO Q6H PRN PAIN Artificial Tears 1 drop 11/20/18 14:37 11/22/18 10:34 Artificial Tears OU 1 drop QID PRN Administration DRY EYES Docusate Sodium 300 mg 11/19/18 22:00 11/21/18 21:28 Colace - PO 300 mg HS SAUL Administration Cefazolin Sodium 1 gm/ 50 mls @ 100 mls/hr 11/19/18 22:00 11/22/18 10:33 Dextrose IVPB 100 mls/hr BID SAUL Administration Metoprolol Tartrate 50 mg 11/19/18 22:00 11/22/18 10:34 Lopressor - PO 50 mg BID SAUL Administration Prednisolone Acetate 1 drop 11/21/18 10:00 11/22/18 10:35 Pred Forte 1% - OD 1 drop DAILY SAUL Administration Rosuvastatin Calcium 5 mg 11/20/18 22:00 11/21/18 21:29 Crestor - PO 5 mg HS SAUL Administration Senna 1 tab 11/19/18 22:00 11/22/18 10:34 Senna - PO 1 tab BID SAUL Administration Torsemide 40 mg 11/19/18 18:00 11/22/18 13:28 Demadex - PO 40 mg BID@0600,1400 SAUL Administration Warfarin Sodium 2 mg 11/19/18 18:00 11/21/18 17:35 Coumadin - PO 2 mg DAILY@1800 SAUL Administration Laboratory Last Values WBC 8.1 K/mm3 (4.0-10.0) 11/21/18 06:09 RBC 2.79 M/mm3 (3.60-5.2) L 11/21/18 06:09 Hgb 8.3 GM/dL (10.7-15.3) L 11/21/18 06:09 Hct 25.5 % (32.4-45.2) L 11/21/18 06:09 MCV 91.5 fl (80-96) 11/21/18 06:09 MCH 29.8 pg (25.7-33.7) 11/21/18 06:09 MCHC 32.5 g/dl (32.0-36.0) 11/21/18 06:09 RDW 16.0 % (11.6-15.6) H 11/21/18 06:09 Plt Count 216 K/MM3 (134-434) 11/21/18 06:09 MPV 7.7 fl (7.5-11.1) 11/21/18 06:09 Absolute Neuts (auto) 5.3 K/mm3 (1.5-8.0) 11/21/18 06:09 Neutrophils % 65.5 % (42.8-82.8) D 11/21/18 06:09 Lymphocytes % 22.1 % (8-40) D 11/21/18 06:09 Monocytes % 8.6 % (3.8-10.2) D 11/21/18 06:09 Eosinophils % 2.8 % (0-4.5) D 11/21/18 06:09 Basophils % 1.0 % (0-2.0) 11/21/18 06:09 Nucleated RBC % 0 % (0-0) 11/21/18 06:09 PT with INR 28.10 SEC (9.7-13.0) H 11/21/18 16:44 INR 2.36 (0.83-1.09) H 11/21/18 16:44 Sodium 140 mmol/L (136-145) 11/22/18 06:25 Potassium 3.5 mmol/L (3.5-5.1) 11/22/18 06:25 Chloride 103 mmol/L (98-107) 11/22/18 06:25 Carbon Dioxide 34 mmol/L (21-32) H 11/22/18 06:25 Anion Gap 3 MMOL/L (8-16) L 11/22/18 06:25 BUN 40.9 mg/dL (7-18) H 11/22/18 06:25 Creatinine 1.5 mg/dL (0.55-1.3) H 11/22/18 06:25 Est GFR (CKD-EPI)AfAm 35.93 11/22/18 06:25 Est GFR (CKD-EPI)NonAf 31.00 11/22/18 06:25 Random Glucose 83 mg/dL (74-106) 11/22/18 06:25 Lactic Acid 0.9 mmol/L (0.4-2.0) 11/21/18 06:09 Calcium 7.5 mg/dL (8.5-10.1) L 11/22/18 06:25 Phosphorus 4.0 mg/dL (2.5-4.9) 11/22/18 06:25 Total Bilirubin 0.3 mg/dL (0.2-1) 11/22/18 06:25 AST 22 U/L (15-37) 11/22/18 06:25 ALT 11 U/L (13-61) L 11/22/18 06:25 Alkaline Phosphatase 71 U/L (45-117) 11/22/18 06:25 Creatine Kinase 64 U/L (26-192) 11/19/18 19:40 Troponin I 0.20 ng/ml (0.00-0.05) H 11/20/18 06:36 Total Protein 5.7 g/dl (6.4-8.2) L 11/22/18 06:25 Albumin 2.1 g/dl (3.4-5.0) L 11/22/18 06:25 Urine Color Yellow 11/19/18 16:14 Urine Appearance Clear 11/19/18 16:14 Urine pH 5.5 (5.0-8.0) 11/19/18 16:14 Ur Specific [place] 1.008 (1.010-1.035) L 11/19/18 16:14 Urine Protein 1+ (NEGATIVE) H 11/19/18 16:14 Urine Glucose (UA) Negative (NEGATIVE) 11/19/18 16:14 Urine Ketones Negative (NEGATIVE) 11/19/18 16:14 Urine Blood 3+ (NEGATIVE) H 11/19/18 16:14 Urine Nitrite Negative (NEGATIVE) 11/19/18 16:14 Urine Bilirubin Negative (NEGATIVE) 11/19/18 16:14 Urine Urobilinogen 0.2 mg/dL (0.2-1.0) 11/19/18 16:14 Ur Leukocyte Esterase Trace (NEGATIVE) 11/19/18 16:14 U Random Total Protein 38.9 mg/dl (0-11.9) H 11/19/18 18:30 Urine Creatinine 33.0 mg/dL (20-275) 11/19/18 18:30 Protein/Creatinin Ratio 1.170 MG/DL 11/19/18 18:30 Assessment/Plan EKG: afib, LVH, prolonged QTc, no ischemic changes CXR: no congestion echo 12/2017 tds, nl LV function apex not well visualized possible small aneurysmal region of apical-inferoseptal myocardium, nl RV functoin, LA dilated , mild MR, mod to severe TR echo 11/2018: lvef 40-45, apical ak, nl rv, lae, mod mr, sev tr, rvsp 30-40 Leg pain, cellulitis: - manage per primary, ID - on abx Chest pain, elevated trop: - patient does not remember details, no cp now - EKG no ischemic changes, initial trop indeterminate range with flat trend, not c/w acs CAD, s/p CABG: - continue statin, metoprolol (not on asa - on warfarin) AF: controlled, Asx - cont warfarin, metoprolol CKD: - manage per renal Chronic systolic/diastolic HF: - reportedly stable edema - likely component of venous insufficiency - continue home torsemide, metoprolol
[2018-11-22 17:21] LABS: INR 2.7 (0.83-1.09); PROTHROMBIN TIME (PATIENT) 32.2 SEC (9.7-13.0)
[2018-11-22] MEDS: WARFARIN NA 2 MG TABLET (UD) PO SCH (17:53)
[2018-11-22] MEDS ORDERED: PT OWN MED DRAWER 7, Y5N ONE (18:23)
[2018-11-22] MEDS: ROSUVASTATIN CA 5 MG TABLET (FP) PO SCH (21:11)
[2018-11-22] MEDS: DOCUSATE SODIUM 100 MG CAPSULE (FP) PO SCH (21:13)
[2018-11-23] MEDS: TORSEMIDE 20 MG TABLET (FP) PO SCH ×2 (06:20→13:35)
[2018-11-23] MEDS ORDERED: DEXTROSE 5%-WATER - 50 ML IVPB ONE ×2 (08:59→22:27)
[2018-11-23] MEDS ORDERED: ceFAZolin SODIUM 1 GM VIAL ONE ×2 (08:59→22:27)
[2018-11-23] MEDS: METOPROLOL TARTRATE 50 MG TABLET (FP) PO SCH ×2 (09:01→22:48)
[2018-11-23] MEDS: SENNOSIDES 8.6MG TABLET (FP) PO SCH ×2 (09:01→22:48)
[2018-11-23] MEDS: CEFAZOLIN 1 GM in DEXTROSE 5%-WATER - 50 ML IVPB SCH ×2 (09:01→22:48)
[2018-11-23] MEDS: prednisoLONE ACETATE 1% OPHTH SUSP 5 ML BOTTLE OD SCH (09:02)
[2018-11-23] MEDS: ARTIFICIAL TEARS (POLYVINYL ALCOHOL) OPTH DROPS OU PRN (09:02)
--- NOTE | 2018-11-23 09:41 | PN ---
Progress Note, Physician History of Present Illness: 88 y.o F was admitted to [facility] for redness and pain in the LE below the knees, R> L for about 1 week. She was recently at [facility] treated for possible vasculitis , ARF, skin rash with steroids and subsequently improved. Now off steroids and being treated at the [facility] for RLE wounds. Today patient is in bed with no signs of symptoms of distress. Pt states she is feeling better and denies any leg pain. She says occasionally the scabs on her legs will itch. Denies, CP, Fever, Chills, SHOB, N/V/D - Current Medication List Current Medications: Active Medications Acetaminophen (Tylenol -) 650 mg PO Q6H PRN PRN Reason: PAIN Artificial Tears (Artificial Tears) 1 drop OU QID PRN PRN Reason: DRY EYES Last Admin: 11/23/18 09:02 Dose: 1 drop Docusate Sodium (Colace -) 300 mg PO [facility] Last Admin: 11/22/18 21:13 Dose: 300 mg Cefazolin Sodium 1 gm/ (Dextrose) 50 mls @ 100 mls/hr IVPB BID [facility] Last Admin: 11/23/18 09:01 Dose: 100 mls/hr Metoprolol Tartrate (Lopressor -) 50 mg PO BID [facility] Last Admin: 11/23/18 09:01 Dose: 50 mg Prednisolone Acetate (Pred Forte 1% -) 1 drop OD DAILY [facility] Last Admin: 11/23/18 09:02 Dose: 1 drop Rosuvastatin Calcium (Crestor -) 5 mg PO [facility] Last Admin: 11/22/18 21:11 Dose: 5 mg Senna (Senna -) 1 tab PO BID [facility] Last Admin: 11/23/18 09:01 Dose: 1 tab Torsemide (Demadex -) 40 mg PO BID@0600,1400 [facility] Last Admin: 11/23/18 06:20 Dose: 40 mg Warfarin Sodium (Coumadin -) 2 mg PO DAILY@1800 [facility] Last Admin: 11/22/18 17:53 Dose: 2 mg - Objective Vital Signs: Vital Signs Temperature 98.2 F 11/23/18 06:00 Pulse Rate 67 11/23/18 06:00 Respiratory Rate 18 11/23/18 06:00 Blood Pressure 144/80 11/23/18 06:00 O2 Sat by Pulse Oximetry (%) 97 11/22/18 09:00 Constitutional: Yes: Well Nourished, No Distress, Calm Eyes: Yes: WNL, Conjunctiva Clear, EOM Intact HENT: Yes: WNL, Atraumatic, Normocephalic Neck: Yes: WNL, Supple, Trachea Midline Cardiovascular: Yes: WNL, Regular Rate and Rhythm Respiratory: Yes: WNL, Regular, CTA Bilaterally Gastrointestinal: Yes: WNL, Normal Bowel Sounds, Soft ...Rectal Exam: Yes: Deferred Edema: No Peripheral Pulses WNL: Yes Integumentary: Yes: Other (Cellulitis lower extremities) Neurological: Yes: WNL, Alert, Oriented ...Motor Strength: WNL Psychiatric: Yes: WNL, Alert, Oriented Labs: CBC, BMP 11/21/18 06:09 11/22/18 06:25 INR, PTT INR 2.70 (0.83-1.09) H 11/22/18 16:35 Impression/Plan Impression/Plan: EKG: afib, LVH, prolonged QTc, no ischemic changes CXR: no congestion echo 12/2017 tds, nl LV function apex not well visualized possible small aneurysmal region of apical-inferoseptal myocardium, nl RV functoin, LA dilated , mild MR, mod to severe TR echo 11/2018: lvef 40-45, apical ak, nl rv, lae, mod mr, sev tr, rvsp 30-40 Assessment/Plan Leg pain, cellulitis: - manage per primary, ID - on abx Chest pain, elevated trop: - patient does not remember details, no cp now - EKG no ischemic changes, initial trop indeterminate range with flat trend, not c/w acs CAD, s/p CABG: - continue statin, metoprolol (not on asa - on warfarin) AF: controlled, Asx - cont warfarin, metoprolol CKD: - manage per renal Chronic systolic/diastolic HF: - reportedly stable edema - likely component of venous insufficiency - continue home torsemide, metoprolol Visit type - Emergency Visit Emergency Visit: Yes ED Registration Date: 11/19/18 Care time: The patient presented to the Emergency Department on the above date and was hospitalized for further evaluation of their emergent condition. - New Patient This patient is new to me today: Yes Date on this admission: 11/24/18 - Critical Care Critical Care patient: No
--- NOTE | 2018-11-23 12:46 | PN ---
Progress Note (short form) - Note Progress Note: s: no cp sob palps dizzy, feels well o: Vital Signs Period Temp Pulse Resp BP Sys/Villalpando Pulse Ox Last 24 Hr 98.2 F-98.4 F 66-73 18-20 110-144/61-80 Constitutional: Yes: No Distress Cardiovascular: Yes: Pulse Irregular, no mrg Respiratory: Yes: CTA Bilaterally nl eff Gastrointestinal: Yes: Soft, nt Edema: Yes Edema: LLE: 1+ (venous stasis and varicosity), RLE: 1+ (ulcers) no jaundice diaphoresis Neurological: Yes: Alert, Oriented Current Medications Acetaminophen (Tylenol -) 650 mg PO Q6H PRN PRN Reason: PAIN Artificial Tears (Artificial Tears) 1 drop OU QID PRN PRN Reason: DRY EYES Last Admin: 11/23/18 09:02 Dose: 1 drop Docusate Sodium (Colace -) 300 mg PO [facility] Last Admin: 11/22/18 21:13 Dose: 300 mg Cefazolin Sodium 1 gm/ (Dextrose) 50 mls @ 100 mls/hr IVPB BID [facility] Last Admin: 11/23/18 09:01 Dose: 100 mls/hr Metoprolol Tartrate (Lopressor -) 50 mg PO BID [facility] Last Admin: 11/23/18 09:01 Dose: 50 mg Prednisolone Acetate (Pred Forte 1% -) 1 drop OD DAILY [facility] Last Admin: 11/23/18 09:02 Dose: 1 drop Rosuvastatin Calcium (Crestor -) 5 mg PO [facility] Last Admin: 11/22/18 21:11 Dose: 5 mg Senna (Senna -) 1 tab PO BID [facility] Last Admin: 11/23/18 09:01 Dose: 1 tab Torsemide (Demadex -) 40 mg PO BID@0600,1400 [facility] Last Admin: 11/23/18 06:20 Dose: 40 mg Warfarin Sodium (Coumadin -) 2 mg PO DAILY@1800 [facility] Last Admin: 11/22/18 17:53 Dose: 2 mg Assessment/Plan EKG: afib, LVH, prolonged QTc, no ischemic changes CXR: no congestion echo 12/2017 tds, nl LV function apex not well visualized possible small aneurysmal region of apical-inferoseptal myocardium, nl RV functoin, LA dilated , mild MR, mod to severe TR echo 11/2018: lvef 40-45, apical ak, nl rv, lae, mod mr, sev tr, rvsp 30-40 Leg pain, cellulitis: - manage per primary, ID - on abx Chest pain, elevated trop: - patient does not remember details, no cp now - EKG no ischemic changes, initial trop indeterminate range with flat trend, not c/w acs CAD, s/p CABG: - continue statin, metoprolol (not on asa - on warfarin) AF: controlled, Asx - cont warfarin, metoprolol CKD: - manage per renal Chronic systolic/diastolic HF: - reportedly stable edema - likely component of venous insufficiency - continue home torsemide, metoprolol
[2018-11-23 17:09] LABS: INR 2.32 (0.83-1.09); PROTHROMBIN TIME (PATIENT) 27.6 SEC (9.7-13.0)
[2018-11-23] MEDS: WARFARIN NA 2 MG TABLET (UD) PO SCH (17:11)
[2018-11-23] MEDS: ROSUVASTATIN CA 5 MG TABLET (FP) PO SCH (22:48)
[2018-11-23] MEDS: DOCUSATE SODIUM 100 MG CAPSULE (FP) PO SCH (22:48)
[2018-11-24] MEDS: TORSEMIDE 20 MG TABLET (FP) PO SCH ×2 (05:50→13:38)
--- NOTE | 2018-11-24 09:22 | PN ---
Progress Note (short form) - Note Progress Note: RENAL pt is awake and alert says she feels well Last Vital Signs Temp Pulse Resp BP Pulse Ox 98.3 F 72 18 126/76 98 11/24/18 06:00 11/24/18 06:00 11/24/18 06:00 11/24/18 06:00 11/23/18 21:00 lungs clear cvs s1s2 rr +VI abd soft ext + trace edema skin seems to have venous ulcers neuro a+ox3 CBC, BMP 11/21/18 06:09 11/22/18 06:25 Current Medications Generic Name Dose Route Start Last Admin Trade Name Freq PRN Reason Stop Dose Admin Acetaminophen 650 mg 11/19/18 19:57 Tylenol - PO Q6H PRN PAIN Artificial Tears 1 drop 11/20/18 14:37 11/23/18 09:02 Artificial Tears OU 1 drop QID PRN Administration DRY EYES Docusate Sodium 300 mg 11/19/18 22:00 11/23/18 22:48 Colace - PO 300 mg HS SAUL Administration Cefazolin Sodium 1 gm/ 50 mls @ 100 mls/hr 11/19/18 22:00 11/23/18 22:48 Dextrose IVPB 100 mls/hr BID SAUL Administration Metoprolol Tartrate 50 mg 11/19/18 22:00 11/23/18 22:48 Lopressor - PO 50 mg BID SAUL Administration Prednisolone Acetate 1 drop 11/21/18 10:00 11/23/18 09:02 Pred Forte 1% - OD 1 drop DAILY SAUL Administration Rosuvastatin Calcium 5 mg 11/20/18 22:00 11/23/18 22:48 Crestor - PO 5 mg HS SAUL Administration Senna 1 tab 11/19/18 22:00 11/23/18 22:48 Senna - PO 1 tab BID SAUL Administration Torsemide 40 mg 11/19/18 18:00 11/24/18 05:50 Demadex - PO 40 mg BID@0600,1400 SAUL Administration Warfarin Sodium 2 mg 11/19/18 18:00 11/23/18 17:11 Coumadin - PO 2 mg DAILY@1800 SAUL Administration Impression 1. CKD 2. cellulitis 3. CHF 4. HTN 5. h/o vasculitis? 6. valvular heart disease 7. a-fib 8. microscopic hematuria 9. subnephrotic proteinuria 10 venous ulcers? 11 low anion gap Plan would ask vascular to evaluate if not already done await SPEP antibiotics for cellulitis per ID repeat BMP and CBC. Her creat was better 2 days ago MV
[2018-11-24] MEDS ORDERED: DEXTROSE 5%-WATER - 50 ML IVPB ONE ×2 (10:16→20:50)
[2018-11-24] MEDS ORDERED: ceFAZolin SODIUM 1 GM VIAL ONE ×2 (10:16→20:50)
[2018-11-24] MEDS: CEFAZOLIN 1 GM in DEXTROSE 5%-WATER - 50 ML IVPB SCH ×2 (10:22→22:19)
[2018-11-24] MEDS: METOPROLOL TARTRATE 50 MG TABLET (FP) PO SCH ×2 (10:22→22:19)
[2018-11-24] MEDS: SENNOSIDES 8.6MG TABLET (FP) PO SCH ×2 (10:22→22:17)
[2018-11-24] MEDS: prednisoLONE ACETATE 1% OPHTH SUSP 5 ML BOTTLE OD SCH (10:22)
--- NOTE | 2018-11-24 11:57 | PN ---
Progress Note (short form) - Note Progress Note: s: no cp sob palps dizzy, feels well o: Vital Signs Period Temp Pulse Resp BP Sys/Villalpando Pulse Ox Last 24 Hr 98.0 F-98.4 F 72-78 18-20 121-128/62-76 98-98 Constitutional: Yes: No Distress Cardiovascular: Yes: Pulse Irregular, no mrg Respiratory: Yes: CTA Bilaterally nl eff Gastrointestinal: Yes: Soft, nt Edema: Yes Edema: LLE: 1+ (venous stasis and varicosity), RLE: 1+ (ulcers) no jaundice diaphoresis Neurological: Yes: Alert, Oriented Current Medications Acetaminophen (Tylenol -) 650 mg PO Q6H PRN PRN Reason: PAIN Artificial Tears (Artificial Tears) 1 drop OU QID PRN PRN Reason: DRY EYES Last Admin: 11/23/18 09:02 Dose: 1 drop Docusate Sodium (Colace -) 300 mg PO [facility] Last Admin: 11/23/18 22:48 Dose: 300 mg Cefazolin Sodium 1 gm/ (Dextrose) 50 mls @ 100 mls/hr IVPB BID [facility] Last Admin: 11/24/18 10:22 Dose: 100 mls/hr Metoprolol Tartrate (Lopressor -) 50 mg PO BID [facility] Last Admin: 11/24/18 10:22 Dose: 50 mg Prednisolone Acetate (Pred Forte 1% -) 1 drop OD DAILY [facility] Last Admin: 11/24/18 10:22 Dose: 1 drop Rosuvastatin Calcium (Crestor -) 5 mg PO [facility] Last Admin: 11/23/18 22:48 Dose: 5 mg Senna (Senna -) 1 tab PO BID [facility] Last Admin: 11/24/18 10:22 Dose: 1 tab Torsemide (Demadex -) 40 mg PO BID@0600,1400 [facility] Last Admin: 11/24/18 05:50 Dose: 40 mg Warfarin Sodium (Coumadin -) 2 mg PO DAILY@1800 [facility] Last Admin: 11/23/18 17:11 Dose: 2 mg Assessment/Plan EKG: afib, LVH, prolonged QTc, no ischemic changes CXR: no congestion echo 12/2017 tds, nl LV function apex not well visualized possible small aneurysmal region of apical-inferoseptal myocardium, nl RV functoin, LA dilated , mild MR, mod to severe TR echo 11/2018: lvef 40-45, apical ak, nl rv, lae, mod mr, sev tr, rvsp 30-40 Leg pain, cellulitis: - manage per primary, ID - on abx Chest pain, elevated trop: - patient does not remember details, no cp now - EKG no ischemic changes, initial trop indeterminate range with flat trend, not c/w acs CAD, s/p CABG: - continue statin, metoprolol (not on asa - on warfarin) AF: controlled, Asx - cont warfarin, metoprolol CKD: - manage per renal Chronic systolic/diastolic HF: - reportedly stable edema - likely component of venous insufficiency - continue home torsemide, metoprolol
--- NOTE | 2018-11-24 16:28 | PN ---
Physical Exam: 88 y.o F was admitted to [facility] for redness and pain in the LE below the knees, R> L for about 1 week. She was recently at [facility] treated for possible vasculitis , ARF, skin rash with steroids and subsequently improved. Now off steroids and being treated at the [facility] for RLE wounds. SUBJECTIVE: Patient seen and examined. patient is in bed with no signs of symptoms of distress. Pt states she is feeling better and denies any leg pain. She says occasionally the scabs on her legs will itch. Denies, CP, Fever, Chills , SHOB, N/V/D OBJECTIVE: Vital Signs Period Temp Pulse Resp BP Sys/Villalpando Pulse Ox Last 24 Hr 98.0 F-98.4 F 72-78 18-20 121-128/62-76 98-98 GENERAL: The patient is awake, alert, and fully oriented, in no acute distress. HEAD: Normal with no signs of trauma. EYES: PERRL, extraocular movements intact, sclera anicteric, conjunctiva clear. No ptosis. ENT: Ears normal, nares patent, oropharynx clear without exudates, moist mucous membranes. NECK: Trachea midline, full range of motion, supple. LUNGS: Breath sounds equal, clear to auscultation bilaterally, no wheezes, no crackles, no accessory muscle use. HEART: Regular rate and rhythm, S1, S2 ABDOMEN: Soft, nontender, nondistended, normoactive bowel sounds, no guarding. EXTREMITIES: 2+ pulses, warm, well-perfused, no edema. NEUROLOGICAL: Alert and Oriented x 3 PSYCH: Normal mood, normal affect. SKIN: Warm, dry, normal turgor, no rashes or lesions noted Laboratory Results - last 24 hr 11/23/18 16:26 PT with INR 27.60 H INR 2.32 H Active Medications Generic Name Dose Route Start Last Admin Trade Name Freq PRN Reason Stop Dose Admin Acetaminophen 650 mg 11/19/18 19:57 Tylenol - PO Q6H PRN PAIN Artificial Tears 1 drop 11/20/18 14:37 11/23/18 09:02 Artificial Tears OU 1 drop QID PRN Administration DRY EYES Docusate Sodium 300 mg 11/19/18 22:00 11/23/18 22:48 Colace - PO 300 mg HS SAUL Administration Cefazolin Sodium 1 gm/ 50 mls @ 100 mls/hr 11/19/18 22:00 11/24/18 10:22 Dextrose IVPB 100 mls/hr BID SAUL Administration Metoprolol Tartrate 50 mg 11/19/18 22:00 11/24/18 10:22 Lopressor - PO 50 mg BID SAUL Administration Prednisolone Acetate 1 drop 11/21/18 10:00 11/24/18 10:22 Pred Forte 1% - OD 1 drop DAILY SAUL Administration Rosuvastatin Calcium 5 mg 11/20/18 22:00 11/23/18 22:48 Crestor - PO 5 mg HS SAUL Administration Senna 1 tab 11/19/18 22:00 11/24/18 10:22 Senna - PO 1 tab BID SAUL Administration Torsemide 40 mg 11/19/18 18:00 11/24/18 13:38 Demadex - PO 40 mg BID@0600,1400 SAUL Administration Warfarin Sodium 2 mg 11/19/18 18:00 11/23/18 17:11 Coumadin - PO 2 mg DAILY@1800 SAUL Administration ASSESSMENT/PLAN: EKG: afib, LVH, prolonged QTc, no ischemic changes CXR: no congestion echo 12/2017 tds, nl LV function apex not well visualized possible small aneurysmal region of apical-inferoseptal myocardium, nl RV functoin, LA dilated , mild MR, mod to severe TR echo 11/2018: lvef 40-45, apical ak, nl rv, lae, mod mr, sev tr, rvsp 30-40 Leg pain, cellulitis -manage per primary, ID - on abx Chest pain, elevated trop -patient does not remember details, no cp now -EKG no ischemic changes, initial trop indeterminate range with flat trend, not c/w acs CAD, s/p CABG -continue statin, metoprolol (not on asa - on warfarin) AF: Controlled, -cont warfarin, metoprolol CKD -manage per renal Chronic systolic/diastolic HF -reportedly stable edema - likely component of venous insufficiency -continue home torsemide, metoprolol Visit type - Emergency Visit Emergency Visit: Yes ED Registration Date: 11/19/18 Care time: The patient presented to the Emergency Department on the above date and was hospitalized for further evaluation of their emergent condition. - New Patient This patient is new to me today: Yes Date on this admission: 11/24/18 - Critical Care Critical Care patient: No
[2018-11-24 18:39] LABS: INR 2.06 (0.83-1.09); PROTHROMBIN TIME (PATIENT) 24.5 SEC (9.7-13.0)
[2018-11-24] MEDS: WARFARIN NA 2 MG TABLET (UD) PO SCH (18:57)
[2018-11-24] MEDS: ROSUVASTATIN CA 5 MG TABLET (FP) PO SCH (22:17)
[2018-11-24] MEDS: DOCUSATE SODIUM 100 MG CAPSULE (FP) PO SCH (22:19)
[2018-11-25] MEDS: TORSEMIDE 20 MG TABLET (FP) PO SCH (06:12)
[2018-11-25 07:16] LABS: BLOOD UREA NITROGEN 38.9 mg/dL (7-18); CALCIUM 7.8 mg/dL (8.5-10.1); CREATININE 1.5 mg/dL (0.55-1.3); POTASSIUM 3.2 mmol/L (3.5-5.1)
[2018-11-25] MEDS ORDERED: POTASSIUM CHLORIDE TABS 20 MEQ TABLET.ER (FP) PO ONE (07:23)
[2018-11-25 07:24] LABS: HEMATOCRIT 29.3 % (32.4-45.2); HEMOGLOBIN 9.5 GM/dL (10.7-15.3); MCH 29.7 pg (25.7-33.7); MCHC 32.5 g/dl (32.0-36.0); MEAN CELL VOLUME 91.1 fl (80-96); MEAN PLT VOLUME 7.6 fl (7.5-11.1); PLATELET COUNT 265 K/MM3 (134-434); RBC 3.21 M/mm3 (3.60-5.2); RDW 15.5 % (11.6-15.6); WHITE BLOOD COUNT 7.1 K/mm3 (4.0-10.0)
--- NOTE | 2018-11-25 07:35 | PN ---
Progress Note (short form) - Note Progress Note: [employer] coverage appreciated. Comfortable in bed, no LE pain or redness, swelling improved. Vital Signs (72 hours) 11/22/18 11/22/18 11/22/18 09:00 10:00 14:00 Temperature 98.5 F 98.3 F Pulse Rate 76 66 Respiratory 20 20 Rate Blood Pressure 146/95 110/61 O2 Sat by Pulse 97 Oximetry (%) 11/22/18 11/22/18 11/23/18 16:20 19:26 06:00 Temperature 98.4 F 98.4 F 98.2 F Pulse Rate 73 71 67 Respiratory 20 20 18 Rate Blood Pressure 118/72 111/67 144/80 O2 Sat by Pulse Oximetry (%) 11/23/18 11/23/18 11/23/18 09:00 10:00 17:30 Temperature 98.0 F 98.3 F Pulse Rate 72 75 Respiratory 20 20 Rate Blood Pressure 116/65 128/62 O2 Sat by Pulse 98 Oximetry (%) 11/23/18 11/23/18 11/24/18 20:31 21:00 06:00 Temperature 98.0 F 98.3 F Pulse Rate 78 72 Respiratory 20 18 Rate Blood Pressure 127/66 126/76 O2 Sat by Pulse 98 Oximetry (%) 11/24/18 11/24/18 11/24/18 09:00 10:00 17:35 Temperature 98.4 F 98.9 F Pulse Rate 73 68 Respiratory 18 18 Rate Blood Pressure 121/72 113/62 O2 Sat by Pulse 98 Oximetry (%) 11/24/18 11/24/18 11/25/18 20:33 22:00 06:00 Temperature 98.7 F 98.3 F Pulse Rate 72 68 Respiratory 18 17 18 Rate Blood Pressure 112/58 L 115/72 O2 Sat by Pulse 98 Oximetry (%) Awake, alert , NAD Neck +JVD Lungs are clear Heart S1s2 irregular, irregular. Abdomen soft, NT Ext trace edema, varivose veins LE, scabs dry. Laboratory Results - last 24 hr 11/24/18 11/25/18 17:33 05:49 PT with INR 24.50 H INR 2.06 H Sodium 142 Potassium 3.2 L Chloride 100 Carbon Dioxide 34 H Anion Gap 8 BUN 38.9 H Creatinine 1.5 H Est GFR (CKD-EPI)AfAm 35.93 Est GFR (CKD-EPI)NonAf 31.00 Random Glucose 81 Calcium 7.8 L Current Active Problems Problem Status Onset CKD (chronic kidney disease) Acute Cellulitis Acute Prophylactic measure Hypokalemia Acute Plan Replete k Switch to PO Keflex Will follow as out pt Spoke to Sofia. F/U in [facility] Problem List - Problems (1) CKD (chronic kidney disease) Code(s): N18.9 - CHRONIC KIDNEY DISEASE, UNSPECIFIED Qualifiers: Chronic kidney disease stage: stage 3 (moderate) Qualified Code(s): N18.3 - Chronic kidney disease, stage 3 (moderate) (2) Afib Code(s): I48.91 - UNSPECIFIED ATRIAL FIBRILLATION Qualifiers: Atrial fibrillation type: chronic Qualified Code(s): I48.2 - Chronic atrial fibrillation (3) Cellulitis Code(s): L03.90 - CELLULITIS, UNSPECIFIED Qualifiers: Site of cellulitis: extremity Site of cellulitis of extremity: lower extremity Laterality: unspecified laterality Qualified Code(s): L03.119 - Cellulitis of unspecified part of limb
--- NOTE | 2018-11-25 07:37 | DS ---
Physical Examination Vital Signs: Vital Signs Temperature 98.3 F 11/25/18 06:00 Pulse Rate 68 11/25/18 06:00 Respiratory Rate 18 11/25/18 06:00 Blood Pressure 115/72 11/25/18 06:00 O2 Sat by Pulse Oximetry (%) 98 11/24/18 20:33 Constitutional: Yes: No Distress, Anxious Eyes: Yes: Conjunctiva Clear, EOM Intact HENT: Yes: Atraumatic, Normocephalic Neck: Yes: Supple, Trachea Midline Cardiovascular: Yes: Pulse Irregular, JVD, Murmur, S1, S2. No: Bruit, Rub Respiratory: Yes: Regular, CTA Bilaterally Gastrointestinal: Yes: Normal Bowel Sounds, Soft. No: Abdomen, Obese ...Rectal Exam: Yes: Deferred Renal/: No: Anuria Musculoskeletal: Yes: WNL Extremities: No: Amputation, Calf Tenderness, Cold, Cyanosis Edema: LLE: Trace, RLE: Trace Integumentary: Yes: Other (dry scabs over the wounds) Neurological: Yes: Alert, Oriented. No: Aphasia, Facial Droop ...Motor Strength: WNL Psychiatric: Yes: WNL Labs: CBC, BMP 11/25/18 05:49 Laboratory Results - last 24 hr 11/24/18 11/25/18 17:33 05:49 PT with INR 24.50 H INR 2.06 H Sodium 142 Potassium 3.2 L Chloride 100 Carbon Dioxide 34 H Anion Gap 8 BUN 38.9 H Creatinine 1.5 H Est GFR (CKD-EPI)AfAm 35.93 Est GFR (CKD-EPI)NonAf 31.00 Random Glucose 81 Calcium 7.8 L Discharge Summary Reason For Visit: CELLULITIS,EDEMA Current Active Problems CKD (chronic kidney disease) (Acute) Cellulitis (Acute) Prophylactic measure (Acute) Condition: Stable - Instructions Disposition: HOME - Home Medications Comprehensive Discharge Medication List: Ambulatory Orders Dextran 70/Hypromellose/Pf [Artificial Tears Drops] 1 each OP QID 01/10/18 Docusate Sodium [Colace -] 100 mg PO BID capsule 01/17/18 Sennosides [Senna -] 1 tab PO BID tablet 01/17/18 Acetaminophen [Tylenol .Regular Strength -] 650 mg PO Q6H PRN tablet 01/29/18 Amino Acids/Protein Hydrolys [Prosource No Carb Liquid Pkt] 30 ml PO BID@0800, 1730 packet 01/29/18 Metoprolol Succinate [Toprol XL -] 50 mg PO DAILY 08/26/18 Potassium Chloride [K-Tab ER] 40 meq PO DAILY 08/26/18 Prednisolone Acetate/Pf [Prednisolone Acet 1% Eye Drop] 5 ml OP ASDIR 08/26/18 Torsemide [Demadex -] 40 mg PO DAILY 08/26/18 Rosuvastatin [Crestor -] 5 mg PO HS #30 tablet 09/04/18 Warfarin Na [Coumadin -] 2 mg PO DAILY@1800 #30 tablet 09/04/18 predniSONE [Deltasone -] 20 mg PO TID #100 tablet 09/04/18
[2018-11-25 07:54] LABS: INR 1.83 (0.83-1.09); PROTHROMBIN TIME (PATIENT) 21.7 SEC (9.7-13.0)
[2018-11-25] MEDS ORDERED: ceFAZolin SODIUM 1 GM VIAL ONE (09:34)
[2018-11-25] MEDS ORDERED: DEXTROSE 5%-WATER - 50 ML IVPB ONE (09:34)
[2018-11-25] MEDS: CEFAZOLIN 1 GM in DEXTROSE 5%-WATER - 50 ML IVPB SCH (09:39)
[2018-11-25] MEDS: SENNOSIDES 8.6MG TABLET (FP) PO SCH (09:39)
[2018-11-25] MEDS: METOPROLOL TARTRATE 50 MG TABLET (FP) PO SCH (09:39)
[2018-11-25] MEDS: prednisoLONE ACETATE 1% OPHTH SUSP 5 ML BOTTLE OD SCH (09:40)
--- NOTE | 2018-11-25 11:02 | PN ---
Progress Note, Physician Chief Complaint: going home Daughter at bedside Denies CP or SOB Edema much improved. - Current Medication List Current Medications: Active Medications Acetaminophen (Tylenol -) 650 mg PO Q6H PRN PRN Reason: PAIN Artificial Tears (Artificial Tears) 1 drop OU QID PRN PRN Reason: DRY EYES Last Admin: 11/23/18 09:02 Dose: 1 drop Docusate Sodium (Colace -) 300 mg PO [facility] Last Admin: 11/24/18 22:19 Dose: 300 mg Cefazolin Sodium 1 gm/ (Dextrose) 50 mls @ 100 mls/hr IVPB BID [facility] Last Admin: 11/25/18 09:39 Dose: 100 mls/hr Metoprolol Tartrate (Lopressor -) 50 mg PO BID [facility] Last Admin: 11/25/18 09:39 Dose: 50 mg Prednisolone Acetate (Pred Forte 1% -) 1 drop OD DAILY [facility] Last Admin: 11/25/18 09:40 Dose: 1 drop Rosuvastatin Calcium (Crestor -) 5 mg PO [facility] Last Admin: 11/24/18 22:17 Dose: 5 mg Senna (Senna -) 1 tab PO BID [facility] Last Admin: 11/25/18 09:39 Dose: 1 tab Torsemide (Demadex -) 40 mg PO BID@0600,1400 [facility] Last Admin: 11/25/18 06:12 Dose: 40 mg Warfarin Sodium (Coumadin -) 2 mg PO DAILY@1800 [facility] Last Admin: 11/24/18 18:57 Dose: 2 mg - Objective Vital Signs: Vital Signs Temperature 98.3 F 11/25/18 06:00 Pulse Rate 68 11/25/18 06:00 Respiratory Rate 18 11/25/18 06:00 Blood Pressure 115/72 11/25/18 06:00 O2 Sat by Pulse Oximetry (%) 98 11/24/18 20:33 Constitutional: Yes: No Distress Eyes: Yes: Conjunctiva Clear Cardiovascular: Yes: Pulse Irregular Respiratory: Yes: CTA Bilaterally Gastrointestinal: Yes: Soft Edema: No Neurological: Yes: Alert, Oriented Labs: CBC, BMP 11/25/18 05:49 11/25/18 05:49 INR, PTT INR 1.83 (0.83-1.09) H 11/25/18 05:49 Laboratory Tests 11/25/18 11/25/18 11/25/18 05:49 05:49 05:49 WBC 7.1 Hgb 9.5 L Plt Count 265 D INR 1.83 H Sodium 142 Potassium 3.2 L Creatinine 1.5 H Assessment/Plan Assessment/Plan EKG: afib, LVH, prolonged QTc, no ischemic changes CXR: no congestion echo 12/2017 tds, nl LV function apex not well visualized possible small aneurysmal region of apical-inferoseptal myocardium, nl RV functoin, LA dilated , mild MR, mod to severe TR echo 11/2018: lvef 40-45, apical ak, nl rv, lae, mod mr, sev tr, rvsp 30-40 Leg pain, cellulitis: - manage per primary, ID Chest pain, elevated trop: - patient does not remember details, no cp now - EKG no ischemic changes, initial trop indeterminate range with flat trend, not c/w acs CAD, s/p CABG: - continue statin, metoprolol (not on asa - on warfarin) AF: controlled, Asx - cont warfarin, metoprolol; INR goal 2-3 CKD: - manage per renal Chronic systolic/diastolic HF: - reportedly stable edema - likely component of venous insufficiency - continue home torsemide, metoprolol
[2018-11-25 11:41] VITALS: BP 126/79; PULSE 81; TEMP 99
== END 2018-11-25 11:53 | disposition home or self-care (01) | DRG 603 ==
LOC: JER 10:42 → JERBED 13:29 → J8W 14:45
PROVIDERS: ADMIT Internal Medicine; ATTEND Internal Medicine
DX: L03.116 Cellulitis of left lower limb (principal); I50.42 Chronic combined systolic (congestive) and diastolic (congestive) heart failure; L03.115 Cellulitis of right lower limb; I25.10 Atherosclerotic heart disease of native coronary artery without angina pectoris; N18.3 Chronic kidney disease, stage 3 (moderate); I48.2 Chronic atrial fibrillation; I77.6 Arteritis, unspecified; R80.9 Proteinuria, unspecified; R07.9 Chest pain, unspecified; Z95.1 Presence of aortocoronary bypass graft; R31.29 Other microscopic hematuria; I11.0 Hypertensive heart disease with heart failure
CPT/HCPCS: 36415; 71045-TC-FY; 80048; 80053; 81003; 82310; 82550; 82570; 83605; 83970; 84100; 84155; 84156; 84165; 84484; 85025; 85027; 85610; 87040; 87086; 93005; 93010; 93306-TC; 93970-TC; 97116-GP; 97161-GP; 99283-25; J0131; J7030